=== PATIENT | female | born 1945 | race Caucasian/White ===

== ENCOUNTER → 2016-02-20 | Outpatient (CLI) | payer OTHER ==
[~2016-02-20] MED LIST: ASPI-232 PO; ATOR80TA PO; CARV6.252 PO; CHOL100010 PO; DIGO0.122 PO; FLUO20CA35 PO; FRS/40 PO; LEVO112T2 PO; LISI-729 PO; LORA-741 PO; MULTTAB58 PO; OMEG10007 PO; POTA10CA28 PO; SPIR25TA PO
== END | disposition home or self-care (01) ==
LOC: C.LABSPEC 15:02
PROVIDERS: ATTEND Dermatology
DX: L98.9 Disorder of the skin and subcutaneous tissue, unspecified (principal)

== ENCOUNTER → 2016-08-26 | Outpatient (CLI) | payer OTHER ==
--- NOTE | 2016-08-26 15:38 | MAMMOGRAPHY REPORT ---
BILATERAL DIGITAL SCREENING MAMMOGRAM TOMOSYNTHESIS WITH CAD: 08/26/2016 CLINICAL HISTORY: Asymptomatic. Personal history of breast cancer. TECHNIQUE: Breast tomosynthesis in addition to standard 2D mammography was performed. Current study was also evaluated with a Computer Aided Detection (CAD) system. COMPARISON: Comparison is made to exams dated: 08/22/2014 mammogram, 10/10/2012 mammogram, 04/18/2012 alen mogram, 10/14/2011 mammogram, 10/08/2011 mammogram, and 10/02/2010 mammogram - [facility]. BREAST COMPOSITION: There are scattered areas of fibroglandular density in both breasts. FINDINGS: No suspicious masses, calcifications, or areas of architectural distortion are noted in ei ther breast. There has been no significant interval change compared to prior exams. There are stable postsurgical changes in the right medial breast from prior lumpectomy; a linear scar marker denotes a scar on the right anterior breast. Bilateral benign-appearing calcifications are not significantly changed. A metallic device, likely a pacemaker or ICD, overlies the left pectoralis muscle. IMPRESSION: ACR BI-RADS CATEGORY 2: BENIGN There is no mammographic evidence of malignancy. A 1 year screening mammogram is recommended. The pa tient will receive written notification of the results. Approximately 10% of breast cancers are not detected with mammography. A negative mammographic report should not delay biopsy if a clinically suggestive mass is present. Hilda Rowland M.D. /:08/26/2016 14:00:19 Workers Compensation Analyst: Radha SHERIDAN(Magdalena)(Ranjeet), [facility] letter sent: Normal 1/2 BI-RADS Code: ACR BI-RADS Category 2: Benign
== END | disposition home or self-care (01) ==
LOC: C.MAMM 12:52
PROVIDERS: ATTEND Obstetrics & Gynecology
DX: Z12.31 Encounter for screening mammogram for malignant neoplasm of breast (principal); Z85.3 Personal history of malignant neoplasm of breast

== ENCOUNTER 2016-09-09 11:54 | Observation (INO) | payer OTHER ==
[2016-09-09] VITALS (9 sets, daily range): BP systolic 100–140; BP diastolic 60–74; PULSE 57–73; TEMP 36.3–36.7; O2SAT 93–97; Ht 154.9 cm; Wt 65.9 kg
[~2016-09-09] VITALS: Ht 154.9 cm; Wt 65.9 kg
[2016-09-09 12:43] LABS: MEAN CELL VOLUME 90.9 fL (80-100); MEAN CORPUSCULAR HEMOGLOBIN 30.5 pg (25-34); MEAN PLATELET VOLUME 9.8 fL (7.4-10.4); PLATELET COUNT 209 K/uL (130-400); RED BLOOD COUNT 4.29 M/uL (4.2-5.4); WHITE BLOOD COUNT 5.13 K/uL (4.8-10.8)
[2016-09-09] MEDS ORDERED: CEFAZOLIN IV 2,000 MG/60 ML D5W IV ONE (12:48)
[2016-09-09 12:50] LABS: MEAN CORPUSCULAR HGB CONC 33.6 g/dl (32-36)
[2016-09-09] MEDS ORDERED: LIDOCAINE HCL 1% 20 ML VIAL ONE (12:50)
[2016-09-09] MEDS ORDERED: BACITRACIN 50000 UNIT VIAL ONE (12:50)
--- NOTE | 2016-09-09 13:01 | History and Physical ---
History & Physical Date Sep 09, 2016. Chief Complaint icd lead fracture on recalled lead History of Present Illness The patient is a 71 year old female with complaints of icd alarm beeping. pt was seen in my office last week and found on ICD interrogation that the recalled [place] lead has now failed. She is being recommend lead replacement Past Medical/Surgical History Medical Problems: (1) CAD (coronary artery disease) Additional History Hepatic Disease: No Endocrine Disorder: No Kidney Disease: No Hypertension: Yes Heart Disease: Yes Bleeding Tendencies: No Infectious Diseases: No Allergies Coded Allergies: No Known Allergies (Verified , 09/09/16) Home Medications Scheduled Aspirin (Aspir-81), 1 TAB PO DAILY Atorvastatin Calcium (Lipitor), 80 MG PO DAILY Carvedilol (Coreg), 1 TAB PO BID Cholecalciferol (Vitamin D), 1,000 INTER.UNIT PO DAILY Digoxin (Lanoxin), 0.125 MG PO DAILY Fish Oil ([place]-3), 1 CAP PO DAILY Fluoxetine (Prozac), 20 MG PO DAILY Furosemide (Lasix), 40 MG PO DAILY Levothyroxine Sodium (Synthroid), 1 TAB PO DAILY Lisinopril (Zestril), 2.5 MG PO DAILY Lorazepam (Ativan), 0.5 MG PO HS PRN Multiple Vitamin (Multivitamin), 1 TAB PO DAILY Potassium Chloride (Micro-K Ext Rel), 10 MEQ PO BID Spironolactone (Aldactone), 25 MG PO DAILY Physical Examination Skin: warm/dry Eyes: normal inspection ENT: normal ENT inspection Neck: supple Respiratory/Chest: lungs clear, normal breath sounds Cardiovascular: regular rate, rhythm, no edema, no murmur Abdomen / GI: normal bowel sounds Back: normal inspection Extremities: normal inspection Neurologic/Psych: alert, oriented x 3 Diagnosis 1. ICD lead malfunction due to recalled [place] lead 2. VVI ICD with gent change in 04/2015;original in 2005 3. CAD h/o PCI 4. ICM 5. HLD 6. Hypothyroidism ASA Classification: ASA Class II Plan of Treatment for lead revision with new ICD lead and capping prior lead
--- NOTE | 2016-09-09 13:03 | Procedure Note ---
Pre-Mod Sedation Assessment General Date of Moderate Sedation: Sep 09, 2016. Vital Signs: Vital Signs Past 12 Hours Date Time Temp Pulse Resp B/P (MAP) Pulse Ox O2 Delivery O2 Flow Rate FiO2 09/09/16 12:21 36.7 73 18 140/60 (86) 97 Room Air Review Cardiovascular: regular rate, rhythm Abdomen: soft Lungs: lungs clear Airway Class: II Pre-Sedation Airway Assessment Oral Cavity: Capped Teeth Short Thick Neck: No Hx of Sleep Apnea: No Smoking Status: Never Smoker Mallampati Classification: Class II ASA Classification: Class II Procedure Planning Contraindications-for Mod Sed: None Yes Notes The planned sedation has been discussed with the patient and consent obtained. I have identified the patient, determined the appropriateness of sedation and have assessed the patient immediately prior to the procedure. All medicine(s) and interventions are by my order.
[2016-09-09 13:06] LABS: BUN/CREATININE RATIO 30.8 (10-20); CALCIUM 9.4 mg/dl (8.5-10.1); CREATININE 0.77 mg/dl (0.60-1.20)
[2016-09-09] MEDS ORDERED: FENTANYL CITRATE INJ 50 MCG/1 ML 2 ML VIAL ONE (13:16)
[2016-09-09] MEDS ORDERED: MIDAZOLAM HCL 5 MG/ML 1 ML VIAL ONE (13:16)
[2016-09-09] MEDS ORDERED: MIDAZOLAM HCL 1 MG/ML 2ML VIAL ONE (14:09)
--- NOTE | 2016-09-09 14:36 | Procedure Note ---
Post-Mod Sedation Assessment General Date of Moderate Sedation Sep 09, 2016. Vital Signs: Vital Signs Past 12 Hours Date Time Temp Pulse Resp B/P (MAP) Pulse Ox O2 Delivery O2 Flow Rate FiO2 09/09/16 14:30 63 16 123/61 (81) 100 Room Air 09/09/16 12:21 36.7 73 18 140/60 (86) 97 Room Air Review - Discharge Criteria Vital Signs Stable: Yes Alert/Oriented/Conversant: Yes Returned to Baseline Mental St: Yes Nausea Absent/Minimal: Yes Pain/Discomfort/Absent/Minimal: Yes Normal/Baseline Respirations: Yes Active Bleeding?: No Pt Received D/C Instructions: N/A Prescriptions Given: None Specific Proced. D/C Criteria Distal Pulses Present (Cardiac: N/A Groin site assessed-Card Cath: N/A Voided Prior To Discharge: N/A Discharged Patients Adult Escort/Transportation: N/A
--- NOTE | 2016-09-09 14:38 | [facility] Post Operative Brief Note ---
Immediate Operative Summary Operative Date Sep 09, 2016. Pre-Operative Diagnosis ICD LEAD FAILURE ON RECALLED LEAD Post-Operative Diagnosis SAME Procedure(s) Performed NEW INSERTION OF ICD LEAD Surgeon QUINTIN CABA Serging Machine Operator Surgeon(s) NONE Estimated Blood Loss <5CC Findings NONE Fluids (cc crystalloids) 200CC Specimens NONE Drains NONE Anesthesia 4MG VERSED AND 100MCG FENTANYL Complication(s) None Disposition PCU
--- NOTE | 2016-09-09 14:40 | Discharge Instructions ---
Discharge Instructions Date of Service Sep 09, 2016. Admission Reason for Admission: Kkz-Rg-Hvirtoz Life Discharge Discharge Diagnosis / Problem: ICD LEAD FAILURE Discharge Goals Goal(s): Improve function Activity Recommendations Activity Limitations: as noted below Lifting Limitations: no more than 10 pounds (DO NOT LIFT THE LEFT ELBOW OVER THE LEFT SHOULDER FOR 1 MONTH; DO NOT LIFT MORE THAN 10 POUNDS WITH THE LEFT ARM FOR 2 WEEKS) Exercise/Sports Limitations: as tolerated May Resume Sexual Activity: after one week Shower/Bathe: tomorrow Driving or Machine Use: resume 1 day after discharge . Instructions / Follow-Up Instructions / Follow-Up ACTIVITY RECOMMENDATIONS: * Do not raise affected arm over head for 4 weeks. SPECIAL CARE INSTRUCTIONS: * If bleeding occurs, apply direct pressure to area for 5 minutes. * Call your doctor if you have severe pain, fever, drainage or bleeding at site. * Keep dry for 24 hours then remove. * Keep any scheduled doctor's appointment. * Implant Card - hand held device with website information given. SKIN IRRITATION: * You may experience some redness and/or swelling in the area where radiation was administered. If any skin irritation occurs, please contact your family physician. FOLLOW UP VISIT: Keep any scheduled doctor appointments. Current Hospital Diet Patient's current hospital diet: AHA Diet (Heart Healthy), Low Sodium Diet (2gm Na) Discharge Diet Recommended Diet: AHA Diet (Heart Healthy), Low Sodium Diet (2gm Na) Procedures Procedures Performed: NEW INSERTION OF ICD LEAD Pending Studies Studies pending at discharge: no Medical Emergencies . Who to Call and When: Medical Emergencies: If at any time you feel your situation is an emergency, please call 911 immediately. . Non-Emergent Contact Non-Emergency issues call your: Lung Gun Operator . . "Provider Documentation" section prepared by Shanelle Dinh. . VTE Core Measure Inpt VTE Proph given/why not?: Treatment not indicated
--- NOTE | 2016-09-09 14:44 | Discharge Summary ---
Discharge Summary Date of Service Sep 09, 2016. Discharge Summary Admission Date: Discharge Date: Sep 10, 2016 Discharge Disposition: Home Principal Diagnosis: 1. ICD LEAD FAILURE SECONDARY TO RECALL LORI LEAD Secondary Diagnoses/Problems: ICM CAD H/O PCI HLD HYPOTHYROIDISM Procedures: NEW ICD LEAD INSERTION Medication Reconciliation Continued Medications: Aspirin (Aspir-81) 81 Mg Tab 1 TAB PO DAILY for 90 Days, #90 TAB 3 Refills Atorvastatin Calcium (Lipitor) 80 Mg Tab 80 MG PO DAILY, TAB Carvedilol (Coreg) 6.25 Mg Tab 1 TAB PO BID for 90 Days, #180 TAB 1 Refill Cholecalciferol (Vitamin D) 1,000 Inter.unit Tab 1000 INTER.UNIT PO DAILY, TAB Digoxin (Lanoxin) 0.125 Mg Tab 0.125 MG PO DAILY, 0 Refills Fish Oil ([place]-3) 1 Ea Cap 1 CAP PO DAILY, CAP Fluoxetine (Prozac) 20 Mg Cap 20 MG PO DAILY, 0 Refills Furosemide (Lasix) 40 Mg Tab 40 MG PO DAILY, TAB Levothyroxine Sodium (Synthroid) 112 Mcg Tab 1 TAB PO DAILY for 30 Days, #30 TAB 5 Refills Lisinopril (Zestril) 5 Mg Tab 2.5 MG PO DAILY, TAB Lorazepam (Ativan) 0.5 Mg Tab 0.5 MG PO HS PRN, TAB Multiple Vitamin (Multivitamin) 1 Tab Tab 1 TAB PO DAILY for 90 Days, #90 TAB 3 Refills Potassium Chloride (Micro-K Ext Rel) 10 Meq Capcr 10 MEQ PO BID, CAP Spironolactone (Aldactone) 25 Mg Tab 25 MG PO DAILY, TAB Admission Information Physical Exam (per Admitting): aaox3, nad supple, no jvd nrl s1/s2, no murmur cta w/r/r soft nt/nd no edema b/l le no focal deficits Hospital Course pt admitted for elective new ICD lead insertion due to current ICD lead failing with known recalled ICD lead. Pt underwent procedure without any complications and monitored overnight. Discharged home in stable condition Total time spent on discharge = This includes examination of the patient, discharge planning, medication reconciliation, and communication with other providers. Discharge Instructions ACTIVITY RECOMMENDATIONS: * Do not raise affected arm over head for 4 weeks. SPECIAL CARE INSTRUCTIONS: * If bleeding occurs, apply direct pressure to area for 5 minutes. * Call your doctor if you have severe pain, fever, drainage or bleeding at site. * Keep dry for 24 hours. * Keep any scheduled doctor's appointment. * Implant Card - hand held device with website information given. SKIN IRRITATION: * You may experience some redness and/or swelling in the area where radiation was administered. If any skin irritation occurs, please contact your family physician. FOLLOW UP VISIT: Keep any scheduled doctor appointments.
[2016-09-09] MEDS ORDERED: OXYCODONE/ACETAMINOPHEN 5-325 TAB PO PRN (14:45)
[2016-09-09] MEDS ORDERED: LORAZEPAM 0.5 MG TAB PO PRN (14:45)
[2016-09-09] MEDS ORDERED: IV FLUIDS COMPLETED PRN (15:30)
[2016-09-09] MEDS: CARVEDILOL 6.25 MG TAB PO SCH (20:55)
[2016-09-09] MEDS: POTASSIUM CHLORIDE 10 MEQ TABCR PO SCH (20:55)
[2016-09-09] MEDS: ACETAMINOPHEN 325 MG TAB PO PRN (20:57)
[2016-09-10] VITALS: BP 105/65; PULSE 67; TEMP 36.5; O2SAT 95
[2016-09-10 04:00] VITALS: O2SAT 94
[2016-09-10 04:17] VITALS: BP 106/69; PULSE 68; TEMP 36.4; O2SAT 94
[2016-09-10] MEDS ORDERED: LEVOTHYROXINE 112 MCG TAB PO SCH (06:00)
--- NOTE | 2016-09-10 06:22 | DIAGNOSTIC IMAGING REPORT ---
CHEST 2 VIEWS ROUTINE CLINICAL HISTORY: EXACT TIME ORDERED Evaluate for pneumothorax and lead placement COMPARISON STUDY: 01/06/2012 FINDINGS: Revision of the patient's permanent bipolar cardiac pacemaker/defibrillator. 2 lesions are present. Position. No evidence pneumothorax. IMPRESSION: Revision of the patient's previous pacemaker with leads in good position. The above report was generated using voice recognition software. It may contain grammatical, syntax or spelling errors. Electronically signed by: Blane Corley M.D. 09/10/2016 6:20 AM Dictated Date/Time: 09/10/2016 6:19 AM
[2016-09-10 07:41] VITALS: BP 109/63; PULSE 59; TEMP 36.6; O2SAT 95
[2016-09-10] MEDS: ACETAMINOPHEN 325 MG TAB PO PRN (07:59)
[2016-09-10] MEDS: POTASSIUM CHLORIDE 10 MEQ TABCR PO SCH (08:03)
[2016-09-10] MEDS: CARVEDILOL 6.25 MG TAB PO SCH (08:04)
--- NOTE | 2016-09-10 08:24 | Cardiology Follow-Up ---
Subjective Subjective Date of Service: Sep 10, 2016. Pt evaluation today including: conversation w/ patient, physical exam, lab review Pain: minimal controlled with tylenol Problem List Medical Problems: (1) Fall Status: Acute (2) Head injury Status: Acute (3) Scalp laceration Status: Acute Review of Systems Constitutional: No fever Respiratory: No shortness of breath, No dyspnea on exertion Cardiac: No chest pain, No edema, No palpitations Abdomen: No nausea, No diarrhea Objective Vital Signs Last Vital Signs Documentation Date Time Temp Pulse Resp B/P (MAP) Pulse Ox O2 Delivery O2 Flow Rate FiO2 09/10/16 07:41 36.6 59 18 109/63 (78) 95 Room Air Physical Exam: General Appearance: WD/WN, no apparent distress Eyes: bilateral eyes PERRL, bilateral eyes EOMI Neck: supple, no JVD Respiratory/Chest: lungs clear, normal breath sounds Cardiovascular: regular rate, rhythm, no murmur Abdomen: normal bowel sounds Extremities: no pedal edema Neurologic/Psychiatric: alert, oriented x 3 Skin: warm/dry, no rash (minimal ecchymosis at incision site, no hematoma, incision intact) Assessment and Plan 1. RV ICD lead failure, due to recalled lead [place] lead, s/p new lead insertion 2. ICM 3. h.o vvi icd in 2008 with gent change in 2015 4. hld 5. cad h/o pci 6. hypothyroidism plan: -ok to discharge home today -do not lift the left elbow over the left shoulder for 1 month -can shower tomorrow -continue home medications -device and wound check in 7-10 days Discharge planning: home Medications: Medications Administered Medications (Trade) Dose Ordered Sig/Jose Miguel Route Start Time Stop Time Status Last Admin Dose Admin Cefazolin Sodium (Ancef 2000mg/60 ml D5W) 2,000 mg STK-MED ONCE IV 09/09/16 12:48 09/09/16 12:49 DC 09/09/16 13:12 2,000 MG Lidocaine HCl (Xylocaine 1% Inj (Local)) 40 ml STK-MED ONCE .ROUTE 09/09/16 12:50 09/09/16 12:51 DC 09/09/16 12:50 40 ML Bacitracin (Bacitracin Inj) 50,000 units STK-MED ONCE .ROUTE 09/09/16 12:50 09/09/16 12:51 DC 09/09/16 12:50 50,000 UNITS Midazolam HCl (Versed Inj) 5 mg STK-MED ONCE .ROUTE 09/09/16 13:16 09/09/16 13:17 DC 09/09/16 13:16 4 MG Fentanyl Citrate (Fentanyl Inj) 100 mcg STK-MED ONCE .ROUTE 09/09/16 13:16 09/09/16 13:17 DC 09/09/16 13:16 100 MCG Acetaminophen (Tylenol Tab) 650 mg Q4H PRN PO 09/09/16 14:45 10/09/16 14:44 09/10/16 07:59 650 MG Aspirin (Ecotrin Tab) 81 mg DAILY PO 09/10/16 09:00 10/10/16 08:59 09/10/16 08:03 81 MG Atorvastatin Calcium (Lipitor Tab) 80 mg DAILY PO 09/10/16 09:00 10/10/16 08:59 09/10/16 08:00 80 MG Carvedilol (Coreg Tab) 6.25 mg BID PO 09/09/16 21:00 10/09/16 20:59 09/10/16 08:04 6.25 MG Cholecalciferol (Vitamin D Tab) 1,000 inter.unit DAILY PO 09/10/16 09:00 10/10/16 08:59 09/10/16 08:00 1,000 INTER.UNIT Fluoxetine HCl (Prozac Cap) 20 mg DAILY PO 09/10/16 09:00 10/10/16 08:59 09/10/16 08:01 20 MG Furosemide (Lasix Tab) 40 mg DAILY PO 09/10/16 09:00 10/10/16 08:59 09/10/16 08:02 40 MG Levothyroxine Sodium (Synthroid Tab) 112 mcg DAILYBB PO 09/10/16 06:00 10/10/16 05:59 09/10/16 05:14 112 MCG Lisinopril (Zestril Tab) 2.5 mg DAILY PO 09/10/16 09:00 10/10/16 08:59 09/10/16 08:00 2.5 MG Multivitamins (Multivitamin Tab) 1 tab DAILY PO 09/10/16 09:00 10/10/16 08:59 09/10/16 08:00 1 TAB Potassium Chloride (Klor-Con M10) 10 meq BID PO 09/09/16 21:00 10/09/16 20:59 09/10/16 08:03 10 MEQ Spironolactone (Aldactone Tab) 25 mg DAILY PO 09/10/16 09:00 10/10/16 08:59 09/10/16 08:01 25 MG Lab Results: ecg: SR Telemetry: SR with some pvc and bigeminy cxr: no ptx new rv lead in position icd interrogation; stable and wnl lead testing Last 24 Hours Test 09/09/16 12:34 White Blood Count 5.13 K/uL Red Blood Count 4.29 M/uL Hemoglobin 13.1 g/dL Hematocrit 39.0 % Mean Corpuscular Volume 90.9 fL Mean Corpuscular Hemoglobin 30.5 pg Mean Corpuscular Hemoglobin Concent 33.6 g/dl RDW Standard Deviation 42.2 fL RDW Coefficient of Variation 12.8 % Platelet Count 209 K/uL Mean Platelet Volume 9.8 fL Sodium Level 139 mmol/L Potassium Level 4.0 mmol/L Chloride Level 107 mmol/L Carbon Dioxide Level 27 mmol/L Anion Gap 5.0 mmol/L Blood Urea Nitrogen 24 mg/dl Creatinine 0.77 mg/dl Est Creatinine Clear Calc Drug Dose 57.2 ml/min Estimated GFR () 88.8 Estimated GFR (Non- 76.6 BUN/Creatinine Ratio 30.8 Random Glucose 112 mg/dl Calcium Level 9.4 mg/dl
[2016-09-10] MEDS ORDERED: FUROSEMIDE 40 MG TAB PO SCH (09:00)
[2016-09-10] MEDS ORDERED: SPIRONOLACTONE 25 MG TAB PO SCH (09:00)
[2016-09-10] MEDS ORDERED: MULTIVITAMIN TAB PO SCH (09:00)
[2016-09-10] MEDS ORDERED: CHOLECALCIFEROL 1000 INTER.UNIT TAB PO SCH (09:00)
[2016-09-10] MEDS ORDERED: LISINOPRIL 2.5 MG TAB PO SCH (09:00)
[2016-09-10] MEDS ORDERED: ASPIRIN 81 MG ECTAB PO SCH (09:00)
[2016-09-10] MEDS ORDERED: ATORVASTATIN 40 MG TAB PO SCH (09:00)
[2016-09-10] MEDS ORDERED: FLUOXETINE HCL 20 MG CAP PO SCH (09:00)
[2016-09-10 09:57] VITALS: BP 109/63; PULSE 59; TEMP 36.6; O2SAT 95
[2016-09-10] MEDS ORDERED: DIGOXIN 0.125 MG TAB PO SCH (16:00)
[2016-09-11] MEDS ORDERED: LACTATED RINGER'S 1000ML IV SCH (06:00)
[2016-09-11] MEDS ORDERED: CEFAZOLIN 1000MG/55 ML D5W 55 ML IV SCH (06:00)
--- NOTE | 2016-09-11 07:09 | OPERATIVE REPORT ---
DATE OF OPERATION: 09/09/2016 PREOPERATIVE DIAGNOSIS: Defibrillator lead failure on a recalled [place] lead. POSTOPERATIVE DIAGNOSIS: Same. PROCEDURE: New ICD lead and right ventricular ICD lead insertion under fluoroscopic guidance. SURGEON: Dr. Shanelle Dinh. KST OPERATOR: None. ANESTHESIA: Monitored conscious sedation given under my supervision by Kaushik Parker. Start time 1326, end time 1430. A total of 4 mg of Versed, 100 mcg of fentanyl. INTRAVENOUS FLUIDS: 200 mL. ANTIBIOTICS: Two grams. ESTIMATED BLOOD LOSS: Less than 10 mL. COMPLICATIONS: None. CONDITION: Stable. URINE OUTPUT: Not applicable. SPECIMENS: None. FINDINGS: None. DRAINS: None. INDICATIONS: This is a 71-year-old female, who has a past medical history for ischemic cardiomyopathy, where she underwent a single-chamber ICD back in 2008 and a generator change in April 2015. She also has past medical history of hypertension, hypothyroidism, and coronary disease, where she had PPI the past. She has a known recalled [place] lead that was doing fine at the time of the generator change; so, had opted not to change it out or insert a new lead. But then, last week, she came to our office, but because of an alarm buzzing and was found to have that lead was failing and fractured with high impedance and a lot of noise. So, she was recommended a new lead insertion with capping of the old lead. CONSENT: Consent was obtained prior to the patient going into the electrophysiology lab. The patient was informed of the risks, benefits and alternatives to the procedure. Risks include, but not limited to, sudden cardiac , cardiac arrhythmias, cerebrovascular accident, myocardial infarction, injuries to the blood vessels, chamber of the heart, lungs, bleeding or infection. The patient understood these risks and agreed to the procedure as planned. Informed consent was obtained. DESCRIPTION OF THE PROCEDURE: The patient was brought into the electrophysiology lab in a fasting state. She was connected to continuous cardiac monitoring. A timeout was performed to ensure patient's identity and procedure correctly. The patient was prepped and draped over the left infraclavicular space in normal surgical standard fashion. Moderate conscious sedation was given throughout the procedure for patient's comfort level. [place] precautions were maintained throughout the procedure. 10 mL of 1% lidocaine, bupivacaine mixture was given in the left deltopectoral groove. Incision was made in the left deltopectoral groove. Blunt dissection was performed down to identify cephalic vein. The cephalic vein was identified and isolated using 0 silk ties. The cephalic vein was isolated using an 11 blade and a guidewire was inserted without any resistance. Then a 9.5 [place] sheath was inserted over the guidewire without any resistance. The guidewire and dilator were removed. . The right ventricular defibrillator lead was then advanced into the right ventricle and positioned a little bit higher up on the low right ventricular septum, away from the current defibrillator lead. There was adequate pacing and sensing thresholds and no diaphragmatic stimulation with high output pacing. The 9.5 [place] sheath was peeled away and the lead was fixated to the pectoralis muscle using 0 silk suture. The capsule was disrupted inferiorly and caudally to allow for new blood flow. The old right ventricular defibrillator lead was capped. The new defibrillator lead was attached to the prior defibrillator generator and we then ensured that the pins were in appropriate position, passed the set screws and the set screws were tightened. An antibiotic pouch was used and the defibrillator generator and the leads were placed inside the pouch, making sure that the leads were lying flat beneath the device. The pocket was flushed with copious amounts of bacitracin saline wash and inspected for hemostasis and then the device was placed in the pocket. The incision was closed in a 3-layer fashion using a 2-0 Vicryl interrupted suture followed by a 3-0 Vicryl interrupted suture followed by a 4-0 Monocryl running stitch and Dermabond was applied. EQUIPMENTS: 1. The chronic generator is an [place], serial number [id number], implanted 04/24/2015. 2. The new right ventricular lead is a Medtronic 6935-65 cm, serial number [id number]. 3. The TYRX absorbable antibiotic envelope, lot #[id number]. 4. The old right ventricular lead is 6949-65, lot number [id number], implanted 10/22/2005. INTRAOPERATIVE TESTING: R-wave is 15.7 millivolts, impedance 741 ohms, threshold 0.4 volts at 0.2 milliamps. FINAL MEASUREMENTS THROUGH THE DEVICE: R-wave is 18.9 millivolts, impedance 532 ohms, threshold 0.5 volts at 0.4 milliseconds. FINAL PARAMETERS: VVI 40, right ventricular amplitude 3.5 volts, pulse width 0.4 milliseconds, sensitivity 0.3 millivolts, VF zone is 200 with 30/40 intervals. FINAL IMPRESSIONS: Successful new insertion of a right ventricular defibrillator lead, secondary to failure of a prior defibrillator lead due to recalled [place] lead fracture. PLAN: Monitor patient overnight, 12-lead ECG, chest x-ray. She is not allowed to lift the left elbow over the left shoulder for 1 month. She cannot lift more than 10 pounds with the left arm for 2 weeks. She should follow up in our [facility] office in 7-10 days for device and wound check. She should continue her home medications. I attest to the content of the Intraoperative Record and any orders documented therein. Any exceptions are noted below. BRIANNA
== END 2016-09-10 12:26 | disposition home or self-care (01) ==
LOC: C.ACU 11:54 → ENRESERV 14:12 → C.2T 14:35
PROVIDERS: ADMIT Internal Medicine; ATTEND Internal Medicine
DX: T82.598A Other mechanical complication of other cardiac and vascular devices and implants, initial encounter (principal); Y83.1 Surgical operation with implant of artificial internal device as the cause of abnormal reaction of the patient, or of later complication, without mention of misadventure at the time of the procedure; I25.5 Ischemic cardiomyopathy; I25.10 Atherosclerotic heart disease of native coronary artery without angina pectoris; Z98.61 Coronary angioplasty status; E03.9 Hypothyroidism, unspecified; E78.5 Hyperlipidemia, unspecified; Z79.82 Long term (current) use of aspirin

== ENCOUNTER → 2016-10-30 | Outpatient (CLI) | payer OTHER ==
[2016-10-30 13:16] LABS: CHOLESTEROL/HDL RATIO 2.8; THYROID STIMULATING HORMONE 0.301 uIu/ml (0.300-4.500)
== END | disposition home or self-care (01) ==
LOC: C.LABPVFM 09:22
PROVIDERS: ATTEND Family Medicine
DX: E78.2 Mixed hyperlipidemia (principal); E03.9 Hypothyroidism, unspecified

== ENCOUNTER → 2017-01-11 | Outpatient (CLI) | payer OTHER ==
--- NOTE | 2017-01-11 10:53 | DIAGNOSTIC IMAGING REPORT ---
L-SPINE MIN 4 VIEWS ROUTINE HISTORY: Pain M79.606 Chronic pain of lower [id number] COMPARISON: None. FINDINGS: There is no fracture. Mild scoliosis. Mild degenerative disc changes throughout. Grade 1 anterolisthesis of L4 and L5 secondary to degenerative changes of the posterior elements. No evidence for compression deformity. IMPRESSION: 1. Grade 1 anterolisthesis of L4 on L5 secondary to degenerative change posterior facets. 2. Mild scoliosis. 3. No acute process. The above report was generated using voice recognition software. It may contain grammatical, syntax or spelling errors. Electronically signed by: Blane Corley M.D. 01/11/2017 10:51 AM Dictated Date/Time: 01/11/2017 10:50 AM
[2017-01-12 17:56] LABS: ALBUMIN 4.3 G/DL (3.8-4.8); GAMMA GLOBULIN 0.9 G/DL (0.8-1.7); TOTAL PROTEIN 6.8 G/DL (6.2-8.3)
== END | disposition home or self-care (01) ==
LOC: C.LAB 09:23
PROVIDERS: ATTEND Family Medicine
DX: M79.606 Pain in leg, unspecified (principal); M43.16 Spondylolisthesis, lumbar region

== ENCOUNTER → 2017-10-04 | Outpatient (CLI) | payer OTHER ==
--- NOTE | 2017-10-04 12:33 | DIAGNOSTIC IMAGING REPORT ---
PA CHEST WITH LEFT-SIDED RIB SERIES CLINICAL HISTORY: Fall several weeks ago. Left-sided rib pain. FINDINGS: A PA chest radiograph with 4 additional views may left-sided rib series is compared to study dated 09/10/2016. A 2-lead cardiac AICD is unchanged in position and partially obscures the left lower chest. The heart is enlarged and there is atherosclerotic calcification of the thoracic aorta. The pulmonary vasculature is noncongested. Coronary artery stents are noted. Chronic interstitial thickening is similar to previous. No airspace consolidation or pleural effusion is identified. No pneumothorax is seen. The skeletal structures are osteopenic. There is an acute and minimal distracted left anterior ninth rib fracture. No additional left-sided rib fracture is clearly seen on the rib series. The remainder of the bony thorax is grossly intact. IMPRESSION: 1. Cardiomegaly and AICD. There is no radiographic evidence of congestive failure. 2. There is no airspace consolidation, pleural effusion, or pneumothorax. 3. There is an acute and minimally distracted left anterior 9th rib fracture. 4. No additional acute/distracted left-sided rib fracture is seen on the rib series. Electronically signed by: Saad Isaacs M.D. 10/04/2017 12:32 PM Dictated Date/Time: 10/04/2017 12:30 PM
== END | disposition home or self-care (01) ==
LOC: C.RAD1850 11:14
PROVIDERS: ATTEND Nurse Practitioner Adult Health
DX: R07.81 Pleurodynia (principal); W19.XXXA Unspecified fall, initial encounter

== ENCOUNTER 2021-04-01 19:12 | Inpatient (IN) ==
[2021-04-01] MEDS ORDERED: MoRPHine SULFATE 2 MG/ML CARP IV PRN (19:50)
--- NOTE | 2021-04-01 20:03 | XRay Report ---
XR hip RT 2V w pelvis CLINICAL HISTORY: fall. Right hip pain COMPARISON STUDY: 02/26/2018 TECHNIQUE: AP pelvis and 2 right hip views FINDINGS: Bones: There is a displaced, subcapital fracture right femoral neck. The femoral shaft is superiorly migrated relation to the femoral neck. The remaining imaged bones are intact. There is no lytic or bl astic lesion. Joints: The femoral head maintains its anatomic position within the acetabulum. There is coxa varus d eformity. Soft tissues: There is no focal soft tissue abnormality. There is no radiopaque foreign body. IMPRESSION: 1. Displaced, subcapital fracture of the right femoral neck. ACT 112: Negative or not required by law. Electronically signed by: Mati Saunders M.D. 04/01/2021 8:02 PM
[2021-04-01 20:34] LABS: Basophils # (auto) 0.02 K/uL (0-0.2); Basophils % (auto) 0.2 %; Eosinophils # (auto) 0.22 K/uL (0-0.5); Eosinophils % (auto) 1.7 %; Immature Granulocytes # (auto) 0.02 K/uL (0.00-0.02); Immature Granulocytes % (auto) 0.2 %; Lymphocytes # (auto) 0.99 K/uL (1.2-3.4); Lymphocytes % (auto) 7.5 %; Mean Corpuscular Hemoglobin 30.8 pg (25-34); Mean Corpuscular Hgb Conc 33.3 g/dL (32-36); Mean Corpuscular Volume 92.4 fL (80-100); Mean Platelet Volume 11.4 fL (7.4-10.4); Monocytes # (auto) 0.97 K/uL (0.11-0.59); Monocytes % (auto) 7.4 %; Neutrophils # (auto) 10.91 K/uL (1.4-6.5); Platelet Count 200 K/uL (130-400); RDW Coefficient of Variation 13.5 % (11.5-14.5); Red Blood Count 4.22 M/uL (4.2-5.4); White Blood Count 13.13 K/uL (4.8-10.8)
--- NOTE | 2021-04-01 20:36 | XRay Report ---
XR chest 1V portable CLINICAL HISTORY: Preop for right hip fracture. Evaluate cardiopulmonary status COMPARISON STUDY: 10/04/2017 TECHNIQUE: 1 view of the chest FINDINGS: Single frontal view of the chest demonstrates the heart size to again be enlarged with dual lead ICD pacer in place. The lungs are clear of alveolar opacities. There is no evidence for pleural effusion. There is no evidence for vascular congestion. There is no acute osseous pathology. IMPRESSION: 1. No acute cardiopulmonary disease. 2. Cardiomegaly with pacer. ACT 112: Negative or not required by law. Electronically signed by: Mati Saunders M.D. 04/01/2021 8:34 PM
[2021-04-01 20:43] LABS: Appearance Urine Clear (Clear); Bacteria Urine Automated Negative (Negative); Bilirubin Urine Negative (Negative); Blood Urine Negative (Negative); Color Urine Yellow; Epithelial Cell Urine Auto 20-30 /lpf (0-5); Glucose Urine UA Negative (Negative); Ketones Urine Negative (Negative); Leukocyte Esterase Urine Negative (Negative); Nitrite Urine Negative (Negative); Protein Urine Trace (Negative); RBC Urine Automated 0-4 /hpf (0-4); Specific Gravity Urine 1.015 (1.000-1.030); Urobilinogen Urine Negative (Negative)
[2021-04-01 20:48] LABS: INR 1.1 (0.9-1.1); Partial Thromboplastin Time 25.9 Seconds (21.0-31.0); Prothrombin Time 11.4 Seconds (9.0-12.0)
[2021-04-01 20:57] LABS: Alanine Aminotransferase 16 U/L (7-52); Albumin Globulin Ratio 1.5 (0.9-2); Albumin Level 4.3 gm/dl (3.4-5.0); Alkaline Phosphatase 68 U/L (34-104); Anion Gap 10 (3-11); Aspartate Aminotransferase 17 U/L (13-39); BUN Creatinine Ratio 30.4 (10-20); Bilirubin,Total 0.7 mg/dl (0.2-1.0); Blood Urea Nitrogen 34 mg/dl (6-23); Calcium 9.3 mg/dl (8.5-10.1); Carbon Dioxide 24 mmol/L (21-32); Chloride 101 mmol/L (98-107); Est GFR (African American) 54.9 ml/min; Est GFR (Non-African American) 47.3 ml/min; Globulin 2.8 gm/dl (2.5-4.0); Glucose 153 mg/dl (70-99(Fasting)); Potassium 4.2 mmol/L (3.5-5.1); Sodium 135 mmol/L (136-145); Total Protein 7.1 gm/dl (6.0-8.3)
[2021-04-01] MEDS: MoRPHine SULFATE 4 MG/ML 1 ML CARP\\VIAL IV PRN ×2 (21:21→22:42)
--- NOTE | 2021-04-01 23:02 | History & Physical Report ---
Date of Service April 01, 2021 Assessment & Plan (1) Closed right hip fracture: Plan: N.p.o. after midnight except essential medications Acetaminophen 6-milligrams p.o. every 6 hours as needed mild pain or fever [place] 5/325 1 p.o. every 6 hours as needed moderate pain [place] 5/325 2 p.o. every 6 hours as needed severe pain Dilaudid 0.25 mg IV every 3 hours as needed moderate pain Dilaudid 0.5 mg IV every 3 hours as needed severe pain Consult orthopedic surgery (2) CAD (coronary artery disease): Plan: CAD/hypertension/ischemic cardiomyopathy- Continue carvedilol, digoxin Hold aspirin, furosemide, lisinopril and spironolactone (3) Hypertension: Plan: See above (4) Ischemic cardiomyopathy: Plan: See above (5) Hypothyroid: Plan: Continue levothyroxine 88 mcg daily (6) Anxiety: Plan: Continue lorazepam and fluoxetine (7) Hypercholesteremia: Plan: Continue rosuvastatin Hold fish oil History of Present Illness Chief Complaint: The patient presents to the emergency department with complaint of right hip pain that occurred immediately upon falling down a step while carrying a bag of groceries about 2 hours prior to arrival. Primary Care Provider: Santana Woodard MD The patient is a 75-year-old female with a past medical history including CAD, hypertension, hypothyroidism, anxiety, ischemic cardiomyopathy and hypercholesterolemia. She presents to the emergency department as noted above. She denies any other injury to any other body areas including head. Work-up in the emergency department included a pelvis x-ray with bilateral hips, which showed a right hip fracture. Allergies Allergy/AdvReac Type Severity Reaction Status Date / Time No Known Allergies Allergy Verified 04/01/21 20:17 Home Medications Medication Instructions Recorded Confirmed Type aspirin 81 mg tablet,delayed 81 mg PO DAILY 04/20/18 04/01/21 History release (Ecotrin Low Strength) carvedilol 6.25 mg tablet 6.25 mg PO BID 04/20/18 04/01/21 History cholecalciferol (vitamin D3) 25 1,000 units PO DAILY 04/20/18 04/01/21 History mcg (1,000 unit) capsule omega 2-lgp-brf-fish oil 1,000 mg 1 cap PO BID 04/20/18 04/01/21 History (120 mg-180 mg) capsule (Fish Oil) digoxin 125 mcg (0.125 mg) tablet 125 mcg PO DAILY #90 tab 03/13/20 04/01/21 Rx rosuvastatin 40 mg tablet 40 mg PO DAILY 03/13/20 04/01/21 History lorazepam 0.5 mg tablet 0.5 mg PO HS PRN #30 tab 09/17/20 04/01/21 Rx fluoxetine 20 mg capsule 20 mg PO DAILY #90 cap 12/23/20 04/01/21 Rx spironolactone 25 mg tablet 25 mg PO DAILY #90 tab 12/23/20 04/01/21 Rx furosemide 40 mg tablet (Lasix) See Rx Instructions PO DAILY tab 01/08/21 04/01/21 History lisinopril 5 mg tablet 2.5 mg PO DAILY #45 tab 01/22/21 04/01/21 Rx levothyroxine 88 mcg capsule 88 mcg PO DAILY #90 cap 01/23/21 04/01/21 Rx multivitamin 1 tab PO DAILY 04/01/21 04/01/21 History Past Med/Surg History Medical History (Updated 04/02/21 @ 02:46 by Ian Younger MD) Anxiety High cholesterol Hx of myocardial infarction Hypertension Hypothyroid ICD (implantable cardioverter-defibrillator) lead failure Vertigo Surgical History H/O: History of implantable cardiac defibrillator (ICD) Family History Mother Lung cancer Father No problems noted. Social History Smoking Status: Never smoker Second Hand Exposure: No; Do You Dip or Chew Tobacco: No; Tobacco Cessation Education Requested by Patient: No Hx Alcohol Use: No Hx Substance Use: No Preferred Language: Nam[place]ian Communication Ability: Effective Visual Impairment: Limited Hearing Ability: Hard of Hearing Oil Processing Technician Required: No Beliefs That Will Affect Care: Anabaptist Anabaptist Beliefs: Sabianist Karena. 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 Other Information That Helps Us Care for You: No Feels Safe at Home: Yes Safety Concerns: Feels Safe At This Time Seatbelt Use: always Sunscreen Use: No Assistive Devices: Glasses and Walker Review of Systems Review of Systems: The patient denies chest pain, palpitations, shortness of breath, dyspnea on exertion, cough, lower extremity swelling, sore throat, fevers, chills, sweats, weight change, fatigue, nausea, vomiting, diarrhea , constipation, abdominal pain, pelvic pain, blood in urine or stool, dysuria, urinary frequency or urgency, lightheadedness, dizziness, headache, memory loss, loss of consciousness, rash, abnormal bruising or bleeding, focal or generalized weakness, numbness or tingling in arms or left leg, generalized arthralgias or myalgias, back or neck pain, or night sweats. The review of systems is otherwise negative other than for that already noted above, and at least 10 systems have been reviewed. Physical Exam Physical Exam: The patient is awake, alert and oriented 3, well developed and well nourished, normocephalic and atraumatic, lying in bed and in no acute distress. HEENT--PERRL, EOMI, mucous membranes and oropharynx normal. Neck--supple. No JVD. No bruits. Thyroid normal, trachea midline, no adenopathy. Heart--normal S1 and S2. No murmurs, rubs or gallops. Lungs--clear bilaterally, no respiratory distress, no accessory muscle use. Abdomen--normal bowel sounds and soft. Nontender. Nondistended, no hernias or masses, no organomegaly. Extremities--no cyanosis or clubbing. No edema. Dermatologic--normal skin turgor, normal color, no abnormal lymph nodes, no rash. Neurologic--cranial nerves II through XII grossly intact. Rheumatologic--limited exam due to right hip and leg pain Psychiatric--normal affect. Results & Data Results & Data ([facility]) Vital Signs (Past 12 Hours) Vital Signs Temp Pulse Pulse Resp BP BP Pulse Ox 04/01/21 22:49 84 16 112/69 93 04/01/21 20:18 87 16 128/71 94 04/01/21 19:20 36.6 C 89 16 141/84 H 94 Laboratory Results Laboratory Results WBC 13.13 K/uL (4.8-10.8) H 04/01/21 20:13 RBC 4.22 M/uL (4.2-5.4) 04/01/21 20:13 Hgb 13.0 g/dL (12.0-16.0) 04/01/21 20: Hct 39.0 % (37-47) 04/01/21 20:13 MCV 92.4 fL (80-100) 04/01/21 20: MCH 30.8 pg (25-34) 04/01/21 20: MCHC 33.3 g/dL (32-36) 04/01/21 20: RDW Std Deviation 46.0 fL (36.4-46.3) 04/01/21 20: RDW Coeff of Luis Antonio 13.5 % (11.5-14.5) 04/01/21: Plt Count 200 K/uL (130-400) 04/01/21 20: MPV 11.4 fL (7.4-10.4) H 04/01/21 20: Immature Gran % (Auto) 0.2 % 04/01/21 20: Neut % (Auto) 83.0 % 04/01/21 20: Lymph % (Auto) 7.5 % 04/01/21 20: [place] % (Auto) 7.4 % 04/01/21 20: Eos % (Auto) 1.7 % 04/01/21: Baso % (Auto) 0.2 % 04/01/21 20: Neut # (Auto) 10.91 K/uL (1.4-6.5) H 04/01/21 20: Lymph # (Auto) 0.99 K/uL (1.2-3.4) L 04/01/21 20: Barron # (Auto) 0.97 K/uL (0.11-0.59) H 04/01/21 20: Eos # (Auto) 0.22 K/uL (0-0.5) 04/01/21: Baso # (Auto) 0.02 K/uL (0-0.2) 04/01/21 20: Immature Gran # (Auto) 0.02 K/uL (0.00-0.02) 04/01/21: PT 11.4 Seconds (9.0-12.0) 04/01/21 20:13 INR 1.1 (0.9-1.1) 04/01/21 20:13 APTT 25.9 Seconds (21.0-31.0) 04/01/21 20:13 PTT Ratio 1.0 04/01/21 20:13 Sodium 135 mmol/L (136-145) L 04/01/21 20:13 Potassium 4.2 mmol/L (3.5-5.1) 04/01/21 20:13 Chloride 101 mmol/L (98-107) 04/01/21 20:13 Carbon Dioxide 24 mmol/L (21-32) 04/01/21 20:13 Anion Gap 10 (3-11) 04/01/21 20:13 BUN 34 mg/dl (6-23) H 04/01/21 20:13 Creatinine 1.12 mg/dl (0.6-1.2) 04/01/21 20:13 Est Cr Clr Drug Dosing Not Reportable 04/01/21 20:13 Est GFR ( Amer) 54.9 ml/min 04/01/21 20:13 Est GFR (Non-Af Amer) 47.3 ml/min 04/01/21 20:13 BUN/Creatinine Ratio 30.4 (10-20) H 04/01/21 20:13 Glucose 153 mg/dl (70-99(Fasting)) H 04/01/21 20:13 Calcium 9.3 mg/dl (8.5-10.1) 04/01/21 20:13 Total Bilirubin 0.7 mg/dl (0.2-1.0) 04/01/21 20:13 AST 17 U/L (13-39) 04/01/21 20:13 ALT 16 U/L (7-52) 04/01/21 20:13 Alkaline Phosphatase 68 U/L (34-104) 04/01/21 20:13 Total Protein 7.1 gm/dl (6.0-8.3) 04/01/21 20:13 Albumin 4.3 gm/dl (3.4-5.0) 04/01/21 20:13 Globulin 2.8 gm/dl (2.5-4.0) 04/01/21 20:13 Albumin/Globulin Ratio 1.5 (0.9-2) 04/01/21 20:13 Urine Color Yellow 04/01/21 20:14 Urine Appearance Clear (Clear) 04/01/21 20:14 Urine pH 6.0 (4.5-7.5) 04/01/21 20:14 Ur Specific [place] 1.015 (1.000-1.030) 04/01/21 20:14 Urine Protein Trace (Negative) H 04/01/21 20:14 Urine Glucose (UA) Negative (Negative) 04/01/21 20:14 Urine Ketones Negative (Negative) 04/01/21 20:14 Urine Blood Negative (Negative) 04/01/21 20:14 Urine Nitrite Negative (Negative) 04/01/21 20:14 Urine Bilirubin Negative (Negative) 04/01/21 20:14 Urine Urobilinogen Negative (Negative) 04/01/21 20:14 Ur Leukocyte Esterase Negative (Negative) 04/01/21 20:14 Urine WBC (Auto) 1-5 /hpf (0-5) 04/01/21 20:14 Urine RBC (Auto) 0-4 /hpf (0-4) 04/01/21 20:14 U Hyaline Cast (Auto) 5-10 /lpf (0-5) H 04/01/21 20:14 U Epithel Cells (Auto) 20-30 /lpf (0-5) H 04/01/21 20:14 Urine Bacteria (Auto) Negative (Negative) 04/01/21 20:14 SARS-CoV-2, RNA, NAAT NEGATIVE (NEGATIVE) 04/01/21 20:14 Impressions Hip/Pelvis X-Ray 04/01/21 19:23 XR hip RT 2V w pelvis CLINICAL HISTORY: fall. Right hip pain COMPARISON STUDY: 02/26/2018 TECHNIQUE: AP pelvis and 2 right hip views FINDINGS: Bones: There is a displaced, subcapital fracture right femoral neck. The femoral shaft is superiorly migrated relation to the femoral neck. The remaining imaged bones are intact. There is no lytic or blastic lesion. Joints: The femoral head maintains its anatomic position within the acetabulum. There is coxa varus deformity. Soft tissues: There is no focal soft tissue abnormality. There is no radiopaque foreign body. IMPRESSION: 1. Displaced, subcapital fracture of the right femoral neck. ACT 112: Negative or not required by law. Electronically signed by: Mati Saunders M.D. 04/01/2021 8:02 PM Chest X-Ray 04/01/21 20:13 XR chest 1V portable CLINICAL HISTORY: Preop for right hip fracture. Evaluate cardiopulmonary status COMPARISON STUDY: 10/04/2017 TECHNIQUE: 1 view of the chest FINDINGS: Single frontal view of the chest demonstrates the heart size to again be enlarged with dual lead ICD pacer in place. The lungs are clear of alveolar opacities. There is no evidence for pleural effusion. There is no evidence for vascular congestion. There is no acute osseous pathology. IMPRESSION: 1. No acute cardiopulmonary disease. 2. Cardiomegaly with pacer. ACT 112: Negative or not required by law. Electronically signed by: Mati Saunders M.D. 04/01/2021 8:34 PM Code Status & VTE Plan Code Status Full code VTE Prophylaxis Plan VTE Prophylaxis will be ordered: Yes PG Care Time/CCT Total # of Minutes Spent Total Time Spent with Patient: Total time spent is greater than 50% in coordination of care (as documented) at patient's floor/unit and/or counseling patient: Coding Level of Care Code 68664 Initial Inpt Care Lvl 3 Diagnoses CAD (coronary artery disease) I25.10 Hypertension I10 Hypothyroid E03.9 Anxiety F41.9 Ischemic cardiomyopathy I25.5 Hypercholesteremia E78.00 Closed right hip fracture S72.001A
--- NOTE | 2021-04-01 23:41 | Emergency Department Note ---
History of Present Illness General Chief complaint: Hip Pain Stated complaint: Fall, Hip Pain Time Seen by Provider: 04/01/21 19:50 History of Present Illness Provider complaint: Right hip pain Onset (ago): hour(s) 2 Location: lower extremity and right Radiation: non-radiation Severity: moderate Pain Consistency: + constant Maximum Pain Intensity: 7 Current Pain Intensity: 7 Quality: + stabbing, + aching and + sharp Relieved By: + immobilization Exacerbated By: + movement Associated symptoms: no chest pain, no cough, no fever/chills, no headaches, no nausea/vomiting or no shortness of breath 75-year-old female presents emergency department for right hip pain. Patient states she fell approximately 2 hours ago. Patient denies hitting her head. She states pain is located in her right hip is worse with movement better with immobilization. She reports no pain anywhere else. Patient is not on blood thinners. Home Medications Medication Instructions Recorded Confirmed Type aspirin 81 mg tablet,delayed 81 mg PO DAILY 04/20/18 04/01/21 History release (Ecotrin Low Strength) carvedilol 6.25 mg tablet 6.25 mg PO BID 04/20/18 04/01/21 History cholecalciferol (vitamin D3) 25 1,000 units PO DAILY 04/20/18 04/01/21 History mcg (1,000 unit) capsule omega 4-gth-upq-fish oil 1,000 mg 1 cap PO BID 04/20/18 04/01/21 History (120 mg-180 mg) capsule (Fish Oil) digoxin 125 mcg (0.125 mg) tablet 125 mcg PO DAILY #90 tab 03/13/20 04/01/21 Rx rosuvastatin 40 mg tablet 40 mg PO DAILY 03/13/20 04/01/21 History lorazepam 0.5 mg tablet 0.5 mg PO HS PRN #30 tab 09/17/20 04/01/21 Rx fluoxetine 20 mg capsule 20 mg PO DAILY #90 cap 12/23/20 04/01/21 Rx spironolactone 25 mg tablet 25 mg PO DAILY #90 tab 12/23/20 04/01/21 Rx furosemide 40 mg tablet (Lasix) See Rx Instructions PO DAILY tab 01/08/21 04/01/21 History lisinopril 5 mg tablet 2.5 mg PO DAILY #45 tab 01/22/21 04/01/21 Rx levothyroxine 88 mcg capsule 88 mcg PO DAILY #90 cap 01/23/21 04/01/21 Rx multivitamin 1 tab PO DAILY 04/01/21 04/01/21 History Allergies Allergy/AdvReac Type Severity Reaction Status Date / Time No Known Allergies Allergy Verified 04/01/21 20:17 Past Med/Surg History Medical History (Updated 04/01/21 @ 23:44 by Manuel Ramirez) Anxiety High cholesterol Hx of myocardial infarction Hypertension Hypothyroid ICD (implantable cardioverter-defibrillator) lead failure Vertigo Surgical History H/O: History of implantable cardiac defibrillator (ICD) Family History Mother Lung cancer Father No problems noted. 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 Feels Safe at Home: Yes Seatbelt Use: always Sunscreen Use: No Review of Systems A total of 10 systems reviewed and were otherwise negative Physical Exam Vital Signs Vital Signs - 24 hr 04/01/21 19:20 04/01/21 20:18 04/01/21 22:49 Temperature 36.6 C Temperature Source Temporal Artery Scan Pulse Rate 89 Pulse Rate [Apical] 87 84 Pulse Rhythm [Apical] Regular Regular Respiratory Rate 16 16 16 Respiratory Effort / Characteristics Non-Labored Respiratory Depth Normal Normal Blood Pressure 141/84 H Blood Pressure [Left Arm] 128/71 112/69 Blood Pressure Mean 103 Blood Pressure Mean [Left Arm] 90 83 Blood Pressure Position Sitting Pulse Oximetry 94 94 93 Oxygen Delivery Method Room Air Nasal Cannula Nasal Cannula Oxygen Flow Rate 3 3 Sepsis Recent Fever Within 48 Hours No Sepsis New/Unexplained Change in Mental Status No Sepsis Action Taken by Nursing No Action Required Physical Exam GENERAL: She is oriented to person, place, and time. She appears well-developed and well-nourished. She does not appear distressed. HENT: Exam performed. -Head: Normocephalic and atraumatic. -Right Ear: External ear normal. No mastoid tenderness. -Left Ear: External ear normal. No mastoid tenderness. -Mouth/Throat: The oropharynx is clear and moist. No trismus in the jaw. No dental abscesses or uvula swelling. No oropharyngeal exudate or tonsillar abscesses. EYES: Conjunctivae and EOM are normal. Pupils are equal, round, and reactive to light. Right eye exhibits no discharge. Left eye exhibits no discharge. No scleral icterus. NECK: Normal range of motion. Neck supple. No JVD present. No spinous process tenderness present. No carotid bruit present. No rigidity. No tracheal deviation and normal range of motion present. No Brudzinski's sign and no Kernig's sign noted. CV: Normal rate, regular rhythm, normal heart sounds and intact distal pulses. There is no peripheral edema. Palpable radial pulses bue. PULM/CHEST: Effort normal and breath sounds normal. No respiratory distress. No stridor. She has no wheezes. She has no rales. -Chest Wall: She exhibits no tenderness. ABD: The abdomen is soft. Bowel sounds are normal. She has no distension. No mass is present. There is no tenderness. There is no rebound, no guarding, no Beach's sign and no tenderness at McBurney's point. Rovsig negative MUSC/SKEL: Pain on palpation of the right hip. LYMPH: No cervical adenopathy. NEURO: She is alert and oriented to person, place, and time. She has normal strength. No cranial nerve deficit or sensory deficit. SKIN: Skin is warm and dry. She is not diaphoretic. PSYCH: She has a normal mood and affect. Behavior is normal. Judgment and thought content normal. Course Course 1950: The patient was evaluated in room A9. A complete history and physical exam was performed Cardiac monitoring: An order was placed for continuous cardiac monitoring. The monitor shows a rate of 80 with sinus rhythm X-ray shows right-sided femoral neckfracture. We will plan on admitting the patient to the [facility] Dr. Scott team will be notified. Hip fracture order set ordered. Patient does not have an orthopedist routine consult for Dr. Paul orthopedics bus person will be placed. Administered Medications Morphine Sulfate (Morphine Sulfate 4 Mg/Ml 1 Ml Carp\Vial) 4 mg IV Q1H PRN PRN Reason: Severe Pain (Rating 7,8,9,10) Stop: 04/15/21 19:49 Last Admin: 04/01/21 22:42 Dose: 4 mg Documented by: [id number] Admin: 04/01/21 21:21 Dose: 4 mg Documented by: [id number] Medical Decision Making Laboratory Data Result diagrams: 04/01/21 20:13 04/01/21 20:13 Lab Results 04/01/21 04/01/21 04/01/21 Range/Units 20:13 20:13 20:13 WBC 13.13 H (4.8-10.8) K/uL RBC 4.22 (4.2-5.4) M/uL Hgb 13.0 (12.0-16.0) g/dL Hct 39.0 (37-47) % MCV 92.4 (80-100) fL MCH 30.8 (25-34) pg MCHC 33.3 (32-36) g/dL RDW Std Deviation 46.0 (36.4-46.3) fL RDW Coeff of Luis Antonio 13.5 (11.5-14.5) % Plt Count 200 (130-400) K/uL MPV 11.4 H (7.4-10.4) fL Immature Gran % (Auto) 0.2 % Neut % (Auto) 83.0 % Lymph % (Auto) 7.5 % [place] % (Auto) 7.4 % Eos % (Auto) 1.7 % Baso % (Auto) 0.2 % Neut # (Auto) 10.91 H (1.4-6.5) K/uL Lymph # (Auto) 0.99 L (1.2-3.4) K/uL [place] # (Auto) 0.97 H (0.11-0.59) K/uL Eos # (Auto) 0.22 (0-0.5) K/uL Baso # (Auto) 0.02 (0-0.2) K/uL Immature Gran # (Auto) 0.02 (0.00-0.02) K/uL PT 11.4 (9.0-12.0) Seconds INR 1.1 (0.9-1.1) APTT 25.9 (21.0-31.0) Seconds PTT Ratio 1.0 Sodium 135 L (136-145) mmol/L Potassium 4.2 (3.5-5.1) mmol/L Chloride 101 (98-107) mmol/L Carbon Dioxide 24 (21-32) mmol/L Anion Gap 10 (3-11) BUN 34 H (6-23) mg/dl Creatinine 1.12 (0.6-1.2) mg/dl Est Cr Clr Drug Dosing Not Reportable Est GFR ( Amer) 54.9 ml/min Est GFR (Non-Af Amer) 47.3 ml/min BUN/Creatinine Ratio 30.4 H (10-20) Glucose 153 H (70-99(Fasting)) mg/dl Calcium 9.3 (8.5-10.1) mg/dl Total Bilirubin 0.7 (0.2-1.0) mg/dl AST 17 (13-39) U/L ALT 16 (7-52) U/L Alkaline Phosphatase 68 (34-104) U/L Total Protein 7.1 (6.0-8.3) gm/dl Albumin 4.3 (3.4-5.0) gm/dl Globulin 2.8 (2.5-4.0) gm/dl Albumin/Globulin Ratio 1.5 (0.9-2) Urine Color Urine Appearance (Clear) Urine pH (4.5-7.5) Ur Specific [place] (1.000-1.030) Urine Protein (Negative) Urine Glucose (UA) (Negative) Urine Ketones (Negative) Urine Blood (Negative) Urine Nitrite (Negative) Urine Bilirubin (Negative) Urine Urobilinogen (Negative) Ur Leukocyte Esterase (Negative) Urine WBC (Auto) (0-5) /hpf Urine RBC (Auto) (0-4) /hpf U Hyaline Cast (Auto) (0-5) /lpf U Epithel Cells (Auto) (0-5) /lpf Urine Bacteria (Auto) (Negative) SARS-CoV-2, RNA, NAAT (NEGATIVE) 04/01/21 04/01/21 Range/Units 20:14 20:14 WBC (4.8-10.8) K/uL RBC (4.2-5.4) M/uL Hgb (12.0-16.0) g/dL Hct (37-47) % MCV (80-100) fL MCH (25-34) pg MCHC (32-36) g/dL RDW Std Deviation (36.4-46.3) fL RDW Coeff of Luis Antonio (11.5-14.5) % Plt Count (130-400) K/uL MPV (7.4-10.4) fL Immature Gran % (Auto) % Neut % (Auto) % Lymph % (Auto) % [place] % (Auto) % Eos % (Auto) % Baso % (Auto) % Neut # (Auto) (1.4-6.5) K/uL Lymph # (Auto) (1.2-3.4) K/uL [place] # (Auto) (0.11-0.59) K/uL Eos # (Auto) (0-0.5) K/uL Baso # (Auto) (0-0.2) K/uL Immature Gran # (Auto) (0.00-0.02) K/uL PT (9.0-12.0) Seconds INR (0.9-1.1) APTT (21.0-31.0) Seconds PTT Ratio Sodium (136-145) mmol/L Potassium (3.5-5.1) mmol/L Chloride (98-107) mmol/L Carbon Dioxide (21-32) mmol/L Anion Gap (3-11) BUN (6-23) mg/dl Creatinine (0.6-1.2) mg/dl Est Cr Clr Drug Dosing Est GFR ( Amer) ml/min Est GFR (Non-Af Amer) ml/min BUN/Creatinine Ratio (10-20) Glucose (70-99(Fasting)) mg/dl Calcium (8.5-10.1) mg/dl Total Bilirubin (0.2-1.0) mg/dl AST (13-39) U/L ALT (7-52) U/L Alkaline Phosphatase (34-104) U/L Total Protein (6.0-8.3) gm/dl Albumin (3.4-5.0) gm/dl Globulin (2.5-4.0) gm/dl Albumin/Globulin Ratio (0.9-2) Urine Color Yellow Urine Appearance Clear (Clear) Urine pH 6.0 (4.5-7.5) Ur Specific [place] 1.015 (1.000-1.030) Urine Protein Trace H (Negative) Urine Glucose (UA) Negative (Negative) Urine Ketones Negative (Negative) Urine Blood Negative (Negative) Urine Nitrite Negative (Negative) Urine Bilirubin Negative (Negative) Urine Urobilinogen Negative (Negative) Ur Leukocyte Esterase Negative (Negative) Urine WBC (Auto) 1-5 (0-5) /hpf Urine RBC (Auto) 0-4 (0-4) /hpf U Hyaline Cast (Auto) 5-10 H (0-5) /lpf U Epithel Cells (Auto) 20-30 H (0-5) /lpf Urine Bacteria (Auto) Negative (Negative) SARS-CoV-2, RNA, NAAT NEGATIVE (NEGATIVE) Imaging Data Radiologist's Impression: Hip/Pelvis X-Ray 04/01/21 19:23 XR hip RT 2V w pelvis CLINICAL HISTORY: fall. Right hip pain COMPARISON STUDY: 02/26/2018 TECHNIQUE: AP pelvis and 2 right hip views FINDINGS: Bones: There is a displaced, subcapital fracture right femoral neck. The femoral shaft is superiorly migrated relation to the femoral neck. The remaining imaged bones are intact. There is no lytic or blastic lesion. Joints: The femoral head maintains its anatomic position within the acetabulum. There is coxa varus deformity. Soft tissues: There is no focal soft tissue abnormality. There is no radiopaque foreign body. IMPRESSION: 1. Displaced, subcapital fracture of the right femoral neck. ACT 112: Negative or not required by law. Electronically signed by: Mati Saunders M.D. 04/01/2021 8:02 PM Chest X-Ray 04/01/21 20:13 XR chest 1V portable CLINICAL HISTORY: Preop for right hip fracture. Evaluate cardiopulmonary status COMPARISON STUDY: 10/04/2017 TECHNIQUE: 1 view of the chest FINDINGS: Single frontal view of the chest demonstrates the heart size to again be enlarged with dual lead ICD pacer in place. The lungs are clear of alveolar opacities. There is no evidence for pleural effusion. There is no evidence for vascular congestion. There is no acute osseous pathology. IMPRESSION: 1. No acute cardiopulmonary disease. 2. Cardiomegaly with pacer. ACT 112: Negative or not required by law. Electronically signed by: Mati Saunders M.D. 04/01/2021 8:34 PM ECG Data Additional Comments: Sinus arrhythmia with a rate of 89. PA 220 QRS [address] elevation or ST depression. MDM Narrative The patient was evaluated in room A9. A complete history and physical exam was performed Cardiac monitoring: An order was placed for continuous cardiac monitoring. The monitor shows a rate of 80 with sinus rhythm X-ray shows right-sided femoral neckfracture. We will plan on admitting the patient to the [facility] Dr. Scott team will be notified. Hip fracture order set ordered. Patient does not have an orthopedist routine consult for Dr. Paul orthopedics bus person will be placed. Impression & Plan Femoral neck fracture Discharge Plan Visit Data Chief Complaint: Hip Pain Stated Complaint: Fall, Hip Pain Discharge Problem: Femoral neck fracture Patient Disposition: Admitted As Inpatient Forms Stand Alone Forms: My [facility] Prescriptions Prescriptions: No Action carvedilol 6.25 mg tablet 6.25 mg PO BID RF: 0 aspirin [Ecotrin Low Strength] 81 mg tablet,delayed release (DR/EC) 81 mg PO DAILY RF: 0 omega 6-jgt-obx-fish oil [Fish Oil] 1,000 mg (120 mg-180 mg) capsule 1 cap PO BID RF: 0 cholecalciferol (vitamin D3) 1,000 unit capsule 1,000 units PO DAILY RF: 0 lorazepam 0.5 mg tablet 0.5 mg PO HS PRN (Reason: anxiety) Qty: 30 RF: 5 fluoxetine 20 mg capsule 20 mg PO DAILY Qty: 90 RF: 3 spironolactone 25 mg tablet 25 mg PO DAILY Qty: 90 RF: 3 lisinopril 5 mg tablet 2.5 mg PO DAILY Qty: 45 RF: 3 levothyroxine 88 mcg capsule 88 mcg PO DAILY Qty: 90 RF: 3 furosemide [Lasix] 40 mg tablet See Rx Instructions PO DAILY RF: 0 rosuvastatin 40 mg tablet 40 mg PO DAILY RF: 0 digoxin 125 mcg (0.125 mg) tablet 125 mcg PO DAILY Qty: 90 RF: 3 multivitamin Tablet 1 tab PO DAILY RF: 0 Referrals Referrals: Santana Woodard MD [Primary Care Provider] -
[2021-04-02] MEDS ORDERED: MAGNESIUM HYDROXIDE SUSP 30 ML UDC PO PRN (00:08)
[2021-04-02] MEDS ORDERED: bisacodyL 10 MG SUPP PR PRN (00:08)
[2021-04-02] MEDS ORDERED: ONDANSETRON INJ 2 MG/ML 2 ML VIAL IV PRN ×2 (00:08→14:33)
[2021-04-02] MEDS ORDERED: NALOXONE HCL 0.4 MG/1 ML VIAL/CARP IV PRN (00:08)
[2021-04-02] MEDS: LACTATED RINGER'S 1,000 ML IV SCH ×2 (00:08→13:06)
[2021-04-02] MEDS ORDERED: HYDROCODONE/ACETAMOPHEN 5/325MG TAB PO PRN ×2 (00:08)
[2021-04-02] MEDS ORDERED: HYDROmorphone INJ 0.5 MG/0.5 ML SYR IV PRN ×2 (00:08)
[2021-04-02] MEDS: carvediloL 6.25 MG TAB PO SCH ×3 (01:53→20:56)
[2021-04-02] MEDS ORDERED: ceFAZolin 2000MG 2,000 MG/15 ML SYR IV SCH (06:00)
[2021-04-02] MEDS ORDERED: TRANEXAMIC ACID / 0.7% NACL 1,000 MG/100 ML BAG IV SCH ×2 (06:00→06:30)
[2021-04-02] MEDS: LEVOTHYROXINE SODIUM 88 MCG TABLET PO SCH (06:35)
[2021-04-02 08:05] LABS: Basophils # (auto) 0.01 K/uL (0-0.2); Basophils % (auto) 0.1 %; Eosinophils # (auto) 0.06 K/uL (0-0.5); Eosinophils % (auto) 0.6 %; Hematocrit (blood only) 36.6 % (37-47); Hemoglobin 11.9 g/dL (12.0-16.0); Immature Granulocytes # (auto) 0.02 K/uL (0.00-0.02); Immature Granulocytes % (auto) 0.2 %; Lymphocytes # (auto) 0.62 K/uL (1.2-3.4); Lymphocytes % (auto) 6.6 %; Mean Corpuscular Hemoglobin 30.1 pg (25-34); Mean Corpuscular Hgb Conc 32.5 g/dL (32-36); Mean Corpuscular Volume 92.7 fL (80-100); Mean Platelet Volume 10.7 fL (7.4-10.4); Monocytes # (auto) 1.11 K/uL (0.11-0.59); Monocytes % (auto) 11.8 %; Neutrophils # (auto) 7.55 K/uL (1.4-6.5); Neutrophils % (auto) 80.7 %; Platelet Count 179 K/uL (130-400); RDW Coefficient of Variation 13.5 % (11.5-14.5); RDW Standard Deviation 46.3 fL (36.4-46.3); Red Blood Count 3.95 M/uL (4.2-5.4); White Blood Count 9.37 K/uL (4.8-10.8)
[2021-04-02 08:37] LABS: Albumin Globulin Ratio 1.6 (0.9-2); Albumin Level 3.7 gm/dl (3.4-5.0); BUN Creatinine Ratio 32.1 (10-20); Bilirubin,Total 0.9 mg/dl (0.2-1.0); Calcium 8.7 mg/dl (8.5-10.1); Creatinine Clr Calc Pharmacy 52.6 ml/min; Est GFR (African American) 81.2 ml/min; Est GFR (Non-African American) 70.1 ml/min; Globulin 2.3 gm/dl (2.5-4.0)
[2021-04-02] MEDS: MULTIVITAMIN TAB PO SCH (11:41)
[2021-04-02] MEDS: ROSUVASTATIN CALCIUM 20 MG TAB PO SCH (11:41)
[2021-04-02] MEDS: SPIRONOLACTONE 25 MG TAB PO SCH (11:41)
[2021-04-02] MEDS: CHOLECALCIFEROL 1,000 UNITS 25 MCG TAB PO SCH (11:41)
[2021-04-02] MEDS ORDERED: LIDOCAINE 2% 2 ML VIAL/AMP(20MG/ML) INFIL ONE (13:31)
[2021-04-02] MEDS ORDERED: PROPOFOL IV EMULSION 10 MG/ML 20 ML VIAL IV ONE (13:31)
[2021-04-02] MEDS ORDERED: MIDAZOLAM HCL 1 MG/ML 2ML VIAL ONE (13:31)
[2021-04-02] MEDS ORDERED: ePHEDrine sulfate 50 MG/ML SYR ONE (13:31)
[2021-04-02] MEDS ORDERED: PHENYLEPHRINE 100MCG/ML 5ML SYR ONE (13:31)
[2021-04-02] MEDS ORDERED: fentaNYL citrate 100 MCG/2 ML VIAL ONE ×2 (13:35→15:26)
--- NOTE | 2021-04-02 14:06 | Electrocardiogram Report ---
Test Reason : Blood Pressure : / mmHG Vent. Rate : 088 BPM Atrial Rate : 088 BPM P-R Int : 220 ms QRS Dur : 150 ms QT Int : 408 ms P-R-T Axes : 054 207 030 degrees QTc Int : 493 ms Sinus rhythm with 1st degree A-V block Right superior axis deviation Non-specific intra-ventricular conduction block Abnormal ECG When compared with ECG of 09-SEP-2016 16:16, The IVCD pattern has changed WI interval has increased Confirmed by Dhruv Taylor ([id number]) on 04/02/2021 2:06:29 PM Referred By: REFERRED SELF Confirmed By:Dhruv Taylor
--- NOTE | 2021-04-02 14:11 | History & Physical Bridge Note ---
Date of Service April 02, 2021 History & Physical Bridge Note I have examined the patient, reviewed the History & Physical and in the interval since the performance of the History & Physical I have noted the following changes of clinical significance: no changes noted
--- NOTE | 2021-04-02 14:11 | Orthopedic Consultation ---
Date of Service April 02, 2021 Assessment & Plan (1) Closed right hip fracture: I discussed diagnosis and treatment options with her at bedside. I recommended a cemented right hip hemiarthroplasty. She understands the risk benefits alternatives procedure elected proceed question were answered at bedside and consents were signed. Time was spent describing the procedure and postop expectations. The decision was made for surgery. She is currently n.p.o. and we will proceed with the surgery this afternoon. History of Present Illness Reason for Consultation: Displaced right femoral neck fracture. Requesting Physician: . Attending Physician: Nate Anderson MD Carly is a pleasant 75-year-old female who fell last night while carrying some groceries. She has significant right hip pain. She came [facility] where radiographs demonstrated a displaced right femoral neck fracture. She was admitted to the medical service. Orthopedics was consulted to evaluate and treat. Allergies Allergy/AdvReac Type Severity Reaction Status Date / Time No Known Allergies Allergy Verified 04/01/21 20:17 Home Medications Medication Instructions Recorded Confirmed Type aspirin 81 mg tablet,delayed 81 mg PO DAILY 04/20/18 04/01/21 History release (Ecotrin Low Strength) carvedilol 6.25 mg tablet 6.25 mg PO BID 04/20/18 04/01/21 History cholecalciferol (vitamin D3) 25 1,000 units PO DAILY 04/20/18 04/01/21 History mcg (1,000 unit) capsule omega 1-cms-xcz-fish oil 1,000 mg 1 cap PO BID 04/20/18 04/01/21 History (120 mg-180 mg) capsule (Fish Oil) digoxin 125 mcg (0.125 mg) tablet 125 mcg PO DAILY #90 tab 03/13/20 04/01/21 Rx rosuvastatin 40 mg tablet 40 mg PO DAILY 03/13/20 04/01/21 History lorazepam 0.5 mg tablet 0.5 mg PO HS PRN #30 tab 09/17/20 04/01/21 Rx fluoxetine 20 mg capsule 20 mg PO DAILY #90 cap 12/23/20 04/01/21 Rx spironolactone 25 mg tablet 25 mg PO DAILY #90 tab 12/23/20 04/01/21 Rx furosemide 40 mg tablet (Lasix) See Rx Instructions PO DAILY tab 01/08/21 04/01/21 History lisinopril 5 mg tablet 2.5 mg PO DAILY #45 tab 01/22/21 04/01/21 Rx levothyroxine 88 mcg capsule 88 mcg PO DAILY #90 cap 01/23/21 04/01/21 Rx multivitamin 1 tab PO DAILY 04/01/21 04/01/21 History Past Med/Surg History Medical History Anxiety High cholesterol Hx of myocardial infarction Hypertension Hypothyroid ICD (implantable cardioverter-defibrillator) lead failure Vertigo Surgical History H/O: History of implantable cardiac defibrillator (ICD) Family History Mother Lung cancer Father No problems noted. Social History Smoking Status: Never smoker Second Hand Exposure: No; Hx Alcohol Use: No Hx Substance Use: No Preferred Language: Hong Konger Communication Ability: Effective Visual Impairment: Limited Hearing Ability: Hard of Hearing Engine [employer] Production Required: No Beliefs That Will Affect Care: Oriental Orthodox Oriental Orthodox Beliefs: Alevism Karena. 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 Physical Exam On physical examination of the right hip, her right leg is shortened and externally rotated. She has significant pain with logroll of the hip. There are no abrasions, lesions, or lacerations of her skin. Constitutional WD/WN, vitals as above Eyes PERRL, conjunctivae normal, anicteric sclerae ENMT external ear and nose normal, oropharynx normal Neck trachea midline, no thyromegaly Respiratory normal respiratory effort Cardiovascular RRR, no murmur, no edema Gastrointestinal (Abdomen) normal bowel sounds, soft, nontender, no hepatosplenomegaly Psychiatric A+Ox3, euthymic affect Results & Data Results & Data Laboratory Results . Diagnostic Findings X-rays of the right hip show a displaced right femoral neck fracture.. PG Care Time/CCT Total # of Minutes Spent Total Time Spent with Patient: Total time spent is greater than 50% in coordination of care (as documented) at patient's floor/unit and/or counseling patient: Coding Level of Care Code 72181 Inpt Consult Level 4 (57 - DECISION FOR SURGERY) Diagnoses Closed right hip fracture S72.001A
[2021-04-02] MEDS ORDERED: LACTATED RINGER'S 1,000 ML IV SCH (14:15)
[2021-04-02] MEDS ORDERED: ATROPINE SULFATE 0.1 MG/ML 10ML SYR IV PRN (14:33)
[2021-04-02] MEDS ORDERED: ePHEDrine sulfate 50 MG/ML AMP IV PRN (14:33)
[2021-04-02] MEDS ORDERED: fentaNYL citrate 100 MCG/2 ML VIAL IV PRN (14:33)
[2021-04-02] MEDS ORDERED: HYDROmorphone INJ 2 MG/ML SYR/VIAL IV PRN (14:33)
--- NOTE | 2021-04-02 14:33 | Anesthesiology Consultation ---
Date of Service April 02, 2021 Assessment & Plan ASA [id number] Proposed Anesthesia Anesthesia Type: MAC Spinal Risk / Benefits Reviewed With: PT / POA / Parent / Guardian, Accepts Plan and Informed Consent Obtained Additional Comments: i reviewed patients echo from 2020 History Surgery Operation Date: 04/02/21 12:35 Proposed Procedures p Right Hip Hemiarthroplasty - Arjun Paul, DO Height/Weight Height: 5 ft 2 in Weight: 68 kg Allergies Allergy/AdvReac Type Severity Reaction Status Date / Time No Known Allergies Allergy Verified 04/01/21 20:17 Medications Home Medications Medication Instructions Recorded Confirmed Last Taken aspirin 81 mg tablet,delayed 81 mg PO DAILY 04/20/18 04/01/21 04/01/21 release (Ecotrin Low Strength) carvedilol 6.25 mg tablet 6.25 mg PO BID 04/20/18 04/01/21 04/01/21 08:00 cholecalciferol (vitamin D3) 25 1,000 units PO DAILY 04/20/18 04/01/21 04/01/21 mcg (1,000 unit) capsule omega 9-rke-vkg-fish oil 1,000 mg 1 cap PO BID 04/20/18 04/01/21 04/01/21 08:00 (120 mg-180 mg) capsule (Fish Oil) digoxin 125 mcg (0.125 mg) tablet 125 mcg PO DAILY #90 tab 03/13/20 04/01/21 04/01/21 rosuvastatin 40 mg tablet 40 mg PO DAILY 03/13/20 04/01/21 04/01/21 lorazepam 0.5 mg tablet 0.5 mg PO HS PRN #30 tab 09/17/20 04/01/21 Unknown fluoxetine 20 mg capsule 20 mg PO DAILY #90 cap 12/23/20 04/01/21 04/01/21 spironolactone 25 mg tablet 25 mg PO DAILY #90 tab 12/23/20 04/01/21 04/01/21 furosemide 40 mg tablet (Lasix) See Rx Instructions PO DAILY tab 01/08/21 04/01/21 04/01/21 lisinopril 5 mg tablet 2.5 mg PO DAILY #45 tab 01/22/21 04/01/21 04/01/21 levothyroxine 88 mcg capsule 88 mcg PO DAILY #90 cap 1204/01/21 04/01/21 multivitamin 1 tab PO DAILY 04/01/21 04/01/21 04/01/21 Active Medications Generic Name Dose Route Start Last Admin Trade Name Fern PRN Reason Stop Dose Admin Carvedilol 6.25 mg 04/02/21 00:08 04/02/21 11:41 Carvedilol 6.25 Mg Tab PO 05/02/21 00:07 Not Given BID ANDRIY Hydromorphone HCl 0.5 mg 04/02/21 00:08 04/02/21 08:19 Hydromorphone Inj 0.5 Mg/0.5 Ml Syr IV 04/16/21 00:07 0.5 mg Q3H PRN Administration Pain (6,7,8,9,10) Lactated Ringer's 1,000 mls @ 80 mls/hr 04/02/21 00:08 04/02/21 13:06 Lr IV 05/02/21 00:07 80 mls/hr .[id number] ANDRIY Administration Levothyroxine Sodium 88 mcg 04/02/21 06:30 04/02/21 06:35 Levothyroxine Sodium 88 Mcg Tablet PO 05/02/21 06:29 88 mcg DAILYBB ANDRIY Administration Multivitamins 1 tab 04/02/21 09:00 04/02/21 11:41 Multivitamin Tab PO 05/02/21 08:59 Not Given DAILY ANDRIY Rosuvastatin Calcium 40 mg 04/02/21 09:00 04/02/21 11:41 Rosuvastatin Calcium 20 Mg Tab PO 05/02/21 08:59 Not Given DAILY ANDRIY Spironolactone 25 mg 04/02/21 09:00 04/02/21 11:41 Spironolactone 25 Mg Tab PO 05/02/21 08:59 Not Given DAILY ANDRIY Vitamin D 1,000 units 04/02/21 09:00 04/02/21 11:41 Cholecalciferol 1,000 Units 25 Mcg Tab PO 05/02/21 08:59 Not Given DAILY ANDRIY NPO Date Last Intake of Fluids: 04/02/21 Time Last Intake of Fluids: 00:05 Date Last Intake of Solids: 04/02/21 Time Last Intake of Solids: 00:05 Past Medical History Medical History Anxiety High cholesterol Hx of myocardial infarction Hypertension Hypothyroid ICD (implantable cardioverter-defibrillator) lead failure Vertigo Exercise / Class Metabolic Activity II 4-5 Yardwork/Stairs/Walk up hill Past Family History Family History Mother Lung cancer Father No problems noted. Past Surgical History Surgical History H/O: History of implantable cardiac defibrillator (ICD) Past Anesthesia History No Hx of Anesthesia Complications and No Family Hx of Anesthesia Complications History of PONV No Hx of PONV and No Hx of Motion Sickness Social History Smoking Status: Never smoker Do You Dip or Chew Tobacco: No Hx Alcohol Use: No Hx Substance Use: No substance use type: sedatives and prescription drug Last Used Substance: Hours (ago) Review of Systems denies fever/cough/ colds/ chest pain/ SOB/ YOGI denies YOGI Physical Exam Vital Signs Last Vital Signs Temp 36.5 C 04/02/21 09:15 Pulse 78 04/02/21 09:15 Resp 16 04/02/21 09:15 BP 108/57 L 04/02/21 09:15 Pulse Ox 95 04/02/21 09:15 ENMT Mouth: no TMJ abnormality and no dentition abnormality Thyromental Distance: > or= 3.5 Finger Breadths Mallampati Class: II Neck neck extension not limited Respiratory normal respiratory effort; no respiratory distress Auscultation: lungs clear to auscultation bilaterally Cardiovascular Rate/Rhythm: regular rate and regular rhythm Neurologic moves all extremities Psychiatric Orientation: alert and oriented x 3 Testing Laboratory Results 04/02/21 07:54 04/02/21 07:54 PT 11.4 Seconds (9.0-12.0) 04/01/21 20:13 INR 1.1 (0.9-1.1) 04/01/21 20:13 APTT 25.9 Seconds (21.0-31.0) 04/01/21 20:13 Urine Color Yellow 04/01/21 20:14 Urine Appearance Clear (Clear) 04/01/21 20:14 Urine pH 6.0 (4.5-7.5) 04/01/21 20:14 Ur Specific [place] 1.015 (1.000-1.030) 04/01/21 20:14 Urine Protein Trace (Negative) H 04/01/21 20:14 Urine Glucose (UA) Negative (Negative) 04/01/21 20:14 Urine Ketones Negative (Negative) 04/01/21 20:14 Urine Nitrite Negative (Negative) 04/01/21 20:14 Ur Leukocyte Esterase Negative (Negative) 04/01/21 20:14 Urine WBC (Auto) 1-5 /hpf (0-5) 04/01/21 20:14 Urine RBC (Auto) 0-4 /hpf (0-4) 04/01/21 20:14 U Hyaline Cast (Auto) 5-10 /lpf (0-5) H 04/01/21 20:14 U Epithel Cells (Auto) 20-30 /lpf (0-5) H 04/01/21 20:14 Urine Bacteria (Auto) Negative (Negative) 04/01/21 20:14 Blood Type A Positive 04/02/21 07:54 Antibody Screen NEGATIVE 04/02/21 07:54
[2021-04-02] MEDS ORDERED: EPINEPHrine INJ 1 MG/ML AMP ONE (16:03)
[2021-04-02] MEDS ORDERED: BUPIVACAINE 0.5 % 5 MG/1 ML MPF 30ML VIAL ONE (16:03)
--- NOTE | 2021-04-02 16:29 | Operative Report ---
PG Post Operative Report Pre & Post Diagnosis Operation Date: 04/02/21 12:35 Pre-Op Diagnosis: Right Femoral Neck Fracture Post-Op Diagnosis: Right Femoral Neck Fracture I identified the patient and participated in the time-out.: Yes Procedure Operation Date: 04/02/21 12:35 Actual Procedures p Right Hip Hemiarthroplasty Anterior Approach, Cemented(Right) - Arjun Paul DO Surgeon Arjun Paul DO Lap Runner None Estimated Blood Loss 200 Findings Consistent with Post-Op Diagnosis Specimens Right femoral head Complications none Disposition Disposition: Recovery Room Indications Carly is a pleasant 75-year-old female who slipped and fell yesterday sustaining a right displaced femoral neck fracture. After discussions at bedside, she elected proceed with a right hip hemiarthroplasty. Description of Procedure On April 02, 2021 Carly was brought down from her hospital room to the preoperative holding area. The operative extremity identified and signed. She was given a preoperative antibiotic. She was taken back the operating room and laid on the table in supine position. She was put under general anesthesia. The right leg was brought out to a purist leg positioner. The right hip was the n prepped and draped in sterile fashion. A timeout was done. The patient and the operative extremity was properly identified. An anterior approach was used. Dissection was taken down through the fascia. The tensor was retracted laterally and the rectus was retracted medially. The circumflex vessels were ligated. The hip capsule was exposed. The hip capsule was then incised and tagged for later repair. The fracture was then exposed. The femoral neck was then resected. The femoral head was then removed. The acetabulum was then exposed. I do not see any arthritic changes within the a cetabulum. The proximal femur was then exposed. Sequential broaching up to a size 11 broach was done. Off that broach a 45 mm bipolar head was trialed. The hip was then reduced. Fluoroscopic images showed anatomic alignment. The hip was then dislocated. The final Kuldeep LD fracture size 11 femoral stem was then cemented in place with Palacos cement. Once the cement had hardened the final 4 5 mm bipolar head was impacted into place. The hip was then reduced. Final fluoroscopic images showed anatomic alignment. The wound was then irrigated. The capsule was closed with #1 Vicryl suture. The fascia was closed with #0 PDS suture. Skin was closed with 2-0 Vicryl and martín. The hip was then injected with 30 cc of Marcaine with epinephrine. A Silverlon dressing was placed. She was then extubated and transferred to hospital bed and taken to the postanesthesia care unit in stable condition. She tolerated the procedure well. I attest to the content of the Intraoperative Record and any orders documented therein. Any exceptions are noted below.
--- NOTE | 2021-04-02 16:55 | Anesthesiology Progress Note ---
Date of Service April 02, 2021 Anesthesia Post Procedure Vital Signs Vital Signs: Temp Pulse Pulse Pulse Resp BP BP 04/02/21 16:30 94 H 13 131/67 04/02/21 16:24 36.7 C 94 H 18 120/68 04/02/21 14:25 37.6 C H 83 18 127/57 L 04/02/21 09:15 36.5 C 78 16 108/57 L 04/02/21 06:00 04/02/21 00:05 04/02/21 00:02 36.8 C 92 H 14 119/66 04/01/21 22:49 84 16 112/69 04/01/21 20:18 87 16 128/71 04/01/21 19:20 36.6 C 89 16 141/84 H Pulse Ox Pulse Ox 04/02/21 16:30 98 04/02/21 16:24 97 04/02/21 14:25 96 04/02/21 09:15 95 04/02/21 06:00 95 04/02/21 00:05 95 04/02/21 00:02 95 04/01/21 22:49 93 04/01/21 20:18 94 04/01/21 19:20 94 Pain Intensity Right Hip: Pain Intensity: 3 Transfer of Care Handoff Completed per policy Notes Mental Status: alert / awake / arousable and participated in evaluation Patient Amnestic to Procedure: Yes Nausea / Vomiting: adequately controlled Pain: adequately controlled Airway Patency, RR, SpO2: stable & adequate BP & HR: stable & adequate Hydration State: stable & adequate Anesthetic Complications: no major complications apparent and Pt Satisfied with anesthetic care
--- NOTE | 2021-04-02 17:05 | XRay Report ---
XR hip RT min 2V CLINICAL HISTORY: Post-Operative implant position TECHNIQUE: 2 views of the right hip and single frontal view of the pelvis were obtained. Comparison: None available at the time of this dictation. FINDINGS: Patient is status post total hip arthroplasty with expected postsurgical changes including soft tissu e swelling, subcutaneous emphysema, and surgical staple placement. No periarticular lucency or hardwa re fracture is seen. The alignment is anatomic. No soft tissue abnormality is seen. IMPRESSION: Expected postoperative appearance status post placement of total hip arthroplasty. ACT 112: Negative or not required by law. Electronically signed by: Vinayak Longo M.D. 04/02/2021 5:04 PM
--- NOTE | 2021-04-02 17:11 | Fluoroscopy Report ---
FL hip RT 1V CLINICAL HISTORY: Right anterior total hip replacement COMPARISON STUDY: 04/01/2021 FLUOROSCOPY TIME: 6 seconds. FLUOROSCOPIC IMAGES: 3 FINDINGS: Initial images shows a displaced subcapital fracture. There is subsequent placement of a bi lateral hip replacement. The prosthetic components are in anatomic alignment with no acute osseous pa thology. IMPRESSION: Status post right total hip replacement. ACT 112: Negative or not required by law. Electronically signed by: Mati Saunders M.D. 04/02/2021 5:09 PM
[2021-04-02] MEDS: DIGOXIN 0.125 MG TAB PO SCH (18:04)
--- NOTE | 2021-04-02 18:06 | Hospitalist Progress Note ---
Date of Service April 02, 2021 Assessment & Plan (1) Closed right hip fracture: Plan: * Patient was walking up the steps carrying groceries when she lost her footing and fell up 1 step * X-ray shows a displaced subcapital femoral neck fracture * Going to the OR today for surgical intervention. Orthopedics on board. Appreciate assistance * Will need postoperative pain management, PT/OT, incentive spirometry, continued perioperative antibiotic prophylaxis, and DVT prophylaxis X 30 days. Patient denies a history of DVT/PE or blood dyscrasias. (2) CAD (coronary artery disease): Plan: * CAD/hypertension/ischemic cardiomyopathy * Continue carvedilol, digoxin * Hold aspirin, furosemide, lisinopril and spironolactone in preparation of surgery * EKG nonacute (3) Hypertension: Plan: * See above (4) Ischemic cardiomyopathy: Plan: * See above * Patient takes beta-blockade, digoxin, lisinopril, and Lasix * Last echocardiogram done 01/05 with EF of 20 to 24%. Patient has ICD * Avoid overhydration given risk of CHF * Resume Lasix in the a.m. (5) Hypothyroid: Plan: * Continue levothyroxine 88 mcg daily (6) Anxiety: Plan: * Continue lorazepam and fluoxetine (7) Hypercholesteremia: Plan: * Continue rosuvastatin * Hold fish oil Plan: plan of care to be D/W Dr. Anderson. Admission and Anticipated Discharge Date Admission Date: April 01, 2021 Subjective Patient seen on daily rounds today. She was hospitalized after a ground-level fall resulting in a right hip fracture. Going to the OR for intervention today. Pain currently controlled. Tolerating pain medication. Does have underlying CAD but able to ambulate including up and down steps without chest pain. EKG shows no acute ST/T wave changes Review of Systems Review of Systems: All systems reviewed and are unremarkable except as noted in HPI and below Denies fevers, chills, headache, nasal congestion, sore throat, cough, chest pain, shortness of breath, palpitations, orthopnea, PND, abdominal pain, nausea, vomiting, diarrhea, constipation, dysuria, hematuria, frequency, back pain, joint pain or swelling, easy bruising or bleeding, skin lesions or rashes. Physical Exam Physical Exam: General: Resting comfortably in her hospital bed. NAD. HEENT: Head is AT/NC. Buccal mucosa is moist and pink Neck: No JVD. Negative hepatojugular reflex Cardiac: RRR without M/G/R Lungs: CTA without W/R/R Abdomen: Normoactive X4. Soft and nontender in all quadrants. Extremities: Right lower extremity is externally rotated and shortened. Peripheral pulses are intact and symmetrical bilaterally. Capillary refill +2. Neuro: A&O X4. Cranial nerves II through XII are grossly intact. No focal neuro deficits Skin: No obvious skin lesions or rashes Psych: Appropriate affect. Pleasant and cooperative Results & Data Results & Data ([facility]) Vital Signs (Past 12 Hours) Vital Signs Temp Pulse Pulse Resp BP Pulse Ox Pulse Ox 04/02/21 17:19 37.5 C 89 16 115/68 93 04/02/21 17:00 36.4 C L 86 14 119/63 96 04/02/21 16:50 36.4 C L 91 H 13 125/64 96 04/02/21 16:40 92 H 16 128/65 98 04/02/21 16:30 94 H 13 131/67 98 04/02/21 16:24 36.7 C 94 H 18 120/68 97 04/02/21 14:25 37.6 C H 83 18 127/57 L 96 04/02/21 09:15 36.5 C 78 16 108/57 L 95 04/02/21 06:00 95 PG Care Time/CCT Total # of Minutes Spent Total Time Spent with Patient: Total time spent is greater than 50% in coordination of care (as documented) at patient's floor/unit and/or counseling patient: Coding Level of Care Code 72182 Subseq Hosp Care Lvl 2 Diagnoses Closed right hip fracture S72.001A CAD (coronary artery disease) I25.10 Hypertension I10 Ischemic cardiomyopathy I25.5 Hypothyroid E03.9 Anxiety F41.9 Hypercholesteremia E78.00
[2021-04-02] MEDS: SODIUM CHLORIDE 0.9% 1000ML 1,000 ML IV SCH (18:08)
[2021-04-02] MEDS: ASPIRIN 81 MG ECTAB PO SCH (20:56)
[2021-04-02] MEDS: DOCUSATE SODIUM/SENNA 50/8.6MG TAB PO SCH (20:57)
[2021-04-02] MEDS: ceFAZolin 2000MG 2,000 MG/15 ML SYR IV SCH (22:52)
[2021-04-02] MEDS: LORazepam 0.5 MG TAB PO PRN (23:46)
[2021-04-03] MEDS: LACTATED RINGER'S 1,000 ML IV SCH ×2 (02:00→17:56)
[2021-04-03] MEDS: SODIUM CHLORIDE 0.9% 1000ML 1,000 ML IV SCH (05:51)
[2021-04-03] MEDS: ceFAZolin 2000MG 2,000 MG/15 ML SYR IV SCH (05:51)
[2021-04-03] MEDS: LEVOTHYROXINE SODIUM 88 MCG TABLET PO SCH (05:53)
[2021-04-03 06:26] LABS: Basophils # (auto) 0.02 K/uL (0-0.2); Basophils % (auto) 0.2 %; Eosinophils # (auto) 0.07 K/uL (0-0.5); Eosinophils % (auto) 0.7 %; Hematocrit (blood only) 33.4 % (37-47); Hemoglobin 10.7 g/dL (12.0-16.0); Immature Granulocytes # (auto) 0.01 K/uL (0.00-0.02); Immature Granulocytes % (auto) 0.1 %; Lymphocytes # (auto) 0.83 K/uL (1.2-3.4); Lymphocytes % (auto) 8.2 %; Mean Corpuscular Hemoglobin 30.1 pg (25-34); Mean Corpuscular Volume 93.8 fL (80-100); Mean Platelet Volume 10.8 fL (7.4-10.4); Monocytes # (auto) 0.74 K/uL (0.11-0.59); Monocytes % (auto) 7.3 %; Neutrophils # (auto) 8.47 K/uL (1.4-6.5); Neutrophils % (auto) 83.5 %; Platelet Count 134 K/uL (130-400); RDW Coefficient of Variation 13.6 % (11.5-14.5); RDW Standard Deviation 47.1 fL (36.4-46.3); Red Blood Count 3.56 M/uL (4.2-5.4); White Blood Count 10.14 K/uL (4.8-10.8)
[2021-04-03 06:46] LABS: Albumin Globulin Ratio 1.5 (0.9-2); Albumin Level 3.4 gm/dl (3.4-5.0); BUN Creatinine Ratio 20.9 (10-20); Bilirubin,Total 0.8 mg/dl (0.2-1.0); Calcium 8.2 mg/dl (8.5-10.1); Creatinine Clr Calc Pharmacy 46.8 ml/min; Est GFR (African American) 70.5 ml/min; Est GFR (Non-African American) 60.9 ml/min; Globulin 2.3 gm/dl (2.5-4.0); Magnesium 1.8 mg/dl (1.7-2.4); Potassium 4.1 mmol/L (3.5-5.1); Total Protein 5.7 gm/dl (6.0-8.3)
[2021-04-03] MEDS: ACETAMINOPHEN 325 MG TAB PO PRN (09:39)
[2021-04-03] MEDS: ASPIRIN 81 MG ECTAB PO SCH ×2 (10:12→21:22)
[2021-04-03] MEDS: carvediloL 6.25 MG TAB PO SCH ×2 (10:13→21:23)
[2021-04-03] MEDS: CHOLECALCIFEROL 1,000 UNITS 25 MCG TAB PO SCH (10:13)
[2021-04-03] MEDS: ROSUVASTATIN CALCIUM 20 MG TAB PO SCH (10:15)
[2021-04-03] MEDS: MULTIVITAMIN TAB PO SCH (10:15)
[2021-04-03] MEDS: FUROSEMIDE 40 MG TAB PO SCH (10:16)
[2021-04-03] MEDS: SPIRONOLACTONE 25 MG TAB PO SCH (10:17)
[2021-04-03] MEDS ORDERED: traMADol HCL 50 MG TABLET PO PRN (14:06)
[2021-04-03] MEDS: FLUoxetine HCL 20 MG CAP PO SCH (14:31)
--- NOTE | 2021-04-03 15:19 | Orthopedic Progress Note ---
Date of Service April 03, 2021 Assessment & Plan (1) Status post right hip replacement: Overall she is doing very well. Is not in too much pain in the right hip. She can be seen by physical therapy and do ambulation and range of motion exercises. She is on aspirin for DVT prophylaxis. She is orthopedically stable for discharge when medically ready. Full orthopedic discharge instructions were placed in the discharge summary. Nahum Carroll was seen and examined at bedside this morning. Overall she is doing fairly well. She is having too much pain in the right hip. She has been up and ambulating to the bathroom. She has no complaints. . Review of Systems All systems reviewed & are unremarkable except as noted in HPI & below. Physical Exam On physical examination of the right hip, the dressing is mostly clean and dry. Her leg lengths are equal. She has active dorsiflexion plantarflexion of her right ankle. . Results & Data Results & Data Laboratory Results . Diagnostic Findings Postoperative x-rays of the right hip show the prosthesis to be in anatomic alignment without any evidence of fracture, dislocation, or loosening . PG Care Time/CCT Total # of Minutes Spent Total Time Spent with Patient: Total time spent is greater than 50% in coordination of care (as documented) at patient's floor/unit and/or counseling patient: Coding Level of Care Code 75066 Post Operative Follow-Up Diagnoses Status post right hip replacement Z96.641
--- NOTE | 2021-04-03 17:26 | Hospitalist Progress Note ---
Date of Service April 03, 2021 Assessment & Plan (1) Closed right hip fracture: Plan: * Patient was walking up the steps carrying groceries when she lost her footing and fell up 1 step * X-ray shows a displaced subcapital femoral neck fracture * S/p right hip hemiarthroplasty on 04/02 * Ordered Dilaudid for pain and subsequently had hypotension. Change to Ultram * Continue PT/OT. Patient seems to be doing well but not meeting therapy goals (step training). Does have 4 steps to get into the home * Continue incentive spirometry, and DVT prophylaxis (aspirin 81 mg twice daily ordered by orthopedics). I do have reservations given that this is a fracture. Fractures do pose increased risk of DVT/PE. Patient does not have an underlying history of such. Will keep aspirin on board. Will need 30 to 35 days of DVT prophylaxis * Vitamin D level obtained and low at 58. Patient already on vitamin D supplementation. Will increase to 2000 international units daily (2) Postoperative anemia due to acute blood loss: Plan: * Preoperative hemoglobin 13.0. Today is 10.7. * EBL 200 cc * Start iron supplementation * Monitor labs closely * Would have a low threshold to give blood (if hemoglobin drops below 9 and she remained hypotensive). No indication for blood at this time (3) Hypotension: Plan: * BP 98/57 following Dilaudid. Currently 90/51. Patient asymptomatic * Will give a very gentle fluid bolus of 250 cc of menses being cautious given history of CHF and LV dysfunction) * Parameters placed on Coreg and Lasix * Monitor closely (4) CAD (coronary artery disease): Plan: * CAD/hypertension/ischemic cardiomyopathy * Continue carvedilol, digoxin * Aspirin resumed (but BID dosing for DVt prophl) * Lasix and Aldactone resumed. * Continue to hold lisinopril given spinal use for anesthesia and risk of worsening hypotension and/or LIZETTE * EKG nonacute (5) Hypertension: Plan: * See above (6) Ischemic cardiomyopathy: Plan: * See above * Patient takes beta-blockade, digoxin, lisinopril (holding), and Lasix * Last echocardiogram done 01/05 with EF of 20 to 24%. Patient has ICD * Avoid overhydration given risk of CHF * As reported above, given very small fluid challenge (7) Hypothyroid: Plan: * Continue levothyroxine 88 mcg daily (8) Anxiety: Plan: * Continue lorazepam and fluoxetine (9) Hypercholesteremia: Plan: * Continue rosuvastatin * Hold fish oil Plan: plan of care to be D/W Dr. Anderson. Admission and Anticipated Discharge Date Admission Date: April 01, 2021 Subjective Patient seen on daily rounds today. Vocalizes some mild pain in the hip but has only utilize Tylenol for pain control. Did finally receive a dose of pain medication (was given Dilaudid) and subsequently had a slight drop in her blood pressure to 98/53. Asymptomatic with this. Throughout the course of the afternoon, blood pressure continued to drop and is currently 90/51. Patient denies dizziness, lightheadedness, near-syncope/sync ope Review of Systems Review of Systems: All systems reviewed and are unremarkable except as noted in HPI and below Denies fevers, chills, headache, nasal congestion, sore throat, cough, chest pain, shortness of breath, palpitations, orthopnea, PND, abdominal pain, nausea, vomiting, diarrhea, constipation, dysuria, hematuria, frequency, back pain, joint pain or swelling, easy bruising or bleeding, skin lesions or rashes. Physical Exam Physical Exam: General: Resting comfortably in her bedside chair. NAD. HEENT: Head is AT/NC. Buccal mucosa is moist and pink Neck: No JVD. Negative hepatojugular reflex Cardiac: RRR without M/G/R Lungs: CTA without W/R/R Abdomen: Normoactive X4. Soft and nontender in all quadrants. Extremities: Right hip with postsurgical dressing. No indwelling drains. Distal pulses to the bilateral lower extremities are intact and symmetrical. Cap refill +2. Negative Homans' sign. No calf tenderness. Neuro: A&O X4. Cranial nerves II through XII are grossly intact. No focal neuro deficits Skin: No obvious skin lesions or rashes Psych: Appropriate affect. Pleasant and cooperative Results & Data Results & Data ([facility]) Vital Signs (Past 12 Hours) Vital Signs Temp Pulse Pulse Resp BP Pulse Ox Pulse Ox 04/03/21 15:26 36.6 C 91 H 16 90/51 L 91 04/03/21 11:45 36.6 C 83 20 95/58 L 93 04/03/21 10:25 04/03/21 07:31 36.7 C 84 84 20 116/67 95 04/03/21 05:54 95 Pulse Ox 04/03/21 15:26 04/03/21 11:45 04/03/21 10:25 93 04/03/21 07:31 04/03/21 05:54 Laboratory Results 04/03/21 05:57 04/03/21 05:57 PG Care Time/CCT Total # of Minutes Spent Total Time Spent with Patient: Total time spent is greater than 50% in coordination of care (as documented) at patient's floor/unit and/or counseling patient: Coding Level of Care Code 43747 Subseq Hosp Care Lvl 3 Diagnoses Closed right hip fracture S72.001A CAD (coronary artery disease) I25.10 Hypertension I10 Ischemic cardiomyopathy I25.5 Hypothyroid E03.9 Anxiety F41.9 Hypercholesteremia E78.00 Postoperative anemia due to acute blood loss D62 Hypotension I95.9
[2021-04-03] MEDS ORDERED: SODIUM CHLORIDE 0.9% 500 ML IV SCH (17:30)
[2021-04-03] MEDS: DIGOXIN 0.125 MG TAB PO SCH (17:41)
[2021-04-03] MEDS: DOCUSATE SODIUM/SENNA 50/8.6MG TAB PO SCH (21:23)
[2021-04-03] MEDS: LORazepam 0.5 MG TAB PO PRN (21:34)
[2021-04-04] MEDS: LEVOTHYROXINE SODIUM 88 MCG TABLET PO SCH (05:51)
[2021-04-04 08:40] LABS: Basophils # (auto) 0.01 K/uL (0-0.2); Basophils % (auto) 0.1 %; Eosinophils # (auto) 0.21 K/uL (0-0.5); Eosinophils % (auto) 2.1 %; Hematocrit (blood only) 32.1 % (37-47); Hemoglobin 10.5 g/dL (12.0-16.0); Immature Granulocytes # (auto) 0.02 K/uL (0.00-0.02); Immature Granulocytes % (auto) 0.2 %; Lymphocytes # (auto) 0.85 K/uL (1.2-3.4); Lymphocytes % (auto) 8.5 %; Mean Corpuscular Hemoglobin 30.6 pg (25-34); Mean Corpuscular Hgb Conc 32.7 g/dL (32-36); Mean Corpuscular Volume 93.6 fL (80-100); Mean Platelet Volume 11.2 fL (7.4-10.4); Monocytes # (auto) 1.29 K/uL (0.11-0.59); Monocytes % (auto) 12.9 %; Neutrophils # (auto) 7.65 K/uL (1.4-6.5); Neutrophils % (auto) 76.2 %; Platelet Count 138 K/uL (130-400); RDW Coefficient of Variation 13.5 % (11.5-14.5); RDW Standard Deviation 46.4 fL (36.4-46.3); Red Blood Count 3.43 M/uL (4.2-5.4); White Blood Count 10.03 K/uL (4.8-10.8)
[2021-04-04] MEDS: ASPIRIN 81 MG ECTAB PO SCH ×2 (09:00→21:19)
[2021-04-04] MEDS ORDERED: FERROUS SULFATE 325 MG/7.4 ML UDP PO SCH (09:00)
[2021-04-04] MEDS: carvediloL 6.25 MG TAB PO SCH ×2 (09:01→21:19)
[2021-04-04] MEDS: CHOLECALCIFEROL 1,000 UNITS 25 MCG TAB PO SCH (09:02)
[2021-04-04] MEDS: FLUoxetine HCL 20 MG CAP PO SCH (09:03)
[2021-04-04 09:04] LABS: Albumin Globulin Ratio 1.3 (0.9-2); Albumin Level 3.4 gm/dl (3.4-5.0); BUN Creatinine Ratio 20.8 (10-20); Calcium 8.5 mg/dl (8.5-10.1); Creatinine Clr Calc Pharmacy 55.3 ml/min; Est GFR (African American) 86.3 ml/min; Est GFR (Non-African American) 74.5 ml/min; Globulin 2.7 gm/dl (2.5-4.0); Magnesium 1.8 mg/dl (1.7-2.4); Potassium 3.9 mmol/L (3.5-5.1); Total Protein 6.1 gm/dl (6.0-8.3)
[2021-04-04] MEDS: FUROSEMIDE 20 MG TAB PO SCH (09:04)
[2021-04-04] MEDS: MULTIVITAMIN TAB PO SCH (09:04)
[2021-04-04] MEDS: ROSUVASTATIN CALCIUM 20 MG TAB PO SCH (09:05)
[2021-04-04] MEDS: SPIRONOLACTONE 25 MG TAB PO SCH (09:06)
[2021-04-04] MEDS: FUROSEMIDE 40 MG TAB PO SCH (09:18)
[2021-04-04] MEDS: FERROUS SULFATE 325 MG TAB PO SCH (13:22)
[2021-04-04] MEDS: ACETAMINOPHEN 325 MG TAB PO PRN ×2 (13:51→21:56)
--- NOTE | 2021-04-04 15:35 | Orthopedic Progress Note ---
Date of Service April 04, 2021 Assessment & Plan (1) Status post right hip replacement: Overall she is doing fairly well. She is having too much pain in the right hip. She has been up and ambulating. She is orthopedically stable for discharge when medically ready. Complete orthopedic discharge instructions were placed in the discharge summary. If you have any further questions please feel free to contact me at [phone] Subjective Carly was seen and examined at bedside today. Overall she is doing fairly well. She has been up and ambulating to the bathroom. She has some soreness in her hip but is not too bad. She has no complaints.. Review of Systems All systems reviewed & are unremarkable except as noted in HPI & below. Physical Exam On physical examination of the right hip, the dressing is mostly clean and dry. Her leg lengths are equal. She has active dorsiflexion plantarflexion of her right ankle. Results & Data Results & Data Laboratory Results . Diagnostic Findings . PG Care Time/CCT Total # of Minutes Spent Total Time Spent with Patient: Total time spent is greater than 50% in coordination of care (as documented) at patient's floor/unit and/or counseling patient: Coding Level of Care Code 06440 Post Operative Follow-Up Diagnoses Status post right hip replacement Z96.641
[2021-04-04] MEDS: DIGOXIN 0.125 MG TAB PO SCH (18:38)
--- NOTE | 2021-04-04 19:03 | Hospitalist Progress Note ---
Date of Service April 04, 2021 Assessment & Plan (1) Closed right hip fracture: Plan: * Patient was walking up the steps carrying groceries when she lost her footing and fell up 1 step * X-ray shows a displaced subcapital femoral neck fracture * S/p right hip hemiarthroplasty on 04/02 * Pain currently controlled with Ultram * Seen by PT/OT who is currently recommending rehab. [facility] * Continue incentive spirometry, and DVT prophylaxis (aspirin 81 mg twice daily ordered by orthopedics). I do have reservations given that this is a fracture. Fractures do pose increased risk of DVT/PE. Patient does not have an underlying history of such. Will keep aspirin on board. Will need 30 to 35 days of DVT prophylaxis * Vitamin D level obtained and low at 58. Patient already on vitamin D supplementation. Increased to 2000 international units daily (2) Postoperative anemia due to acute blood loss: Plan: * Preoperative hemoglobin 13.0. Today is 10.5. * EBL 200 cc * Started on iron supplementation * Monitor labs closely * Would have a low threshold to give blood (if hemoglobin drops below 9 and she remained hypotensive). No indication for blood at this time (3) Hypotension: Plan: * Intermittent fluctuations in hypotension (90s/50s - 119/63) but asymptomatic * Patient on Lasix 80 mg daily with an additional 20 mg 3 times a week (this is prescribed per cardiology and verified with patient's pharmacy), lisinopril 2.5 mg daily (on hold) , Aldactone 25 mg daily, Coreg 6.25 mg twice a day --Patient with LV dysfunction and a poor EF of 20 to 25% and history of CHF. All of the medications are being prescribed by cardiology. She is asymptomatic with her current BP. No change in meds * Parameters placed on meds * Avoid opiates as can precipitate hypotension (4) CAD (coronary artery disease): Plan: * CAD/hypertension/ischemic cardiomyopathy * Continue carvedilol, digoxin * Aspirin resumed (but BID dosing for DVT prophl) * Lasix and Aldactone resumed given poor EF and risk of CHF * Continue to hold lisinopril given spinal use for anesthesia and risk of worsening hypotension and/or LIZETTE--> likely resume upon D/C * EKG nonacute (5) Hypertension: Plan: * See above (6) Ischemic cardiomyopathy: Plan: * See above * Patient takes beta-blockade, digoxin, lisinopril (holding), and Lasix * Last echocardiogram done 01/05 with EF of 20 to 24%. Patient has ICD * Avoid overhydration given risk of CHF * As reported above, given very small fluid challenge (7) Hypothyroid: Plan: * Continue levothyroxine 88 mcg daily (8) Anxiety: Plan: * Continue lorazepam and fluoxetine (9) Hypercholesteremia: Plan: * Continue rosuvastatin * Hold fish oil Plan: plan of care to be D/W Dr. Vasques PT/OT recommending rehab. C[facility] mgmt [facility] Admission and Anticipated Discharge Date Admission Date: April 01, 2021 Subjective Patient seen on daily rounds today. BP dropped with Dilaudid. Opiates stopped and transition to Ultram. Pain is adequately controlled with this regimen. She denies fevers, chills, chest pain, shortness of breath, abdominal pain, nausea or vomiting. Patient did have a blood pressure reading this afternoon of 91/53. She is asymptomatic with this. She does take a significant amount of Lasix prescribed by her ophthalmology technician and has intermittent hypotension reported in the chart. She is not symptomatic with this Review of Systems Review of Systems: All systems reviewed and are unremarkable except as noted in HPI and below Denies fevers, chills, headache, nasal congestion, sore throat, cough, chest pain, shortness of breath, palpitations, orthopnea, PND, abdominal pain, nausea, vomiting, diarrhea, constipation, dysuria, hematuria, frequency, back pain, joint pain or swelling, easy bruising or bleeding, skin lesions or rashes. Physical Exam Physical Exam: General: Resting comfortably in her bedside chair. NAD. HEENT: Head is AT/NC. Buccal mucosa is moist and pink Neck: No JVD. Negative hepatojugular reflex Cardiac: RRR without M/G/R Lungs: CTA without W/R/R Abdomen: Normoactive X4. Soft and nontender in all quadrants. Extremities: Right hip with postsurgical dressing. No indwelling drains. Distal pulses to the bilateral lower extremities are intact and symmetrical. Cap refill +2. Negative Homans' sign. No calf tenderness. Neuro: A&O X4. Cranial nerves II through XII are grossly intact. No focal neuro deficits Skin: No obvious skin lesions or rashes Psych: Appropriate affect. Pleasant and cooperative Results & Data Results & Data ([facility]) Vital Signs (Past 12 Hours) Vital Signs Temp Pulse Resp BP Pulse Ox 04/04/21 15:20 36.5 C 99 H 18 91/53 L 91 04/04/21 07:24 36.9 C 78 18 101/60 98 PG Care Time/CCT Total # of Minutes Spent Total Time Spent with Patient: Total time spent is greater than 50% in coordination of care (as documented) at patient's floor/unit and/or counseling patient: Coding Level of Care Code 15979 Subseq Hosp Care Lvl 2 Diagnoses Closed right hip fracture S72.001A Postoperative anemia due to acute blood loss D62 Hypotension I95.9 CAD (coronary artery disease) I25.10 Hypertension I10 Ischemic cardiomyopathy I25.5 Hypothyroid E03.9 Anxiety F41.9 Hypercholesteremia E78.00
[2021-04-04] MEDS: DOCUSATE SODIUM/SENNA 50/8.6MG TAB PO SCH (21:19)
[2021-04-05] MEDS: LEVOTHYROXINE SODIUM 88 MCG TABLET PO SCH (05:36)
[2021-04-05 06:03] LABS: Hematocrit (blood only) 29.6 % (37-47); Hemoglobin 9.7 g/dL (12.0-16.0); Mean Corpuscular Hemoglobin 30.2 pg (25-34); Mean Corpuscular Hgb Conc 32.8 g/dL (32-36); Mean Corpuscular Volume 92.2 fL (80-100); Mean Platelet Volume 11.2 fL (7.4-10.4); Platelet Count 137 K/uL (130-400); RDW Coefficient of Variation 13.4 % (11.5-14.5); RDW Standard Deviation 45.3 fL (36.4-46.3); Red Blood Count 3.21 M/uL (4.2-5.4); White Blood Count 8.08 K/uL (4.8-10.8)
[2021-04-05 06:29] LABS: BUN Creatinine Ratio 25.3 (10-20); Calcium 8.2 mg/dl (8.5-10.1); Creatinine Clr Calc Pharmacy 53.9 ml/min; Est GFR (African American) 83.7 ml/min; Est GFR (Non-African American) 72.2 ml/min; Potassium 3.5 mmol/L (3.5-5.1)
[2021-04-05] MEDS: carvediloL 6.25 MG TAB PO SCH ×2 (08:56→20:04)
[2021-04-05] MEDS: ASPIRIN 81 MG ECTAB PO SCH ×2 (08:57→20:02)
[2021-04-05] MEDS: MULTIVITAMIN TAB PO SCH (08:58)
[2021-04-05] MEDS: FERROUS SULFATE 325 MG TAB PO SCH (08:58)
[2021-04-05] MEDS: CHOLECALCIFEROL 1,000 UNITS 25 MCG TAB PO SCH (08:58)
[2021-04-05] MEDS: ROSUVASTATIN CALCIUM 20 MG TAB PO SCH (08:59)
[2021-04-05] MEDS: FLUoxetine HCL 20 MG CAP PO SCH (08:59)
[2021-04-05] MEDS: FUROSEMIDE 40 MG TAB PO SCH (11:30)
[2021-04-05] MEDS: SPIRONOLACTONE 25 MG TAB PO SCH (11:31)
--- NOTE | 2021-04-05 15:22 | Hospitalist Progress Note ---
Date of Service April 05, 2021 Assessment & Plan (1) Closed right hip fracture: Plan: * Patient was walking up the steps carrying groceries when she lost her footing and fell up 1 step * X-ray shows a displaced subcapital femoral neck fracture * S/p right hip hemiarthroplasty on 04/02 * Pain currently controlled with Ultram * Seen by PT/OT who is currently recommending rehab. [facility] * Continue incentive spirometry, and DVT prophylaxis (aspirin 81 mg twice daily ordered by orthopedics). I do have reservations given that this is a fra cture. Fractures do pose increased risk of DVT/PE. Patient does not have an underlying history of such. Will keep aspirin on board. Will need 30 to 35 days of DVT prophylaxis * Vitamin D level obtained and low at 58. Patient already on vitamin D supplementation. Increased to 2000 international units daily (2) Postoperative anemia due to acute blood loss: Plan: * Preoperative hemoglobin 13.0. Today is 9.7. * EBL 200 cc * Started on iron supplementation * Monitor labs closely * Would have a low threshold to give blood (if hemoglobin drops below 9 and she remained hypotensive). No indication for blood at this time (3) Hypotension: Plan: * Intermittent fluctuations in hypotension (90s/50s - 119/63) but asymptomatic * Patient on Lasix 80 mg daily with an additional 20 mg 3 times a week (this is prescribed per cardiology and verified with patient's pharmacy), lisinopril 2.5 mg daily (on hold) , Aldactone 25 mg daily, Coreg 6.25 mg twice a day --Patient with LV dysfunction and a poor EF of 20 to 25% and history of CHF. All of the medications are being prescribed by cardiology. She is asymptomatic with her current BP. No change in meds * According to patient's last cardiology note from 12/12/2020, pt appeared euvolemic and no changes were made, at that time she was on Lasix 40mg daily. I suspect that the 80mg daily was supposed to be a temporary dose as there is no documentation by cardiology to support this ongoing high dose. Will decrease back to 40mg daily. Again, as noted above, her diuretics were held today d/t soft BP. * Parameters placed on meds * Avoid opiates as can precipitate hypotension (4) CAD (coronary artery disease): Plan: * CAD/hypertension/ischemic cardiomyopathy * Continue carvedilol, digoxin * Aspirin resumed (but BID dosing for DVT prophl) * Lasix and Aldactone resumed given poor EF and risk of CHF * Continue to hold lisinopril given spinal use for anesthesia and risk of worsening hypotension and/or LIZETTE--> likely resume upon D/C * EKG nonacute (5) Hypertension: Plan: * See above (6) Ischemic cardiomyopathy: Plan: * See above * Patient takes beta-blockade, digoxin, lisinopril (holding), and Lasix * Last echocardiogram done 01/05 with EF of 20 to 24%. Patient has ICD * Avoid overhydration given risk of CHF * As reported above, given very small fluid challenge (7) Hypothyroid: Plan: * Continue levothyroxine 88 mcg daily (8) Anxiety: Plan: * Continue lorazepam and fluoxetine (9) Hypercholesteremia: Plan: * Continue rosuvastatin * Hold fish oil Plan: Continue PT/OT -- recommending rehab. C[facility] mgmt [facility] Admission and Anticipated Discharge Date Admission Date: April 01, 2021 Subjective Patient seen on daily rounds today. Pain in R hip controlled with Ultram. She denies fevers, chills, chest pain, shortness of breath, abdominal pain, nausea or vomiting. Patient continues to have soft BPs and remains asymptomatic. She does take a significant amount of Lasix (as well as Spironolactone) prescribed by her aviation safety equipment technician and has intermittent hypotension reported in the chart. Diuretics were held this morning. Review of Systems 2 Review of Systems: All systems reviewed and are unremarkable except as noted in HPI and below Denies fevers, chills, headache, nasal congestion, sore throat, cough, chest pain, shortness of breath, palpitations, orthopnea, PND, abdominal pain, nausea, vomiting, diarrhea, constipation, dysuria, hematuria, frequency, back pain, joint pain or swelling, easy bruising or bleeding, skin lesions or rashes. Physical Exam Physical Exam: GENERAL: 75 yo well-developed, well-nourished elderly WF. NAD. LUNGS: Clear to auscultation bilaterally. No accessory muscle use. No W/R/R. CARDIOVASCULAR: Regular rate and rhythm. No M/G/R. No JVD. ABDOMEN: Soft, non-tender and non-distended. BS normal x 4 quad. EXTREMITIES: No edema. Non-tender. Peripheral pulses +2/4. NEUROLOGIC: A&O x3. PSYCHIATRIC: Cooperative. Appropriate mood and affect. SKIN: Warm, dry, intact. No rashes or lesions. R hip incision is dressed. Dressing dry. Results & Data Results & Data ([facility]) Vital Signs (Past 12 Hours) Vital Signs Temp Pulse Resp BP Pulse Ox Pulse Ox 04/05/21 11:27 77 95/63 L 96 04/05/21 10:00 95 04/05/21 08:42 36.8 C 67 16 100/62 99 Laboratory Results 04/05/21 05:26 04/05/21 05:26 PG Care Time/CCT Total # of Minutes Spent Total Time Spent with Patient: Total time spent is greater than 50% in coordination of care (as documented) at patient's floor/unit and/or counseling patient: Coding Level of Care Code 81590 Subseq Hosp Care Lvl 2 Diagnoses Closed right hip fracture S72.001A Postoperative anemia due to acute blood loss D62 Hypotension I95.9 CAD (coronary artery disease) I25.10 Hypertension I10 Ischemic cardiomyopathy I25.5 Hypothyroid E03.9 Anxiety F41.9 Hypercholesteremia E78.00
[2021-04-05] MEDS: DIGOXIN 0.125 MG TAB PO SCH (15:51)
[2021-04-05] MEDS: DOCUSATE SODIUM/SENNA 50/8.6MG TAB PO SCH (20:01)
[2021-04-05] MEDS: ACETAMINOPHEN 325 MG TAB PO PRN (22:24)
[2021-04-06] MEDS: LEVOTHYROXINE SODIUM 88 MCG TABLET PO SCH (06:18)
[2021-04-06] MEDS: carvediloL 6.25 MG TAB PO SCH ×2 (08:50→20:22)
[2021-04-06] MEDS: ASPIRIN 81 MG ECTAB PO SCH ×2 (08:50→20:24)
[2021-04-06] MEDS: FERROUS SULFATE 325 MG TAB PO SCH (08:50)
[2021-04-06] MEDS: CHOLECALCIFEROL 1,000 UNITS 25 MCG TAB PO SCH (08:50)
[2021-04-06] MEDS: MULTIVITAMIN TAB PO SCH (08:50)
[2021-04-06] MEDS: FLUoxetine HCL 20 MG CAP PO SCH (08:50)
[2021-04-06] MEDS: FUROSEMIDE 40 MG TAB PO SCH ×2 (08:51→09:59)
[2021-04-06] MEDS: ROSUVASTATIN CALCIUM 20 MG TAB PO SCH (08:54)
[2021-04-06] MEDS: SPIRONOLACTONE 25 MG TAB PO SCH (09:59)
--- NOTE | 2021-04-06 13:49 | Hospitalist Progress Note ---
Date of Service April 06, 2021 Assessment & Plan (1) Closed right hip fracture: Plan: * Patient was walking up the steps carrying groceries when she lost her footing and fell up 1 step * X-ray shows a displaced subcapital femoral neck fracture * S/p right hip hemiarthroplasty on 04/02 * Pain currently controlled with Ultram * Seen by PT/OT who is currently recommending rehab. [facility] * Continue incentive spirometry, and DVT prophylaxis (aspirin 81 mg twice daily ordered by orthopedics). I do have reservations given that this is a fracture. Fractures do pose increased risk of DVT/PE. Patient does not have an underlying history of such. Will keep aspirin on board. Will need 30 to 35 days of DVT prophylaxis * Vitamin D level obtained and low at 58. Patient already on vitamin D supplementation. Increased to 2000 international units daily * Continue incentive spirometry for atelectasis/pna prevention (2) Postoperative anemia due to acute blood loss: Plan: * Preoperative hemoglobin 13.0. Last check 04/05 was 9.7. * EBL 200 cc * Started on iron supplementation * No indication for blood transfusion at this time (3) Hypotension: Plan: * Intermittent fluctuations in hypotension (90s/50s - 119/63) but asymptomatic * Patient on Lasix 80 mg daily with an additional 20 mg 3 times a week (this is prescribed per cardiology and verified with patient's pharmacy), lisinopril 2.5 mg daily (on hold) , Aldactone 25 mg daily, Coreg 6.25 mg twice a day --Patient with LV dysfunction and a poor EF of 20 to 25% and history of CHF. All of the medications are being prescribed by cardiology. She is asymptomatic with her current BP. Diuretics on held last 2 days. * According to patient's last cardiology note from 12/12/2020, pt appeared euvolemic and no changes were made, at that time she was on Lasix 40mg daily. I suspect that the 80mg daily was supposed to be a temporary dose as there is no documentation by cardiology to support this ongoing high dose. Will decrease back to 40mg daily. Again, as noted above, her diuretics were held yesterday and today d/t soft BP. Will d/w cardiology tomorrow 04/07. * Parameters to hold for sbp<100 * Avoid opiates as can precipitate hypotension (4) CAD (coronary artery disease): Plan: * CAD/hypertension/ischemic cardiomyopathy * Continue carvedilol, digoxin * Aspirin resumed (but BID dosing for DVT prophl) * Lasix and Aldactone resumed given poor EF and risk of CHF * Continue to hold lisinopril given spinal use for anesthesia and risk of worsening hypotension and/or LIZETTE--> likely resume upon D/C * EKG nonacute (5) Hypertension: Plan: * See above (6) Ischemic cardiomyopathy: Plan: * See above * Patient takes beta-blockade, digoxin, lisinopril (holding), and Lasix * Last echocardiogram done 01/05 with EF of 20 to 24%. Patient has ICD * Avoid overhydration given risk of CHF * As reported above, given very small fluid challenge (7) Hypothyroid: Plan: * Continue levothyroxine 88 mcg daily (8) Anxiety: Plan: * Continue lorazepam and fluoxetine (9) Hypercholesteremia: Plan: * Continue rosuvastatin * Hold fish oil Plan: Continue PT/OT -- recommending rehab. Came mgmt looking [facility] but insurance requires auth which cannot be submitted until tomorrow. Admission and Anticipated Discharge Date Admission Date: April 01, 2021 Subjective Patient seen on daily rounds today. Pain in R hip controlled with Ultram. She denies fevers, chills, chest pain, shortness of breath, abdominal pain, nausea or vomiting. Patient continues to have soft BPs and remains asymptomatic. She does take a significant amount of Lasix (as well as Spironolactone) prescribed by her transfer car operator drier and has intermittent hypotension reported in the chart. Diuretics were held this morning by RN (as well as yesterday). Review of Systems Review of Systems: All systems reviewed and are unremarkable except as noted in HPI and below Denies fevers, chills, headache, nasal congestion, sore throat, cough, chest pain, shortness of breath, palpitations, orthopnea, PND, abdominal pain, nausea, vomiting, diarrhea, constipation, dysuria, hematuria, frequency, back pain, joint pain or swelling, easy bruising or bleeding, skin lesions or rashes. Physical Exam Physical Exam: GENERAL: 75 yo well-developed, well-nourished elderly WF. NAD. LUNGS: Clear to auscultation bilaterally. No accessory muscle use. No W/R/R. CARDIOVASCULAR: Regular rate and rhythm. No M/G/R. No JVD. ABDOMEN: Soft, non-tender and non-distended. BS normal x 4 quad. EXTREMITIES: No edema. Non-tender. Peripheral pulses +2/4. NEUROLOGIC: A&O x3. PSYCHIATRIC: Cooperative. Appropriate mood and affect. SKIN: Warm, dry, intact. No rashes or lesions. R hip incision is dressed. Dressing dry. Results & Data Results & Data ([facility]) Vital Signs (Past 12 Hours) Vital Signs Temp Pulse Pulse Resp BP Pulse Ox Pulse Ox 04/06/21 06:00 93 04/06/21 02:00 93 04/05/21 22:42 37.2 C 84 15 94/52 L 93 04/05/21 22:00 93 04/05/21 15:57 36.6 C 90 16 103/60 92 04/05/21 15:51 83 83 04/05/21 14:00 95 PG Care Time/CCT Total # of Minutes Spent Total Time Spent with Patient: Total time spent is greater than 50% in coordination of care (as documented) at patient's floor/unit and/or counseling patient: Coding Level of Care Code 84848 Subseq Hosp Care Lvl 2 Diagnoses Closed right hip fracture S72.001A Postoperative anemia due to acute blood loss D62 Hypotension I95.9 CAD (coronary artery disease) I25.10 Hypertension I10 Ischemic cardiomyopathy I25.5 Hypothyroid E03.9 Anxiety F41.9 Hypercholesteremia E78.00
[2021-04-06] MEDS: DIGOXIN 0.125 MG TAB PO SCH (16:37)
[2021-04-06] MEDS: DOCUSATE SODIUM/SENNA 50/8.6MG TAB PO SCH (20:22)
[2021-04-06] MEDS: ACETAMINOPHEN 325 MG TAB PO PRN (22:45)
[2021-04-07] MEDS: LORazepam 0.5 MG TAB PO PRN ×2 (01:43→22:26)
[2021-04-07] MEDS: LEVOTHYROXINE SODIUM 88 MCG TABLET PO SCH (06:16)
[2021-04-07] MEDS: FERROUS SULFATE 325 MG TAB PO SCH (08:35)
[2021-04-07] MEDS: FLUoxetine HCL 20 MG CAP PO SCH (08:35)
[2021-04-07] MEDS: ASPIRIN 81 MG ECTAB PO SCH ×2 (08:35→20:55)
[2021-04-07] MEDS: SPIRONOLACTONE 25 MG TAB PO SCH (08:35)
[2021-04-07] MEDS: CHOLECALCIFEROL 1,000 UNITS 25 MCG TAB PO SCH (08:35)
[2021-04-07] MEDS: carvediloL 6.25 MG TAB PO SCH ×2 (08:35→20:55)
[2021-04-07] MEDS: ROSUVASTATIN CALCIUM 20 MG TAB PO SCH (08:36)
[2021-04-07] MEDS: MULTIVITAMIN TAB PO SCH (08:36)
--- NOTE | 2021-04-07 10:33 | Hospitalist Progress Note ---
Date of Service April 07, 2021 Assessment & Plan (1) Closed right hip fracture: Plan: * Patient was walking up the steps carrying groceries when she lost her footing and fell up 1 step * X-ray shows a displaced subcapital femoral neck fracture * S/p right hip hemiarthroplasty on 04/02 * Pain currently controlled with Ultram * Seen by PT/OT who is currently recommending rehab. [facility] * Continue incentive spirometry, and DVT prophylaxis (aspirin 81 mg twice daily ordered by orthopedics). I do have reservations given that this is a fracture. Fractures do pose increased risk of DVT/PE. Patient does not have an underlying history of such. Will keep aspirin on board. Will need 30 to 35 days of DVT prophylaxis * Vitamin D level obtained and low at 58. Patient already on vitamin D supplementation. Increased to 2000 international units daily * Continue incentive spirometry for atelectasis/pna prevention (2) Postoperative anemia due to acute blood loss: Plan: * Preoperative hemoglobin 13.0. Last check 04/05 was 9.7. * EBL 200 cc * Started on iron supplementation * No indication for blood transfusion at this time (3) Hypotension: Plan: * Intermittent fluctuations in hypotension (90s/50s - 119/63) but asymptomatic * Patient on Lasix 80 mg daily with an additional 20 mg 3 times a week (this is prescribed per cardiology and verified with patient's pharmacy), lisinopril 2.5 mg daily (on hold) , Aldactone 25 mg daily, Coreg 6.25 mg twice a day (although per last cardiology note pt is to be on 12.5mg BID). --Patient with LV dysfunction and a poor EF of 20 to 25% and history of CHF. All of the medications are being prescribed by cardiology. She is asymptomatic with her current BP. Diuretics on held 04/05 and 04/06 d/t soft BP. * According to patient's last cardiology note from 12/12/2020, pt appeared euvolemic and no changes were made, at that time she was on Lasix 40mg daily. I suspect that the 80mg daily was supposed to be a temporary dose as there is no documentation by cardiology to support this ongoing high dose. Will decrease back to 40mg daily. This was confirmed with cardiology -- spoke Dr. Rubalcava today. * Parameters to hold for sbp<100 * Avoid opiates as can precipitate hypotension (4) CAD (coronary artery disease): Plan: * CAD/hypertension/ischemic cardiomyopathy * Continue carvedilol, digoxin * Aspirin resumed (but BID dosing for DVT prophl) * Lasix and Aldactone resumed given poor EF and risk of CHF * Continue to hold lisinopril given spinal use for anesthesia and risk of worsening hypotension and/or LIZETTE--> likely resume upon D/C * EKG nonacute (5) Hypertension: Plan: * See above (6) Ischemic cardiomyopathy: Plan: * See above * Patient takes beta-blockade, digoxin, lisinopril (holding), and Lasix * Last echocardiogram done 01/05 with EF of 20 to 24%. Patient has ICD * Avoid overhydration given risk of CHF * As reported above, given very small fluid challenge (7) Hypothyroid: Plan: * Continue levothyroxine 88 mcg daily (8) Anxiety: Plan: * Continue lorazepam and fluoxetine (9) Hypercholesteremia: Plan: * Continue rosuvastatin * Hold fish oil Plan: Continue PT/OT -- recommending rehab. Came mgmt looking [facility] but if denied, pt would like to go home with home health services. Admission and Anticipated Discharge Date Admission Date: April 01, 2021 Subjective Patient seen on daily rounds today. Pain in R hip controlled with Ultram. She denies fevers, chills, chest pain, shortness of breath, abdominal pain, nausea or vomiting. BPs are better today. She is still waiting on word regarding d/c to [facility]. Pt requests to be discharged home tomorrow with home health if insurance denies [facility]. Review of Systems Review of Systems: All systems reviewed and are unremarkable except as noted in HPI and below Denies fevers, chills, headache, nasal congestion, sore throat, cough, chest pain, shortness of breath, palpitations, orthopnea, PND, abdominal pain, nausea, vomiting, diarrhea, constipation, dysuria, hematuria, frequency, back pain, joint pain or swelling, easy bruising or bleeding, skin lesions or rashes. Physical Exam Physical Exam: GENERAL: 75 yo well-developed, well-nourished elderly WF. NAD. LUNGS: Clear to auscultation bilaterally. No accessory muscle use. No W/R/R. CARDIOVASCULAR: Regular rate and rhythm. No M/G/R. No JVD. ABDOMEN: Soft, non-tender and non-distended. BS normal x 4 quad. EXTREMITIES: Trace edema RLE. Non-tender. Peripheral pulses +2/4. NEUROLOGIC: A&O x3. PSYCHIATRIC: Cooperative. Appropriate mood and affect. SKIN: Warm, dry, intact. No rashes or lesions. R hip incision is dressed. Dressing dry. Results & Data Results & Data ([facility]) Vital Signs (Past 12 Hours) Vital Signs Temp Pulse Resp BP Pulse Ox Pulse Ox 04/07/21 07:45 36.5 C 80 16 114/66 96 04/07/21 06:00 97 04/07/21 02:00 96 04/06/21 22:40 37.1 C 91 H 16 129/72 95 PG Care Time/CCT Total # of Minutes Spent Total Time Spent with Patient: Total time spent is greater than 50% in coordination of care (as documented) at patient's floor/unit and/or counseling patient: Coding Level of Care Code 06088 Subseq Hosp Care Lvl 2 Diagnoses Closed right hip fracture S72.001A Postoperative anemia due to acute blood loss D62 Hypotension I95.9 CAD (coronary artery disease) I25.10 Hypertension I10 Ischemic cardiomyopathy I25.5 Hypothyroid E03.9 Anxiety F41.9 Hypercholesteremia E78.00
[2021-04-07] MEDS: FUROSEMIDE 20 MG TAB PO SCH (10:44)
[2021-04-07] MEDS: FUROSEMIDE 40 MG TAB PO SCH (10:44)
[2021-04-07] MEDS: DIGOXIN 0.125 MG TAB PO SCH (16:36)
[2021-04-07] MEDS: DOCUSATE SODIUM/SENNA 50/8.6MG TAB PO SCH (20:56)
[2021-04-08] MEDS: LEVOTHYROXINE SODIUM 88 MCG TABLET PO SCH (06:03)
[2021-04-08] MEDS: carvediloL 6.25 MG TAB PO SCH (08:28)
[2021-04-08] MEDS: SPIRONOLACTONE 25 MG TAB PO SCH (08:28)
[2021-04-08] MEDS: ASPIRIN 81 MG ECTAB PO SCH (08:28)
[2021-04-08] MEDS: FLUoxetine HCL 20 MG CAP PO SCH (08:29)
[2021-04-08] MEDS: FERROUS SULFATE 325 MG TAB PO SCH (08:29)
[2021-04-08] MEDS: FUROSEMIDE 40 MG TAB PO SCH (08:29)
[2021-04-08] MEDS: ROSUVASTATIN CALCIUM 20 MG TAB PO SCH (08:29)
[2021-04-08] MEDS: CHOLECALCIFEROL 1,000 UNITS 25 MCG TAB PO SCH (08:29)
[2021-04-08] MEDS: MULTIVITAMIN TAB PO SCH (10:04)
--- NOTE | 2021-04-08 12:58 | Discharge Summary ---
Date of Service April 08, 2021 Admission HPI Per Admitting Provider The patient is a 75-year-old female with a past medical history including CAD, hypertension, hypothyroidism, anxiety, ischemic cardiomyopathy and hypercholesterolemia. She presents to the emergency department as noted above. She denies any other injury to any other body areas including head. Work-up in the emergency department included a pelvis x-ray with bilateral hips, which showed a right hip fracture. Principal Diagnosis Acute right hip fx s/p hemiarthroplasty Discharge Exam GENERAL: 75 yo well-developed, well-nourished elderly WF. NAD. LUNGS: Clear to auscultation bilaterally. No accessory muscle use. No W/R/R. CARDIOVASCULAR: Regular rate and rhythm. No M/G/R. No JVD. ABDOMEN: Soft, non-tender and non-distended. BS normal x 4 quad. EXTREMITIES: 1+ edema RLE. Silverlon dressing intact over R hip incision. Non- tender. Peripheral pulses +2/4. NEUROLOGIC: A&O x3. PSYCHIATRIC: Cooperative. Appropriate mood and affect. SKIN: Warm, dry, intact. No rashes or lesions. R hip incision is dressed. Dressing dry. Discharge Data Allergies Allergy/AdvReac Type Severity Reaction Status Date / Time No Known Allergies Allergy Verified 04/01/21 20:17 Consultations 04/01/21 19:56 Consult Orthopedic Surgery Routine Procedures Performed Operation Date: 04/02/21 12:35 Actual Procedures p Right Hip Hemiarthroplasty Anterior Approach, Cemented(Right) - Arjun Paul DO Ordered Studies Hip/Pelvis X-Ray 04/01/21 19:23 XR hip RT 2V w pelvis CLINICAL HISTORY: fall. Right hip pain COMPARISON STUDY: 02/26/2018 TECHNIQUE: AP pelvis and 2 right hip views FINDINGS: Bones: There is a displaced, subcapital fracture right femoral neck. The femoral shaft is superiorly migrated relation to the femoral neck. The remaining imaged bones are intact. There is no lytic or blastic lesion. Joints: The femoral head maintains its anatomic position within the acetabulum. There is coxa varus deformity. Soft tissues: There is no focal soft tissue abnormality. There is no radiopaque foreign body. IMPRESSION: 1. Displaced, subcapital fracture of the right femoral neck. ACT 112: Negative or not required by law. Electronically signed by: Mati Saunders M.D. 04/01/2021 8:02 PM Chest X-Ray 04/01/21 20:13 XR chest 1V portable CLINICAL HISTORY: Preop for right hip fracture. Evaluate cardiopulmonary status COMPARISON STUDY: 10/04/2017 TECHNIQUE: 1 view of the chest FINDINGS: Single frontal view of the chest demonstrates the heart size to again be enlarged with dual lead ICD pacer in place. The lungs are clear of alveolar opacities. There is no evidence for pleural effusion. There is no evidence for vascular congestion. There is no acute osseous pathology. IMPRESSION: 1. No acute cardiopulmonary disease. 2. Cardiomegaly with pacer. ACT 112: Negative or not required by law. Electronically signed by: Mati Saunders M.D. 04/01/2021 8:34 PM Hip X-Ray 04/02/21 14:00 FL hip RT 1V CLINICAL HISTORY: Right anterior total hip replacement COMPARISON STUDY: 04/01/2021 FLUOROSCOPY TIME: 6 seconds. FLUOROSCOPIC IMAGES: 3 FINDINGS: Initial images shows a displaced subcapital fracture. There is subsequent placement of a bilateral hip replacement. The prosthetic components are in anatomic alignment with no acute osseous pathology. IMPRESSION: Status post right total hip replacement. ACT 112: Negative or not required by law. Electronically signed by: Mati Saunders M.D. 04/02/2021 5:09 PM Hip X-Ray 04/02/21 16:23 XR hip RT min 2V CLINICAL HISTORY: Post-Operative implant position TECHNIQUE: 2 views of the right hip and single frontal view of the pelvis were obtained. Comparison: None available at the time of this dictation. FINDINGS: Patient is status post total hip arthroplasty with expected postsurgical changes including soft tissue swelling, subcutaneous emphysema, and surgical staple placement. No periarticular lucency or hardware fracture is seen. The alignment is anatomic. No soft tissue abnormality is seen. IMPRESSION: Expected postoperative appearance status post placement of total hip arthroplasty. ACT 112: Negative or not required by law. Electronically signed by: Vinayak Longo M.D. 04/02/2021 5:04 PM Hospital Course (1) Closed right hip fracture: * Patient was walking up the steps carrying groceries when she lost her footing and fell up 1 step * X-ray shows a displaced subcapital femoral neck fracture * S/p right hip hemiarthroplasty on 2/16 * Pain currently controlled with Ultram, rx provided. * Seen by PT/OT who is currently recommending rehab. [facility] management looking [facility] * Continue incentive spirometry, and DVT prophylaxis (aspirin 81 mg twice daily ordered by orthopedics). I do have reservations given that this is sufficient dvt ppx for a fracture. Fractures do pose increased risk of DVT/PE. Patient does not have an underlying history of such. Will keep aspirin on board. Will need 30 to 35 days (minimum) of DVT prophylaxis * Vitamin D level obtained and low at 58. Patient already on vitamin D supplementation. Increased to 2000 international units daily * Continue incentive spirometry for atelectasis/pna prevention (2) Postoperative anemia due to acute blood loss: * Preoperative hemoglobin 13.0. Last check 04/05 was 9.7. * EBL 200 cc * Started on iron supplementation * No indication for blood transfusion (3) Hypotension: * Intermittent fluctuations in hypotension (90s/50s - 119/63) but asymptomatic * Patient on Lasix 80 mg daily with an additional 20 mg 3 times a week (this was prescribed after a phone call "visit" with cardiology but this is not the regimen she was on according to her last cardiology note), lisinopril 2.5 mg daily (on hold) , Aldactone 25 mg daily, Coreg 6.25 mg twice a day (although per last cardiology note pt is to be on 12.5mg BID)--I suspect same person that did phone call adjustment in Lasix also adjusted the Coreg; at this point, would continue the 6.25mg BID given her blood pressures and it can be uptitrated back to the 12.5mg BID by her creative engagement director if they feel it is necessary. --Patient with LV dysfunction and a poor EF of 20 to 25% and history of CHF. All of the medications are being prescribed by cardiology. She is asymptomatic with her current BP. Diuretics on held 04/05 and 04/06 d/t soft BP. * According to patient's last cardiology note from 12/12/2020, pt appeared euvolemic and no changes were made, at that time she was on Lasix 40mg daily. I suspect that the 80mg daily was supposed to be a temporary dose as there is no documentation by her creative engagement director to support this continued high dose--subsequently she was decreased back to 40mg daily after speaking with cardiology (Dr. Rubalcava on 04/07/21). * Hold parameters were placed on BP meds (4) CAD (coronary artery disease): * CAD/hypertension/ischemic cardiomyopathy * Continue carvedilol, digoxin * Aspirin resumed (but BID dosing for DVT prophl) * Lasix and Aldactone resumed given poor EF and risk of CHF (however had to be held for a couple of days d/t soft BPs) * Lisinopril held given spinal use for anesthesia and risk of worsening hypotension and/or LIZETTE--> this can be resumed upon d/c * EKG nonacute (5) Hypertension: * See above (6) Ischemic cardiomyopathy: * See above * Patient takes beta-blockade, digoxin, lisinopril, and Lasix all of which can be continued as prescribed * Last echocardiogram done 01/05 with EF of 20 to 24%. Patient has ICD (7) Hypothyroid: * Continue levothyroxine 88 mcg daily (8) Anxiety: * Continue lorazepam and fluoxetine (9) Hypercholesteremia: * Continue rosuvastatin * Can resume fish oil At this time patient remains both medically and hemodynamically stable for discharge. Per case management, [facility] is still reviewing the patient to determine if they are going to submit for insurance authorization. At this time, patient no longer wishes to pursue discharge to [facility] as she is anxious to leave the hospital and feels that she can manage at home. Everything is accessible on one floor and only has to descend a flight of stairs in order to do laundry. Subsequently, we will plan for discharge home with home health including PT/OT and home nursing services. She has been advised to follow-up with orthopedics as outlined in her discharge instructions. She should follow- up with her primary care physician within 1 week of discharge. Above plan has been d/w Dr. Beyer who has also seen and evaluated this patient prior to discharge. Total Time Total Time Spent Total Time Spent (In Minutes): >30 minutes Discharge Plan Discharge Items Patient Disposition: Home - Home Health Services Reason For Visit: CLOSE RIGHT HIP FRACTURE Discharge Diagnosis: R hip fracture Activity: Per Instructions section Non-emergency contact: Primary Care Provider and Surgeon Call non-emergency contact if: you have any medication questions, your symptoms worsen and your pain is not controlled Follow-up/Referrals: Santana Woodard MD [Primary Care Provider] - Arjun Paul DO [Physician] - 04/16/21 2:10 pm Diet: Regular, Heart Healthy and Low Sodium (2gm) Zuly Attending Provider Instructions: * Take all medications as outlined on discharge medication section. * Your Lasix can be resumed as 40mg once daily. * Because your blood pressure has been running low, your Coreg has been lowered to 6.25mg twice daily (previously it was 12.5mg twice daily). * In order to prevent blood clots in your legs after surgery, your Aspirin has been increased to twice daily. Continue to take this as instructed below (for 4-6 weeks). After this, you can resume Aspirin once daily. * Home therapy services and nursing services will be arranged by our case management department. They will follow up with you at home to continue your rehabilitation from your hip surgery. * Would recommend wearing compression stockings in your right leg (knee high is sufficient) to help keep swelling down. Also use ice pack to your right hip as needed. * Follow up with your orthopedic surgeon as instructed. * Advise follow up with your family doctor within 7-10 days of discharge. Zuly Front Clerk Provider Instructions: ORTHOPEDIC INSTRUCTIONS Hip Hemiarthroplasty Activity and Therapy Recommendations: 1. You were shown a series of exercises in the hospital. Do these exercises three times each day if you are able. 2. Get up and walk several times each day if you are capable. Make sure you have assistance is needed. For the first four weeks, try not to stand or walk for more than one hour at a time. If you do stand or walk for more than one hour, you will not hurt anything, but your leg will likely swell. 3. As you feel comfortable, you may change from the walker or crutches to a cane and then to independent walking if you are able. Please be safe. Medications: 1. Narcotic You will likely be sent from the hospital with the narcotic pain medication that worked best throughout your stay. 2. Aspirin You will be required to take Aspirin 81mg twice a day for 6 weeks after surgery to prevent blood clots. 3. Other medications may be given for specific circumstances. If you have any questions, please call the office at [phone]. 4. Resume previous home medications unless otherwise instructed TEDs/Elastic Stockings: The white elastic stockings help limit swelling and prevent blood clots from forming in your legs. The more you wear them, the more they work. Wear them for six weeks. Dressing Care: Leave the Silverlon dressing in place for 7 days. After 7 days you may remove the dressing. If the incision is not draining then you may leave the martín open to air. If there is a little bit of drainage or if the martín are getting stuck on your clothing then cover the incision with a dry dressing. The martín will be removed at your 2 week follow-up appointment. Showering: You may shower with the Silverlon dressing in place. Do not let the shower sp ray hit the dressing directly. Pat the Silverlon dressing dry. If the dressing becomes wet underneath, then simply remove the dressing. Keep the incision dry until you are 7 days out from the day of surgery. After 7 days you may remove the Silverlon dressing and shower with the martín exposed. Let soapy water run over the martín and pat them dry. Do not scrub or soak the incision. Things To Watch For: 1. Drainage from the incision site that occurs more than one week after your surgery. 2. Increased redness at the incision site. 3. Fever above 102 degrees Fahrenheit. 4. Unusual chest pain or shortness of breath. 5. Call [facility] at with any of the above problems Follow-Up Visit: Follow-up with Dr. Paul's PA (Arjun Quezada) 2-3 weeks after your day of surgery. He will remove your martín and answer any questions. If you have any additional questions or concerns, Dr Paul is usually in the office at the same time and will be available Please call the office to make an appointment for a time that works for you Pending Studies at Discharge: No Stand-Alone Forms: [facility], Smoking Cessation Medications and DC Order Prescriptions: New furosemide 40 mg Tablet 40 mg PO DAILY Qty: 30 RF: 0 ferrous sulfate 325 mg (65 mg iron) Tablet,Delayed Release (Dr/Ec) 325 mg PO QAM Qty: 60 RF: 0 tramadol 50 mg tablet 50 mg PO Q4H Qty: 15 RF: 0 Continued carvedilol 6.25 mg tablet 6.25 mg PO BID RF: 0 omega [id number] oil [Fish Oil] 1,000 mg (120 mg-180 mg) capsule 1 cap PO BID RF: 0 lorazepam 0.5 mg tablet 0.5 mg PO HS PRN (Reason: anxiety) Qty: 30 RF: 5 fluoxetine 20 mg capsule 20 mg PO DAILY Qty: 90 RF: 3 spironolactone 25 mg tablet 25 mg PO DAILY Qty: 90 RF: 3 lisinopril 5 mg tablet 2.5 mg PO DAILY Qty: 45 RF: 3 levothyroxine 88 mcg capsule 88 mcg PO DAILY Qty: 90 RF: 3 rosuvastatin 40 mg tablet 40 mg PO DAILY RF: 0 digoxin 125 mcg (0.125 mg) tablet 125 mcg PO DAILY Qty: 90 RF: 3 multivitamin Tablet 1 tab PO DAILY RF: 0 Changed aspirin [Ecotrin Low Strength] 81 mg tablet,delayed release (DR/EC) 81 mg PO BID Qty: 60 RF: 0 cholecalciferol (vitamin D3) 1,000 unit capsule 2,000 units PO DAILY Qty: 0 RF: 0 Discontinued furosemide [Lasix] 40 mg tablet See Rx Instructions PO DAILY RF: 0 Discharge Orders: Discharge Order (Routine); Ordered 04/08/21 Ordered By: Nayeli Ulloa Admission Data Admit Date/Time: 04/01/21 22:43 Attending Provider: Will Beyer Admit Provider: Ian Younger Primary Care Provider: Santana Woodard Other Providers: Nate Anderson ; Arjun Paul ; Ian Younger ; [facility] ; [facility] Other Interventions: Discharge Summary Assessment (RN) Last Done: 04/08/21 14:03 Coding Level of Care Code D/C DAY MANAGEMENT >30 MINS Diagnoses Closed right hip fracture S72.001A Postoperative anemia due to acute blood loss D62 Hypotension I95.9 CAD (coronary artery disease) I25.10 Hypertension I10 Ischemic cardiomyopathy I25.5 Hypothyroid E03.9 Anxiety F41.9 Hypercholesteremia E78.00 Home Health Attestation I certify that this patient is under my care and that I, or a physicians multimedia assistant working with me, had a face to-face encounter that meets the home health [id number] encounter requirements with this patient. The encounter with the patient was in whole, or in part, for the following medical condition, which is the primary reason for home health care (list medical condition): s/p right hip hemiarthroplasty I certify that, based on my findings, the following services are medically necessary home health services: My clinical findings support the need for the above services because: OT Assess ADL Status and Restore Function w ADLs PT Assessment for Endurance / Balance / Strength PT Eval for Safety and Mobility PT Eval for Safety, Gait Training, Assistive Devices PT Gait and Balance Training, Strengthening and Safety Skilled Nsg Assess Pt Illness, Disease and Sx Monitoring Further, I certify that my clinical findings support that this patient is homebound (i.e. absences from home require considerable and taxing effort and are for medical reasons or judaism services or infrequently or of short duration when for other reasons) because: Transportation Assistance/Unable to Leave Home Unassisted Certification for Home Health Services: Based on the above findings, I certify that this patient is confined to the home and needs intermittent [facility] care, physical therapy and/or speech therapy or continues to need occupational therapy. The patient is under my care, and I have initiated the establishment of the plan of care. This patient will be followed by a physician who will periodically review the plan of care.
== END 2021-04-08 15:18 | disposition home health service (06) | DRG 522 ==
LOC: ED 19:12 → 3N 22:30 → SUATTDRO 22:43 → 3N 22:43

== ENCOUNTER 2023-03-14 17:51 | Inpatient (IN) ==
--- OUTSIDE RECORDS SUMMARY | 2023-03-14 17:56 | External Medical Summary | Summary of Care ---
Author Name Unknown Organization [facility] Address [address] [place] [address] Phone [phone] Care Team Providers Care Beader Name Role Phone Harmony COLLIER MD, Efraín Turner Primary Care Pr ovider Reason for Visit * Reason Comments Follow Up Encounter Details Date Type Department Care Team (Late st Contact Info) Description 03/12/2023 12:00 PM EST Office Visit Cardiology, [facility] [address] [facility] [place] [address] Mary Ness CRNP [address] [place] [address] Chronic systolic heart failure (HCC)*; Ischemic cardiomyopathy; Coronary artery disease involving blue lake coronary artery of blue lake heart without angina pectoris; Automatic implantable cardioverter-defibrilla tor in situ; Dyslipidemia, goal LDL below 70; Preoperative cardiovascular examination Allergies No known active allergiesdocumented as of this encounter (statuses as of 03/14/2023) Medications Medication Sig Dispensed Refills Start Date End Date Status ONE-A-DAY WOMENS FORMULA PO TABS one pill each day 0 08/14/2005 Active LORAZEPAM 0.5 MG PO TABS one tablet by mouth daily at bed time as needed 0 Active SPIRONOLACTONE 25 MG PO TABSIndications:Automa tic implantable cardiac defibrillator in situ,Heart failure, etiology unknown (HCC),Old myocardial infarct,Ischemic cardiomyopathy,Coronar y atherosclerosis,Other specified forms of chronic ischemic heart disease 1 TABLET EVERY MORNING 90 Tab 3 05/24/2012 Active Vitamin D (Cholecalciferol) 25 MCG (1000 UT) Oral Tablet Take 1 Tablet by mouth daily. 30 Tablet 5 01/24/2021 Active Aspirin EC 81 MG Oral Tablet Delayed Release Take by mouth 2 Tablets in the morning. 60 Tablet 5 05/16/2021 Active Levothyroxine Sodium 100 MCG Oral Tablet (Levoxyl) Take 1 Tablet by mouth in the morning. 0 08/01/2021 Active Carvedilol 6.25 MG Oral Tablet (Coreg)Indications:Isc hemic cardiomyopathy TAKE 1 TABLET IN THE MORNING AND TAKE 1 TABLET BEFORE BEDTIME 180 Tablet 3 03/31/2022 Active Ezetimibe 10 MG Oral Tablet (Zetia) TAKE 1 TABLET EVERY MORNING 90 Tablet 3 06/08/2022 Active Furosemide 40 MG Oral Tablet (Lasix) TAKE 1 TABLET IN THE MORNING 90 Tablet 3 06/08/2022 Active Jardiance 10 MG Oral Tablet (Empagliflozin)Indicat ions:Chronic systolic heart failure (HCC),Ischemic cardiomyopathy TAKE ONE TABLET BY MOUTH EVERY MORNING 30 Tablet 12 07/03/2022 Active Rosuvastatin Calcium 40 MG Oral Tablet (Crestor)Indications:D yslipidemia, goal LDL below 100 TAKE 1 TABLET EVERY DAY 90 Tablet 3 08/31/2022 Active Nitroglycerin 0.4 MG Sublingual Tablet Sublingual (Nitrostat)Indications :Old myocardial infarct one tab under tongue as needed for chest pain maximum 3 doses 25 Tablet 5 11/06/2022 Active Mirtazapine 15 MG Oral Tablet (Remeron) Take 1 Tablet by mouth at bedtime. 0 09/29/2022 Active Meclizine HCl 25 MG Oral Tablet (Antivert) Take 1 Tablet by mouth 3 times a day as needed. 0 12/18/2022 Active Sertraline HCl 25 MG Oral Tablet (Zoloft) Take 1 Tablet by mouth in the morning. 90 Tablet 3 01/14/2023 Active Entresto 24-26 MG Oral Tablet (sacubitril-valsartan 24-26 mg per tab)Indications:Ischem ic cardiomyopathy,Coronar y artery disease involving blue lake coronary artery of blue lake heart without angina pectoris,Left heart failure with reduced left ventricular function (HCC),Chronic heart failure with reduced ejection fraction and diastolic dysfunction (HCC) Take one in the morning, 1/2 in the evening 135 Tablet 11 01/14/2023 Active documented as of this encounter (statuses as of 03/14/2023) Active Problems Problem Noted Date Diagnosed Date Chronic systolic heart failure 09/04/2020 SVT (supraventricular tachycardia) 04/18/2018 PVC (premature ventricular contraction) 04/19/19 19 Automatic implantable cardioverter-defibrillator in situ 05/21/2010 DYSLIPIDEMIA, GOAL LDL BELOW 100 01/24/2009 Overview: Per Lipid Taxonomy. OLD MYOCARDIAL INFARCT 09/06/2008 Overview: Modified by Acute ID Protocol #5. Ischemic cardiomyopathy 11/06/2005 ADVANCE DIRECTIVE INFORMATION 08/14/2005 Overview: No, Advance Directive brochure given to patient at prior appointment. Near syncope 07/21/2002 FAM HX-DIABETES MELLITUS 10/31/2001 Coronary atherosclerosis 09/16/2001 Hypothyroidism Vertigo CHR ISCHEMIC HRT DIS NEC documented as of this encounter (statuses as of 03/14/2023) Resolved Problems Problem Noted Date Diagnosed Date Resolved Date Heart failure, etiology unknown 12/13/2008 11/23/2012 Overview: Per Heart Failure Taxonomy Protocol. F/u of anterior myocardial infarction 07/21/2002 09/06/2008 Overview: Modified by Acute ID Protocol #5. HYPERLIPIDEMIA NEC-NOS 01/24 Overview: Per Lipid Taxonomy. Heart failure, etiology unknown 12/13/2008 Overview: Per Heart Failure Taxonomy Protocol. documented as of this encounter (statuses as of 03/14/2023) Immunizations Name Administration Dates Next Due Pneumococcal Conjugate Vaccine, 7 Valent 006 Seasonal Influenza Virus Vac cine, Unspecified Formulation 12/16/2022 Seasonal Influenza, Trivalent, Adjuvanted, 65+ y rs 12/26/2018 documented as of this encounter Social History Tobacco Use Types Packs/Day Years Used Date Smoking Tobacco: Never Smokeless Tobacco: Never Alcohol Use Standard Drinks/Week Comments No 0 (1 standard drink = 0.6 oz pur e alcohol) Sex and Gender Information Value Date Recorded Sex Assigned at Not on file Gender Identity Not on file Sexual Orientation Not on file Job Start Date Occupation Industry Not on file Not on file Not on file documented as of this encounter Last Filed Vital Signs Vital Sign Reading Time Taken Comments Blood Pressure 104/64 03/12/2023 12:30 PM EST Pulse 80 03/12/2023 12:30 PM EST Temperature - - Respiratory Rate 14 03/12/2023 12:30 PM EST Oxygen Saturation - - Inhaled Oxygen Concentration - - Weight 68 kg (150 lb) 03/12/2023 12:30 PM EST Height - - Body Mass Index - - documented in this encounter Patient Instructions * Patient Instructions* Mary Ness CRNP - 03/12/2023 1:14 PM EST Make sure you take the Coreg/Carvedilol the day of the procedure. OK to hold the other medications that morning to let your BP be higher. documented in this encounter Progress Notes * Mary Ness CRNP - 03/12/2023 12:51 PM EST Subjective Carly Brian is a 77 year old female. Chief Complaint Patient presents with Follow Up Primary Gravel Screener: Dr. Owusu Cardiac Problems: Ischemic cardiomyopathy. EF 20% to 25%. Status post anterior apical myocardial infarction 2001 with apical expansion. Diffuse coronary artery disease by cardiac catheterization with stable class II angina pectoris. Compensated class III congestive heart failure. S/p prophylactic automatic internal cardiac defibrillator implantation 2005. s/p ICD lead revision and replacement on 09/10/2016 Pacer defibrillator device, Medtronic Evera XT VR. HLD HPI: 77 year old female presents for preop cardiac clearance. Last seen in the clinic 2 months ago. Feeling well since their last visit with no acute concerns today. She is undergoing left reverse shoulder arthroplasty. The prior visit her blood pressures were running a little on the low side at which time her Entresto dose was decreased which resulted in some higher blood pressure readings. Able to get around her house and do normal daily activities including going up and down a flight ofstairs without developing any symptoms. Denies chest pain, SOB, palpitations, dizziness, syncope, edema, orthopnea and PND. No change in activity tolerance. Reports compliance with medications without any untoward side effects, or difficulty with affordability. PMH: Patient Active Problem List Diagnosis Code Hypothyroidism E03.9 Vertigo R42 CHR ISCHEMIC HRT DIS NEC I25.89 Coronary atherosclerosis I25.10 FAM HX-DIABETES MELLITUS Z83.3 Near syncope R55 ADVANCE DIRECTIVE INFORMATION Ischemic cardiomyopathy I25.5 OLD MYOCARDIAL INFARCT I25.2 DYSLIPIDEMIA, GOAL LDL BELOW 100 E78.5 Automatic implantable cardioverter-defibrillator in situ Z95.810 SVT (supraventricular tachycardia) I47.10 PVC (premature ventricular contraction) I49.3 Chronic systolic heart failure (HCC) I50.22 Current Outpatient Medications Medication Sig Dispense Refill ONE-A-DAY WOMENS FORMULA PO TABS one pill each day 0 LORAZEPAM 0.5 MG PO TABS one tablet by mouth daily at bed time as needed SPIRONOLACTONE 25 MG PO TABS 1 TABLET EVERY MORNING 90 Tab 3 Vitamin D (Cholecalciferol) 25 MCG (1000 UT) Oral Tablet Take 1 Tablet by mouth daily. 30 Tablet 5 Aspirin EC 81 MG Oral Tablet Delayed Release Take by mouth 2 Tablets in the morning. 60 Tablet 5 Levothyroxine Sodium 100 MCG Oral Tablet (Levoxyl) Take 1 Tablet by mouth in the morning. Carvedilol 6.25 MG Oral Tablet (Coreg) TAKE 1 TABLET IN THE MORNING AND TAKE 1 TABLET BEFORE BEDTIME 180 Tablet 3 Ezetimibe 10 MG Oral Tablet (Zetia) TAKE 1 TABLET EVERY MORNING 90 Tablet 3 Furosemide 40 MG Oral Tablet (Lasix) TAKE 1 TABLET IN THE MORNING 90 Tablet 3 Jardiance 10 MG Oral Tablet (Empagliflozin) TAKE ONE TABLET BY MOUTH EVERY MORNING 30 Tablet 12 Rosuvastatin Calcium 40 MG Oral Tablet (Crestor) TAKE 1 TABLET EVERY DAY 90 Tablet 3 Nitroglycerin 0.4 MG Sublingual Tablet Sublingual (Nitrostat) one tab under tongue as needed for chest pain maximum 3 doses 25 Tablet 5 Mirtazapine 15 MG Oral Tablet (Remeron) Take 1 Tablet by mouth at bedtime. Meclizine HCl 25 MG Oral Tablet (Antivert) Take 1 Tablet by mouth 3 times a day as needed. Sertraline HCl 25 MG Oral Tablet (Zoloft) Take 1 Tablet by mouth in the morning. 90 Tablet 3 Entresto 24-26 MG Oral Tablet (sacubitril-valsartan 24-26 mg per tab) Take one in the morning, 1/2 in the evening 135 Tablet 11 No current facility-administered medications for this visit. Past Medical History: Diagnosis Date Acute ID, anterior wall (HCC) 05/03/01 Coronary atherosclerosis Dyslipidemia, goal to be determined Hypothyroidism Ischemic cardiomyopathy Malignant neoplasm of other specified sites of female breast 2003 right; excised with chem after Vertigo Past Surgical History: Procedure Laterality Date BREAST LESION,OTHER,EXCISION 2003 Breast Lesion Excise; chemo after CATHETERIZE LEFT HEART THRU SKIN 05/03/01 Cardiac Catheterization, Left Heart; stent x2 at [place] DELIVERY 81 Delivery Only LIGATE/CUT OVIDUCT(S) 81 REMOVAL OF TONSILS, UNDER AGE 12 Tonsillectomy,<12 Y/O Review of patient's allergies indicates: No Known Allergies Family History Problem Relation Age of Onset Cancer Mother Diabetes Mother Heart Disorder Mother Gastro-intestinal disorder Father Cancer Aunt (Unspecified) Cancer Uncle (Unspecified) Stroke Aunt (Unspecified) Other (mva[Other]) Brother Heart Disorder Son age 36 with CABG Hypertension Mother Family Status Relation Status Mo at age 73 llung ca me Fa at age 40's pud complic AUNT (Not Specified) UNCLE (Not Specified) Bro (Not Specified) Son (Not Specified) AUNT (Not Specified) UNCLE (Not Specified) AUNT (Not Specified) Bro (Not Specified) Son (Not Specified) Social History Socioeconomic History Marital status: Spouse name: Karan Number of children: 4 Years of education: 12 Highest education level: Not on file Occupational History 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[employer], [employer], 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 Tobacco Use Smoking status: Never Smokeless tobacco: Never Substance and Sexual Activity Alcohol use: No Drug use: No Sexual activity: Yes Partners: Male Other Topics Concern Service No Blood Transfusions No Caffeine Concern No Comment: 1 cup coffee 2-3 cups tea Occupational Exposure No Hobby Hazards No Sleep Concern Yes Comment: sleeps poorly, wakes several time hs Stress Concern No Weight Concern No Special Diet No Back Care Not Asked Exercise No Bike Helmet Not Asked Seat Belt Yes Self-Exams Yes Social History Narrative Not on file Social Determinants of Health Financial Resource Strain: Not on file Food Insecurity: Not on file Transportation Needs: Not on file Physical Activity: Not on file Stress: Not on file Social Connections: Not on file Intimate Partner Violence: Not on file Housing Stability: Not on file Review of Systems Constitutional: Negative for activity change, fatigue and unexpected weight change. Eyes: Negative for visual disturbance. Respiratory: Negative for shortness of breath and wheezing. Cardiovascular: Negative for chest pain, palpitations and leg swelling. Gastrointestinal: Negative for blood in stool, constipation, diarrhea, nausea and vomiting. Genitourinary: Negative for hematuria. Musculoskeletal: Negative for arthralgias and gait problem. Skin: Negative for wound. Neurological: Negative for dizziness and syncope. Objective BP 104/64 | Pulse 80 | Resp 14 | Wt 68 kg (150 lb) Physical Exam Vitals and nursing note reviewed. Constitutional: General: She is awake. She is not in acute distress. Appearance: Normal appearance. She is well-developed. She is not ill-appearing. HENT: Head: Normocephalic and atraumatic. Eyes: General: No scleral icterus. Extraocular Movements: Extraocular movements intact. Conjunctiva/sclera: Conjunctivae normal. Pupils: Pupils are equal, round, and reactive to light. Neck: Thyroid: No thyromegaly. Vascular: No carotid bruit or JVD. Cardiovascular: Rate and Rhythm: Normal rate. Pulses: Normal pulses. Carotid pulses are 2+ on the right side and 2+ on the left side. Radial pulses are 2+ on the right side and 2+ on the left side. Posterior tibial pulses are 2+ on the right side and 2+ on the left side. Heart sounds: Normal heart sounds, S1 normal and S2 normal. No murmur heard. Pulmonary: Effort: Pulmonary effort is normal. No respiratory distress. Breath sounds: Normal breath sounds. No wheezing, rhonchi or rales. Chest: Comments: Left pectoral region; ICD site no evidence of threatened erosion. Skin intact. No erythema/edema Abdominal: General: Bowel sounds are normal. There is no distension. Palpations: Abdomen is soft. There is no mass. Tenderness: There is no abdominal tenderness. Musculoskeletal: General: No swelling. Cervical back: Neck supple. Right lower leg: No edema. Left lower leg: No edema. Skin: General: Skin is warm and dry. Capillary Refill: Capillary refill takes less than 2 seconds. Findings: No rash or wound. Neurological: General: No focal deficit present. Mental Status: She is alert and oriented to person, place, and time. Psychiatric: Attention and Perception: Attention and perception normal. Behavior: Behavior is cooperative. Judgment: Judgment normal. Results Labs & Imaging Reviewed Below: Device Interrogation: 12/07/22 DRYWALL FINISHER 0.5% ECG 03/03/23 at [facility] NSR, 1st Deg AV Block 72 bpm QTc 510 ms 02/12/23 at [facility] NSR, 1st Deg AV Block 68 bpm QTc 478 ms 12/11/22 at [facility] NSR, 1st Deg AV Block 84 bpm QTc 482 ms Echocardiograms 02/03/23 at [facility] Left ventricle severely dilated Regional wall motion abnormalities noted Left ventricular ejection fraction 20-24% RV is normal size and function There is moderate mitral regurgitation Mild tricuspid regurgitation Pulmonary artery systolic pressure 28 mm Hg Grade 2 diastolic dysfunction Left atrium is severely dilated There is a small circumferential pericardial effusion, no evidence of cardiac tamponade Compared to prior outpatient study 12/25/2020 no significant interval change 12/25/2020 The examination is adequate to evaluate the referral indication. A small (<5 mm) circumferential pericardial effusion is noted. Cardiac tamponade is absent. The qualitative LV ejection fraction is 20-24% (severely reduced). The left ventricular cavity is severely dilated (LVED volume >80 ml/m^2). The apical segments are akinetic to dyskinetic. The anterior septum is thinned and akinetic. The mid inferoseptum, mid inferior wall, and mid anterior garcia, are akinetic. The left atrium is severely enlarged (>48 ml/m^2,). Severe mitral regurgitation is present. Mild aortic valve regurgitation is present. Moderate tricuspid regurgitation is present. Mild pulmonary hypertension is present. The estimated pulmonary artery systolic pressure is 41mm Hg. Labs Latest Reference Range & Units 07/02/22 07:39 Triglycerides <=174 mg/dL 43 Cholesterol <200 mg/dL 135 Non-HDL Cholesterol <=159 mg/dL 82 HDL Cholesterol >49 mg/dL 53 LDL Cholesterol <=129 mg/dL 73 At [facility] 02/24/23 WBC 8.2 Hgb 13.5 Hct 42.8 Plt 284 Na 140 K 4.0 BUN 21 Cr 0.86 Ca 9.0 Glucose 126 AST 15 ALT 28 Alk Phos 61 Trig 71 HDL 37 LDL 82 Tot Chol 133 03/03/23 hA1c 6.0 Impression Ischemic cardiomyopathy. EF 20% to 25%. Status post anterior apical myocardial infarction 2001 with apical expansion. Diffuse coronary artery disease by cardiac catheterization with stable class II angina pectoris. Compensated class III congestive heart failure. S/p prophylactic automatic internal cardiac defibrillator implantation 2005. s/p ICD lead revision and replacement on 09/10/2016 Pacer defibrillator device, Medtronic Evera XT VR. HLD Pre Op Cardiac Clearance Plan: -HR and BP well controlled -device checks reveal stable thresholds, minimal pacing -continue to follow with device clinic -blood pressure readings have improved with the decreased dose of Entresto -she is euvolemic on exam -she does walk routinely in his able to go up and down a flight of stairs without developing any symptoms -she is very complicated past cardiac history however I believe she is as optimized as possible forthe upcoming procedure and cleared for the procedure -this is being done in a hospital setting already, which would have been my recommendation as well -she should take her coreg the morning of and continue ASA -reasonable to hold her other cardiac medications to allow for higher BP during the case -would be cautious to avoid hypotension -I personally called and reviewed my recommendations with PAT department Gin Sanchez PAc -also confirmed they have notified the [employer] rep who will be present on site to assist with device programming -she is otherwise on a good cardiac medication regimen and has been stable from a cardiac perspective so would make no changes to her regimen -Educated patient on caution with change in positions to minimize symptomatic orthostatic hypotension -Discussed importance of diet & exercise with the patient. -Discussed with patient subtle changes in how they are feeling or completing daily activities to contact us sooner; don't wait days or weeks. DISPOSITION: Follow up as scheduled or if symptoms worsen/fail to improve. All questions were answered to the patients satisfaction. Patient advised to report to ED with any and all emergencies. The patient agrees to the above plan and will call with additional questions or concerns. I spent a total of 48 minutes on the date of service in preparation, delivery, and documentation ofthe care provided to Carly Brian excluding any time spent in the performance of separately billed services. MONIKA Brandt Cardiology, [facility] [address] [facility] [place] [address] This chart was completed in part utilizing [employer] Speech Voice Recognition Software. Grammatical errors, random word insertions, pronoun errors, and incomplete sentences are an occasional consequence of this system due to software limitations, ambient noise, and hardware issues. Any formal questions or concerns about the content, text, or information contained within the body of this dictation should be directly addressed to the provider for clarification. documented in this encounter Nursing Notes * Soraya Crook LPN - 03/12/2023 12:29 PM EST Examination Room: 17 Name: Carly Brian Date of : 1945 Reason for Visit: Pre op Problems/Concerns: L shoulder replacement Interim Hosp(s): Feb 2023 ER with RSV Chest Pain/SOB: denies MyChart Discussed: ALREADY ACTIVE Patient was instructed to not get up on the exam table until directed and assisted by their provider; patient is to remain seated in the chair/ wheelchair/ exam table for fall prevention and safety reasons. Patient is aware staff will assist stepping down off exam table with personnel. documented in this encounter Plan of Treatment Upcoming Encounters Date Type Department Care Team (Late st Contact Info) Description 03/19/2023 10:00 AM EST Cardiac Studies Cardiology, [facility] [address] [facility] [place] [address] [facility] [address] [facility] [place] [address] 05/07/2023 9:30 AM EDT Cardiac Studies Cardiac Studies, [facility] [place] [address] 05/28/2023 11:30 AM EDT Office Visit Cardiology, [facility] [address] [facility] [place] [address] Jesse Owusu MD [address] [place] [address] 09/21/2023 11:00 AM EDT Cardiac Studies Cardiology, [facility] [address] [place] [address] [place] [address] [place] [address] Health Maintenance Due Date Last Done Comments Depression Screening 1957 Hepatitis C Screening 04/27/1961 Zoster Vaccines (1 of 2) 04/27/1993 DTaP,Tdap,and Td Vaccines (1 - Tdap) 05/16/1999 05/15/1999, 05/15/1999 DXA Scan 06/01/2013 06/01/2006 TSH 07/21/2022 07/21/2021, 12/17, 10/04/2015, Additional history exists Pneumococcal Vaccine: 65+ Years Completed 08/03/2017, 05/06/2015 COVID-19 Vaccine Completed 12/07/2022, 12/2021, 01/29/2021, Additional history exists Influenza Vaccine (FLU shot) Completed 12/16/2022, 12/26/2018 GARDASIL-HPV IMMUNIZATION SERIES Aged Out No longer eligible based on patient's age to complete this topic Hepatitis B Aged Out No longer eligi ble based on patient's age to complete this topic MENINGOCOCCAL (MENACTRA/MENVEO) Aged Out No longer eligible based on patient's age to complete this topic documented as of this encounter Medical Devices Not on filedocumented as of this encounter Visit Diagnoses Diagnosis Chronic systolic heart failure (HCC)- Primary Chronic systolic heart failure Ischemic cardiomyopathy Other specified forms of chronic ischemic heart disease Coronary artery disease involving blue lake coronary artery of blue lake heart without angina pectoris Automatic implantable cardioverter-defibrillator in situ Dyslipidemia, goal LDL below 70 Other and unspecified hyperlipidemia Preoperative cardiovascular examination Pre-operative cardiovascular examination documented in this encounter Care Teams Beader Relationship Specialty Start Date End Date Efraín Antunez III, MD PCP - General Internal Medicine 04/01/20 documented as of this encounter"
[2023-03-14] MEDS ORDERED: DIGOXIN 125 MCG in SYRINGE 9.5 ML IV STA ×3 (18:13→19:18)
[2023-03-14 18:24] LABS: Basophils # (auto) 0.06 K/uL (0.00-0.20); Basophils % (auto) 0.8 %; Eosinophils # (auto) 0.14 K/uL (0.00-0.50); Eosinophils % (auto) 1.9 %; Hematocrit (blood only) 41.7 % (37.0-47.0); Hemoglobin 13.4 g/dl (12.0-16.0); Immature Granulocytes # (auto) 0.04 K/uL (0.01-0.20); Immature Granulocytes % (auto) 0.5 %; Lymphocytes # (auto) 1.29 K/uL (1.20-3.40); Lymphocytes % (auto) 17.2 %; Mean Corpuscular Hemoglobin 30.1 pg (25.0-34.0); Mean Corpuscular Hgb Conc 32.1 g/dL (32.0-36.0); Mean Corpuscular Volume 93.7 fL (80.0-100.0); Mean Platelet Volume 11.3 fL (9.4-12.4); Monocytes # (auto) 0.83 K/uL (0.11-0.59); Monocytes % (auto) 11.1 %; Neutrophils # (auto) 5.13 K/uL (1.40-6.50); Neutrophils % (auto) 68.5 %; Platelet Count 191 K/uL (130-400); RDW Coefficient of Variation 14.8 % (11.5-14.5); RDW Standard Deviation 51.1 fL (36.4-46.3); Red Blood Count 4.45 M/uL (4.20-5.40); White Blood Count 7.49 K/ul (4.8-10.8)
[2023-03-14 18:42] LABS: Albumin Globulin Ratio 1.7 (0.9-2); Albumin Level 3.8 gm/dl (3.4-5.0); BUN Creatinine Ratio 32.9 (10-20); Bilirubin,Total 1.1 mg/dl (0.2-1.0); Calcium 8.9 mg/dl (8.6-10.3); Creatinine Clr Calc Pharmacy 52.6 ml/min; Est GFR (African American) 78.9 ml/min; Est GFR (Non-African American) 68.1 ml/min; Globulin 2.3 gm/dl (2.5-4.0); Total Protein 6.1 gm/dl (6.0-8.3)
--- NOTE | 2023-03-14 18:43 | XRay Report ---
XR chest 1V portable CLINICAL HISTORY: Chest pain, nonspecific TECHNIQUE: Single frontal radiograph of the chest was obtained. Comparison: Comparison is made to chest radiograph was obtained 03/03/2023 FINDINGS: Pacemaker defibrillator is seen. Cardiomegaly is noted. Prominence and cephalization of the vasculatu re is seen. Bilateral lower lung airspace opacities. Possible small bilateral pleural effusions. IMPRESSION: 1. Cardiomegaly and mild pulmonary edema. 2. Faint bilateral lower lung airspace opacities may represent atelectasis, pneumonia, and/or aspira tion. 3. Small bilateral pleural effusions. ACT 112: Negative or not required by law. Electronically signed by: Vinayak Longo M.D. 03/14/2023 6:41 PM
--- NOTE | 2023-03-14 18:51 | Emergency Department Note ---
Impression & Plan Atrial fibrillation with RVR, Ischemic cardiomyopathy, Elevated LFTs ED Provider Note NAME: MARCO A ORDONEZ AGE: 77 SEX: F : 1945 ARRIVES VIA: Ambulance INFORMANT: Patient, ED PROVIDER(S): Ramiro Jones MD CHIEF COMPLAINT: HPI: This is a 77-year-old female with history of CHF, CAD presenting for weakness. Patient was found to be in A-fib RVR by EMS. She had rates sustaining the 170s to 180s and given 10 mg of IV Cardizem. Upon arrival. She is mildly improved with heart rate now in the 100s to 140s. She however is now hypotensive into the 90s systolic. She notes no nausea or vomiting today. She notes weakness starting yesterday. She does not feel her heart palpating at this time. She is not sure when she entered A-fib and has never had this before. She is on no blood thinners. No fevers or chills. ROS: See above HPI for pertinent positives & negatives. A total of 10 systems reviewed and were otherwise negative. PAST MEDICAL HISTORY: See Below PAST SURGICAL HISTORY: See Below FAMILY HISTORY: See Below SOCIAL HISTORY: See Below HOME MEDICATIONS: See Below ALLERGIES: See Below VITALS: See Below PHYSICAL EXAMINATION: General: resting comfortably in no acute distress Head: Normocephalic and atraumatic Eyes: Normal inspection, extraocular muscles intact Ear, nose, throat: Normal external exam Neck: Normal range of motion Respiratory: lungs clear to auscultation bilaterally Cardiovascular: Irregularly irregular GI: soft, nontender, no guarding or rebound Extremities: nontender, moves all extremities Neuro: The patient awake and alert, appropriately conversive, no focal deficits, symmetric faces Skin: Warm, dry, and intact MEDICAL DECISION MAKING: This is a pleasant 77-year-old female history of CHF, CAD presenting for A-fib with RVR. Patient had 10 mg of IV Cardizem. Still having A-fib RVR with rates from 105 till 150 during my examination. Patient has no current symptoms except for weakness. No chest pain, shortness of breath, palpitation sensation. Patient have history of CHF with EF between 20-25%. Will avoid Cardizem or metoprolol at this time. Will likely require digoxin loading. -Bedside echo was performed by myself showing appears to be severely reduced EF, approximately 10%. Otherwise small pericardial effusion is seen. -Patient is significantly tachycardic with A-fib RVR between 120s and 155 and is also hypotensive at this time. Patient is contraindicated for diltiazem or metoprolol due to patient's hypotension, severely reduced EF. Amiodarone versus diltiazem may be an option. I discussed with on-call cardiology, Dr. Leonard who recommends digoxin load at this time as well as heparin loading. -250 mcg of digoxin ordered as well as heparin bolus/drip -Patient blood work is also significantly abnormal with elevated troponin, transaminitis of unclear etiology -Chest x-ray as independent interpreted by me does show increasing cardiomegaly, pulmonary edema, no pneumothorax -Patient admitted to hospital service, Dr. Beth Differential diagnosis: A-fib with RVR, CHF, PE, ACS ER treatment provided: See below Diagnostics interpreted by me: ECG: ECG independently interpreted by me with atrial fibrillation with RVR, rate of 129, left axis deviation, normal IA, normal QRS, intraventricular conduction delay, no ST segment elevations consistent with STEMI criteria Cardiac Monitoring: An order was placed for continuous cardiac monitoring. The monitor shows a rate of 135 was atrial fibrillation rhythm. Laboratory studies: As stated above and show below. Imaging studies: See below. Critical Care Note: I have personally spent 45 minutes of critical care time in the direct management of this patient. This includes bedside care, interpretation of diagnostic studies, and testing, discussion with consultants, patient, and family members, and other required patient management activities. This 45 minutes is in excess of all separately billable procedures. Past Med/Surg History Medical History (Updated 03/15/23 @ 02:38 by Ramiro Jones MD) CHF (congestive heart failure) Elevated fasting blood sugar CAD (coronary artery disease) Anterior apical MT 2001 with apical expansion s/p cardiac stents per patient ICD (implantable cardioverter-defibrillator) in place Medtronic Evera XT VR ICD implanted 2005--lead revision and replacement 09/10/2016 History of right breast cancer 2006---s/p right lumpectomy, chemo/radiation Right limb restriction Ischemic cardiomyopathy on jardiance/entresto EF 20-24% per 02/03/23 ECHO- has ICD in place Anxiety Hypothyroid High cholesterol Hypertension Hx of myocardial infarction 2001--had heart cath @ [facility] [place] with 2 stents placed--follows with Dr. Owusu Surgical History History of right breast biopsy malignancy History of lumpectomy of right breast 2006 History of bilateral tubal ligation History of tooth extraction all teeth removed History of bilateral cataract extraction History of heart artery stent 2001--2 stents placed History of cardiac cath 2001 @ [facility] [place] with 2 stents placed Status post right hip replacement (~03/2021) H/O: History of implantable cardiac defibrillator (ICD) Medtronic Evera XT VR ICD implanted 2005--lead revision and replacement 09/10/2016 Family History Mother Lung cancer Father No problems noted. Other No family history of adverse response to anesthesia Denies family history of Ovarian cancer Prostate cancer Myocardial infarction Breast cancer Colorectal cancer Social History Smoking Status: Never smoker Second Hand Exposure: No; Do You Dip or Chew Tobacco: No; Tobacco Cessation Education Requested by Patient: No Hx Alcohol Use: No Hx Substance Use: No Preferred Language: [place] Communication Ability: Effective Visual Impairment: Limited Hearing Ability: Hard of Hearing Cane Weigher Required: No Beliefs That Will Affect Care: None marital status: Current Living Situation: Spouse current occupational status: 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 Other Information That Helps Us Care for You: No Feels Safe at Home: Yes Safety Concerns: Feels Safe At This Time Diet: regular caffeine: Yes Seatbelt Use: always Sunscreen Use: No Assistive Devices: Glasses Allergies Allergies Allergy/AdvReac Type Severity Reaction Status Date / Time No Known Allergies Allergy Verified 03/14/23 20:36 Home Meds Home Medications Medication Instructions Recorded Confirmed carvedilol 6.25 mg tablet 6.25 mg PO BID 04/20/18 03/14/23 rosuvastatin 40 mg tablet 40 mg PO QAM 03/13/20 03/14/23 multivitamin 1 tab PO QAM 04/01/21 03/14/23 empagliflozin 10 mg tablet 10 mg PO QAM 07/09/21 03/14/23 (Jardiance) sacubitril 24 mg-valsartan 26 mg 0.5 - 1 tab PO BID 07/09/21 03/14/23 tablet (Entresto) ezetimibe 10 mg tablet 10 mg PO QAM 05/04/22 03/14/23 aspirin 81 mg tablet,delayed 81 mg PO QAM 02/16/23 03/14/23 release (Ecotrin Low Strength) cholecalciferol (vitamin D3) 25 2,000 units PO QAM 02/16/23 03/14/23 mcg (1,000 unit) capsule furosemide 40 mg tablet 40 mg PO QAM 02/16/23 03/14/23 levothyroxine 100 mcg tablet 100 mcg PO QAM 02/16/23 03/14/23 spironolactone 25 mg tablet 25 mg PO QAM 02/16/23 03/14/23 sertraline 25 mg tablet 25 mg PO QAM 02/24/23 03/14/23 famotidine 20 mg tablet 10 mg PO DAILY 03/14/23 03/14/23 Previous Rx's Medication Instructions Recorded mirtazapine 15 mg tablet 15 mg PO HS #90 tabs 02/22/23 Results & Data (ED) Vital Signs Vital Signs - 24 hr 03/14/23 17:57 03/14/23 17:58 03/14/23 18:00 Temperature 36.7 C Temperature Source Oral Pulse Rate 115 H 106 H Pulse Rate [Apical] Pulse Rate from SpO2 Sensor Respiratory Rate 18 19 Respiratory Effort / Characteristics Non-Labored Respiratory Depth Normal Blood Pressure 93/64 L Blood Pressure [Right Arm] Blood Pressure Mean 73 Blood Pressure Mean [Right Arm] Pulse Oximetry 94 94 Oxygen Delivery Method Room Air Room Air Sepsis Recent Fever Within 48 Hours No Sepsis New/Unexplained Change in Mental Status No Sepsis Action Taken by Nursing No Action Required 03/14/23 18:00 03/14/23 18:01 03/14/23 18:01 Temperature Temperature Source Pulse Rate Pulse Rate [Apical] Pulse Rate from SpO2 Sensor Respiratory Rate 22 Respiratory Effort / Characteristics Respiratory Depth Blood Pressure Blood Pressure [Right Arm] Blood Pressure Mean Blood Pressure Mean [Right Arm] Pulse Oximetry 93 Oxygen Delivery Method Room Air Room Air Sepsis Recent Fever Within 48 Hours Sepsis New/Unexplained Change in Mental Status Sepsis Action Taken by Nursing 03/14/23 18:02 03/14/23 18:03 03/14/23 18:15 Temperature Temperature Source Pulse Rate 107 H 106 H Pulse Rate [Apical] 112 H Pulse Rate from SpO2 Sensor Respiratory Rate 18 14 Respiratory Effort / Characteristics Non-Labored Spontaneous Respiratory Depth Normal Blood Pressure Blood Pressure [Right Arm] 94/66 L Blood Pressure Mean Blood Pressure Mean [Right Arm] 75 Pulse Oximetry 93 95 Oxygen Delivery Method Room Air Sepsis Recent Fever Within 48 Hours Sepsis New/Unexplained Change in Mental Status Sepsis Action Taken by Nursing 03/14/23 18:19 03/14/23 18:19 03/14/23 18:30 Temperature Temperature Source Pulse Rate 101 H Pulse Rate [Apical] Pulse Rate from SpO2 Sensor 108 H Respiratory Rate 17 21 Respiratory Effort / Characteristics Respiratory Depth Blood Pressure 94/69 L Blood Pressure [Right Arm] Blood Pressure Mean 72 Blood Pressure Mean [Right Arm] Pulse Oximetry 94 94 Oxygen Delivery Method Room Air Sepsis Recent Fever Within 48 Hours Sepsis New/Unexplained Change in Mental Status Sepsis Action Taken by Nursing 03/14/23 18:30 03/14/23 18:50 03/14/23 19:00 Temperature Temperature Source Pulse Rate 104 H 144 H Pulse Rate [Apical] Pulse Rate from SpO2 Sensor 109 H Respiratory Rate 18 21 Respiratory Effort / Characteristics Respiratory Depth Blood Pressure 92/65 L Blood Pressure [Right Arm] Blood Pressure Mean 79 Blood Pressure Mean [Right Arm] Pulse Oximetry 93 93 Oxygen Delivery Method Sepsis Recent Fever Within 48 Hours Sepsis New/Unexplained Change in Mental Status Sepsis Action Taken by Nursing 03/14/23 19:01 03/14/23 19:01 03/14/23 19:10 Temperature Temperature Source Pulse Rate 119 H 126 H Pulse Rate [Apical] Pulse Rate from SpO2 Sensor Respiratory Rate 23 21 Respiratory Effort / Characteristics Respiratory Depth Blood Pressure 87/65 L Blood Pressure [Right Arm] Blood Pressure Mean 69 Blood Pressure Mean [Right Arm] Pulse Oximetry 93 94 Oxygen Delivery Method Sepsis Recent Fever Within 48 Hours Sepsis New/Unexplained Change in Mental Status Sepsis Action Taken by Nursing 03/14/23 19:12 03/14/23 19:12 03/14/23 19:15 Temperature Temperature Source Pulse Rate 130 H 127 H Pulse Rate [Apical] Pulse Rate from SpO2 Sensor 122 H Respiratory Rate 20 Respiratory Effort / Characteristics Respiratory Depth Blood Pressure 86/39 L Blood Pressure [Right Arm] Blood Pressure Mean 70 Blood Pressure Mean [Right Arm] Pulse Oximetry 94 Oxygen Delivery Method Sepsis Recent Fever Within 48 Hours Sepsis New/Unexplained Change in Mental Status Sepsis Action Taken by Nursing 03/14/23 19:15 03/14/23 19:25 03/14/23 19:25 Temperature Temperature Source Pulse Rate 131 H Pulse Rate [Apical] Pulse Rate from SpO2 Sensor Respiratory Rate 16 Respiratory Effort / Characteristics Respiratory Depth Blood Pressure 92/78 L Blood Pressure [Right Arm] Blood Pressure Mean 82 Blood Pressure Mean [Right Arm] Pulse Oximetry 93 Oxygen Delivery Method Room Air Sepsis Recent Fever Within 48 Hours Sepsis New/Unexplained Change in Mental Status Sepsis Action Taken by Nursing 03/14/23 19:30 03/14/23 19:37 03/14/23 19:40 Temperature Temperature Source Pulse Rate 123 H 135 H Pulse Rate [Apical] Pulse Rate from SpO2 Sensor Respiratory Rate 14 20 Respiratory Effort / Characteristics Respiratory Depth Blood Pressure Blood Pressure [Right Arm] Blood Pressure Mean Blood Pressure Mean [Right Arm] Pulse Oximetry 93 93 Oxygen Delivery Method Sepsis Recent Fever Within 48 Hours Sepsis New/Unexplained Change in Mental Status Sepsis Action Taken by Nursing 03/14/23 19:41 03/14/23 19:41 03/14/23 20:00 Temperature Temperature Source Pulse Rate 133 H 128 H Pulse Rate [Apical] Pulse Rate from SpO2 Sensor Respiratory Rate 22 20 Respiratory Effort / Characteristics Respiratory Depth Blood Pressure 95/72 L 105/74 Blood Pressure [Right Arm] Blood Pressure Mean 76 84 Blood Pressure Mean [Right Arm] Pulse Oximetry 93 94 Oxygen Delivery Method Room Air Sepsis Recent Fever Within 48 Hours Sepsis New/Unexplained Change in Mental Status Sepsis Action Taken by Nursing Laboratory Data 03/14/23 18:10 03/14/23 18:10 Lab Results 03/14/23 03/14/23 Range/Units 18:10 20:14 WBC 7.49 (4.8-10.8) K/ul RBC 4.45 (4.20-5.40) M/uL Hgb 13.4 (12.0-16.0) g/dl Hct 41.7 (37.0-47.0) % MCV 93.7 (80.0-100.0) fL MCH 30.1 (25.0-34.0) pg MCHC 32.1 (32.0-36.0) g/dL RDW Std Deviation 51.1 H (36.4-46.3) fL RDW Coeff of Luis Anotnio 14.8 H (11.5-14.5) % Plt Count 191 (130-400) K/uL MPV 11.3 (9.4-12.4) fL Immature Gran % (Auto) 0.5 % Neut % (Auto) 68.5 % Lymph % (Auto) 17.2 % [facility] % (Auto) 11.1 % Eos % (Auto) 1.9 % Baso % (Auto) 0.8 % Neut # (Auto) 5.13 (1.40-6.50) K/uL Lymph # (Auto) 1.29 (1.20-3.40) K/uL [facility] # (Auto) 0.83 H (0.11-0.59) K/uL Eos # (Auto) 0.14 (0.00-0.50) K/uL Baso # (Auto) 0.06 (0.00-0.20) K/uL Immature Gran # (Auto) 0.04 (0.01-0.20) K/uL PT 12.4 H (9.0-12.0) Seconds INR 1.1 (0.9-1.1) APTT 27 (21-31) Seconds PTT Ratio 1.0 ABG pH 7.46 H (7.35-7.45) ABG pCO2 27 L (35-46) mmHg ABG pO2 83 (80-95) mmHg ABG HCO3 19 (19-24) mmol/L ABG O2 Saturation 97.9 H (90-95) % ABG Base Excess -3.2 (-9-1.8) mEq/L Benito Test Pos (Pos) Oxygen Given room air Sodium 135 L (136-145) mmol/L Potassium 4.0 (3.5-5.1) mmol/L Chloride 107 (98-107) mmol/L Carbon Dioxide 20 L (21-32) mmol/L Anion Gap 8 (3-11) BUN 27 H (6-23) mg/dl Creatinine 0.82 (0.6-1.2) mg/dl Est Cr Clr Drug Dosing 52.6 ml/min Est GFR ( Amer) 78.9 ml/min Est GFR (Non-Af Amer) 68.1 ml/min BUN/Creatinine Ratio 32.9 H (10-20) Glucose 175 H (70-99(Fasting)) mg/dl Lactate 1.2 (0.4-2.0) mmol/L Calcium 8.9 (8.6-10.3) mg/dl Magnesium 2.0 (1.7-2.4) mg/dl Total Bilirubin 1.1 H (0.2-1.0) mg/dl AST 109 H (13-39) U/L ALT 164 H (7-52) U/L Alkaline Phosphatase 107 H (34-104) U/L Troponin I High Sens 50.5 H* 53.9 H* (0-14) pg/ml B-Natriuretic Peptide 3696 H (0-100) pg/ml Total Protein 6.1 (6.0-8.3) gm/dl Albumin 3.8 (3.4-5.0) gm/dl Globulin 2.3 L (2.5-4.0) gm/dl Albumin/Globulin Ratio 1.7 (0.9-2) Procalcitonin < 0.05 (0-0.5) ng/ml TSH 3.371 (0.300-4.500) uIu/ml Digoxin < 0.3 L (0.8-2.0) ng/ml Administered Medications Heparin Sodium/Dextrose (Heparin Sodium/Dextrose) 25,000 units in 500 mls @ 21 mls/hr IV .[id number] [facility]; Protocol Stop: 04/13/23 19:29 Last Admin: 03/14/23 20:55 Dose: 1,050 units/hr, 21 mls/hr Documented By: CARLOS Co-signed By: NEREIDA Parenteral Electrolytes (Plasma-Lyte A Ph 7.4) 1,000 mls @ 80 mls/hr IV .[id number] [facility] Stop: 03/15/23 09:14 Last Admin: 03/14/23 21:46 Dose: 80 mls/hr Documented By: PAUL Discontinued Medications Heparin Sodium (Porcine) (Heparin Sod (Porcine) 1000 Unit/Ml) 1 units IV NOW ONE Stop: 03/14/23 19:31 Last Admin: 03/14/23 20:27 Dose: Not Given Documented By: PAUL Heparin Sodium (Porcine) (Heparin Sod (Porcine) 1000 Unit/Ml) 5,000 units IV NOW ONE Stop: 03/14/23 19:46 Last Admin: 03/14/23 20:32 Dose: Not Given Documented By: PAUL Heparin Sodium/Dextrose (Heparin Iv Adult Wt-Based Standard W/ Initial Bolus Protocol) 1 each IV NOW STA; Protocol Stop: 03/14/23 19:16 Last Admin: 03/14/23 20:27 Dose: Not Given Documented By: PAUL Digoxin 125 mcg/ Syringe 10 mls @ 2 mls/min IV NOW STA Stop: 03/14/23 18:17 Last Admin: 03/14/23 19:15 Dose: 2 mls/min Documented By: PAUL Digoxin 250 mcg/ Syringe 10 mls @ 2 mls/min IV NOW STA Stop: 03/14/23 19:18 Last Admin: 03/14/23 20:27 Dose: Not Given Documented By: PAUL Vancomycin HCl 1,500 mg/ (Sodium Chloride) 530 mls @ 200 mls/hr IV NOW ONE Stop: 03/14/23 21:53 Last Admin: 03/14/23 19:31 Dose: Not Given Documented By: NEREIDA Digoxin 125 mcg/ Syringe 10 mls @ 2 mls/min IV NOW STA Stop: 03/14/23 19:21 Last Admin: 03/14/23 19:37 Dose: 2 mls/min Documented By: PAUL Digoxin 125 mcg/ Syringe 10 mls @ 2 mls/min IV NOW STA Stop: 03/14/23 19:22 Last Admin: 03/14/23 19:52 Dose: Not Given Documented By: PAUL Ceftriaxone Sodium 2,000 mg/ (Dextrose) 50 mls @ 100 mls/hr IV NOW STA; Protocol Stop: 03/14/23 21:00 Last Infusion: 03/14/23 21:30 Dose: Infused Documented By: Admin: 03/14/23 21:04 Dose: 100 mls/hr Documented By: NEREIDA Doxycycline Hyclate 100 mg/ (Dextrose) 100 mls @ 50 mls/hr IV NOW STA Stop: 03/14/23 22:30 Last Infusion: 03/14/23 23:20 Dose: Infused Documented By: Admin: 03/14/23 21:04 Dose: 50 mls/hr Documented By: NEREIDA Ioversol (Optiray 320 125ml) 118 ml IV ONCE ONE Stop: 03/14/23 20:46 Last Admin: 03/14/23 20:45 Dose: 118 ml Documented By: BRANDI Imaging Data Radiologist's Impression: Chest X-Ray 03/14/23 18:01 XR chest 1V portable CLINICAL HISTORY: Chest pain, nonspecific TECHNIQUE: Single frontal radiograph of the chest was obtained. Comparison: Comparison is made to chest radiograph was obtained 03/03/2023 FINDINGS: Pacemaker defibrillator is seen. Cardiomegaly is noted. Prominence and cephalization of the vasculature is seen. Bilateral lower lung airspace opacities. Possible small bilateral pleural effusions. IMPRESSION: 1. Cardiomegaly and mild pulmonary edema. 2. Faint bilateral lower lung airspace opacities may represent atelectasis, pneumonia, and/or aspiration. 3. Small bilateral pleural effusions. ACT 112: Negative or not required by law. Electronically signed by: Vinayak Longo M.D. 03/14/2023 6:41 PM Abdomen/Pelvis CT 03/14/23 20:19 Exam(s): CT ABDOMEN + PELVIS With Contrast IV Amt: 118 ml optiray 320 EXAM: CT Abdomen and Pelvis With Intravenous Contrast CLINICAL HISTORY: Reason for exam: elevated LFT's. TECHNIQUE: Axial computed tomography images of the abdomen and pelvis with intravenous contrast. CTDI is 109.04 mGy and DLP is 2294.15 mGy-cm. Automated exposure control was utilized for the study. A dose lowering technique was utilized adhering to the principles of ALARA. CONTRAST: Patient received 118 ml optiray 320 of IV contrast COMPARISON: No relevant prior studies available. FINDINGS: Lung bases: Unremarkable. No mass. No consolidation. Pleural space: Moderate bilateral pleural effusions. Heart: Cardiomegaly. Pacemaker leads. ABDOMEN: Liver: Unremarkable. No focal hepatic lesion. Gallbladder and bile ducts: Gallbladder wall thickening measures 1 cm. No gallstones. This may be secondary to hepatic disease contributing to congestion of the gallbladder wall. No ductal dilation. Pancreas: Unremarkable. No mass. No ductal dilation. Spleen: Calcified splenic granulomas. Adrenals: Unremarkable. No mass. Kidneys and ureters: Unremarkable. No solid mass. No hydronephrosis. Stomach and bowel: Diverticulosis, without acute diverticulitis. No small bowel obstruction. No free intraperitoneal air. PELVIS: Appendix: No findings to suggest acute appendicitis. Bladder: Unremarkable. No mass. Reproductive: Unremarkable as visualized. ABDOMEN and PELVIS: Intraperitoneal space: Unremarkable. No free air. No significant fluid collection. Bones/joints: RIGHT hip arthroplasty. Degenerative changes of the spine. No acute fracture. No dislocation. Soft tissues: Unremarkable. Vasculature: Atherosclerotic changes of the aorta. No abdominal aortic aneurysm. Lymph nodes: Unremarkable. No enlarged lymph nodes. IMPRESSION: No focal hepatic lesion. Gallbladder wall thickening measures 1 cm. No gallstones. This may be secondary to hepatic disease contributing to congestion of the gallbladder wall. Electronically signed by: Pelon Carter MD 03/14/23 21:29 PM Chest CTA 03/14/23 20:19 Exam(s): CTA CHEST IV Amt: 118 ml optiray 320 EXAM: CT Angiography Chest With Intravenous Contrast CLINICAL HISTORY: Reason for exam: PE. TECHNIQUE: Axial computed tomographic angiography images of the chest with intravenous contrast. CTDI is 109.04 mGy and DLP is 2294.15 mGy-cm. Automated exposure control was utilized for the study. A dose lowering technique was utilized adhering to the principles of ALARA. MIP reconstructed images were created and reviewed. COMPARISON: No relevant prior studies available. FINDINGS: Pulmonary arteries: Unremarkable. No acute pulmonary embolism. Aorta: Atherosclerotic changes of the aorta. No thoracic aortic aneurysm. Lungs: See below. Pleural space: Small bilateral pleural effusions. No pneumothorax or pneumonia. Heart: Cardiomegaly. No significant pericardial effusion. No evidence of RV dysfunction. Bones/joints: Degenerative changes of the spine. No acute fracture. No dislocation. Soft tissues: Unremarkable. Lymph nodes: Unremarkable. No enlarged lymph nodes. Spleen: Calcified splenic granulomas. Tubes, lines and devices: Pacemaker leads. IMPRESSION: 1. Small bilateral pleural effusions. No pneumothorax or pneumonia. 2. No acute pulmonary embolism. Electronically signed by: Pelon Carter MD 03/14/23 21:18 PM Discharge Plan Visit Data Chief Complaint: Tachycardia ED Provider: Ramiro Jones Discharge Problem: Atrial fibrillation with RVR, Ischemic cardiomyopathy, Elevated LFTs Patient Disposition: Admitted As Inpatient Discharge Instructions Interventions: ED Discharge Assessment Last Done: 03/14/23 22:02
[2023-03-14 18:53] LABS: INR 1.1 (0.9-1.1); Partial Thromboplastin Time 27 Seconds (21-31); Prothrombin Time 12.4 Seconds (9.0-12.0)
[2023-03-14] MEDS ORDERED: DIGOXIN 250 MCG in SYRINGE 9 ML IV STA (19:14)
[2023-03-14] MEDS ORDERED: VANCOMYCIN HCL 1,500 MG in SODIUM CHLORIDE 0.9% 500 ML IV ONE (19:15)
[2023-03-14] MEDS ORDERED: VANCOMYCIN CONSULT ACTIVE PRN (19:15)
[2023-03-14] MEDS ORDERED: Heparin IV Adult Wt-Based Standard w/ INITIAL Bolus Protocol IV STA (19:15)
[2023-03-14 19:19] LABS: Troponin I High Sensitivity 50.5 pg/ml (0-14)
[2023-03-14] MEDS ORDERED: Heparin IV Adult Wt-Based Standard w/ INITIAL Bolus Protocol IV SCH (19:30)
[2023-03-14] MEDS ORDERED: HEPARIN SOD (PORCINE) 1000 UNIT/ML IV ONE (19:30)
[2023-03-14] MEDS: HEPARIN SODIUM/DEXTROSE 25,000 UNITS/500 ML BAG IV SCH ×2 (19:38→20:55)
[2023-03-14] MEDS: HEPARIN SOD (PORCINE) 1000 UNIT/ML IV ONE ×2 (19:38→20:32)
--- NOTE | 2023-03-14 19:57 | History & Physical Report ---
Date of Service March 14, 2023 Assessment & Plan (1) Atrial fibrillation with RVR: Plan: -Admit to the PCU on tele and pulse oximetry -Currently in afib RVR with HR in the 130-140's but otherwise stable -Patient does not have a previous hx of afib, unsure of the currently etiology at this time but she has many risk factors including cardiomyopathy with LVEF of 20-25%, currently RLL pneumonia, possible PE with LLE swelling compared to right -Will obtain stat Mag level -Patient received 250 mcg of IV dig without change in her HR or rhythm -Will start 1L Normosol at 80 mL/hr as she does appear slightly dehydrated -Spoke with [facility] as she follows with them outpatient, at this point they would like to hold off on amiodarone and have the patient made NPO at midnight for possible cardioversion tomorrow >They recommend using prn IV lopressor for rate control if needed overnight >Agrees with starting Heparin drip for anticoagulation -Patient denies previous hx of major or recent bleeding, would like to start anticoagulation at this time -Will continue BID carvedilol for now -Will start heparin drip wo bolus -Will obtain CTA of the chest w/PE protocol for further evaluation -NPO at midnight -Heparin drip for DVT PPX -AM CBC, CMP, mag, PT/INR (2) Pneumonia: Plan: -Patient noted to have a significant RLL opacity on CXR today -This likely represents a CAP, but cannot rule out possible pulmonary infarct at this time -Likely developed pneumonia after her recent episode of RSV infection at the end of January -S/P one dose of Vancomycin in the ED -For now we will treat with Ceftriaxone and Doxycycline -Incentive spirometry, flutter therapy, prn O2 to keep SpO2 at or above 94% -Will follow CTA of the chest (3) Elevated LFTs: Plan: -Noted to have elevated LFT's today -AST and ALT had been elevated when she had her episode of RSV infection, but were less elevated compared to today -Patient denies alcohol use, has not been taking significant amount of Tylenol, denies recent but bites/rashes -INR is WNL -Started Sertraline approximately 1 month ago, this could possibly cause the e levations -Will obtain CT of the abd/pelvis w/IV con for further evaluation -Monitor am CMP -Avoid hepatotoxic agents (4) Elevated troponin: Plan: -Initial high sen trop elevated at 50 -Patient denies chest discomfort -No acute ST segment changes on initial ECG -Likely due to demand from new onset afib RVR -Two hour repeat high sen trop is in process -Will continue to trend high sen trop q6h overnight -Continue to monitor on tele -Will FU on CTA of the chest ordered on admission -Continue heparin drip -Cardiology consult placed -Follow am TTE (5) CAD (coronary artery disease): Plan: -Continue aspirin (6) Ischemic cardiomyopathy: Plan: -Currently mildly dehydrated on exam -Hx of ICD placement -Will give light IV fluid on admission -Monitor closely for volume overload -Will hold diuretics and Entresto on admission due to dehydration and hypotension (7) Hypothyroid: Plan: -Continue levothyroxine (8) Hypertension: Plan: -Hold diuretics with dehydration and hypotension Plan The patient was discussed with Dr. Younger at the time of the admission History of Present Illness Chief Complaint: generalized weakness, afib RVR Primary Care Provider: MONIKA Mattson Carly is a 77 year old female with a PMH significant for CAD S/P apical TX in 2001 ,ischemic cardiomyopathy (LVEF of 20-24% as of 02/03/23), hyperlipidemia, urinary incontinence, hypertension, and hypothyroidism who presented to the [facility] ED via EMS on 03/14/23 with a chief complaint of generalized weakness. On EMS arrival they noted her to be in new-onset afib RVR with HR in the 170-180s but otherwise stable. She was given 10 mg IV Cardizem by EMS in route. On arrival to the ED she was noted to be tachycardic with HR in the low 100s-140s, with soft BP of 93/64 but otherwise stable. Labs were significant for a BUN of 27, bicarb of 20, INR of 1.1 with AST of 109, ALT of 164, alk phos of 107, initial high sen trop of 50. CXR was read as 1. Cardiomegaly and mild pulmonary edema. 2. Faint bilateral lower lung airspace opacities may represent atelectasis, pneumonia, and/or aspiration. 3. Small bilateral pleural effusions.". The patient was given a total of 250 mcg IV Digoxin and a dose of Vancomycin in the ED without improvement in her HR or rhythm. At the time of the exam the patient was sitting in bed in no acute distress, currently hemodynamically stable with HR in the 130-140's. She states that over the past 48 hours she has been experiencing progressive generalized weakness and SOB with exertion. She was diagnosed with RSV on 02/09 and thought she had recovered. She has been taking her home medications as prescribed and denies recent fever, chills, chest pain, cough, hemoptysis, abd pain, nausea, vomiting, diarrhea, dysuria, hematuria, melena, and recent trauma. She denies tobacco or alcohol use. She has not been using Tylenol or NSAID's recently. The only recent medication change she has had recently is starting Sertraline. Please refer to Dr. Younger's attestation for any changes to the treatment plan Allergies Allergy/AdvReac Type Severity Reaction Status Date / Time No Known Allergies Allergy Verified 03/14/23 20:36 Home Medications Medication Instructions Recorded Confirmed Type carvedilol 6.25 mg tablet 6.25 mg PO BID 04/20/18 03/14/23 History rosuvastatin 40 mg tablet 40 mg PO QAM 03/13/20 03/14/23 History multivitamin 1 tab PO QAM 04/01/21 03/14/23 History empagliflozin 10 mg tablet 10 mg PO QAM 07/09/21 03/14/23 History (Jardiance) sacubitril 24 mg-valsartan 26 mg 0.5 - 1 tab PO BID 07/09/21 03/14/23 History tablet (Entresto) ezetimibe 10 mg tablet 10 mg PO QAM 05/04/22 03/14/23 History aspirin 81 mg tablet,delayed 81 mg PO QAM 02/16/23 03/14/23 History release (Ecotrin Low Strength) cholecalciferol (vitamin D3) 25 2,000 units PO QAM 02/16/23 03/14/23 History mcg (1,000 unit) capsule furosemide 40 mg tablet 40 mg PO QAM 02/16/23 03/14/23 History levothyroxine 100 mcg tablet 100 mcg PO QAM 02/16/23 03/14/23 History spironolactone 25 mg tablet 25 mg PO QAM 02/16/23 03/14/23 History mirtazapine 15 mg tablet 15 mg PO HS #90 tabs 02/22/23 03/14/23 Rx sertraline 25 mg tablet 25 mg PO QAM 02/24/23 03/14/23 History famotidine 20 mg tablet 10 mg PO DAILY 03/14/23 03/14/23 History Past Med/Surg History Medical History (Updated 03/15/23 @ 02:38 by Ramiro Jones MD) CHF (congestive heart failure) Elevated fasting blood sugar CAD (coronary artery disease) Anterior apical TX 2001 with apical expansion s/p cardiac stents per patient ICD (implantable cardioverter-defibrillator) in place Medtronic Evera XT VR ICD implanted 2005--lead revision and replacement 09/10/2016 History of right breast cancer 2006---s/p right lumpectomy, chemo/radiation Right limb restriction Ischemic cardiomyopathy on jardiance/entresto EF 20-24% per 02/03/23 ECHO- has ICD in place Anxiety Hypothyroid High cholesterol Hypertension Hx of myocardial infarction 2001--had heart cath @ [facility] with 2 stents placed--follows with Dr. Owusu Surgical History History of right breast biopsy malignancy History of lumpectomy of right breast 2006 History of bilateral tubal ligation History of tooth extraction all teeth removed History of bilateral cataract extraction History of heart artery stent 2001--2 stents placed History of cardiac cath 2001 @ [facility] with 2 stents placed Status post right hip replacement (~03/2021) H/O: History of implantable cardiac defibrillator (ICD) Medtronic Evera XT VR ICD implanted 2005--lead revision and replacement 09/10/2016 Family History Mother Lung cancer Father No problems noted. Other No family history of adverse response to anesthesia Denies family history of Ovarian cancer Prostate cancer Myocardial infarction Breast cancer Colorectal cancer Social History Smoking Status: Never smoker Second Hand Exposure: No; Do You Dip or Chew Tobacco: No; Tobacco Cessation Education Requested by Patient: No Hx Alcohol Use: No Hx Substance Use: No Preferred Language: Syriac Communication Ability: Effective Visual Impairment: Limited Hearing Ability: Hard of Hearing Contact Lens Technician Required: No Beliefs That Will Affect Care: None marital status: Current Living Situation: Spouse current occupational status: 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 [employer] Other Information That Helps Us Care for You: No Feels Safe at Home: Yes Safety Concerns: Feels Safe At This Time Diet: regular caffeine: Yes Seatbelt Use: always Sunscreen Use: No Assistive Devices: Glasses Physical Exam Physical Exam: Physical Exam: General: In no acute distress, stated age, well-nourished, non-toxic appearing HEENT: Normocephalic, atraumatic, no scleral icterus, pupils around round, symmetrical, and reactive to light, dry mucus membranes, negative JVD, trachea midline, no thyromegaly Chest/Pulm: No respiratory distress, symmetrical chest expansion, rhonchi noted in the RLL, decreased breath sounds in the LLE, otherwise CTA Cardiac: irregular rate and rhythm, 3/6 systolic murmur noted Abdomen: Negative for ascites and bruising, normoactive bowel sounds, soft, non-tender to palpation throughout Musculoskeletal: Symmetrical and without signs of acute trauma, upper and lower extremities with full ROM, no atrophy, spasticity, or flaccidity Extremities: Radial, dorsalis pedis, and posterior tibial pulses are intact and symmetrical, LLE is swollen compared to right Skin: Warm, dry, no rashes , lesions, or scars noted Neuro: Alert and oriented to person, place, month, year, and president, no focal defects, no tremors noted Psych: No acute distress, calm and cooperative during the exam Results & Data Results & Data Vital Signs (Past 12 Hours) Vital Signs Temp Pulse Pulse Resp BP BP Pulse Ox 03/14/23 19:25 92/78 L 03/14/23 19:25 131 H 16 03/14/23 19:15 93 03/14/23 19:15 127 H 03/14/23 19:12 86/39 L 03/14/23 19:12 130 H 20 94 03/14/23 19:10 126 H 21 94 03/14/23 19:01 87/65 L 03/14/23 19:01 119 H 23 93 03/14/23 19:00 144 H 21 93 03/14/23 18:50 104 H 18 93 03/14/23 18:30 92/65 L 03/14/23 18:30 101 H 21 94 03/14/23 18:19 94/69 L 03/14/23 18:19 17 94 03/14/23 18:15 106 H 14 95 03/14/23 18:03 107 H 03/14/23 18:02 112 H 18 94/66 L 93 03/14/23 18:01 03/14/23 18:01 03/14/23 18:00 22 93 03/14/23 18:00 03/14/23 17:58 106 H 19 94 03/14/23 17:57 36.7 C 115 H 18 93/64 L 94 O2 Del Method 03/14/23 19:25 03/14/23 19:25 03/14/23 19:15 Room Air 03/14/23 19:15 03/14/23 19:12 03/14/23 19:12 03/14/23 19:10 03/14/23 19:01 03/14/23 19:01 03/14/23 19:00 03/14/23 18:50 03/14/23 18:30 03/14/23 18:30 03/14/23 18:19 03/14/23 18:19 Room Air 03/14/23 18:15 03/14/23 18:03 03/14/23 18:02 Room Air 03/14/23 18:01 Room Air 03/14/23 18:01 Room Air 03/14/23 18:00 03/14/23 18:00 Room Air 03/14/23 17:58 03/14/23 17:57 Room Air Laboratory Results Abnormal lab results 03/14/23 03/14/23 Range/Units 18:10 20:14 RDW Std Deviation 51.1 H (36.4-46.3) fL RDW Coeff of Luis Antonio 14.8 H (11.5-14.5) % [place] # (Auto) 0.83 H (0.11-0.59) K/uL PT 12.4 H (9.0-12.0) Seconds ABG pH 7.46 H (7.35-7.45) ABG pCO2 27 L (35-46) mmHg ABG O2 Saturation 97.9 H (90-95) % Sodium 135 L (136-145) mmol/L Carbon Dioxide 20 L (21-32) mmol/L BUN 27 H (6-23) mg/dl BUN/Creatinine Ratio 32.9 H (10-20) Glucose 175 H (70-99(Fasting)) mg/dl Total Bilirubin 1.1 H (0.2-1.0) mg/dl AST 109 H (13-39) U/L ALT 164 H (7-52) U/L Alkaline Phosphatase 107 H (34-104) U/L Troponin I High Sens 50.5 H* (0-14) pg/ml Globulin 2.3 L (2.5-4.0) gm/dl ECG Additional Comments: Atrial fibrillation with rapid ventricular response Left axis deviation Non- specific intra-ventricular conduction block Inferior infarct (cited on or before 30-JUL-2021) Anterolateral infarct (cited on or before 30-JUL-2021) Abnormal ECG When compared with ECG of 03-MAR-2023 10:59, Atrial fibrillation has replaced Sinus rhythm Vent. rate has increased BY 57 BPM Questionable change in initial forces of Lateral leads ... Code Status & VTE Plan Code Status Full code VTE Prophylaxis Plan VTE Prophylaxis will be ordered: Yes Supervising Physician Co-Signing Physician Notes Attending addendum: I have physically seen this patient, have supervised the RENU's activities, and agree with the H&P unless as otherwise noted. Assessment and Plan: Atrial fibrillation with RVR- The patient will be admitted to telemetry for serial cardiac enzymes, serial EKG's, cardiac rhythm monitoring and a 2-D echocardiogram with Dopplers. Emergency department I consulted with cardiology Dr. Grover, who recommended patient get digoxin 250 mcg IV, which I do not significant change in heart rate or rhythm Patient's potassium was 4.0, and magnesium was 2.0 Patient will continue to be rehydrated with IV fluids as noted, Normosol at 80 mL/h x 1 additional liter Most recent echocardiogram has ejection fraction of 20-24% Patient will be continued on carvedilol Heparin drip per protocol begun in ED, and will be continued Lopressor 5 mg IV every 4 hours for heart rate greater than 110 as recommended by cardiology Discussion regarding amiodarone was tabled for now Ordering CTA chest to rule out PE NPO after midnight for possible cardioversion in a.m. per cardiology request Right lower lobe pneumonia- As noted on chest x-ray She did receive 1 dose of vancomycin while in the ED Placing on ceftriaxone and doxycycline Pending orders and notations as noted PG Care Time/CCT Total # of Minutes Spent Total Time Spent with Patient: Total time spent is greater than 50% in coordination of care (as documented) at patient's floor/unit and/or counseling patient: [place] [address] INT INP/OBS CARE 3/75MIN Patient Type Established Medical Decision Making High Complexity Diagnoses Atrial fibrillation with RVR I48.91 Pneumonia J18.9 Elevated LFTs R79.89 Elevated troponin R79.89 CAD (coronary artery disease) I25.10 Associated angina: without angina Coronary Disease-Associated Artery/Lesion type: campo artery Solomon vs. transplanted heart: campo heart Ischemic cardiomyopathy I25.5 Hypothyroid E03.9 Hypertension I10 (5) CAD (coronary artery disease) Associated angina: without angina Coronary Disease-Associated Artery/Lesion type: campo artery Solomon vs. transplanted heart: campo heart Qualified Code(s): I25.10 - Atherosclerotic heart disease of campo coronary artery without angina pectoris
[2023-03-14] MEDS ORDERED: DOXYCYCLINE HYCLATE 100 MG in DEXTROSE 5% MINI-B 100 ML IV STA (20:31)
[2023-03-14] MEDS ORDERED: cefTRIAXone SODIUM 2,000 MG in DEXTROSE 5 % MINI-B 50 ML IV STA (20:31)
[2023-03-14 20:38] LABS: Base Excess ABG -3.2 mEq/L (-9-1.8); HCO3 ABG 19 mmol/L (19-24); Oxygen Saturation ABG 97.9 % (90-95); PCO2 ABG 27 mmHg (35-46); PO2 ABG 83 mmHg (80-95); pH ABG 7.46 (7.35-7.45)
[2023-03-14] MEDS ORDERED: OPTIRAY 320 125ml IV ONE (20:45)
[2023-03-14] MEDS ORDERED: PLASMA-LYTE A 1,000 ML IV SCH (20:45)
[2023-03-14 20:48] LABS: Allen Test Pos (Pos)
--- NOTE | 2023-03-14 21:18 | CT Scan Report ---
Exam(s): CTA CHEST IV Amt: 118 ml optiray 320 EXAM: CT Angiography Chest With Intravenous Contrast CLINICAL HISTORY: Reason for exam: PE. TECHNIQUE: Axial computed tomographic angiography images of the chest with intravenous contrast. CTDI is 109.04 mGy and DLP is 2294.15 mGy-cm. Automated exposure control was utilized for the study. A dose lowering technique was utilized adhering to the principles of ALARA. MIP reconstructed images were created and reviewed. COMPARISON: No relevant prior studies available. FINDINGS: Pulmonary arteries: Unremarkable. No acute pulmonary embolism. Aorta: Atherosclerotic changes of the aorta. No thoracic aortic aneurysm. Lungs: See below. Pleural space: Small bilateral pleural effusions. No pneumothorax or pneumonia. Heart: Cardiomegaly. No significant pericardial effusion. No evidence of RV dysfunction. Bones/joints: Degenerative changes of the spine. No acute fracture. No dislocation. Soft tissues: Unremarkable. Lymph nodes: Unremarkable. No enlarged lymph nodes. Spleen: Calcified splenic granulomas. Tubes, lines and devices: Pacemaker leads. IMPRESSION: 1. Small bilateral pleural effusions. No pneumothorax or pneumonia. 2. No acute pulmonary embolism. Electronically signed by: Pelon Carter MD 03/14/23 21:18 PM
[2023-03-14 21:23] LABS: Thyroid Stimulating Hormone 3.371 uIu/ml (0.300-4.500)
--- NOTE | 2023-03-14 21:29 | CT Scan Report ---
Exam(s): CT ABDOMEN + PELVIS With Contrast IV Amt: 118 ml optiray 320 EXAM: CT Abdomen and Pelvis With Intravenous Contrast CLINICAL HISTORY: Reason for exam: elevated LFT's. TECHNIQUE: Axial computed tomography images of the abdomen and pelvis with intravenous contrast. CTDI is 109.04 mGy and DLP is 2294.15 mGy-cm. Automated exposure control was utilized for the study. A dose lowering technique was utilized adhering to the principles of ALARA. CONTRAST: Patient received 118 ml optiray 320 of IV contrast COMPARISON: No relevant prior studies available. FINDINGS: Lung bases: Unremarkable. No mass. No consolidation. Pleural space: Moderate bilateral pleural effusions. Heart: Cardiomegaly. Pacemaker leads. ABDOMEN: Liver: Unremarkable. No focal hepatic lesion. Gallbladder and bile ducts: Gallbladder wall thickening measures 1 cm. No gallstones. This may be secondary to hepatic disease contributing to congestion of the gallbladder wall. No ductal dilation. Pancreas: Unremarkable. No mass. No ductal dilation. Spleen: Calcified splenic granulomas. Adrenals: Unremarkable. No mass. Kidneys and ureters: Unremarkable. No solid mass. No hydronephrosis. Stomach and bowel: Diverticulosis, without acute diverticulitis. No small bowel obstruction. No free intraperitoneal air. PELVIS: Appendix: No findings to suggest acute appendicitis. Bladder: Unremarkable. No mass. Reproductive: Unremarkable as visualized. ABDOMEN and PELVIS: Intraperitoneal space: Unremarkable. No free air. No significant fluid collection. Bones/joints: RIGHT hip arthroplasty. Degenerative changes of the spine. No acute fracture. No dislocation. Soft tissues: Unremarkable. Vasculature: Atherosclerotic changes of the aorta. No abdominal aortic aneurysm. Lymph nodes: Unremarkable. No enlarged lymph nodes. IMPRESSION: No focal hepatic lesion. Gallbladder wall thickening measures 1 cm. No gallstones. This may be secondary to hepatic disease contributing to congestion of the gallbladder wall. Electronically signed by: Pelon Carter MD 03/14/23 21:29 PM
[2023-03-15 01:38] LABS: Appearance Urine Clear (Clear); Bilirubin Urine Negative (Negative); Blood Urine Trace-intact (Negative); Color Urine Yellow; Glucose Urine UA 2+ (Negative); Ketones Urine Negative (Negative); Leukocyte Esterase Urine Negative (Negative); Nitrite Urine Negative (Negative); Protein Urine Negative (Negative); Specific Gravity Urine <= 1.005 (1.000-1.030); Urobilinogen Urine Negative (Negative); pH Urine 5.5 (4.5-7.5)
[2023-03-15 01:48] LABS: Epithelial Cell Urine 0-5 /lpf (0-5); RBC Urine 0-4 /hpf (0-4)
[2023-03-15 01:49] LABS: Bacteria Urine Negative (Negative)
[2023-03-15 03:27] LABS: Basophils # (auto) 0.06 K/uL (0.00-0.20); Basophils % (auto) 0.7 %; Eosinophils # (auto) 0.13 K/uL (0.00-0.50); Eosinophils % (auto) 1.5 %; Hematocrit (blood only) 38.7 % (37.0-47.0); Hemoglobin 12.2 g/dl (12.0-16.0); Immature Granulocytes # (auto) 0.03 K/uL (0.01-0.20); Immature Granulocytes % (auto) 0.4 %; Lymphocytes # (auto) 1.23 K/uL (1.20-3.40); Lymphocytes % (auto) 14.6 %; Mean Corpuscular Hemoglobin 29.7 pg (25.0-34.0); Mean Corpuscular Hgb Conc 31.5 g/dL (32.0-36.0); Mean Corpuscular Volume 94.2 fL (80.0-100.0); Mean Platelet Volume 11.2 fL (9.4-12.4); Monocytes # (auto) 1.08 K/uL (0.11-0.59); Monocytes % (auto) 12.8 %; Platelet Count 160 K/uL (130-400); RDW Standard Deviation 51.7 fL (36.4-46.3); Red Blood Count 4.11 M/uL (4.20-5.40); White Blood Count 8.43 K/ul (4.8-10.8)
[2023-03-15 03:40] LABS: Albumin Globulin Ratio 1.5 (0.9-2); Albumin Level 3.3 gm/dl (3.4-5.0); Bilirubin,Total 0.8 mg/dl (0.2-1.0); Calcium 8.5 mg/dl (8.6-10.3); Creatinine Clr Calc Pharmacy 60.8 ml/min; Est GFR (African American) 93.9 ml/min; Globulin 2.2 gm/dl (2.5-4.0); Magnesium 1.9 mg/dl (1.7-2.4); Potassium 3.7 mmol/L (3.5-5.1); Total Protein 5.5 gm/dl (6.0-8.3)
[2023-03-15 03:52] LABS: ANTI-Xa, UFH(UnfractionatedHep 0.49 IU/ml (0.3-0.7); INR 1.2 (0.9-1.1)
[2023-03-15] MEDS: LEVOTHYROXINE SODIUM 100 MCG TABLET PO SCH (05:44)
[2023-03-15] MEDS: FAMOTIDINE 10 MG TABLET PO SCH (07:52)
[2023-03-15] MEDS: ASPIRIN 81 MG ECTAB PO SCH (07:52)
[2023-03-15] MEDS: EZETIMIBE 10 MG TAB PO SCH (07:52)
--- NOTE | 2023-03-15 08:17 | Cardiology Consultation ---
Date of Consultation March 15, 2023 Assessment & Plan (1) Atrial fibrillation with RVR: (2) Pneumonia: (3) Elevated troponin: (4) Hypertension: (5) CAD (coronary artery disease): (6) Ischemic cardiomyopathy: Plan Assessment: 77 year old female presents with weakness, found to be in new onset Atrial fibrilliation with RVR and also Pneumonia Plan: 1. Atrial fibrillation with RVR: -Patient resting comfortably in bed at this time. Remains A-fib with rates 120-130's -Likely occured in the setting of recent RSV infection and now subsequent pneumonia -Continue Heparin gtt. -Given low blood pressure will likely switch from Coreg to Toprol xl for HR control. -Received IV digoxin last night with little effect -Encourage cautious IV hydration. -Remains NPO until case discussed with Dr. Grover and Anesthesia team to determine if we can undergo LIZ with DCCV today. pateint verbalizes understanding. -Long standing history of ischemic cardiomyopathy with ICD in place -Echocardiogram pending to assess overall structure and function. 2. Pneumonia: -In the setting of recent RSV infection. continue with IV antibiotics as per primary team. 3. Elevated Troponin: -EKG with no acute ST-T wave ischemic changes. -Troponin elevation demonstrates a flat trend likely associated with demand ischemia due to RVR (tachycardia) -Echocardiogram pending to assess structure/function and any new all motion abnormalities. 4. Hypertension: -Patient remains hypotensive although improving since time of admission with IV antibiotics and hydration. -She remains asymptomatic. -Will likely discontinue Coreg in favor of starting toprol xl for HR control without the drastic decrease in blood pressure. If able to restore NSR, will plan to titrate her hypertensive therapies at that time. -Continue Zetia and ASA therapy. Statin therapy remains on hold due to elevated LFT's at time of admission. 5. CAD: 6. Ischemic Cardiomyopathy -Longstanding history dating back to anterior apical NH in 2001 and subsequent ICD placement in 2005. -Awaiting echocardiogram to reassess structure/function. -continue with cautious hydration in the setting of pneumonia as patient does not demonstrate significant fluid overload on today's exam. -Will discuss switching beta james therapy s/t hypotension. -Entresto on hold due to hypotension and will reconsider if blood pressures normalize post cardioversion -Continue ASA 81mg Daily. Case has been discussed with Dr. Grover. Further recommendations regarding plan of care as per his assessment. I spent a total of 40 minutes on the date of service in preparation, delivery, documentation of the care provided to the patient excluding any time spent in the performance of separately billed services. MONIKA Pulido [facility] Cardiology [facility] Supervising Physician Co-Signing Physician Notes Attending attestation: I have reviewed the advanced MONIKA Weinstein's documentation, and agree with, and take responsibility for the plan of care. Subjective: Patient describes having had RSV 4 weeks ago. She had cold symptoms including cough and rhinorrhea. She subsequently recovered. Over the last week however she has noted progressive fatigue and shortness of breath with exertion. This was first evident 2 days ago on 03/13/2023 and by Wednesday afternoon she noted severe shortness of breath with minimal exertion. She [place] and by Wednesday she was not able to perform a lap without feeling debilitating shortness of breath. She presented to the emergency department yesterday and was found to have new onset atrial fibrillation with rapid ventricular response with ventricular rates initially in the 160s. Systolic blood pressure is relatively low in the 90s. She received digoxin 0.25 mg IV with improved rate control. A heparin infusion was started for stroke prophylaxis. A CT angiogram of the chest revealed no pulmonary embolism. Echocardiogram performed today reveals ongoing severe left ventricular systolic dysfunction, ejection fraction less than 20% with moderate TR and moderate MR. The patient is a longstanding history of left anterior descending coronary artery territory scar with apical expansion and this was unchanged on her echocardiogram performed today compared to the outpatient study performed in January,. At the time my assessment on the telemetry floor room 4542 the patient was comfortable. Ongoing atrial fibrillation with rates in the 120s at rest observed. Exam: Chest: Left infraclavicular AICD incision clean dry and intact, with no erythema Pulmonary: Mildly decreased breath sounds bilaterally at the bases Cardiovascular: Tachycardia, regular rhythm, 1/6 systolic murmur, trace lower extremity edema Data: CT angiogram and chest x-ray with small bilateral pleural effusions, also observed on echocardiogram. High sensitive troponin levels 50.5 and 53.9 PG per mL The natruretic peptide: 3696 PG per mL EKG performed 03/14/2023 at 1757 and interpret independently: Atrial fibrillation with rapid ventricular response, ventricular rate 129 bpm, right bundle branch block with resultant repolarization abnormalities, compared to the previous tracing performed 03/03/2023 atrial fibrillation has replaced sinus rhythm and the ventricular rate has increased by 57 bpm. The age undetermined lateral infarction pattern is chronic age-indeterminate inferior infarction pattern is chronic Impression/ Plan: Symptomatic atrial fibrillation with rapid ventricular response Acute on chronic heart failure with reduced ejection fraction due to ischemic cardiomyopathy, severe left ventricular systolic dysfunction Valvular heart disease-moderate mitral regurgitation, moderate tricuspid regurgitation which appear slightly worse on present echocardiogram compared to January, -It is difficult to determine the duration that she has been in atrial fibrillation with send like her symptoms started at least 48 hours ago but perhaps longer. -The patient has a history of severe left atrial enlargement. -Small bilateral pleural effusions are noted however patient is comfortable with bedrest and her oxygen saturation is 94% on room air -Recommend proceeding with rhythm control strategy with transesophageal echocardiogram guided direct-current cardioversion. -Informed consent was obtained the patient elects to proceed. -Procedure scheduled in heart center with anesthesia morning of 03/16/23. -Medications: continue heparin infusion. Stop Coreg, favoring metoprolol succinate 25 mg BID for heart rate control. Proceed with another dose of digoxin 0.25 mg IV x 1 now. -Will likely start amiodarone after left atrial appendage thrombus excluded with LIZ. I spent a total of 25 minutes coordinating, documenting, and providing care for this patient excluding time spent in the performance of separately billed services or time spent by another provider. Raimundo Grover DO History of Present Illness Reason for Consultation: New A-fib with RVR, hypotensive [facility]ing Physician[facility] Attending Physician: Lise Edmondson MD History of Present Illness Patient is a 77 year old female with PMHx significant for CAD s/p apical NH in 2001, Ischemic cardiomyopathy s/p ICD, HLD, HTN, hypothyroidism that presented to the ED with complaints of generalized weakness. She reports that she was diagnosed with RSV 3-4 weeks ago. She reports adequate intake, no recent fevers or worsening URI symptoms, only increased generalized weakness. EKG upon arrival demonstrates A-fib with RVR. Patient denies any prior history and none found per review of [facility]. She denies any chest pain, pressure or palpitations. chest xray has demonstrated a RLL pneumonia. DDS elevated and Chest CTA was obtained which does not show any evidence of a PE, but does show small bilateral pleural effusions. Patient has been started on a Heparin gtt. she was given IV Digoxin and started on Coreg with very little improvement in HR She is hypotensive, but improved with systolic BP 90-100mmHG. 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 Jesse Owusu, last seen in the office 03/12/2023. 1. Ischemic cardiomyopathy. EF 20% to 25%. 2. Status post anterior apical myocardial infarction 2001 with apical expansion. 3. Diffuse coronary artery disease by cardiac catheterization with stable class II angina pectoris. 4. Compensated class III congestive heart failure. 5. Status post prophylactic automatic internal cardiac defibrillator implantation 2005. 6. Status post pacer defibrillator lead revision and replacement on 09/10/2016 Pacer defibrillator device, Medtronic Evera XT VR. 7. Hyperlipidemia Allergies Allergy/AdvReac Type Severity Reaction Status Date / Time No Known Allergies Allergy Verified 03/14/23 20:36 Home Medications Medication Instructions Recorded Confirmed Type carvedilol 6.25 mg tablet 6.25 mg PO BID 04/20/18 03/14/23 History rosuvastatin 40 mg tablet 40 mg PO QAM 03/13/20 03/14/23 History multivitamin 1 tab PO QAM 04/01/21 03/14/23 History empagliflozin 10 mg tablet 10 mg PO QAM 07/09/21 03/14/23 History (Jardiance) sacubitril 24 mg-valsartan 26 mg 0.5 - 1 tab PO BID 07/09/21 03/14/23 History tablet (Entresto) ezetimibe 10 mg tablet 10 mg PO QAM 05/04/22 03/14/23 History aspirin 81 mg tablet,delayed 81 mg PO QAM 02/16/23 03/14/23 History release (Ecotrin Low Strength) cholecalciferol (vitamin D3) 25 2,000 units PO QAM 02/16/23 03/14/23 History mcg (1,000 unit) capsule furosemide 40 mg tablet 40 mg PO QAM 02/16/23 03/14/23 History levothyroxine 100 mcg tablet 100 mcg PO QAM 02/16/23 03/14/23 History spironolactone 25 mg tablet 25 mg PO QAM 02/16/23 03/14/23 History mirtazapine 15 mg tablet 15 mg PO HS #90 tabs 02/22/23 03/14/23 Rx sertraline 25 mg tablet 25 mg PO QAM 02/24/23 03/14/23 History famotidine 20 mg tablet 10 mg PO DAILY 03/14/23 03/14/23 History Patient History Medical History (Updated 03/15/23 @ 11:36 by MONIKA Pulido) CHF (congestive heart failure) Elevated fasting blood sugar CAD (coronary artery disease) Anterior apical NH 2001 with apical expansion s/p cardiac stents per patient ICD (implantable cardioverter-defibrillator) in place Medtronic Evera XT VR ICD implanted 2005--lead revision and replacement 09/10/2016 History of right breast cancer 2006---s/p right lumpectomy, chemo/radiation Right limb restriction Ischemic cardiomyopathy on jardiance/entresto EF 20-24% per 02/03/23 ECHO- has ICD in place Anxiety Hypothyroid High cholesterol Hypertension Hx of myocardial infarction 2001--[place] [facility] [place]--follows with Dr. Owusu Surgical History History of right breast biopsy malignancy History of lumpectomy of right breast 2006 History of bilateral tubal ligation History of tooth extraction all teeth removed History of bilateral cataract extraction History of heart artery stent 2001--2 stents placed History of cardiac cath 2001 [place] [facility] [place] 2 stents placed Status post right hip replacement (~03/2021) H/O: History of implantable cardiac defibrillator (ICD) Medtronic Evera XT VR ICD implanted 2005--lead revision and replacement 09/10/2016 Family History Mother Lung cancer Father No problems noted. Other No family history of adverse response to anesthesia Denies family history of Ovarian cancer Prostate cancer Myocardial infarction Breast cancer Colorectal cancer Social History Smoking Status: Never smoker Second Hand Exposure: No; Do You Dip or Chew Tobacco: No; Tobacco Cessation Education Requested by Patient: No Hx Alcohol Use: No Hx Substance Use: No Preferred Language: [place]an Communication Ability: Effective Visual Impairment: Limited Hearing Ability: Hard of Hearing Gauge Maker Required: No Beliefs That Will Affect Care: None marital status: Current Living Situation: Spouse current occupational status: 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 [employer] Other Information That Helps Us Care for You: No Feels Safe at Home: Yes Safety Concerns: Feels Safe At This Time Diet: regular caffeine: Yes Seatbelt Use: always Sunscreen Use: No Assistive Devices: Glasses Review of Systems Review of Systems: All systems reviewed & are unremarkable except as noted in HPI & below Physical Exam Constitutional: well developed, well nourished and average body habitus; no acute distress Neck: normal visual inspection and trachea midline Respiratory: normal respiratory effort, lungs clear to auscultation Cardiovascular: Rate/Rhythm: + irregularly irregular Heart Sounds: normal S1 and normal S2 Vessels: dorsalis pedis pulses present; no JVD Extremities: + edema (+1 BLE edema) Skin: no rashes, warm and dry normal turgor Psychiatric: A+Ox3, euthymic affect Orientation: alert and oriented x 3 Affect: euthymic affect Results & Data Vital Signs (Past 12 Hours) Vital Signs Temp Pulse Pulse Resp BP BP Pulse Ox 03/15/23 08:00 36.6 C 124 H 18 99/54 L 94 03/15/23 02:56 36.8 C 121 H 22 100/67 96 03/14/23 23:00 36.3 C L 124 H 17 100/53 L 95 03/14/23 22:48 116 H 03/14/23 22:46 36.3 C L 124 H 17 100/53 L 95 03/14/23 22:02 132 H 18 94 03/14/23 21:30 105/75 03/14/23 21:30 142 H 18 94 03/14/23 21:13 91/74 L 03/14/23 21:13 139 H 18 92 03/14/23 21:00 13 92 03/14/23 20:30 128 H 20 95 03/14/23 20:30 90/66 L O2 Del Method 03/15/23 08:00 Room Air 03/15/23 02:56 Room Air 03/14/23 23:00 Room Air 03/14/23 22:48 03/14/23 22:46 Room Air 03/14/23 22:02 Room Air 03/14/23 21:30 03/14/23 21:30 Room Air 03/14/23 21:13 03/14/23 21:13 03/14/23 21:00 03/14/23 20:30 Room Air 03/14/23 20:30 Laboratory Results Cardiac Enzymes 03/14/23 03/14/23 03/15/23 Range/Units 18:10 20:14 02:56 AST 109 H 53 H (13-39) U/L Troponin I High Sens 50.5 H* 53.9 H* (0-14) pg/ml B-Natriuretic Peptide 3696 H (0-100) pg/ml Coagulation 03/14/23 03/14/23 03/15/23 Range/Units 18:10 20:14 02:56 PT 12.4 H 13.0 H (9.0-12.0) Seconds APTT 27 (21-31) Seconds B-Natriuretic Peptide 3696 H (0-100) pg/ml CBC 03/14/23 03/15/23 Range/Units 18:10 02:56 WBC 7.49 8.43 (4.8-10.8) K/ul RBC 4.45 4.11 L (4.20-5.40) M/uL Hgb 13.4 12.2 (12.0-16.0) g/dl Hct 41.7 38.7 (37.0-47.0) % Plt Count 191 160 (130-400) K/uL Neut # (Auto) 5.13 5.90 (1.40-6.50) K/uL Lymph # (Auto) 1.29 1.23 (1.20-3.40) K/uL [place] # (Auto) 0.83 H 1.08 H (0.11-0.59) K/uL Eos # (Auto) 0.14 0.13 (0.00-0.50) K/uL Baso # (Auto) 0.06 0.06 (0.00-0.20) K/uL Comprehensive Metabolic Panel 03/14/23 03/15/23 Range/Units 18:10 02:56 Sodium 135 L 137 (136-145) mmol/L Potassium 4.0 3.7 (3.5-5.1) mmol/L Chloride 107 107 (98-107) mmol/L Carbon Dioxide 20 L 21 (21-32) mmol/L BUN 27 H 22 (6-23) mg/dl Creatinine 0.82 0.71 (0.6-1.2) mg/dl Glucose 175 H 115 H (70-99(Fasting)) mg/dl Calcium 8.9 8.5 L (8.6-10.3) mg/dl AST 109 H 53 H (13-39) U/L ALT 164 H 133 H (7-52) U/L Alkaline Phosphatase 107 H 101 (34-104) U/L Total Protein 6.1 5.5 L (6.0-8.3) gm/dl Albumin 3.8 3.3 L (3.4-5.0) gm/dl Intake and Output 03/14/23 03/15/23 03/15/23 22:59 06:59 14:59 Intake Total 50 / 305.4 255.4 / 305.4 63 / 63 Balance 50 / 305.4 255.4 / 305.4 63 / 63 Intake: IV 50 / 305.4 255.4 / 305.4 63 / 63 Doxycycline Hyclate 100 mg In 100 / 100 Dextrose 5% Mini-B 100 ml @ 50 mls/hr IV NOW STA Rx#:[id number] Heparin Sodium/Dextrose 25,000 155.4 / 155.4 63 / 63 units In 500 ml @ 1,050 UNITS/ HR 21 mls/hr IV .[id number] [facility] Rx #:[id number] cefTRIAXone SODIUM 2,000 mg In 50 / 50 Dextrose 5 % Mini-B 50 ml @ 100 mls/hr IV NOW STA Rx#:[id number] Other: Other Intake Source Patient is NPO # Unmeasured Voids 1 Weight 74.6 kg 73.1 kg Weight Measurement Method [facility] Built in [facility] Diagnostic Findings chest CTA 03/14/23: Small bilateral pleural effusions, No acute P.E. EKG 03/14/23: A-fib with RVR, left axis deviation Rate 129bpm Echocardiogram 02/03/23: Left ventricle severely dilated. Regional wall motion abnormalities EF severely reduced 20-24% Moderate MR, mild TR PASP 28mmHg Left atrium severely dilated small circumferential pericardial effusion, no evidence of tamponade (2) Pneumonia Laterality: unspecified laterality Lung location: lower lobe of lung Pneumonia type: due to unspecified organism Qualified Code(s): J18.9 - Pneumonia, unspecified organism (4) Hypertension Hypertension type: primary hypertension Qualified Code(s): I10 - Essential (primary) hypertension (5) CAD (coronary artery disease) Associated angina: without angina Coronary Disease-Associated Artery/Lesion type: [place] artery [place] vs. transplanted heart: [place] heart Qualified Code(s): I25.10 - Atherosclerotic heart disease of [place] coronary artery without angina pectoris
[2023-03-15] MEDS ORDERED: carvediloL 6.25 MG TAB PO SCH (09:00)
[2023-03-15] MEDS ORDERED: DOXYCYCLINE HYCLATE 100 MG in DEXTROSE 5% MINI-B 100 ML IV SCH (09:00)
--- NOTE | 2023-03-15 09:00 | Hospitalist Progress Note ---
Date of Service March 15, 2023 Assessment & Plan (1) Atrial fibrillation with RVR: Plan: New diagnosis of atrial fibrillation CTA chest was negative for PE (and negative for pneumonia) -consulted [facility] cardiology, reviewed recs in note -continue metoprolol XL -given extra dose of digoxin IV today for high rates -continue heparin drip -elevated troponin consistent with myocardial strain in setting of tachycardia and cardiomyopathy, no evidence of ACS -planned for LIZ/cardioversion tomorrow if no thrombus -TTE reviewed "Echocardiogram performed today reveals ongoing severe left ventricular systolic dysfunction, ejection fraction less than 20% with moderate TR and moderate MR. The patient is a longstanding history of left anterior descending coronary artery territory scar with apical expansion and this was unchanged on her echocardiogram performed today compared to the outpatient study performed in January,." (2) Pneumonia: Plan: Pneumonia though to be present on admission but ruled out based on negative chest CT, normal procalcitonin, opacities on CXR related to atelectasis and pulmonary edema -stop antibiotics (3) Elevated LFTs: Plan: -AST and ALT mildly elevated with normal bilirubin and INR -likely related to congestive hepatopathy, would not work up further until/if rate controlled and heart failure compensated -nonetheless, hepatitis panel pending and CT abdomen/pelvis was negative (4) Elevated troponin: Plan: -Initial high sen trop elevated at 50 --> 54 -Patient denies chest discomfort -No acute ST segment changes on initial ECG -see above (5) CAD (coronary artery disease): Plan: -Continue aspirin, b-james (6) Ischemic cardiomyopathy: Plan: -EF 20-25% -thought to be volume depleted on admission and gentle IVF given -Hx of ICD placement -saline lock IVF for now -Will hold diuretics and Entresto held due to hypotension (7) Hypothyroid: Plan: -Continue levothyroxine (8) Hypertension: Plan: -Hold diuretics with dehydration and hypotension Admission and Anticipated Discharge Date Admission Date: March 14, 2023 Subjective Feels pretty comfortable though dyspneic when getting up to the bathroom. No chest pain. Seen early AM Physical Exam 2 Physical Exam: PHYSICAL EXAMINATION Last 24h vital signs reviewed, see documentation in flowsheet General: comfortable appearing, no distress HEENT: Normocephalic, atraumatic, pupils round and equal, sclerae anicteric, no conjunctival injection, moist mucus membranes Lungs: Normal respiratory effort. Clear to auscultation bilaterally x slight bibasilar crackles. No RRW Heart: tachycardic irreg irreg, syst murmurs. No JVD Abdomen: Soft, nontender, nondistended. Bowel sounds present. Extremities: Warm, dry, well-perfused. No extremity edema. Neuro: Alert and oriented x 4, face symmetric, moves 4 extremities well Psych: Normal affect and behavior Results & Data Results & Data Vital Signs (Past 12 Hours) Vital Signs Temp Pulse Pulse Resp BP BP Pulse Ox 03/15/23 08:00 36.6 C 124 H 18 99/54 L 94 03/15/23 02:56 36.8 C 121 H 22 100/67 96 03/14/23 23:00 36.3 C L 124 H 17 100/53 L 95 03/14/23 22:48 116 H 03/14/23 22:46 36.3 C L 124 H 17 100/53 L 95 03/14/23 22:02 132 H 18 94 03/14/23 21:30 105/75 03/14/23 21:30 142 H 18 94 03/14/23 21:13 91/74 L 03/14/23 21:13 139 H 18 92 03/14/23 21:00 13 92 O2 Del Method 03/15/23 08:00 Room Air 03/15/23 02:56 Room Air 03/14/23 23:00 Room Air 03/14/23 22:48 03/14/23 22:46 Room Air 03/14/23 22:02 Room Air 03/14/23 21:30 03/14/23 21:30 Room Air 03/14/23 21:13 03/14/23 21:13 03/14/23 21:00 Laboratory Results 03/15/23 02:56 03/15/23 02:56 PG Care Time/CCT Total # of Minutes Spent Total Time Spent with Patient: Total time spent is greater than 50% in coordination of care (as documented) at patient's floor/unit and/or counseling patient: Coding Level of Care Code 22747 SUB INP/OBS CARE 3/50MIN Diagnoses Atrial fibrillation with RVR I48.91 Pneumonia J18.9 Elevated LFTs R79.89 Elevated troponin R79.89 CAD (coronary artery disease) I25.10 Associated angina: without angina Coronary Disease-Associated Artery/Lesion type: [place] artery [place] vs. transplanted heart: [place] heart Ischemic cardiomyopathy I25.5 Hypothyroid E03.9 Hypertension I10 (5) CAD (coronary artery disease) Associated angina: without angina Coronary Disease-Associated Artery/Lesion type: [place] artery [place] vs. transplanted heart: [place] heart Qualified Code(s): I25.10 - Atherosclerotic heart disease of [place] coronary artery without angina pectoris
--- NOTE | 2023-03-15 09:42 | Electrocardiogram Report ---
Test Reason : Blood Pressure : / mmHG Vent. Rate : 129 BPM Atrial Rate : 000 BPM P-R Int : 000 ms QRS Dur : 136 ms QT Int : 368 ms P-R-T Axes : 000 -62 107 degrees QTc Int : 539 ms Atrial fibrillation with rapid ventricular response Left axis deviation Non-specific intra-ventricular conduction block Inferior infarct (cited on or before 30-JUL-2021) Anterolateral infarct (cited on or before 30-JUL-2021) Abnormal ECG When compared with ECG of 03-MAR-2023 10:59, Atrial fibrillation has replaced Sinus rhythm Vent. rate has increased BY 57 BPM Questionable change in initial forces of Lateral leads Inverted T waves have replaced nonspecific T wave abnormality in Anterior leads Confirmed by Paco Brian ([id number]) on 03/15/2023 9:42:09 AM Referred By: REFERRED SELF Confirmed By:Paco Brian
[2023-03-15] MEDS: SERTRALINE HCL 50 MG TABLET PO SCH (10:51)
--- NOTE | 2023-03-15 11:02 | Communication Note ---
Date of Service: March 15, 2023 Attending attestation: I have reviewed the advanced MONIKA Weinstein's documentation, and agree with, and take responsibility for the plan of care. Subjective: Patient describes having had RSV 4 weeks ago. She had cold symptoms including cough and rhinorrhea. She subsequently recovered. Over the last week however she has noted progressive fatigue and shortness of breath with exertion. This was first evident 2 days ago on 03/13/2023 and by Wednesday afternoon she noted severe shortness of breath with minimal exertion. She typically walks a [place] and by Wednesday she was not able to perform a lap without feeling debilitating shortness of breath. She presented to the emergency department yesterday and was found to have new onset atrial fibrillation with rapid ventricular response with ventricular rates initially in the 160s. Systolic blood pressure is relatively low in the 90s. She received digoxin 0.25 mg IV with improved rate control. A heparin infusion was started for stroke prophylaxis. A CT angiogram of the chest revealed no pulmonary embolism. Echocardiogram performed today reveals ongoing severe left ventricular systolic dysfunction, ejection fraction less than 20% with moderate TR and moderate MR. The patient is a longstanding history of left anterior descending coronary artery territory scar with apical expansion and this was unchanged on her echocardiogram performed today compared to the outpatient study performed in January,. At the time my assessment on the telemetry floor room 4542 the patient was comfortable. Ongoing atrial fibrillation with rates in the 120s at rest observed. Exam: Chest: Left infraclavicular AICD incision clean dry and intact, with no erythema Pulmonary: Mildly decreased breath sounds bilaterally at the bases Cardiovascular: Tachycardia, regular rhythm, 1/6 systolic murmur, trace lower extremity edema Data: CT angiogram and chest x-ray with small bilateral pleural effusions, also observed on echocardiogram. High sensitive troponin levels 50.5 and 53.9 PG per mL The natruretic peptide: 3696 PG per mL EKG performed 03/14/2023 at 1757 and interpret independently: Atrial fibrillation with rapid ventricular response, ventricular rate 129 bpm, right bundle branch block with resultant repolarization abnormalities, compared to the previous tracing performed 03/03/2023 atrial fibrillation has replaced sinus rhythm and the ventricular rate has increased by 57 bpm. The age undetermined lateral infarction pattern is chronic age-indeterminate inferior infarction pattern is chronic Impression/ Plan: Symptomatic atrial fibrillation with rapid ventricular response Acute on chronic heart failure with reduced ejection fraction due to ischemic cardiomyopathy, severe left ventricular systolic dysfunction Valvular heart disease-moderate mitral regurgitation, moderate tricuspid regurgitation which appear slightly worse on present echocardiogram compared to January, -It is difficult to determine the duration that she has been in atrial fibrillation with send like her symptoms started at least 48 hours ago but perhaps longer. -The patient has a history of severe left atrial enlargement. -Small bilateral pleural effusions are noted however patient is comfortable with bedrest and her oxygen saturation is 94% on room air -Recommend proceeding with rhythm control strategy with transesophageal echocardiogram guided direct-current cardioversion. -Informed consent was obtained the patient elects to proceed. -Procedure scheduled in heart center with anesthesia morning of 03/16/23. -Medications: continue heparin infusion. Stop Coreg, favoring metoprolol succinate 25 mg BID for heart rate control. Proceed with another dose of digoxin 0.25 mg IV x 1 now. -Will likely start amiodarone after left atrial appendage thrombus excluded with LIZ. I spent a total of 25 minutes coordinating, documenting, and providing care for this patient excluding time spent in the performance of separately billed services or time spent by another provider. Raimundo Grover,
[2023-03-15] MEDS ORDERED: DIGOXIN 250 MCG in SYRINGE 9 ML IV STA (11:03)
[2023-03-15] MEDS ORDERED: cefTRIAXone SODIUM 2,000 MG in DEXTROSE 5 % MINI-B 50 ML IV SCH (20:00)
[2023-03-15] MEDS: HEPARIN SODIUM/DEXTROSE 25,000 UNITS/500 ML BAG IV SCH (20:59)
[2023-03-15] MEDS: METOPROLOL SUCC 25MG EXT REL TAB PO SCH (21:00)
[2023-03-15] MEDS ORDERED: MIRTAZAPINE TAB 15 MG TAB PO SCH (21:00)
[2023-03-16 05:15] LABS: Basophils # (auto) 0.05 K/uL (0.00-0.20); Basophils % (auto) 0.6 %; Eosinophils # (auto) 0.08 K/uL (0.00-0.50); Hematocrit (blood only) 40.4 % (37.0-47.0); Hemoglobin 12.9 g/dl (12.0-16.0); Immature Granulocytes # (auto) 0.05 K/uL (0.01-0.20); Immature Granulocytes % (auto) 0.6 %; Lymphocytes # (auto) 1.29 K/uL (1.20-3.40); Lymphocytes % (auto) 16.5 %; Mean Corpuscular Hemoglobin 29.9 pg (25.0-34.0); Mean Corpuscular Hgb Conc 31.9 g/dL (32.0-36.0); Mean Corpuscular Volume 93.7 fL (80.0-100.0); Mean Platelet Volume 11.5 fL (9.4-12.4); Monocytes # (auto) 1.04 K/uL (0.11-0.59); Monocytes % (auto) 13.3 %; Neutrophils # (auto) 5.31 K/uL (1.40-6.50); Platelet Count 169 K/uL (130-400); RDW Coefficient of Variation 14.8 % (11.5-14.5); RDW Standard Deviation 50.7 fL (36.4-46.3); Red Blood Count 4.31 M/uL (4.20-5.40); White Blood Count 7.82 K/ul (4.8-10.8)
[2023-03-16 05:22] LABS: Albumin Globulin Ratio 1.8 (0.9-2); Albumin Level 3.5 gm/dl (3.4-5.0); BUN Creatinine Ratio 28.1 (10-20); Bilirubin,Total 1.1 mg/dl (0.2-1.0); Calcium 9.1 mg/dl (8.6-10.3); Est GFR (African American) 71.4 ml/min; Est GFR (Non-African American) 61.6 ml/min; Potassium 3.7 mmol/L (3.5-5.1); Total Protein 5.5 gm/dl (6.0-8.3)
[2023-03-16] MEDS: LEVOTHYROXINE SODIUM 100 MCG TABLET PO SCH (05:53)
--- NOTE | 2023-03-16 07:20 | History & Physical Bridge Note ---
Date of Service March 16, 2023 History & Physical Bridge Note I have examined the patient, reviewed the History & Physical and in the interval since the performance of the History & Physical I have noted the following changes of clinical significance: no changes noted
--- NOTE | 2023-03-16 07:28 | Anesthesiology Consultation ---
Date of Service March 16, 2023 Assessment & Plan Chart Review Chart Review: Acceptable Risk for Surgery and Patient NOT seen in Pre Admission Testing Consults Requested none ASA ASA4 Proposed Anesthesia Anesthesia Type: MAC Risk / Benefits Reviewed With: PT / POA / Parent / Guardian, Accepts Plan and Informed Consent Obtained History Surgery Operation Date: 03/16/23 07:30 Proposed Procedures p Transesophageal Echo w/Anesthesia - Raimundo Grover DO s Cardioversion Carrier Packer w/Anesthesia - Raimundo Grover DO Height/Weight Height: 5 ft 2 in Weight: 73.6 kg Allergies Allergy/AdvReac Type Severity Reaction Status Date / Time No Known Allergies Allergy Verified 03/14/23 20:36 Medications Home Medications Medication Instructions Recorded Confirmed Last Taken carvedilol 6.25 mg tablet 6.25 mg PO BID 04/20/18 03/14/23 03/14/23 09:00 rosuvastatin 40 mg tablet 40 mg PO QAM 03/13/20 03/14/23 04/01/21 multivitamin 1 tab PO QAM 04/01/21 03/14/23 04/01/21 empagliflozin 10 mg tablet 10 mg PO QAM 07/09/21 03/14/23 03/14/23 09:00 (Jardiance) sacubitril 24 mg-valsartan 26 mg 0.5 - 1 tab PO BID 07/09/21 03/14/23 Unknown tablet (Entresto) ezetimibe 10 mg tablet 10 mg PO QAM 05/04/22 03/14/23 03/14/23 aspirin 81 mg tablet,delayed 81 mg PO QAM 02/16/23 03/14/23 03/14/23 08:00 release (Ecotrin Low Strength) cholecalciferol (vitamin D3) 25 2,000 units PO QAM 02/16/23 03/14/23 03/14/23 09:00 mcg (1,000 unit) capsule furosemide 40 mg tablet 40 mg PO QAM 02/16/23 03/14/23 03/14/23 08:00 levothyroxine 100 mcg tablet 100 mcg PO QAM 02/16/23 03/14/23 03/14/23 09:00 spironolactone 25 mg tablet 25 mg PO QAM 02/16/23 03/14/23 Unknown mirtazapine 15 mg tablet 15 mg PO HS #90 tabs 02/22/23 03/14/23 Unknown sertraline 25 mg tablet 25 mg PO QAM 02/24/23 03/14/23 Unknown famotidine 20 mg tablet 10 mg PO DAILY 03/14/23 03/14/23 Unknown Active Medications Generic Name Dose Route Start Last Admin Trade Name Fern PRN Reason Stop Dose Admin Aspirin 81 mg 03/15/23 09:00 03/15/23 07:52 Aspirin 81 Mg Ectab PO 04/14/23 08:59 81 mg QAM ANDRIY Administration Ezetimibe 10 mg 03/15/23 09:00 03/15/23 07:52 Ezetimibe 10 Mg Tab PO 04/14/23 08:59 10 mg QAM ANDRIY Administration Famotidine 10 mg 03/15/23 09:00 03/15/23 07:52 Famotidine 10 Mg Tablet PO 04/14/23 08:59 10 mg DAILY ANDRIY Administration Heparin Sodium/Dextrose 25,000 units in 500 mls @ 21 mls/hr 03/14/23 19:30 03/16/23 07:30 Heparin Sodium/Dextrose IV 04/13/23 19:29 Infused .[id number] ANDRIY Titration Protocol 1,050 UNITS/HR Levothyroxine Sodium 100 mcg 03/15/23 06:30 03/16/23 05:53 Levothyroxine Sodium 100 Mcg Tablet PO 04/14/23 06:29 100 mcg DAILYBB ANDRIY Administration Metoprolol Succinate 25 mg 03/15/23 21:00 03/15/23 21:00 Metoprolol Succ 25mg Ext Rel Tab PO 04/14/23 20:59 25 mg BID ANDRIY Administration Mirtazapine 15 mg 03/15/23 21:00 03/15/23 21:00 Mirtazapine Tab 15 Mg Tab PO 04/14/23 20:59 15 mg HS ANDRIY Administration Sertraline HCl 25 mg 03/15/23 10:15 03/15/23 10:51 Sertraline Hcl 50 Mg Tablet PO 04/14/23 10:14 25 mg QAM ANDRIY Administration NPO Date Last Intake of Fluids: 03/16/23 Time Last Intake of Fluids: 06:00 Last Intake of Fluids Comment: sip water w/ meds Date Last Intake of Solids: 03/15/23 Time Last Intake of Solids: 18:00 Past Medical History Medical History CHF (congestive heart failure) Elevated fasting blood sugar CAD (coronary artery disease) 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 Owusu Exercise / Class Metabolic Activity III < 4 Walking/Shop/Light housework Past Family History Family History Mother Lung cancer Father No problems noted. Other No family history of adverse response to anesthesia Denies family history of Ovarian cancer Prostate cancer Myocardial infarction Breast cancer Colorectal cancer Past Surgical History Surgical History History of right breast biopsy malignancy History of lumpectomy of right breast 2006 History of bilateral tubal ligation History of tooth extraction all teeth removed History of bilateral cataract extraction History of heart artery stent 2001--2 stents placed History of cardiac cath 2001 [place] [facility] [place] 2 stents placed Status post right hip replacement (~03/2021) H/O: History of implantable cardiac defibrillator (ICD) Medtronic Evera XT VR ICD implanted 2005--lead revision and replacement 09/10/2016 Past Anesthesia History No Hx of Anesthesia Complications and No Family Hx of Anesthesia Complications History of PONV No Hx of PONV and No Hx of Motion Sickness Social History Smoking Status: Never smoker Do You Dip or Chew Tobacco: No Hx Alcohol Use: No Hx Substance Use: No substance use type: does not use Physical Exam Vital Signs Last Vital Signs Temp 36.4 C L 03/16/23 03:50 Pulse 116 H 03/16/23 07:00 Resp 18 03/16/23 07:00 BP 100/79 03/16/23 07:00 Pulse Ox 93 03/16/23 07:00 O2 Del Method Room Air 03/16/23 07:00 Constitutional + obese; no acute distress ENMT Mouth: + dentition abnormality and + dentures Thyromental Distance: < 3.5 Finger Breadths Mallampati Class: II Neck normal visual inspection and trachea midline; neck extension not limited Respiratory normal respiratory effort Auscultation: + diminished lung sounds and + crackles Cardiovascular Rate/Rhythm: + abnormal rate (afib) and + abnormal rhythm (afib) Heart Sounds: + murmur (@ apex) Vessels: no carotid bruit Chest (Breasts) Chest: + pacemaker Musculoskeletal Spine: normal cervical ROM and no pain with cervical ROM Extremities: full ROM of extremities Neurologic moves all extremities Motor/Sensory: no sensory deficit Psychiatric Orientation: alert and oriented x 3 Testing Laboratory Results 03/16/23 04:32 03/16/23 04:32 PT 13.0 Seconds (9.0-12.0) H 03/15/23 02:56 INR 1.2 (0.9-1.1) H 03/15/23 02:56 APTT 27 Seconds (21-31) 03/14/23 18:10 Urine Color Yellow 03/15/23 01:15 Urine Appearance Clear (Clear) 03/15/23 01:15 Urine pH 5.5 (4.5-7.5) 03/15/23 01:15 Ur Specific [place] <= 1.005 (1.000-1.030) 03/15/23 01:15 Urine Protein Negative (Negative) 03/15/23 01:15 Urine Glucose (UA) 2+ (Negative) H 03/15/23 01:15 Urine Ketones Negative (Negative) 03/15/23 01:15 Urine Nitrite Negative (Negative) 03/15/23 01:15 Ur Leukocyte Esterase Negative (Negative) 03/15/23 01:15 Urine RBC 0-4 /hpf (0-4) 03/15/23 01:15 Urine WBC 5-10 /hpf (0-5) H 03/15/23 01:15 Ur Epithelial Cells 0-5 /lpf (0-5) 03/15/23 01:15 Electrocardiogram Date: 03/14/23 Findings: + AFIB @ (w/ RVR @ 129;Non Specific intraventricular conduction block;infer,. infarct,age ?;anterolat. infarct. age ?) Chest X-Ray Date: 03/14/23 Findings: + atelectasis, + cardiomegaly, + infiltrate (bilat. airspace opacities), + pulmonary vascular congestion and + pleural effusion (small bilateral ) Echocardiogram Date: 03/15/23 EF: < 20% LV Function: dysfunctional RWMA: + akinetic (LV severely dilated) Other Findings: + atrial enlargement (severe LA dilation) Valvular Disease: + MR (moderate) TR mild
[2023-03-16] MEDS ORDERED: ATROPINE SULFATE 0.1 MG/ML 10ML SYR IV PRN (07:36)
[2023-03-16] MEDS ORDERED: ePHEDrine sulfate 50 MG/ML AMP IV PRN (07:36)
[2023-03-16] MEDS ORDERED: AMIODARONE 150MG / 100ML D5W (CATH LAB USE ONLY) IV ONE (08:14)
[2023-03-16] MEDS ORDERED: STAT IV Infusion **Titration per Protocol STA ×4 (08:22→21:38)
[2023-03-16] MEDS ORDERED: 0.2 MICRON FILTER SET 1 EACH IV STA (08:22)
[2023-03-16] MEDS ORDERED: AMIODARONE IV BOLUS & DRIP IV STA (08:22)
[2023-03-16] MEDS ORDERED: AMIODARONE / D5W 150 MG/100 ML BAG IV STA (08:22)
--- NOTE | 2023-03-16 08:29 | Post Operative Brief Note ---
Cardiology Brief Post Op Date of Surgery March 16, 2023 Pre & Post Diagnosis Operation Date: 03/16/23 07:30 Procedure Preprocedure diagnosis: Rule out left atrial and left atrial appendage thrombus, symptomatic atrial fibrillation with rapid ventricular response Post procedure diagnosis: No left atrial or left atrial appendage thrombus, successful conversion to sinus rhythm Direct-current cardioversion procedure note: After informed consent was obtained a timeout was performed the patient was sedated with the assistance of the anesthesia service. A focused transesophageal echocardiogram study was performed for risk stratification. Limited views were obtained. There was no left atrial or left atrial appendage thrombus. Severe left atrial enlargement was present. The patient then underwent direct-current cardioversion receiving a single dose of biphasic energy, 200 J, with initial successful conversion to sinus rhythm. The patient reverted to atrial fibrillation post cardioversion for a few seconds and then spontaneously converted to sinus rhythm. Plan: Continue anticoagulation with heparin pending determination of cost of outpatient direct oral anticoagulant therapy Add amiodarone to the oral metoprolol. Bottom Polisher DO Assistant Roselia Ya RCs Estimated Blood Loss 0 Findings Consistent with Post-Op Diagnosis Anesthesia Type MAC Complications none
[2023-03-16] MEDS: AMIODARONE 360MG / 200ML D5W (CATH LAB USE ONLY) IV ONE ×2 (08:35→09:22)
[2023-03-16] MEDS: AMIODARONE / D5W 360 MG/200 ML BAG IV ONE ×2 (08:35→08:50)
[2023-03-16] MEDS ORDERED: POTASSIUM CHLORIDE 20 MEQ/15 ML UDC PO STA ×2 (08:36→21:39)
--- NOTE | 2023-03-16 08:38 | Cardiology Progress Note ---
Date of Service March 16, 2023 Assessment & Plan (1) Atrial fibrillation with RVR: (2) Pneumonia: (3) Elevated troponin: (4) Hypertension: (5) CAD (coronary artery disease): (6) Ischemic cardiomyopathy: Plan Assessment: 77 year old female presents with weakness, found to be in new onset Atrial fibrilliation with RVR and also Pneumonia Plan: 1. Atrial fibrillation with RVR: -Patient in sinus rhythm post LIZ guided direct-current cardioversion. Blood pressure better than her recent baseline post cardioversion -Continue metoprolol succinate 25 [address] twice daily in place of carvedilol -Add amiodarone, oral bolus and delude initiated post cardioversion -Monitor corrected QT interval given treatment with Zoloft -Continue heparin for stroke prophylaxis -Will need to investigate the cost of a direct oral anticoagulant versus Coumadin 2. Possible pneumonia: -In the setting of recent RSV infection. continue with IV antibiotics as per primary team. 3. Elevated Troponin: -EKG with no acute ST-T wave ischemic changes. -Troponin elevation demonstrates a flat trend likely associated with demand ischemia due to RVR (tachycardia) 4. Ischemic Cardiomyopathy -Longstanding history dating back to anterior apical [place] in 2001 and subsequent ICD placement in 2005. -Entresto on hold due to hypotension and will reconsider if blood pressures normalize post cardioversion -Continue ASA 81mg Daily. Rocky Grover DO Admission and Anticipated Discharge Date Admission Date: March 14, 2023 Subjective Patient seen in follow-up prior to, during, and post LIZ guided direct-current cardioversion. Patient had an uneventful night. She states her shortness of breath was stable with bedrest overnight last night. She remained in atrial fibrillation with rapid ventricular response. LIZ guided direct-current cardioversion performed this morning with successful conversion to sinus rhythm. Review of Systems Review of Systems: All systems reviewed & are unremarkable except as noted in HPI & below Physical Exam Constitutional: well developed Eyes: PERRL, conjunctivae normal, anicteric sclerae ENMT: Mouth: + edentulous Respiratory: no labored breathing Auscultation: + diminished lung sounds (Mildly decreased breath sounds at the bases) Cardiovascular: Rate/Rhythm: regular rhythm Heart Sounds: + murmur (1/6 systolic murmur) Extremities: no edema Neurologic: PERRL, EOMI, accommodation nl, no face palsy, no dysarthria Results & Data Vital Signs (Past 12 Hours) Vital Signs Temp Pulse Pulse Resp BP Pulse Ox O2 Del Method 03/16/23 07:53 127 H 03/16/23 07:00 116 H 18 100/79 93 Room Air 03/16/23 03:50 36.4 C L 120 H 22 93/65 L 92 Room Air 03/15/23 23:09 Room Air 03/15/23 22:21 36.6 C 130 H 20 93/56 L 93 Room Air 03/15/23 21:57 127 H Laboratory Results Cardiac Enzymes 03/16/23 Range/Units 04:32 AST 34 (13-39) U/L CBC 03/16/23 Range/Units 04:32 WBC 7.82 (4.8-10.8) K/ul RBC 4.31 (4.20-5.40) M/uL Hgb 12.9 (12.0-16.0) g/dl Hct 40.4 (37.0-47.0) % Plt Count 169 (130-400) K/uL Neut # (Auto) 5.31 (1.40-6.50) K/uL Lymph # (Auto) 1.29 (1.20-3.40) K/uL [place] # (Auto) 1.04 H (0.11-0.59) K/uL Eos # (Auto) 0.08 (0.00-0.50) K/uL Baso # (Auto) 0.05 (0.00-0.20) K/uL Comprehensive Metabolic Panel 03/16/23 Range/Units 04:32 Sodium 134 L (136-145) mmol/L Potassium 3.7 (3.5-5.1) mmol/L Chloride 105 (98-107) mmol/L Carbon Dioxide 19 L (21-32) mmol/L BUN 25 H (6-23) mg/dl Creatinine 0.89 (0.6-1.2) mg/dl Glucose 129 H (70-99(Fasting)) mg/dl Calcium 9.1 (8.6-10.3) mg/dl AST 34 (13-39) U/L ALT 112 H (7-52) U/L Alkaline Phosphatase 90 (34-104) U/L Total Protein 5.5 L (6.0-8.3) gm/dl Albumin 3.5 (3.4-5.0) gm/dl Intake and Output 03/15/23 03/16/23 03/16/23 22:59 06:59 14:59 Intake Total 1581.60 / 2244.60 220.85 / 220.85 Output Total 250 / 551 Balance 1581.60 / 1693.60 -250 / 1693.60 220.85 / 220.85 Intake: IV 1381.60 / 1444.60 220.85 / 220.85 Doxycycline Hyclate 100 mg In 100 / 100 Dextrose 5% Mini-B 100 ml @ 50 mls/hr IV Q12H ANDRIY Rx#:[id number] Heparin Sodium/Dextrose 25,000 281.60 / 344.60 220.85 / 220.85 units In 500 ml @ 1,050 UNITS/ HR 21 mls/hr IV .[id number] ANDRIY Rx #:[id number] Plasma-Lyte A 1,000 ml @ 80 mls 1000 / 1000 /hr IV .[id number] ANDRIY Rx#: [id number] Oral 200 / 800 Output: Urine 250 / 550 Other: Other Intake Source Patient is NPO # Unmeasured Voids 1 Weight 73.6 kg 73.6 kg Weight Measurement Method Built in [facility] Patient Weight 03/17/23 06:59 Weight 73.6 kg (2) Pneumonia Pneumonia type: due to unspecified organism Laterality: unspecified laterality Lung location: lower lobe of lung Qualified Code(s): J18.9 - Pneumonia, unspecified organism (4) Hypertension Hypertension type: primary hypertension Qualified Code(s): I10 - Essential (primary) hypertension (5) CAD (coronary artery disease) Associated angina: without angina Coronary Disease-Associated Artery/Lesion type: [place] artery [place] vs. transplanted heart: [place] heart Qualified Code(s): I25.10 - Atherosclerotic heart disease of [place] coronary artery without angina pectoris
--- NOTE | 2023-03-16 08:44 | Anesthesiology Progress Note ---
Date of Service March 16, 2023 Anesthesia Post Procedure Vital Signs Vital Signs: Temp Pulse Pulse Resp BP Pulse Ox O2 Del Method 03/16/23 07:53 127 H 03/16/23 07:00 116 H 18 100/79 93 Room Air 03/16/23 03:50 36.4 C L 120 H 22 93/65 L 92 Room Air 03/15/23 23:09 Room Air 03/15/23 22:21 36.6 C 130 H 20 93/56 L 93 Room Air 03/15/23 21:57 127 H 03/15/23 19:34 36.3 C L 75 20 100/62 94 Room Air 03/15/23 15:42 112 H 18 106/74 94 Room Air 03/15/23 11:43 126 H 03/15/23 10:40 Room Air Transfer of Care Handoff Completed per policy Notes Mental Status: alert / awake / arousable Patient Amnestic to Procedure: Yes Nausea / Vomiting: adequately controlled Pain: adequately controlled Airway Patency, RR, SpO2: stable & adequate BP & HR: stable & adequate Hydration State: stable & adequate Anesthetic Complications: no major complications apparent
[2023-03-16 09:14] LABS: ANTI-Xa, UFH(UnfractionatedHep 0.71 IU/ml (0.3-0.7)
[2023-03-16] MEDS: FAMOTIDINE 10 MG TABLET PO SCH (09:36)
[2023-03-16] MEDS: ASPIRIN 81 MG ECTAB PO SCH (09:36)
[2023-03-16] MEDS: EZETIMIBE 10 MG TAB PO SCH (09:37)
[2023-03-16] MEDS: SERTRALINE HCL 50 MG TABLET PO SCH (09:37)
[2023-03-16] MEDS: METOPROLOL SUCC 25MG EXT REL TAB PO SCH (09:46)
[2023-03-16 11:08] LABS: HBSAG NON-REACTIVE (NON-REACTIVE); Hepatitis A Antibody IgM NON-REACTIVE (NON-REACTIVE); Hepatitis B Core Antibody IgM NON-REACTIVE (NON-REACTIVE)
--- NOTE | 2023-03-16 11:27 | Electrocardiogram Report ---
Test Reason : Blood Pressure : / mmHG Vent. Rate : 088 BPM Atrial Rate : 088 BPM P-R Int : 248 ms QRS Dur : 150 ms QT Int : 412 ms P-R-T Axes : 068 -55 115 degrees QTc Int : 498 ms Sinus rhythm with 1st degree A-V block Possible Left atrial enlargement Left axis deviation Right bundle branch block Inferior infarct (cited on or before 30-JUL-2021) Anterior infarct (cited on or before 30-JUL-2021) T wave abnormality, consider lateral ischemia Abnormal ECG When compared with ECG of 14-MAR-2023 17:57, Sinus rhythm has replaced Atrial fibrillation Right bundle branch block has replaced Non-specific intra-ventricular conduction block Confirmed by Paco Brian ([id number]) on 03/16/2023 11:26:34 AM Referred By: REFERRED SELF Confirmed By:Paco Brian
[2023-03-16] MEDS: HEPARIN SODIUM/DEXTROSE 25,000 UNITS/500 ML BAG IV SCH ×2 (12:30→21:34)
--- NOTE | 2023-03-16 12:51 | Communication Note ---
Date of Service: March 16, 2023 Mrs Brian is a 77-year-old female With a longstanding history of an ischemic cardiomyopathy with past anterior, apical myocardial infarction in 2001 with aneurysmal apical expansion. Her most recent cardiac catheterization had revealed diffuse coronary heart disease for which ongoing medical management was recommended at that time and she has a history of stable class II angina pectoris. Her left ventricular ejection fraction has been in the range of 20- 25% historically. The patient has a history of a single-chamber AICD implanted initially for primary prevention of sudden cardiac in 2005. She underwent generator change in 2015. At the time of generator change in 2015, the existing right ventricular lead which was a recalled Rufus lead was functioning however in 2016 the right ventricular lead failed and therefore a new right ventricular lead was placed. She therefore has a single-chamber AICD programmed at VVI lower rate of 40 at baseline. The patient presented to the emergency department on 03/14/2023 with several days of progressive debilitating dyspnea. She was found to be in new onset atrial fibrillation with rapid ventricular rates, initial ventricular rates in excess of 160 bpm, with hypotension, systolic blood pressure in the 90s. She was admitted to the telemetry unit, treated with unfractioned heparin, dig oxin started initially for rate control in the setting of hypotension. Today she underwent transesophageal echocardiogram guided direct-current cardioversion. No left atrial or left atrial appendage thrombus was observed. She underwent successful cardioversion receiving a single dose of 200 J biphasic energy with successful conversion to sinus rhythm. Her post procedure EKG performed this morning at 819 revealed sinus rhythm at 80 bpm with first-degree AV block, SD interval 248 ms, and right bundle branch block. IV amiodarone was initiated post cardioversion and attempt to maintain sinus rhythm and the patient subsequently received a dose of oral metoprolol. She was transferred back to room 454 in stable condition post procedure. However I was notified by her nurse that she was experiencing hypotension with systolic blood pressure in the 70s. Upon my arrival, the patient was pale in appearance, with elevated respiratory rate. Telemetry revealed a ventricular paced rhythm at 40 bpm and an EKG confirmed the presence of underlying third- degree AV block. The Medtronic oracle programmer was utilized by the undersigned at the bedside to increase her basal pacemaker rate from 40 bpm to 70 bpm, and ultimately to at 90 bpm with improvement in her systolic blood pressure from the 70s to a reading of 118 mmHg.The patient received a 250 mL bolus of IV fluids. Rales noted at the bases. After approximately 45 minutes the patient was feeling improved. Her son, Karan, had come to visit her, and he was updated at the bedside. I discussed her case with Dr. Edmondson of the hospitalist service, Interventions were made to transfer the patient to the first floor ICU for further monitoring with concerns that she may need pressors such as dopamine or norepinephrine. Would hopefully try to avoid pressors and an effort to avoid recurrent atrial fibrillation. The patient's IV amiodarone has been discontinued. Will hold metoprolol. Continue heparin. Ultimately anticipate need for upgrade of her device to a dual-chamber pacemaker/AICD this hospital stay, but not Until her hemodynamics are improved and she can lie supine. She may need a small dose of furosemide later this afternoon after she is transferred to the first floor ICU if her blood pressure is stable. Chrissy Grover DO 45 minutes were spent at the bedside administering critical care as documented.
--- NOTE | 2023-03-16 12:58 | Hospitalist Progress Note ---
Date of Service March 16, 2023 Assessment & Plan (1) Complete heart block: Plan: 77 yo with HFrEF admitted with new onset atrial flutter with rapid rate. Mildly hypotensive at presentation, tolerated some rate control with few doses IV digoxin and metoprolol but continued to have rapid rate in 110s-130s with BPs in 90-100s/50-70s Had LIZ/cardioversion this am, sinus/paced rhythm restored. Had amiodarone IV load following procedure and had metoprolol po last dose this am. Developed nausea then progressive severe hypotension with SBP down to 70s then 40s. Dress Fitter evaluated and was in complete heart block being paced by sole functioning (ventricular) lead at HR 40. Pacer rate increased to 80 then 90. Small fluid bolus given. BP improved but remains diaphoretic, cold, and newly hypoxic with acute pulmonary edema consistent with cardiogenic shock. Has severe cardiomyopathy at baseline with poor EF. -currently paced with ventricular lead rate 90 -if not turning around with this may need dopamine and/or noninvasive ventilation for rescue. Transferred to ICU. -stopped amiodarone and metoprolol -discussed with Dr. Grover at bedside, son also at bedside -eventual diuresis if tolerated (2) Cardiogenic shock: Plan: see above (3) Acute pulmonary edema: Plan: see above (4) Atrial fibrillation with RVR: Plan: New diagnosis of atrial fibrillation CTA chest was negative for PE (and negative for pneumonia) -consulted [facility] cardiology, see above -continue heparin drip -elevated troponin on admission consistent with myocardial strain in setting of tachycardia and cardiomyopathy, no evidence of ACS -LIZ/cardioversion 03/16 AM, subsequent heart block as above -eventually plan on apixaban TTE 03/15: "Echocardiogram performed today reveals ongoing severe left ventricular systolic dysfunction, ejection fraction less than 20% with moderate TR and moderate MR. The patient is a longstanding history of left anterior descending coronary artery territory scar with apical expansion and this was unchanged on her echocardiogram performed today compared to the outpatient study performed in January,." (5) Pneumonia: Plan: Pneumonia though to be present on admission but ruled out based on negative chest CT, normal procalcitonin, opacities on CXR related to atelectasis and pulmonary edema -stopped antibiotics (6) Elevated LFTs: Plan: -AST and ALT mildly elevated with normal bilirubin and INR -likely related to congestive hepatopathy, would not work up further until/if rate controlled and heart failure compensated -nonetheless, hepatitis panel pending and CT abdomen/pelvis was negative (7) Elevated troponin: Plan: -Initial high sen trop elevated at 50 --> 54 -Patient denies chest discomfort -No acute ST segment changes on initial ECG -see above (8) CAD (coronary artery disease): Plan: -Continue aspirin, b-james (9) Ischemic cardiomyopathy: Plan: -EF 20-25% -Hx of ICD placement -diuretics and Entresto held due to hypotension (10) Hypothyroid: Plan: -Continue levothyroxine (11) Hypertension: Plan: -meds held (12) Pacemaker lead malfunction: Plan: see above Admission and Anticipated Discharge Date Admission Date: March 14, 2023 Subjective Had LIZ/cardioversion this am, sinus/paced rhythm restored. Had amiodarone IV load following procedure and had metoprolol po this am. Developed nausea then progressive severe hypotension. Dress Fitter evaluated and was in complete heart block being paced by sole functioning (ventricular) lead at HR 40. Pacer rate increased to 80 then 90. Small fluid bolus given. BP improved but remains diaphoretic, cold, and newly hypoxic with acute pulmonary edema. Has severe cardiomyopathy at baseline with poor EF. She continues to feel nauseated clammy and dyspneic. No chest pain. Physical Exam 2 Physical Exam: PHYSICAL EXAMINATION Last 24h vital signs reviewed, see documentation in flowsheet General: acutely ill appearing HEENT: Normocephalic, atraumatic, pupils round and equal, sclerae anicteric, no conjunctival injection, moist mucus membranes Lungs: increased respiratory effort, mild laboring. bilateral crackles Heart: reg, syst murmurs. skin on trunk and extremities is cold and clammy Abdomen: Soft, nontender, nondistended. Extremities: As above. No extremity edema. Neuro: Alert and oriented x 4, face symmetric, moves 4 extremities well Psych: Normal affect and behavior Results & Data Results & Data Vital Signs (Past 12 Hours) Vital Signs Temp Pulse Pulse Resp BP BP Pulse Ox 03/16/23 12:32 89 22 122/70 88 L 03/16/23 12:18 71 24 90/65 L 83 L 03/16/23 12:17 87 24 86/60 L 77 L 03/16/23 11:20 36.7 C 66 24 79/55 L 92 03/16/23 10:01 03/16/23 09:41 72 18 97/48 L 93 03/16/23 09:22 36.5 C 74 16 90/65 L 93 03/16/23 08:52 71 18 85/58 L 93 03/16/23 08:35 66 18 97/61 L 93 03/16/23 08:20 88 18 100/63 91 03/16/23 07:53 127 H 03/16/23 07:00 116 H 18 100/79 93 03/16/23 03:50 36.4 C L 120 H 22 93/65 L 92 O2 Del Method O2 Flow Rate 03/16/23 12:32 Oxymask 8 03/16/23 12:18 Nasal Cannula 4 03/16/23 12:17 Nasal Cannula 2 03/16/23 11:20 Nasal Cannula 03/16/23 10:01 Nasal Cannula 2 03/16/23 09:41 Nasal Cannula 2 03/16/23 09:22 Nasal Cannula 2 03/16/23 08:52 Nasal Cannula 2 03/16/23 08:35 Nasal Cannula 2 03/16/23 08:20 Nasal Cannula 2 03/16/23 07:53 03/16/23 07:00 Room Air 03/16/23 03:50 Room Air Laboratory Results 03/16/23 04:32 03/16/23 04:32 PG Care Time/CCT Total # of Minutes Spent Total Time Spent with Patient: Total time spent is greater than 50% in coordination of care (as documented) at patient's floor/unit and/or counseling patient: Coding Level of Care Code 62459 SUB INP/OBS CARE 3/50MIN Diagnoses Complete heart block I44.2 Cardiogenic shock R57.0 Acute pulmonary edema J81.0 Atrial fibrillation with RVR I48.91 Pneumonia of lower lobe due to infectious organism, unspecified laterality J18.9 Pneumonia type: due to unspecified organism Laterality: unspecified laterality Lung location: lower lobe of lung Elevated LFTs R79.89 Elevated troponin R79.89 CAD (coronary artery disease) I25.10 Associated angina: without angina Coronary Disease-Associated Artery/Lesion type: [place] artery [place] vs. transplanted heart: [place] heart Ischemic cardiomyopathy I25.5 Hypothyroid E03.9 Primary hypertension I10 Hypertension type: primary hypertension Pacemaker lead malfunction T82.110A (5) Pneumonia Pneumonia type: due to unspecified organism Laterality: unspecified laterality Lung location: lower lobe of lung Qualified Code(s): J18.9 - Pneumonia, unspecified organism (8) CAD (coronary artery disease) Associated angina: without angina Coronary Disease-Associated Artery/Lesion type: [place] artery [place] vs. transplanted heart: [place] heart Qualified Code(s): I25.10 - Atherosclerotic heart disease of [place] coronary artery without angina pectoris (11) Hypertension Hypertension type: primary hypertension Qualified Code(s): I10 - Essential (primary) hypertension
[2023-03-16] MEDS ORDERED: SODIUM BICARB 8.4% INJ 50 MEQ/50 ML SYR IV ONE ×2 (13:38→13:53)
[2023-03-16] MEDS ORDERED: RAPID SEQUENCE INDUCTION BAG ONE (13:44)
[2023-03-16] MEDS ORDERED: DOPamine 400MG / 250ML D5W IV ONE (13:45)
[2023-03-16 13:47] LABS: iSTAT Art Bld Gas pCO2 Correct 24 mmHg (35-46); iSTAT Art Bld Gas pH Corrected 7.223 (7.35-7.45); iSTAT Arterial Blood Gas HCO3 10 meg/L (19-24); iSTAT Arterial Blood Gas pCO2 24 mmHg (35-46); iSTAT Arterial Blood Gas pH 7.22 (7.35-7.45); iSTAT Arterial Blood Gas pO2 76 mmHg (80-95); iSTAT Arterial Blood Gas pO2 C 73; iSTAT Carbon Dioxide 11 mmol/L (24-31); iSTAT Hematocrit 46 % (37-47); iSTAT Hemoglobin 15.6 g/dl (12.0-16.0); iSTAT Potassium 5.6 mmol/L (3.3-5.0); iSTAT Site Art Line; iSTAT Sodium 133 mmol/L (135-144)
[2023-03-16] MEDS ORDERED: PROPOFOL IV EMULSION 10 MG/ML 100 ML VIAL IV ONE (13:47)
[2023-03-16] MEDS: DOPamine / D5W 400 MG/250 ML BAG IV SCH ×3 (13:50→21:41)
[2023-03-16] MEDS ORDERED: VECURONIUM BROMIDE 10 MG VIAL IV ONE (13:51)
--- NOTE | 2023-03-16 13:51 | XRay Report ---
SINGLE VIEW CHEST CLINICAL HISTORY: Dyspnea. FINDINGS: An AP, portable, upright chest radiograph is compared to chest x-ray and chest CT dated 02/16. A 2-lead cardiac AICD is unchanged in position. The heart is enlarged noting atherosclerotic calcification of the thoracic aorta. There is pulmonary vascular congestion with interstitial edema. There are layering pleural effusions with dependent consolidation. No pneumothorax is seen. The [place] structures are osteopenic. The bony thorax is grossly intact. IMPRESSION: 1. Cardiomegaly and cardiac pacemaker with evidence of congestive failure and pulmonary edema. This h as significantly worsened from 03/14/2023. 2. Layering pleural effusions with dependent consolidation. ACT 112: Negative or not required by law. Electronically signed by: Saad Isaacs M.D. 03/16/2023 1:49 PM
[2023-03-16] MEDS ORDERED: STAT IV/IM STA (13:59)
--- NOTE | 2023-03-16 14:00 | Communication Note ---
Date of Service: March 16, 2023 Mrs Brian was reassessed on arrival to the ICU. Noted ongoing hypotension and worsening respirator distress. Chest X ray with moderate pulmonary edema. Istat ABG reveals metabolic acidosis with low bicarbonate. Hyperkalemia , 5.6 mmol per liter noted increased form 3.6 mmol/l this am. Pt seen in conjunction with Dr Hanna of critical care medicine. Patient consented to endotracheal intubation and central line placement. Intubated by Dr Hanna. Dopamine initiated with improved blood pressure and reverted to SR in the 90s rather than underlying 3 degree AVB. , son, daughter, updated in person and are in the surgical waiting room. Rocky Grover, DO
--- NOTE | 2023-03-16 14:28 | Electrocardiogram Report ---
Test Reason : Blood Pressure : / mmHG Vent. Rate : 040 BPM Atrial Rate : 026 BPM P-R Int : 000 ms QRS Dur : 196 ms QT Int : 568 ms P-R-T Axes : 000 -45 -25 degrees QTc Int : 462 ms Ventricular-paced rhythm Abnormal ECG When compared with ECG of 16-MAR-2023 08:19, Electronic ventricular pacemaker has replaced Sinus rhythm Vent. rate has decreased BY 48 BPM Confirmed by Paco Brian ([id number]) on 03/16/2023 2:28:12 PM Referred By: REFERRED SELF Confirmed By:Paco Brian
[2023-03-16] MEDS ORDERED: AMIODARONE / D5W 360 MG/200 ML BAG IV SCH (14:30)
--- NOTE | 2023-03-16 14:32 | Procedure Note ---
Procedure Note Date of Service March 16, 2023 Note ARTERIAL LINE PROCEDURE NOTE: Procedure: Arterial Line Placement Provider: Darron Hanna MD Indication: Monitoring on Pressors Anesthesia: None Patient benefits were discussed with patient. Verbal consent was obtained. She is agreeable to proceed. Given the urgency of the procedure, written consent was felt to be appropriate A time-out was completed verifying correct patient, procedure, site, positioning, and implant(s) or special equipment if applicable. Allens test was performed to ensure adequate perfusion. Patients left wrist was prepped and draped in the usual sterile fashion. Ultrasound guidance was used to aid needle placement. A 20g Arrow arterial line was introduced into the left radial artery. Catheter was threaded, and the needle was removed with appropriate blood return. Good waveform was observed. The patient tolerated the procedure well. Blood Loss: Minimal Complications: None Coding CPT Codes Tubes, Drains, and Vasc Access - Tubes, Drains, and Vasc Access: [id number] Arterial Cath/Cannulation Sampling/Monitoring/Transfusion ([id number]) Tubes, Drains, and Vasc Access - Tubes, Drains, and Vasc Access: [id number] Ultrasound Guidance For Vascular ([id number]) [facility] [place] (Charges) Tubes, Drains, and Vasc Access Procedure 1: Tubes, Drains, and Vasc Access: [id number] Arterial Cath/Cannulation Sampling/Monitoring/Transfusion Procedure 2: Tubes, Drains, and Vasc Access: [id number] Ultrasound Guidance For Vascular
--- NOTE | 2023-03-16 14:35 | Procedure Note ---
Procedure Note Date of Service March 16, 2023 Note INTUBATION PROCEDURE NOTE: Provider: Darron Hanna MD A time-out was completed verifying correct patient, procedure, site, positioning. Patient was evaluated and required intubation for hypoxemic respiratory failure and hemodynamic instability. Sedative agent used: 4 mg Versed, 40 mg etomidate Paralysis agent used: None Discussed verbally with patient. She expressed respiratory fatigue and has profound metabolic acidosis and heart failure. She is requesting intubation and ventilatory assistance. The patient was prepared in the appropriate fashion. Sedation was achieved utilizing etomidate and Versed. Once the patient was sedated, was found that she had dentures in place which were removed and passed to the nurse. The patient was easily ventilated using [id number] to achieve adequate oxygenation. A 7.5 [place] endotracheal tube was placed under video laparoscopic guidance to 21 cm at the lip. The stylette was removed and balloon was inflated with 10mL of air. Appropriate Colorimetric change was appreciated. Bilateral breath sounds were heard without air sounds in the abdomen. Post Intubation Chest X-ray confirms placement without pneumothorax. Patient did experience transient desaturations down to 70% associated with intubation. When she was appropriately intubated and attached to ventilator, saturations improved to the low 90% range Coding CPT Codes Resuscitation - Resuscitation: 80620 Endotracheal Intubation, emergency ([id number]) [facility] [place] Procedure Codes (Charges) Resuscitation Resuscitation: [id number] Endotracheal Intubation, emergency
--- NOTE | 2023-03-16 14:36 | XRay Report ---
SINGLE VIEW CHEST CLINICAL HISTORY: Respiratory failure. Intubation. FINDINGS: 2 AP, portable, upright chest radiographs are compared to chest x-ray performed the same da y 03/16/2023 and correlated with chest CT dated 03/14/2023. A 2-lead cardiac AICD is unchanged in posit ion. An enteric tube has been placed. The tip projects below the diaphragm. A right subclavian centra l venous catheter has been placed. The tip projects over the SVC. An endotracheal tube has been place d. The tip projects approximately 3.3 cm above the myah. The heart is enlarged noting atherosclerot ic calcification of the thoracic aorta. There is pulmonary vascular congestion with interstitial anna a. There are layering pleural effusions with dependent consolidation. No pneumothorax is seen. The sk eletal structures are osteopenic. The bony thorax is grossly intact. IMPRESSION: 1. Line and tube placement as above. No pneumothorax is seen. 2. Cardiomegaly and cardiac pacemaker with evidence of congestive failure and pulmonary edema. This i s similar to today's earlier examination. 3. Layering pleural effusions with dependent consolidation. ACT 112: Negative or not required by law. Electronically signed by: Saad Isaacs M.D. 03/16/2023 2:35 PM
--- NOTE | 2023-03-16 14:37 | Procedure Note ---
Procedure Note Date of Service March 16, 2023 Note CENTRAL LINE PROCEDURE NOTE: Procedure: Central Line Placement Provider: Darron Hanna MD Indication: Central Drug Administration, Poor Venous Access, Multiple Lab Draws Necessary, etc. Anesthesia: 4 mL 1% lidocaine locally Site: Right subclavian Procedure was emergent. Had discussed with patient prior to intubation. She verbally agreed to proceed A time-out was completed verifying correct patient, procedure, site, positi oning, and implants(s) or special equipment if applicable. Patients right infraclavicular region was cleansed and draped in the typical sterile fashion using Chloraprep. Plan were easily identified the superficial tissue was anesthetized using 4 mL of 1% lidocaine without epinephrine under direct visualization with the ultrasound. After adequate anesthetization was achieved, the Internal Jugular vein was cannulated under direct ultrasound guidance using an introducer needle on a syringe. Good venous blood return was maintained prior to removal of syringe from introducer needle. Using Seldinger Technique, a guide wire was advanced through the introducer needle without resistance. The introducer needle was removed leaving the wire in place. A small incision was made in penetrating fashion at the guide wire insertion site utilizing an 11 blade scalpel. The dilator was advanced to the vessel without resistance. The dilator was exchanged for the triple lumen catheter which was advanced into the vessel without resistance. The guide wire was removed intact from the catheter without issue. Claves were placed on each catheter tip with confirmation of good blood flow from each lumen. Each port was easily flushed with sterile saline. The catheter was placed at 18 cm and sutured in place. BioPatch was applied to the catheter and a sterile Tegaderm dressing was applied over the catheter with careful attention to sterility. Patient tolerated procedure well. No immediate complications were met. Post procedure x-ray was completed, placement was appropriate and no pneumothorax was noted. Coding CPT Codes Tubes, Drains, and Vasc Access - Tubes, Drains, and Vasc Access: [id number] Place catheter in vein superior or inferior vena cava ([id number]) [facility] [place] Procedure Codes (Charges) Tubes, Drains, and Vasc Access Procedure 1: Tubes, Drains, and Vasc Access: [id number] Place catheter in vein superior or inferior vena cava
[2023-03-16] MEDS: EPINEPHrine/NSS 4 MG/254 ML BAG IV SCH (14:44)
[2023-03-16] MEDS: SODIUM BICARBONATE 8.4% 150 MEQ in DEXTROSE 5% 1,000 ML IV SCH (14:44)
--- NOTE | 2023-03-16 14:47 | Critical Care Consultation ---
Date of Consultation March 16, 2023 Assessment & Plan (1) Complete heart block: (2) Acute pulmonary edema: (3) Cardiogenic shock: (4) Acidosis: (5) Hyperkalemia: Plan Impression: 77-year-old female with severe ischemic cardiomyopathy (ejection fraction less than 20%) and severe MR now with third-degree heart block. Her pacemaker is currently V pacing at a rate of 90 but the loss of atrial kick has resulted in significant hypotension. She is also hypoxemic with chest x-ray demonstrating pulmonary edema and has a profound metabolic acidosis, likely due to hypoperfusion. Recommendations: 1. Neurologic: The patient was neurologically intact prior to intubation [facility] anical ventilation. Will use sedatives with propofol as tolerated by her blood pressure. If this is not able to be tolerated, may consider transition to fentanyl and Versed with an increased risk of ICU associated delirium. 2. Cardiovascular: Third-degree heart block with cardiogenic shock. Will transition from dopamine to epinephrine. Will defer to cardiology advanced inotropic support. Unclear if the patient would be a candidate for alternative therapies. Her severe MR does complicate the issue. She is now demonstrated pulmonary edema likely associated with filling pressures and her severe MR I do not think her hemodynamics would tolerate diuresis currently. Do not believe that defibrillation or CPR would be effective in improving the patient's overall outcome and will discuss with family going forward. Patient had been in atrial fibrillation with a rapid ventricular response. Unclear if she would require biventricular pacing or some alternative mode yazidism of rhythm. Her into clearest lactate may be secondary to hypoperfusion and will need to be trended over time 3. Pulmonary: Chest x-ray with pulmonary edema. Suspect elevated left ventricular end-diastolic pressure. Will continue high PEEP strategy to try and improve oxygenation and follow ventilation. She does have some small pleural effusions and we may consider thoracentesis depending on clinical course. 4. Renal: Await follow-up labs. Her [id number] potassium was 5.6. If the patient goes on to develop renal failure or requires renal replacement for refractory acidosis or hyperkalemia, I think this is a poor prognostic indicator and the patient would be poorly tolerant. ICU electrolyte replacement protocol. Given her profound metabolic acidosis have initiated bicarb infusion. 5. ID: The patient had received antibiotics for presumed pneumonia however I do not see evidence of pneumonia and agree with withholding antibiotics for now. 6. GI: Patient may have had some congestive hepatopathy. Will trend liver function test. Keep n.p.o. for now. 7. Endocrine: Glycemic control per protocol. Continue Synthroid dose 8. Heme-onc: Prior history of breast cancer status post lymphadenectomy on the right. Restricted right upper extremity. Currently on heparin infusion Family updated at bedside. The patient is critically ill at this point in time with multiorgan system dysfunction/failure. Patient has significant risk of clinical deterioration or . Discussed with cardiology extensively at the bedside and family was updated. We discussed CODE STATUS. If taken and advisement will get back to us but I would favor no escalation of care at this point in time. Do not think CPR would offer her additional benefit Total of 85 minutes of critical care time exclusive of procedures spent in evaluation management stabilization of this patient. History of Present Illness Attending Physician: Lise Edmondson MD History of Present Illness Asked by hospitalist and cardiology to assist in evaluation management of this patient with high degree AV block hypotension and hypoxemic respiratory failure. History is obtained from review electronic medical record as well as discussion with members of the patient's care team in brief interview the patient at bedside. The patient is a 77-year-old female with a history of ischemic cardiomyopathy (ejection fraction less than 20%). She was initially admitted to the hospital 03/14/2023 with complaints of generalized weakness. In the emergency room she was noted to be in new onset A-fib with RVR with heart rates in the 170s to 180s. She was loaded with IV digoxin and given some vancomycin as well. Cardiology consultation was obtained. Echocardiogram was repeated showing a severely dilated left ventricle with multiple wall motion abnormalities and an ejection fraction of less than 20 with severe dilatation of the left atrium and moderate MR with a small right pleural effusion and moderate left pleural effusion. The patient underwent LIZ followed by cardioversion today. She was initially in sinus rhythm however later on the floor she had progressive hypotension with blood pressures systolic in the 70s. She was reevaluated by cardiology and found to be in a ventricular paced rhythm at 40 with third-degree AV block. Cardiology reprogrammed the pacemaker on the floor and increased her ventricular rate to 90 bpm with some improvement in her blood pressure. She received a 250 cc bolus of saline and was transferred urgently to the intensive care. I assessed the patient on arrival to the ICU. She was in respiratory distress with tachypnea, marginal oxygen saturations, and increased work of breathing. We obtained a blood gas on arrival after placement of an arterial line. This showed a profound metabolic acidosis with a pH of 7.21. We were prepping for additional procedures when the patient became more short of breath with increased work of breathing. I discussed with the patient intubation to take over her breathing which she requested. We also consented her for an arterial line and central venous catheter. She was then intubated and a central line was placed. She received several 0.2 mg pushes of epinephrine in addition to initiation of a dopamine infusion during the procedure as well as a recruitment maneuver to get oxygen saturations improved. At this point in time she is currently on high-dose dopamine with epinephrine starting and high vent s ettings with chest x-ray demonstrating pulmonary edema but lines in good position. Briefly discussed with the patient prior to intubation and advanced directives. She does not have 1 and states that she would be agreeable to full resuscitative efforts. Allergies Allergy/AdvReac Type Severity Reaction Status Date / Time No Known Allergies Allergy Verified 03/14/23 20:36 Home Medications Medication Instructions Recorded Confirmed Type carvedilol 6.25 mg tablet 6.25 mg PO BID 04/20/18 03/14/23 History rosuvastatin 40 mg tablet 40 mg PO QAM 03/13/20 03/14/23 History multivitamin 1 tab PO QAM 04/01/21 03/14/23 History empagliflozin 10 mg tablet 10 mg PO QAM 07/09/21 03/14/23 History (Jardiance) sacubitril 24 mg-valsartan 26 mg 0.5 - 1 tab PO BID 07/09/21 03/14/23 History tablet (Entresto) ezetimibe 10 mg tablet 10 mg PO QAM 05/04/22 03/14/23 History aspirin 81 mg tablet,delayed 81 mg PO QAM 02/16/23 03/14/23 History release (Ecotrin Low Strength) cholecalciferol (vitamin D3) 25 2,000 units PO QAM 02/16/23 03/14/23 History mcg (1,000 unit) capsule furosemide 40 mg tablet 40 mg PO QAM 02/16/23 03/14/23 History levothyroxine 100 mcg tablet 100 mcg PO QAM 02/16/23 03/14/23 History spironolactone 25 mg tablet 25 mg PO QAM 02/16/23 03/14/23 History mirtazapine 15 mg tablet 15 mg PO HS #90 tabs 02/22/23 03/14/23 Rx sertraline 25 mg tablet 25 mg PO QAM 02/24/23 03/14/23 History famotidine 20 mg tablet 10 mg PO DAILY 03/14/23 03/14/23 History Patient History Medical History CHF (congestive heart failure) Elevated fasting blood sugar CAD (coronary artery disease) 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 Owusu Surgical History History of right breast biopsy malignancy History of lumpectomy of right breast 2006 History of bilateral tubal ligation History of tooth extraction all teeth removed History of bilateral cataract extraction History of heart artery stent 2001--2 stents placed History of cardiac cath 2001 @ [facility] with 2 stents placed Status post right hip replacement (~03/2021) H/O: History of implantable cardiac defibrillator (ICD) Medtronic Evera XT VR ICD implanted 2005--lead revision and replacement 09/10/2016 Family History Mother Lung cancer Father No problems noted. Other No family history of adverse response to anesthesia Denies family history of Ovarian cancer Prostate cancer Myocardial infarction Breast cancer Colorectal cancer Social History Smoking Status: Never smoker Second Hand Exposure: No; Do You Dip or Chew Tobacco: No; Tobacco Cessation Education Requested by Patient: No Hx Alcohol Use: No Hx Substance Use: No Preferred Language: Japanese Communication Ability: Effective Visual Impairment: Limited Hearing Ability: Hard of Hearing Handle Bar Assembler Required: No Beliefs That Will Affect Care: None marital status: Current Living Situation: Spouse current occupational status: 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 Limited review of systems capable as the patient was in distress on arrival to the ICU. No additions or deletions Physical Exam Constitutional: + acute distress and + ill appearing Neck: trachea midline, no thyromegaly Respiratory: + respiratory distress, + labored breath ing, + retractions and + tachypneic; + not able to speak in complete sentence Auscultation: + crackles Cardiovascular: Paced at 90. Gastrointestinal (Abdomen): normal bowel sounds, soft, nontender, no hepatosplenomegaly Musculoskeletal: Extremities: extremities normal to inspection Skin: no rashes, warm and dry Neurologic: Nonfocal exam Lymphatic: no cervical lymphadenopathy Results & Data Results & Data Vital Signs (Past 12 Hours) Vital Signs Temp Pulse Pulse Resp BP BP Pulse Ox 03/16/23 13:35 03/16/23 12:32 89 22 122/70 88 L 03/16/23 12:18 71 24 90/65 L 83 L 03/16/23 12:17 87 24 86/60 L 77 L 03/16/23 11:20 36.7 C 66 24 79/55 L 92 03/16/23 10:01 03/16/23 09:41 72 18 97/48 L 93 03/16/23 09:22 36.5 C 74 16 90/65 L 93 03/16/23 08:52 71 18 85/58 L 93 03/16/23 08:35 66 18 97/61 L 93 03/16/23 08:20 88 18 100/63 91 03/16/23 07:53 127 H 03/16/23 07:00 116 H 18 100/79 93 03/16/23 03:50 36.4 C L 120 H 22 93/65 L 92 O2 Del Method O2 Flow Rate 03/16/23 13:35 Oxymask 15 03/16/23 12:32 Oxymask 8 03/16/23 12:18 Nasal Cannula 4 03/16/23 12:17 Nasal Cannula 2 03/16/23 11:20 Nasal Cannula 03/16/23 10:01 Nasal Cannula 2 03/16/23 09:41 Nasal Cannula 2 03/16/23 09:22 Nasal Cannula 2 03/16/23 08:52 Nasal Cannula 2 03/16/23 08:35 Nasal Cannula 2 03/16/23 08:20 Nasal Cannula 2 03/16/23 07:53 03/16/23 07:00 Room Air 03/16/23 03:50 Room Air Critical Care Results & Data Vital Signs (Past 12 Hours) Vital Signs Temp Pulse Pulse Resp BP BP Pulse Ox 03/16/23 13:35 03/16/23 12:32 89 22 122/70 88 L 03/16/23 12:18 71 24 90/65 L 83 L 03/16/23 12:17 87 24 86/60 L 77 L 03/16/23 11:20 36.7 C 66 24 79/55 L 92 03/16/23 10:01 03/16/23 09:41 72 18 97/48 L 93 03/16/23 09:22 36.5 C 74 16 90/65 L 93 03/16/23 08:52 71 18 85/58 L 93 03/16/23 08:35 66 18 97/61 L 93 03/16/23 08:20 88 18 100/63 91 03/16/23 07:53 127 H 03/16/23 07:00 116 H 18 100/79 93 03/16/23 03:50 36.4 C L 120 H 22 93/65 L 92 O2 Del Method O2 Flow Rate 03/16/23 13:35 Oxymask 15 03/16/23 12:32 Oxymask 8 03/16/23 12:18 Nasal Cannula 4 03/16/23 12:17 Nasal Cannula 2 03/16/23 11:20 Nasal Cannula 03/16/23 10:01 Nasal Cannula 2 03/16/23 09:41 Nasal Cannula 2 03/16/23 09:22 Nasal Cannula 2 03/16/23 08:52 Nasal Cannula 2 03/16/23 08:35 Nasal Cannula 2 03/16/23 08:20 Nasal Cannula 2 03/16/23 07:53 03/16/23 07:00 Room Air 03/16/23 03:50 Room Air Lab & Micro Results (Past 24 Hours) RBC 4.31 M/uL (4.20-5.40) 03/16/23 WBC 7.82 K/ul (4.8-10.8) 03/16/23 Hgb 12.9 g/dl (12.0-16.0) 03/16/23 Hct 40.4 % (37.0-47.0) 03/16/23 MCV 93.7 fL (80.0-100.0) 03/16/23 MCH 29.9 pg (25.0-34.0) 03/16/23 MCHC 31.9 g/dL (32.0-36.0) L 03/16/23 RDW Standard Deviation 50.7 fL (36.4-46.3) H 03/16/23 RDW Coefficient of Variation 14.8 % (11.5-14.5) H 03/16/23 Plt Count 169 K/uL (130-400) 03/16/23 MPV 11.5 fL (9.4-12.4) 03/16/23 Neutrophils (%) (Auto) 68.0 % 03/16/23 Lymphocytes (%) (Auto) 16.5 % 03/16/23 Monocytes # (Auto) 1.04 K/uL (0.11-0.59) H 03/16/23 Eosinophils # (Auto) 0.08 K/uL (0.00-0.50) 03/16/23 Immature Granulocyte % (Auto) 0.6 % 03/16/23 Neutrophils # (Auto) 5.31 K/uL (1.40-6.50) 03/16/23 Lymphocytes # (Auto) 1.29 K/uL (1.20-3.40) 03/16/23 Monocytes # (Auto) 1.04 K/uL (0.11-0.59) H 03/16/23 Eosinophils # (Auto) 0.08 K/uL (0.00-0.50) 03/16/23 Basophils # (Auto) 0.05 K/uL (0.00-0.20) 03/16/23 Immature Granulocyte # (Auto) 0.05 K/uL (0.01-0.20) 4 Na 134 mmol/L (136-145) L 03/16/23 K 3.7 mmol/L (3.5-5.1) 03/16/23 Cl 105 mmol/L (98-107) 03/16/23 CO2 19 mmol/L (21-32) L 03/16/23 Anion Gap 10 (3-11) 03/16/23 BUN 25 mg/dl (6-23) H 03/16/23 Creatinine 0.89 mg/dl (0.6-1.2) 03/16/23 Estimated GFR ( Amer) 71.4 ml/min 03/16/23 Estimated GFR (Non-Af Amer) 61.6 ml/min 03/16/23 BUN/Creatinine Ratio 28.1 (10-20) H 03/16/23 Glu 129 mg/dl (70-99(Fasting)) H 03/16/23 Ca 9.1 mg/dl (8.6-10.3) 03/16/23 Total Bilirubin 1.1 mg/dl (0.2-1.0) H 03/16/23 AST 34 U/L (13-39) 03/16/23 ALT 112 U/L (7-52) H 03/16/23 Alkaline Phosphatase 90 U/L (34-104) 03/16/23 TP 5.5 gm/dl (6.0-8.3) L 03/16/23 Albumin 3.5 gm/dl (3.4-5.0) 03/16/23 Globulin 2.0 gm/dl (2.5-4.0) L 03/16/23 Albumin/Globulin Ratio 1.8 (0.9-2) 03/16/23 Mg 2.0 mg/dl (1.7-2.4) 03/16/23 04:32 Calcium Level 9.1 mg/dl (8.6-10.3) 03/16/23 04:32 Benito Test NA 03/16/23 13:36 Diagnostic Findings (Past 24 Hours) Chest X-Ray 03/16/23 13:05 SINGLE VIEW CHEST CLINICAL HISTORY: Dyspnea. FINDINGS: An AP, portable, upright chest radiograph is compared to chest x-ray and chest CT dated 03/14/2023. A 2-lead cardiac AICD is unchanged in position. The heart is enlarged noting atherosclerotic calcification of the thoracic aorta. There is pulmonary vascular congestion with interstitial edema. There are layering pleural effusions with dependent consolidation. No pneumothorax is seen. The skeletal structures are osteopenic. The bony thorax is grossly intact. IMPRESSION: 1. Cardiomegaly and cardiac pacemaker with evidence of congestive failure and pulmonary edema. This has significantly worsened from 03/14/2023. 2. Layering pleural effusions with dependent consolidation. ACT 112: Negative or not required by law. Electronically signed by: Saad Isaacs M.D. 03/16/2023 1:49 PM Chest X-Ray 03/16/23 14:05 SINGLE VIEW CHEST CLINICAL HISTORY: Respiratory failure. Intubation. FINDINGS: 2 AP, portable, upright chest radiographs are compared to chest x-ray performed the same day 03/16/2023 and correlated with chest CT dated 03/14/2023. A 2-lead cardiac AICD is unchanged in position. An enteric tube has been placed. The tip projects below the diaphragm. A right subclavian central venous catheter has been placed. The tip projects over the SVC. An endotracheal tube has been placed. The tip projects approximately 3.3 cm above the myah. The heart is enlarged noting atherosclerotic calcification of the thoracic aorta. There is pulmonary vascular congestion with interstitial edema. There are layering pleural effusions with dependent consolidation. No pneumothorax is seen. The skeletal structures are osteopenic. The bony thorax is grossly intact. IMPRESSION: 1. Line and tube placement as above. No pneumothorax is seen. 2. Cardiomegaly and cardiac pacemaker with evidence of congestive failure and pulmonary edema. This is similar to today's earlier examination. 3. Layering pleural effusions with dependent consolidation. ACT 112: Negative or not required by law. Electronically signed by: Saad Isaacs M.D. 03/16/2023 2:35 PM I & O Totals 24 Hours 03/15/23 03/16/23 03/17/23 06:59 06:59 06:59 Intake Total 305.4 / 305.4 2244.60 / 2244.60 326.23 / 326.23 Output Total 551 / 551 0 / 0 Balance 305.4 / 305.4 1693.60 / 1693.60 326.23 / 326.23 Cumulative 03/14/23 17:33 thru 03/16/23 14:00 Intake Total 2876.23 Output Total 551 Balance 2325.23 RT Ventilator Mngmt (Last Documented) Ventilator Ordered Settings Respiratory Rate 22 03/16/23 12:32 Ventilator - PT Measurements Respiratory Rate 22 Coding Level of Care Code 35876 CRITICAL CARE EA ADD 30M Diagnoses Complete heart block I44.2 Acute pulmonary edema J81.0 Cardiogenic shock R57.0 Acidosis E87.20 Hyperkalemia E87.5
[2023-03-16 15:24] LABS: Albumin Globulin Ratio 1.7 (0.9-2); Albumin Level 3.5 gm/dl (3.4-5.0); BUN Creatinine Ratio 18.6 (10-20); Bilirubin,Total 2.5 mg/dl (0.2-1.0); Calcium 8.4 mg/dl (8.6-10.3); Creatinine Clr Calc Pharmacy 25.7 ml/min; Est GFR (African American) 33.4 ml/min; Est GFR (Non-African American) 28.8 ml/min; Globulin 2.1 gm/dl (2.5-4.0); Potassium 3.6 mmol/L (3.5-5.1); Total Protein 5.6 gm/dl (6.0-8.3)
[2023-03-16] MEDS ORDERED: ICU Protocol for HYPERglycemia SCH (16:30)
[2023-03-16 16:37] LABS: ANTI-Xa, UFH(UnfractionatedHep 0.44 IU/ml (0.3-0.7)
[2023-03-16] MEDS ORDERED: ETOMIDATE 2 MG/ML 20 ML VIAL IV ONE (16:52)
[2023-03-16] MEDS ORDERED: MIDAZOLAM HCL 5 MG/ML 2ML VIAL IV ONE (16:52)
[2023-03-16] MEDS ORDERED: DEXTROSE 50% 50 ML SYRINGE IV PRN (17:28)
[2023-03-16] MEDS ORDERED: GLUCAGON FOR INJ 1 MG VIAL SQ PRN (17:28)
[2023-03-16] MEDS ORDERED: GLUCOSE 10 TAB/TUBE PO PRN (17:28)
[2023-03-16] MEDS ORDERED: GLUCOSE 40% GEL 15 GM TUBE PO PRN (17:28)
[2023-03-16] MEDS ORDERED: CARBOHYDRATES FOR HYPOGLYCEMIA PO PRN (17:28)
[2023-03-16] MEDS: ICU ELECTROLYTE REPLACEMENT PROTOCOL SCH (17:30)
[2023-03-16] MEDS: INSULIN ASPART PER UNIT CHARGE SC SCH (17:33)
[2023-03-16] MEDS ORDERED: Nursing to Pharmacy Communication SCH (19:45)
[2023-03-16] MEDS: DOCUSATE SODIUM SYRUP 100 MG/10 ML UDC PO SCH (20:25)
[2023-03-16] MEDS ORDERED: SENNA 8.6 MG TAB PO SCH (21:00)
[2023-03-16] MEDS ORDERED: DOCUSATE SODIUM 100 MG CAP PO SCH (21:00)
[2023-03-16 21:07] LABS: Hemoglobin 14.9 g/dl (12.0-16.0); Mean Corpuscular Hemoglobin 31.1 pg (25.0-34.0); Mean Corpuscular Hgb Conc 34.7 g/dL (32.0-36.0); Mean Corpuscular Volume 89.8 fL (80.0-100.0); Mean Platelet Volume 11.8 fL (9.4-12.4); Nucleated RBC # (auto) 0.06 K/uL (0.00-0.12); Nucleated RBC % (auto) 0.3 %; Platelet Count 153 K/uL (130-400); RDW Coefficient of Variation 14.6 % (11.5-14.5); RDW Standard Deviation 47.6 fL (36.4-46.3); Red Blood Count 4.79 M/uL (4.20-5.40); White Blood Count 21.77 K/ul (4.8-10.8)
[2023-03-16 21:12] LABS: iSTAT Art Bld Gas pCO2 Correct 22 mmHg (35-46); iSTAT Art Bld Gas pH Corrected 7.537 (7.35-7.45); iSTAT Arterial Blood Gas HCO3 19 meg/L (19-24); iSTAT Arterial Blood Gas pCO2 22 mmHg (35-46); iSTAT Arterial Blood Gas pH 7.54 (7.35-7.45); iSTAT Arterial Blood Gas pO2 152 mmHg (80-95); iSTAT Arterial Blood Gas pO2 C 153; iSTAT Carbon Dioxide 20 mmol/L (24-31); iSTAT FiO2 60 %; iSTAT Hematocrit 44 % (37-47); iSTAT Potassium 3.3 mmol/L (3.3-5.0); iSTAT Site Art Line; iSTAT Sodium 136 mmol/L (135-144)
[2023-03-16 21:26] LABS: Potassium 3.4 mmol/L (3.5-5.1)
[2023-03-16 21:33] LABS: BUN Creatinine Ratio 18.1 (10-20); Creatinine Clr Calc Pharmacy 22.2 ml/min; Est GFR (Non-African American) 24.2 ml/min
[2023-03-16] MEDS ORDERED: PROPOFOL BOLUS FROM BAG IV PRN (21:38)
[2023-03-16 22:00] LABS: Basophils # (auto) 0.05 K/uL (0.00-0.20); Basophils % (auto) 0.2 %; Immature Granulocytes % (auto) 0.9 %; Lymphocytes # (auto) 0.89 K/uL (1.20-3.40); Lymphocytes % (auto) 4.1 %; Monocytes # (auto) 0.56 K/uL (0.11-0.59); Monocytes % (auto) 2.6 %; Neutrophils # (auto) 20.07 K/uL (1.40-6.50); Neutrophils % (auto) 92.2 %
[2023-03-16 23:44] LABS: iSTAT Art Bld Gas pCO2 Correct 34 mmHg (35-46); iSTAT Art Bld Gas pH Corrected 7.443 (7.35-7.45); iSTAT Arterial Blood Gas HCO3 23 meg/L (19-24); iSTAT Arterial Blood Gas pCO2 33 mmHg (35-46); iSTAT Arterial Blood Gas pH 7.45 (7.35-7.45); iSTAT Arterial Blood Gas pO2 65 mmHg (80-95); iSTAT Arterial Blood Gas pO2 C 66; iSTAT Carbon Dioxide 24 mmol/L (24-31); iSTAT FiO2 40 %; iSTAT Hematocrit 44 % (37-47); iSTAT Potassium 3.5 mmol/L (3.3-5.0); iSTAT Site Art Line; iSTAT Sodium 135 mmol/L (135-144)
[2023-03-17] MEDS: propofoL 1,000 MG/100 ML VIAL IV SCH ×3 (00:08→18:17)
[2023-03-17] MEDS: SODIUM BICARBONATE 8.4% 150 MEQ in DEXTROSE 5% 1,000 ML IV SCH (00:45)
[2023-03-17] MEDS: INSULIN ASPART PER UNIT CHARGE SC SCH ×4 (00:48→18:02)
[2023-03-17] MEDS ORDERED: Nursing to Pharmacy Communication SCH (01:30)
[2023-03-17] MEDS ORDERED: ACETAMINOPHEN 1000 MG/100 ML IV IV ONE (02:25)
[2023-03-17] MEDS: DOPamine / D5W 400 MG/250 ML BAG IV SCH ×5 (02:35→21:59)
[2023-03-17] MEDS ORDERED: PIPER/TAZO 4.5g in D5W MINI-B 100 ML IV ONE (04:15)
[2023-03-17] MEDS ORDERED: ACETAMINOPHEN 1,000 MG/100 ML VIAL IV STA (04:17)
[2023-03-17 04:56] LABS: iSTAT Art Bld Gas pCO2 Correct 35 mmHg (35-46); iSTAT Art Bld Gas pH Corrected 7.488 (7.35-7.45); iSTAT Arterial Blood Gas HCO3 27 meg/L (19-24); iSTAT Arterial Blood Gas pCO2 36 mmHg (35-46); iSTAT Arterial Blood Gas pH 7.48 (7.35-7.45); iSTAT Arterial Blood Gas pO2 92 mmHg (80-95); iSTAT Arterial Blood Gas pO2 C 88; iSTAT Carbon Dioxide 28 mmol/L (24-31); iSTAT FiO2 40 %; iSTAT Hematocrit 45 % (37-47); iSTAT Hemoglobin 15.3 g/dl (12.0-16.0); iSTAT Potassium 3.9 mmol/L (3.3-5.0); iSTAT Site Art Line; iSTAT Sodium 134 mmol/L (135-144)
[2023-03-17 05:07] LABS: Basophils # (auto) 0.08 K/uL (0.00-0.20); Basophils % (auto) 0.4 %; Eosinophils # (auto) 0.02 K/uL (0.00-0.50); Eosinophils % (auto) 0.1 %; Hemoglobin 15.5 g/dl (12.0-16.0); Immature Granulocytes # (auto) 0.14 K/uL (0.01-0.20); Immature Granulocytes % (auto) 0.7 %; Lymphocytes # (auto) 1.97 K/uL (1.20-3.40); Lymphocytes % (auto) 10.5 %; Mean Corpuscular Hemoglobin 30.8 pg (25.0-34.0); Mean Corpuscular Hgb Conc 33.7 g/dL (32.0-36.0); Mean Corpuscular Volume 91.3 fL (80.0-100.0); Mean Platelet Volume 11.6 fL (9.4-12.4); Monocytes # (auto) 1.15 K/uL (0.11-0.59); Monocytes % (auto) 6.1 %; Neutrophils # (auto) 15.35 K/uL (1.40-6.50); Neutrophils % (auto) 82.2 %; Nucleated RBC # (auto) 0.14 K/uL (0.00-0.12); Nucleated RBC % (auto) 0.7 %; Platelet Count 163 K/uL (130-400); RDW Coefficient of Variation 14.6 % (11.5-14.5); Red Blood Count 5.04 M/uL (4.20-5.40); White Blood Count 18.71 K/ul (4.8-10.8)
[2023-03-17 05:23] LABS: Anion Gap 11 (3-11); Blood Urea Nitrogen 35 mg/dl (6-23); Calcium 7.7 mg/dl (8.6-10.3); Carbon Dioxide 27 mmol/L (21-32); Chloride 97 mmol/L (98-107); Creatinine Clr Calc Pharmacy 19.6 ml/min; Est GFR (African American) 24.1 ml/min; Est GFR (Non-African American) 20.8 ml/min; Glucose 148 mg/dl (70-99(Fasting)); Potassium 3.8 mmol/L (3.5-5.1); Sodium 135 mmol/L (136-145)
[2023-03-17] MEDS: LEVOTHYROXINE SODIUM 100 MCG TABLET PO SCH (05:33)
[2023-03-17 05:37] LABS: ANTI-Xa, UFH(UnfractionatedHep < 0.10 IU/ml (0.3-0.7)
[2023-03-17 05:38] LABS: Albumin Globulin Ratio 1.4 (0.9-2); Albumin Level 3.1 gm/dl (3.4-5.0); Alkaline Phosphatase 154 U/L (34-104); Bilirubin,Total 2.4 mg/dl (0.2-1.0); Globulin 2.2 gm/dl (2.5-4.0); Magnesium 1.8 mg/dl (1.7-2.4); Phosphorus 5.1 mg/dl (2.5-4.9); Total Protein 5.3 gm/dl (6.0-8.3); Troponin I High Sensitivity 344.4 pg/ml (0-14)
[2023-03-17 05:40] LABS: Aspartate Aminotransferase 5494 U/L (13-39)
--- NOTE | 2023-03-17 05:58 | CT Scan Report ---
Exam(s): CT HEAD Without Contrast EXAM: CT Head Without Intravenous Contrast CLINICAL HISTORY: Reason for exam: neurological change, unequal pupils. TECHNIQUE: Axial computed tomography images of the head/brain without intravenous contrast. CTDI is 37.78 mGy and DLP is 625.8 mGy-cm. Automated exposure control was utilized for the study. A dose lowering technique was utilized adhering to the principles of ALARA. COMPARISON: No relevant prior studies available. FINDINGS: Brain: : There is old and 3 from [place] seen in the right frontal lobe. No hemorrhage. No significant white matter disease. There is mild right cerebellar atrophy Ventricles: Unremarkable. No ventriculomegaly. Bones/joints: Unremarkable. No acute fracture. Soft tissues: Unremarkable. Sinuses: Unremarkable as visualized. No acute sinusitis. Mastoid air cells: Unremarkable as visualized. No mastoid effusion. IMPRESSION: No acute intracranial abnormality Electronically signed by: Inderjit Rosario MD 03/17/23 05:57 AM
[2023-03-17] MEDS: ICU ELECTROLYTE REPLACEMENT PROTOCOL SCH (06:17)
--- NOTE | 2023-03-17 07:27 | Critical Care Progress Note ---
Date of Service March 17, 2023 Assessment & Plan (1) Complete heart block: (2) Acute pulmonary edema: (3) Cardiogenic shock: (4) Acidosis: (5) Hyperkalemia: Plan Impression: 77-year-old female with severe ischemic cardiomyopathy (ejection fraction less than 20%) and severe MR now with third-degree heart block. Her pacemaker is currently V pacing at a rate of 90 but the loss of atrial kick has resulted in significant hypotension. She is also hypoxemic with chest x-ray demonstrating pulmonary edema and has a profound metabolic acidosis, likely due to hypoperfusion. 24-hour events: Patient is brought to the intensive care unit. She rapidly developed severe lactic acidosis. She was intubated, central lines were placed, arterial lines were placed. She was initiated on high-dose vasopressors and has required high-dose dopamine as well as epinephrine. Urine output has been poor overnight. She transiently had a fever up to 38.5. Her lactate is clearing. Recommendations: 1. Neurologic: The patient was neurologically intact prior to intubation mechanical ventilation. Continue propofol for now. Holding her Zoloft and mirtazapine. 2. Cardiovascular: Third-degree heart block with cardiogenic shock. Continue dopamine and epinephrine. Efforts to try and wean either 1 of these has resulted in more hemodynamic instability. Will defer to cardiology advanced inotropic support. Her severe MR does complicate the issue. She is now demonstrated pulmonary edema likely associated with filling pressures and her severe MR, will pursue a trial of diuresis to see how she does. Unclear if ri [facility] heart catheterization may provide some additional actionable data, defer to cardiology. She is anticoagulated on a heparin infusion for her atrial fibrillation. Increased lactate is slowly clearing however clearance may be impaired by hepatic function, see comments below. High-dose pressors may also slow clearance. 3. Pulmonary: Hypoxemic respiratory failure with severe metabolic acidosis and inability to compensate from a respiratory standpoint resulting in intubation mechanical ventilation. Her blood gas this morning is better. Current vent settings are assist-control 18/360/10/0.4 with a peak pressure of 23. Most recent blood gas on the setting 7.48/36/92, decrease respiratory rate to 16. P/F ratio is 230 with improving oxygenation index with positive airway pressure. She has bilateral pleural effusions but they do not appear large enough to warrant thoracentesis currently. Will see what she does with diuresis. Will obtain tracheal aspirate for culture given her fever 4. Renal: Oliguric renal failure. Patient made 550 cc of urine since arrival in the intensive care unit. Serum creatinine increasing. Mild hyponatremia and mildly elevated phosphate but otherwise electrolytes are stable. No uremia as of yet. Acid-base status acceptable. Do not think the patient would tolerate conventional dialysis should she progress to renal failure. Will replete calci um. Will discontinue bicarb infusion 5. ID: 1 fever yesterday. Cultures pending. Initiated on Zosyn yesterday evening for potential aspiration event. 6. GI: Elevated transaminases as well as total bili likely secondary to congestive hepatopathy. Will trend for now but this may impair lactate clearance. Keep n.p.o. given her high-dose pressor requirements 7. Endocrine: Glycemic control per protocol. Continue Synthroid dose 8. Heme-onc: Prior history of breast cancer status post lymphadenectomy on the right. Restricted right upper extremity. Currently on heparin infusion Family will be updated at bedside. The patient is critically ill at this point in time with multiorgan system dysfunction/failure. Patient has significant risk of clinical deterioration or . In light of multiorgan system dysfunction we will readdress CODE STATUS as I do not think CPR or defibrillation in the setting would be appropriate. Total of 50 minutes of critical care time exclusive of procedures spent in evaluation management stabilization of this patient. Admission and Anticipated Discharge Date Admission Date: March 14, 2023 Subjective Intubated and sedated Review of Systems Review of Systems: Unobtainable due to endotracheal tube Physical Exam Physical Exam: Intubated and sedated Constitutional: + mechanically ventilated Neck: trachea midline, no thyromegaly Respiratory: Auscultation: + crackles Cardiovascular: Heart Sounds: normal S1, normal S2 and + murmur Extremities: + edema; + abnormal capillary refill V paced Gastrointestinal (Abdomen): normal bowel sounds, soft, nontender, no hepatosplenomegaly Musculoskeletal: Extremities: extremities normal to inspection Skin: no rashes, warm and dry Lymphatic: no cervical lymphadenopathy Results & Data Results & Data Vital Signs (Past 12 Hours) Vital Signs Temp Pulse Resp BP Pulse Ox Pulse Ox O2 Del Method 03/17/23 05:32 89 18 97 03/17/23 05:00 89 18 97 03/17/23 04:30 90 18 96 03/17/23 04:00 96/65 L 01/31/24 04:00 89 18 96 03/17/23 04:00 90 03/17/23 04:00 36.5 C 03/17/23 03:31 90 18 96 03/17/23 03:30 89 21 96 03/17/23 03:00 89 19 90 03/17/23 03:00 37.9 C H 03/17/23 03:00 03/17/23 02:30 90 19 89 L 03/17/23 02:29 82/62 L 03/17/23 02:28 90 19 89 L 03/17/23 02:01 89 23 94 03/17/23 02:00 38.5 C H 03/17/23 01:56 89 18 94 03/17/23 01:00 89 22 95 03/17/23 00:30 90 25 H 94 03/17/23 00:00 89 22 92 03/17/23 00:00 109/71 03/17/23 00:00 90 03/16/23 23:38 90 22 92 03/16/23 23:30 89 22 93 03/16/23 23:25 03/16/23 23:15 89 22 92 03/16/23 23:00 89 22 90 03/16/23 22:46 92 03/16/23 22:45 89 12 94 03/16/23 22:30 89 22 94 03/16/23 22:15 Mechanical Vent 03/16/23 22:00 99/84 L 03/16/23 22:00 90 22 95 03/16/23 21:30 89 19 94 03/16/23 21:08 22 03/16/23 21:00 37.2 C 03/16/23 21:00 89 27 H 97 03/16/23 20:59 03/16/23 20:59 89 110/71 03/16/23 20:30 89 32 H 97 03/16/23 20:00 89 32 H 98 Mechanical Vent 03/16/23 20:00 110/71 03/16/23 19:30 90 32 H 100 O2 Del Method FiO2 03/17/23 05:32 03/17/23 05:00 03/17/23 04:30 03/17/23 04:00 03/17/23 04:00 03/17/23 04:00 03/17/23 04:00 03/17/23 03:31 40 03/17/23 03:30 03/17/23 03:00 03/17/23 03:00 03/17/23 03:00 40 03/17/23 02:30 03/17/23 02:29 03/17/23 02:28 03/17/23 02:01 03/17/23 02:00 03/17/23 01:56 03/17/23 01:00 03/17/23 00:30 03/17/23 00:00 03/17/23 00:00 03/17/23 00:00 03/16/23 23:38 40 03/16/23 23:30 03/16/23 23:25 40 03/16/23 23:15 03/16/23 23:00 03/16/23 22:46 Mechanical Vent 03/16/23 22:45 03/16/23 22:30 03/16/23 22:15 40 03/16/23 22:00 03/16/23 22:00 03/16/23 21:30 03/16/23 21:08 40 03/16/23 21:00 03/16/23 21:00 03/16/23 20:59 40 03/16/23 20:59 03/16/23 20:30 03/16/23 20:00 70 03/16/23 20:00 03/16/23 19:30 Diagnostic Findings Chest x-ray today was independently reviewed. Tubes and lines in good position. She has diffuse vascular congestion with probable small bilateral pleural effusions. Cardiomegaly again noted. Lung bases are slightly more hazy today compared to yesterday Critical Care Results & Data Vital Signs (Past 12 Hours) Vital Signs Temp Pulse Resp BP Pulse Ox Pulse Ox O2 Del Method 03/17/23 05:32 89 18 97 03/17/23 05:00 89 18 97 03/17/23 04:30 90 18 96 03/17/23 04:00 96/65 L 03/17/23 04:00 89 18 96 03/17/23 04:00 90 03/17/23 04:00 36.5 C 03/17/23 03:31 90 18 96 03/17/23 03:30 89 21 96 03/17/23 03:00 89 19 90 03/17/23 03:00 37.9 C H 03/17/23 03:00 03/17/23 02:30 90 19 89 L 03/17/23 02:29 82/62 L 03/17/23 02:28 90 19 89 L 03/17/23 02:01 89 23 94 03/17/23 02:00 38.5 C H 03/17/23 01:56 89 18 94 03/17/23 01:00 89 22 95 03/17/23 00:30 90 25 H 94 03/17/23 00:00 89 22 92 03/17/23 00:00 109/71 03/17/23 00:00 90 03/16/23 23:38 90 22 92 03/16/23 23:30 89 22 93 03/16/23 23:25 03/16/23 23:15 89 22 92 03/16/23 23:00 89 22 90 03/16/23 22:46 92 03/16/23 22:45 89 12 94 03/16/23 22:30 89 22 94 03/16/23 22:15 Mechanical Vent 03/16/23 22:00 99/84 L 03/16/23 22:00 90 22 95 03/16/23 21:30 89 19 94 03/16/23 21:08 22 03/16/23 21:00 37.2 C 03/16/23 21:00 89 27 H 97 03/16/23 20:59 03/16/23 20:59 89 110/71 03/16/23 20:30 89 32 H 97 03/16/23 20:00 89 32 H 98 Mechanical Vent 03/16/23 20:00 110/71 03/16/23 19:30 90 32 H 100 O2 Del Method FiO2 03/17/23 05:32 03/17/23 05:00 03/17/23 04:30 03/17/23 04:00 03/17/23 04:00 03/17/23 04:00 03/17/23 04:00 03/17/23 03:31 40 03/17/23 03:30 03/17/23 03:00 03/17/23 03:00 03/17/23 03:00 40 03/17/23 02:30 03/17/23 02:29 03/17/23 02:28 03/17/23 02:01 03/17/23 02:00 03/17/23 01:56 03/17/23 01:00 03/17/23 00:30 03/17/23 00:00 03/17/23 00:00 03/17/23 00:00 03/16/23 23:38 40 03/16/23 23:30 03/16/23 23:25 40 03/16/23 23:15 03/16/23 23:00 03/16/23 22:46 Mechanical Vent 03/16/23 22:45 03/16/23 22:30 03/16/23 22:15 40 03/16/23 22:00 03/16/23 22:00 03/16/23 21:30 03/16/23 21:08 40 03/16/23 21:00 03/16/23 21:00 03/16/23 20:59 40 03/16/23 20:59 03/16/23 20:30 03/16/23 20:00 70 03/16/23 20:00 03/16/23 19:30 Lab & Micro Results (Past 24 Hours) RBC 5.04 M/uL (4.20-5.40) 03/17/23 WBC 18.71 K/ul (4.8-10.8) H 03/17/23 Hgb 15.5 g/dl (12.0-16.0) 03/17/23 Hct 46.0 % (37.0-47.0) 03/17/23 MCV 91.3 fL (80.0-100.0) 03/17/23 MCH 30.8 pg (25.0-34.0) 03/17/23 MCHC 33.7 g/dL (32.0-36.0) 03/17/23 RDW Standard Deviation 49.0 fL (36.4-46.3) H 03/17/23 RDW Coefficient of Variation 14.6 % (11.5-14.5) H 03/17/23 Plt Count 163 K/uL (130-400) 03/17/23 MPV 11.6 fL (9.4-12.4) 03/17/23 Nucleated Red Blood Cells % (auto) 0.7 % 03/17 Nucleated RBC Absolute Count (auto) 0.14 K/uL (0.00-0.12) H 03/17/23 Neutrophils (%) (Auto) 82.2 % 03/17/23 Lymphocytes (%) (Auto) 10.5 % 03/17/23 Monocytes # (Auto) 1.15 K/uL (0.11-0.59) H 03/17/23 Eosinophils # (Auto) 0.02 K/uL (0.00-0.50) 03/17/23 Immature Granulocyte % (Auto) 0.7 % 03/17/23 Neutrophils # (Auto) 15.35 K/uL (1.40-6.50) H 03/17/23 Lymphocytes # (Auto) 1.97 K/uL (1.20-3.40) 03/17/23 Monocytes # (Auto) 1.15 K/uL (0.11-0.59) H 03/17/23 Eosinophils # (Auto) 0.02 K/uL (0.00-0.50) 03/17/23 Basophils # (Auto) 0.08 K/uL (0.00-0.20) 03/17/23 Immature Granulocyte # (Auto) 0.14 K/uL (0.01-0.20) 4 Na 135 mmol/L (136-145) L 03/17/23 K 3.8 mmol/L (3.5-5.1) 03/17/23 Cl 97 mmol/L (98-107) L 03/17/23 CO2 27 mmol/L (21-32) 03/17/23 Anion Gap 11 (3-11) 03/17/23 BUN 35 mg/dl (6-23) H 03/17/23 Creatinine 2.19 mg/dl (0.6-1.2) H 03/17/23 Estimated GFR ( Amer) 24.1 ml/min 03/17/23 Estimated GFR (Non-Af Amer) 20.8 ml/min 03/17/23 BUN/Creatinine Ratio 16.0 (10-20) 03/17/23 Glu 148 mg/dl (70-99(Fasting)) H 03/17/23 Ca 7.7 mg/dl (8.6-10.3) L 03/17/23 Phosphorus Level 5.1 mg/dl (2.5-4.9) H 03/17/23 Total Bilirubin 2.4 mg/dl (0.2-1.0) H 03/17/23 AST 5494 U/L (13-39) H 03/17/23 ALT > 2500 U/L (7-52) H 03/17/23 Alkaline Phosphatase 154 U/L (34-104) H 03/17/23 TP 5.3 gm/dl (6.0-8.3) L 03/17/23 Albumin 3.1 gm/dl (3.4-5.0) L 03/17/23 Globulin 2.2 gm/dl (2.5-4.0) L 03/17/23 Albumin/Globulin Ratio 1.4 (0.9-2) 03/17/23 Mg 1.8 mg/dl (1.7-2.4) 03/17/23 04:35 Calcium Level 7.7 mg/dl (8.6-10.3) L 03/17/23 04:35 Benito Test NA 03/17/23 04:43 Diagnostic Findings (Past 24 Hours) Chest X-Ray 03/16/23 13:05 SINGLE VIEW CHEST CLINICAL HISTORY: Dyspnea. FINDINGS: An AP, portable, upright chest radiograph is compared to chest x-ray and chest CT dated 03/14/2023. A 2-lead cardiac AICD is unchanged in position. The heart is enlarged noting atherosclerotic calcification of the thoracic aorta. There is pulmonary vascular congestion with interstitial edema. There are layering pleural effusions with dependent consolidation. No pneumothorax is seen. The skeletal structures are osteopenic. The bony thorax is grossly intact. IMPRESSION: 1. Cardiomegaly and cardiac pacemaker with evidence of congestive failure and pulmonary edema. This has significantly worsened from 03/14/2023. 2. Layering pleural effusions with dependent consolidation. ACT 112: Negative or not required by law. Electronically signed by: Saad Isaacs M.D. 03/16/2023 1:49 PM Chest X-Ray 03/16/23 14:05 SINGLE VIEW CHEST CLINICAL HISTORY: Respiratory failure. Intubation. FINDINGS: 2 AP, portable, upright chest radiographs are compared to chest x-ray performed the same day 03/16/2023 and correlated with chest CT dated 03/14/2023. A 2-lead cardiac AICD is unchanged in position. An enteric tube has been placed. The tip projects below the diaphragm. A right subclavian central venous catheter has been placed. The tip projects over the SVC. An endotracheal tube has been placed. The tip projects approximately 3.3 cm above the myah. The heart is enlarged noting atherosclerotic calcification of the thoracic aorta. There is pulmonary vascular congestion with interstitial edema. There are layering pleural effusions with dependent consolidation. No pneumothorax is seen. The skeletal structures are osteopenic. The bony thorax is grossly intact. IMPRESSION: 1. Line and tube placement as above. No pneumothorax is seen. 2. Cardiomegaly and cardiac pacemaker with evidence of congestive failure and pulmonary edema. This is similar to today's earlier examination. 3. Layering pleural effusions with dependent consolidation. ACT 112: Negative or not required by law. Electronically signed by: Saad Isaacs M.D. 03/16/2023 2:[address] 03/17/23 01:07 Exam(s): CT HEAD Without Contrast EXAM: CT Head Without Intravenous Contrast CLINICAL HISTORY: Reason for exam: neurological change, unequal pupils. TECHNIQUE: Axial computed tomography images of the head/brain without intravenous contrast. CTDI is 37.78 mGy and DLP is 625.8 mGy-cm. Automated exposure control was utilized for the study. A dose lowering technique was utilized adhering to the principles of ALARA. COMPARISON: No relevant prior studies available. FINDINGS: Brain: : There is old and 3 from [place] seen in the right frontal lobe. No hemorrhage. No significant white matter disease. There is mild right cerebellar atrophy Ventricles: Unremarkable. No ventriculomegaly. Bones/joints: Unremarkable. No acute fracture. Soft tissues: Unremarkable. Sinuses: Unremarkable as visualized. No acute sinusitis. Mastoid air cells: Unremarkable as visualized. No mastoid effusion. IMPRESSION: No acute intracranial abnormality Electronically signed by: Inderjit Rosario MD 03/17/23 05:57 AM I & O Totals 24 Hours 03/16/23 03/17/23 03/18/23 06:59 06:59 06:59 Intake Total 2244.60 / 2244.60 2427.893 / 2427.893 Output Total 551 / 551 165 / 165 Balance 1693.60 / 1693.60 2262.893 / 2262.893 Cumulative 03/14/23 17:33 thru 03/17/23 06:46 Intake Total 4977.893 Output Total 716 Balance 4261.893 RT Ventilator Mngmt (Last Documented) Ventilator Ordered Settings Ventilator Support Mode Assist Control 03/17/23 03:31 Respiratory Rate 18 03/17/23 05:32 Ventilator Tidal Volume 360 03/17/23 03:31 Setting Minute Ventilation 6.5 03/17/23 03:31 Positive End Expiratory 10 03/17/23 03:31 Pressure Fraction of Inspired Oxygen 40 03/17/23 03:31 Machine Comment RR decreased per abg results 03/16/23 23:38 Ventilator - PT Measurements Respiratory Rate 18 Exhaled Tidal Volume 360 Minute Ventilation 6.5 Peak Inspiratory Airway 23 Pressure Plateau Pressure 21.3 Respiratory Cycle Inspiratory: 1:1.4 Expiratory Ratio Inspiratory Phase Time 1.0 End-Tidal CO2 30 Static Lung Compliance 31.86 Dynamic Lung Compliance 27.69 Normal Static Lung Compliance 47.00 Coding Level of Care Code 76026 CRITICAL CARE 1ST 30-74M Diagnoses Complete heart block I44.2 Acute pulmonary edema J81.0 Cardiogenic shock R57.0 Acidosis E87.20 Hyperkalemia E87.5
[2023-03-17 07:30] LABS: Alanine Aminotransferase > 2500 U/L (7-52)
[2023-03-17] MEDS ORDERED: FUROSEMIDE 40 MG/4 ML VIAL IV ONE (07:31)
--- NOTE | 2023-03-17 08:04 | XRay Report ---
XR chest 1V portable CLINICAL HISTORY: Resp failure TECHNIQUE: Single frontal radiograph of the chest was obtained. Comparison: Comparison is made to chest radiograph 03/16/2023 FINDINGS: Lines and tubes are stable. Cardiomegaly is noted. Bilateral lower lung predominant airspace opacitie s are seen. Lonnie B lines and prominence of the pulmonary vasculature again noted. Small bilateral p leural effusions are seen. IMPRESSION: 1. Bilateral lower lung airspace opacities are increased from prior exam and may represent alveolar edema, less likely aspiration/pneumonia. 2. Small bilateral pleural effusions. 3. Cardiomegaly. ACT 112: Negative or not required by law. Electronically signed by: Vinayak Longo M.D. 03/17/2023 8:02 AM
[2023-03-17] MEDS: HEPARIN SODIUM/DEXTROSE 25,000 UNITS/500 ML BAG IV SCH (08:10)
--- NOTE | 2023-03-17 09:35 | Cardiology Progress Note ---
Date of Service March 17, 2023 Assessment & Plan (1) Complete heart block: (2) Cardiogenic shock: (3) Ischemic cardiomyopathy: Plan Assessment: 77 year old female for longstanding history of coronary heart disease, ischemic cardiomyopathy, infarction initially occurred in 2000. Chronic severe left ventricular systolic dysfunction, LVEF in the range of 20- 25% on a chronic basis Status post remote single-chamber AICD placed for primary prevention of sudden cardiac in the setting of ischemic cardiomyopathy and severe left ventricular systolic dysfunction circa 2005 withGenerator change in 2015. At that time the original right ventricular pacemaker/defibrillation lead was functioning appropriately. This was followed by lead failure in 2016 prompting placement of a new ventricular lead. Patient without past indication for right atrial pacing and therefore had a single-chamber device. Patient presented in 03/15/2023 with several days of worsening debilitating shortness of breath found to be in new onset atrial fibrillation atrial fibrillation with rapid ventricular response, duration of which is unknown with noted sinus rhythm at the time of routine outpatient echocardiogram performed in January,. Patient underwent transesophageal echocardiogram guided direct-current cardioversion on 03/16/2023 defibrillation shock administered at about 8 AM. Amiodarone initiated post procedure thing excluded the presence of left atrial or left atrial appendage thrombus. On telemetry, patient noted to have acutely reverted to a complete heart block with VVI pacing at 40 bpm at 11:30 AM progressive signs and symptoms of low cardiac output state. Basal rate of the patient's pacemaker was increased to 90 bpm. Patient transferred to the ICU and ultimately underwent endotracheal tube intubation, central line placement. Plan: * Blood pressure stable at present on dopamine 15 mcg/kg/min, epinephrine 0.03 mcg/kg/min * Bicarbonate level improved with patient having received sodium bicarb infusion and heart rate, blood pressure and respiratory support with noted improvement in lactate level as noted. * Lactate level has trended toward improvement * Decreased urine output noted with creatinine having trended up to 2.19 mg/dl * A.m. of 03/17/2023, AICD reinterrogated, normal right ventricular pacemaker/AICD lead function noted with normal pacing thresholds. Lower rate reduced to 35 bpm temporarily and it was found that the patient remained in an underlying third-degree heart block. The rate therefore increased back to 90 bpm. * Amiodarone and will have been discontinued. * Continue aspirin given history of coronary heart disease and heparin for str ivory prophylaxis given atrial fibrillation and recent surgical cardioversion * With empiric antibiotics for possible underlying pneumonia * Will likely need to consider diuresis at some point. * Patient remains critically ill. Rocky Grover DO Admission and Anticipated Discharge Date Admission Date: March 14, 2023 Subjective Patient seen in cardiology follow-up. Patient with development of complete heart block that occurred several hours after direct-current cardioversion on 03/16/2023 in the setting of having received IV amiodarone and metoprolol post procedure with underlying preexistent first-degree AV block and right bundle branch block. Patient developed progressive signs and symptoms of cardiogenic shock with pulmonary edema, lactic acidosis, acute kidney injury, and shock liver picture. Patient remains sedated on the ventilator. Telemetry reveals ventricular paced rhythm in the 90s with occasional short runs of nonsustained ventricular tachycardia overnight. Physical Exam Constitutional: + ill appearing Eyes: PERRL, conjunctivae normal, anicteric sclerae ENMT: Mouth: + edentulous Respiratory: + labored breathing Auscultation: + d iminished lung sounds (Mildly decreased breath sounds at the bases) Cardiovascular: Rate/Rhythm: regular rhythm Heart Sounds: + murmur (1/6 systolic murmur) Extremities: no edema Chest (Breasts): Chest: + pacemaker Additional Comments: Left infraclavicular device pocket clean dry and intact, no erythema Right sided subclavian central line Neurologic: sedated on propofol Genitourinary: El catheter in place draining clear yellow urine Results & Data Vital Signs (Past 12 Hours) Vital Signs Temp Pulse Resp BP Pulse Ox Pulse Ox O2 Del Method 03/17/23 08:00 89 03/17/23 08:00 89 16 97 03/17/23 07:34 89 16 97 03/17/23 07:30 89 18 97 03/17/23 07:00 03/17/23 07:00 90 18 97 03/17/23 06:43 89 18 97 03/17/23 05:32 89 18 97 03/17/23 05:00 89 18 97 03/17/23 04:30 90 18 96 03/17/23 04:00 96/65 L 03/17/23 04:00 89 18 96 03/17/23 04:00 90 03/17/23 04:00 36.5 C 03/17/23 03:31 90 18 96 03/17/23 03:30 89 21 96 03/17/23 03:00 89 19 90 03/17/23 03:00 37.9 C H 03/17/23 03:00 03/17/23 02:30 90 19 89 L 03/17/23 02:29 82/62 L 03/17/23 02:28 90 19 89 L 03/17/23 02:01 89 23 94 03/17/23 02:00 38.5 C H 03/17/23 01:56 89 18 94 03/17/23 01:00 89 22 95 03/17/23 00:30 90 25 H 94 03/17/23 00:00 89 22 92 03/17/23 00:00 109/71 03/17/23 00:00 90 03/16/23 23:38 90 22 92 03/16/23 23:30 89 22 93 03/16/23 23:25 03/16/23 23:15 89 22 92 03/16/23 23:00 89 22 90 03/16/23 22:46 92 03/16/23 22:45 89 12 94 03/16/23 22:30 89 22 94 03/16/23 22:15 Mechanical Vent 03/16/23 22:00 99/84 L 03/16/23 22:00 90 22 95 O2 Del Method FiO2 03/17/23 08:00 03/17/23 08:00 03/17/23 07:34 40 03/17/23 07:30 03/17/23 07:00 40 03/17/23 07:00 03/17/23 06:43 03/17/23 05:32 03/17/23 05:00 03/17/23 04:30 03/17/23 04:00 03/17/23 04:00 03/17/23 04:00 03/17/23 04:00 03/17/23 03:31 40 03/17/23 03:30 03/17/23 03:00 03/17/23 03:00 03/17/23 03:00 40 03/17/23 02:30 03/17/23 02:29 03/17/23 02:28 03/17/23 02:01 03/17/23 02:00 03/17/23 01:56 03/17/23 01:00 03/17/23 00:30 03/17/23 00:00 03/17/23 00:00 03/17/23 00:00 03/16/23 23:38 40 03/16/23 23:30 03/16/23 23:25 40 03/16/23 23:15 03/16/23 23:00 03/16/23 22:46 Mechanical Vent 03/16/23 22:45 03/16/23 22:30 03/16/23 22:15 40 03/16/23 22:00 03/16/23 22:00 Laboratory Results Arterial blood gas, 7.48, pCO2 36, pO2 192, HCO3 27 Lactate had initially been 9.5 mmol/L at 1433, trended down to 1.9 as of this morning ALT level >2,500 03/16/23 03/16/23 03/17/23 Range/Units 14:33 22:34 04:35 AST 993 H 5494 H (13-39) U/L Troponin I High Sens 234.8 H* 344.4 H* D (0-14) pg/ml CBC 03/16/23 03/17/23 Range/Units 14:33 04:35 WBC 21.77 H D 18.71 H (4.8-10.8) K/ul RBC 4.79 5.04 (4.20-5.40) M/uL Hgb 14.9 15.5 (12.0-16.0) g/dl Hct 43.0 46.0 (37.0-47.0) % Plt Count 153 163 (130-400) K/uL Neut # (Auto) 20.07 H 15.35 H (1.40-6.50) K/uL Lymph # (Auto) 0.89 L 1.97 (1.20-3.40) K/uL [place] # (Auto) 0.56 1.15 H (0.11-0.59) K/uL Eos # (Auto) 0.00 0.02 (0.00-0.50) K/uL Baso # (Auto) 0.05 0.08 (0.00-0.20) K/uL Comprehensive Metabolic Panel 03/16/23 03/16/23 03/17/23 Range/Units 14:33 20:36 04:35 Sodium 140 135 L 135 L (136-145) mmol/L Potassium 3.6 3.4 L 3.8 (3.5-5.1) mmol/L Chloride 101 99 97 L (98-107) mmol/L Carbon Dioxide 18 L 20 L 27 (21-32) mmol/L BUN 31 H 35 H 35 H (6-23) mg/dl Creatinine 1.67 H D 1.93 H 2.19 H (0.6-1.2) mg/dl Glucose 155 H 249 H 148 H (70-99(Fasting)) mg/dl Calcium 8.4 L 8.0 L 7.7 L (8.6-10.3) mg/dl AST 993 H 5494 H (13-39) U/L ALT 1592 H > 2500 H (7-52) U/L Alkaline Phosphatase 136 H 154 H (34-104) U/L Total Protein 5.6 L 5.3 L (6.0-8.3) gm/dl Albumin 3.5 3.1 L (3.4-5.0) gm/dl Intake and Output 03/16/23 03/17/23 03/17/23 22:59 06:59 14:59 Intake Total 683.030 / 2427.893 1418.633 / 2427.893 907.638 / 907.638 Output Total 150 / 165 15 / 165 Balance 533.030 / 2262.893 1403.633 / 2262.893 907.638 / 907.638 Intake: IV 603.030 / 2347.893 1418.633 / 2347.893 907.638 / 907.638 DOPamine / D5W 400 mg In 250 ml 315.69 / 660.242 344.552 / 660.242 89.758 / 89.758 @ 17 MCG/KG/MIN 46.92 mls/hr IV .Q5H20M ANDRIY Rx#:[id number] EPINEPHrine/NSS 4 mg In 254 ml 48.440 / 49.187 0.747 / 49.187 @ 0.02 MCG/KG/MIN 5.608 mls/hr IV .Q24H ANDRIY Rx#:[id number] Heparin Sodium/Dextrose 25,000 238.9 / 571.667 71.667 / 571.667 units In 500 ml @ 0 UNITS/HR IV .Q0M ANDRIY Rx#:[id number] Sodium Bicarbonate 8.4% 150 meq 1001.667 / 1001.667 740 / 740 In Dextrose 5% 1,000 ml @ 100 mls/hr IV .[id number] ANDRIY Rx#: [id number] propofoL 1,000 mg In 100 ml @ 77.88 / 77.88 20 MCG/KG/MIN 8.832 mls/hr IV . [id number] ANDRIY Rx#:[id number] Tube Feeding 80 / 80 Output: Urine Amount (Catheter) 150 / 165 15 / 165 El/Indwelling 150 / 165 15 / 165 Other: Weight 74.5 kg Weight Measurement Method Built in [facility] Diagnostic Findings Chest x-ray this morning reveals bilateral lower lung airspace opacities, likely pulmonary edema less likely aspiration/pneumonia as per radiology report, small lateral pleural effusions, endotracheal tube and right subclavian triple-lumen catheter placed appropriately CT brain, no acute intracranial abnormality
[2023-03-17] MEDS ORDERED: CALCIUM CHLORIDE 10% 1,000 MG in DEXTROSE 5% 50 ML IV STA (09:55)
[2023-03-17] MEDS: ASPIRIN 81 MG ECTAB PO SCH (10:00)
[2023-03-17] MEDS ORDERED: PIPERACILLIN/TAZOBACTAM 4.5 GM in DEXTROSE 5% MINI-B 100 ML IV SCH ×2 (10:00→22:00)
[2023-03-17] MEDS: PANTOprazole 40 MG in SYRINGE 0 ML IV SCH (10:39)
[2023-03-17] MEDS: ASPIRIN 81 MG CHEW PO SCH (10:39)
[2023-03-17] MEDS: DOCUSATE SODIUM SYRUP 100 MG/10 ML UDC PO SCH ×2 (10:40→20:28)
[2023-03-17] MEDS: EZETIMIBE 10 MG TAB PO SCH (10:40)
--- NOTE | 2023-03-17 12:14 | Communication Note ---
Date of Service: March 17, 2023 Dr Hanna and I met with the patient's daughter and son. Updates provided. Goals of care discussed. Will change code status to DNR per family request and will plan on deactivating AICD defibrillation treatments. Rocky Grover DO
[2023-03-17 13:08] LABS: ANTI-Xa, UFH(UnfractionatedHep 0.38 IU/ml (0.3-0.7)
[2023-03-17] MEDS: EPINEPHrine/NSS 4 MG/254 ML BAG IV SCH ×2 (15:12→20:40)
[2023-03-17 17:52] LABS: BUN Creatinine Ratio 13.4 (10-20); Creatinine Clr Calc Pharmacy 14.8 ml/min; Est GFR (Non-African American) 14.7 ml/min; Magnesium 1.8 mg/dl (1.7-2.4); Potassium 4.1 mmol/L (3.5-5.1)
--- NOTE | 2023-03-17 19:51 | Hospitalist Progress Note ---
Date of Service March 17, 2023 Assessment & Plan (1) Cardiogenic shock: Plan: remains on dopamine & epinephrine infusions defer management to ICU & cardiology teams even with the above drips her BPs remain borderline with ongoing lactic acidosis (2) Complete heart block: Plan: following LIZ cardioversion for rapid a.fib she converted to NSR then complete heart block with inadequate pacing (HRs 30s) following these events she developed profound shock requiring ICU transfer Dr Grover following pacer adjusted to allow pacing at 90 BPM all AV roxanne agents on hold/stopped (3) Elevated troponin: Plan: 2nd myocardial demand ischemia in setting of rapid a.fib, shock, etc. (4) Pneumonia: Plan: question of +fevers overnight started on zosyn blood cx's pending (5) Atrial fibrillation with RVR: Plan: present on admission s/p LIZ cardioversion see above remains on heparin infusion (6) CAD (coronary artery disease): Plan: prior h/o OK known ischemic cardiomyopathy cont asa cont zetia BB on hold due to shock statin on hold due to shock liver (7) Ischemic cardiomyopathy: Plan: EF 20-25% in 01/2023 EF now <20% this admission ongoing cardiogenic shock requiring pressors as above (8) Hypothyroid: (9) Hx of myocardial infarction: (10) ICD (implantable cardioverter-defibrillator) in place: Plan: ICD has been deactivated as pt's code status is now DNR remains pacing at 90 BPM (11) History of right breast cancer: (12) ATN (acute tubular necrosis): Plan: 2nd to cardiogenic shock continues to worsen with severe oliguria serial BMPs (13) Shock liver: Plan: 2nd to profound cardiogenic shock statin on hold (14) Lactic acidosis: Plan: 2nd to cardiogenic shock (15) Acute on chronic systolic heart failure: Plan: as above defer management to ICU/cardiology Plan prognosis is very poor Dr Hanna to speak with pt's family in am and if ongoing worsening of renal function, etc Dr Hanna to likely recommend transition to comfort care measures Admission and Anticipated Discharge Date Admission Date: March 14, 2023 Subjective events of last 24 hours noted patient remains intubated/mechanically vented UOP is severely oliguric - 35cc of UOP on day shift today remains on dopamine/epi drips along with sedation during my brief visit I introduced myself to the pt's son & daughter Dr Hanna was at bedside reviewing plan of car and discussing poor prognosis Review of Systems Review of Systems: Unobtainable due to cognitive status and Unobtainable due to endotracheal tube Physical Exam Physical Exam: gen - intubated/sedated; comfortable appearing mouth - ETT / enteric tube in place neck - JVD present heart - RRR, s1 s2 lungs - course BS b/l with rales bases abd - soft NT ND BS+ ext - cold to touch, pulses 1+ b/l feet, cap refill >2 sec, some mottling Results & Data Results & Data Vital Signs (Past 12 Hours) Vital Signs Temp Pulse Resp BP Pulse Ox O2 Del Method FiO2 03/17/23 18:30 90 19 93 03/17/23 18:03 99/65 L 03/17/23 18:03 90 16 95 03/17/23 18:00 83/56 L 03/17/23 18:00 89 17 89 L 03/17/23 17:30 89 23 93 03/17/23 17:00 90 12 94 03/17/23 16:30 89 22 94 03/17/23 16:00 98/62 L 03/17/23 16:00 90 19 94 03/17/23 16:00 90 03/17/23 15:52 90 03/17/23 15:45 89 17 94 30 03/17/23 15:30 90 22 94 03/17/23 15:00 90 19 94 03/17/23 15:00 40 03/17/23 14:46 37.3 C 03/17/23 14:30 89 20 95 03/17/23 14:00 89 18 94 03/17/23 14:00 85/62 L 03/17/23 13:30 89 18 94 03/17/23 13:00 90 16 94 03/17/23 12:30 90 16 94 03/17/23 12:00 101/64 03/17/23 12:00 89 16 96 03/17/23 12:00 89 03/17/23 11:43 90 03/17/23 11:30 89 19 96 03/17/23 11:00 89 18 97 03/17/23 11:00 40 03/17/23 10:30 89 16 96 03/17/23 10:00 93/58 L 01/31/24 10:00 89 19 96 03/17/23 09:30 90 19 96 03/17/23 09:00 89 16 96 03/17/23 08:30 90 20 96 03/17/23 08:00 Mechanical Vent 40 03/17/23 08:00 98/64 L 03/17/23 08:00 89 03/17/23 08:00 89 16 97 Laboratory Results Laboratory Results - last 24 hr 03/17/23 03/17/23 03/17/23 04:35 04:43 06:32 WBC 18.71 H RBC 5.04 Hgb 15.5 POC Hgb 15.3 Hct 46.0 POC Hct 45 MCV 91.3 MCH 30.8 MCHC 33.7 RDW Std Deviation 49.0 H RDW Coeff of Luis [place] 14.6 H Plt Count 163 MPV 11.6 Immature Gran % (Auto) 0.7 Neut % (Auto) 82.2 Lymph % (Auto) 10.5 [place] % (Auto) 6.1 Eos % (Auto) 0.1 Baso % (Auto) 0.4 Neut # (Auto) 15.35 H Lymph # (Auto) 1.97 [place] # (Auto) 1.15 H Eos # (Auto) 0.02 Baso # (Auto) 0.08 Immature Gran # (Auto) 0.14 Absolute Nucleated RBC 0.14 H Nucleated RBC % (auto) 0.7 Heparin Anti-Xa, Unfract < 0.10 L Sample Site Art Line POC pH 7.48 H POC pCO2 36 POC pO2 92 POC HCO3 27 H POC Total CO2 28 POC Base Excess 3.0 H ABG pH (Temp Correct) 7.488 H ABG pCO2 (Temp Corrct 35 POC ABG pO2 at Pt Temp 88 POC ABG O2 Sat 98.0 H Benito Test NA O2 Delivery Device Ventilator POC O2 Rate 18 POC FiO2 40 Tidal Volume 360 PEEP 10 POC Sodium 134 L Sodium 135 L POC Potassium 3.9 Potassium 3.8 Chloride 97 L Carbon Dioxide 27 Anion Gap 11 BUN 35 H Creatinine 2.19 H Est Cr Clr Drug Dosing 19.6 Est GFR ( Amer) 24.1 Est GFR (Non-Af Amer) 20.8 BUN/Creatinine Ratio 16.0 Glucose 148 H POC Glucose POC Glucose (other) 181 H Lactate Calcium 7.7 L Ionized Calcium Phosphorus 5.1 H Magnesium 1.8 Total Bilirubin 2.4 H AST 5494 H ALT > 2500 H Alkaline Phosphatase 154 H Troponin I High Sens 344.4 H* D Total Protein 5.3 L Albumin 3.1 L Globulin 2.2 L Albumin/Globulin Ratio 1.4 03/17/23 03/17/23 03/17/23 08:29 09:19 10:34 WBC RBC Hgb POC Hgb Hct POC Hct MCV MCH MCHC RDW Std Deviation RDW Coeff of Luis Antonio Plt Count MPV Immature Gran % (Auto) Neut % (Auto) Lymph % (Auto) [place] % (Auto) Eos % (Auto) Baso % (Auto) Neut # (Auto) Lymph # (Auto) [place] # (Auto) Eos # (Auto) Baso # (Auto) Immature Gran # (Auto) Absolute Nucleated RBC Nucleated RBC % (auto) Heparin Anti-Xa, Unfract Sample Site POC pH POC pCO2 POC pO2 POC HCO3 POC Total CO2 POC Base Excess ABG pH (Temp Correct) ABG pCO2 (Temp Corrct POC ABG pO2 at Pt Temp POC ABG O2 Sat [place] Test O2 Delivery Device POC O2 Rate POC FiO2 Tidal Volume PEEP POC Sodium Sodium POC Potassium Potassium Chloride Carbon Dioxide Anion Gap BUN Creatinine Est Cr Clr Drug Dosing Est GFR ( Amer) Est GFR (Non-Af Amer) BUN/Creatinine Ratio Glucose POC Glucose POC Glucose (other) 154 H Lactate 1.9 Calcium Ionized Calcium Phosphorus Magnesium Total Bilirubin AST ALT Alkaline Phosphatase Troponin I High Sens 262.8 H* D Total Protein Albumin Globulin Albumin/Globulin Ratio 03/17/23 03/17/23 03/17/23 12:22 12:32 17:20 WBC RBC Hgb POC Hgb Hct POC Hct MCV MCH MCHC RDW Std Deviation RDW Coeff of Luis Antonio Plt Count MPV Immature Gran % (Auto) Neut % (Auto) Lymph % (Auto) [place] % (Auto) Eos % (Auto) Baso % (Auto) Neut # (Auto) Lymph # (Auto) [place] # (Auto) Eos # (Auto) Baso # (Auto) Immature Gran # (Auto) Absolute Nucleated RBC Nucleated RBC % (auto) Heparin Anti-Xa, Unfract 0.38 Sample Site POC pH POC pCO2 POC pO2 POC HCO3 POC Total CO2 POC Base Excess ABG pH (Temp Correct) ABG pCO2 (Temp Corrct POC ABG pO2 at Pt Temp POC ABG O2 Sat [place] Test O2 Delivery Device POC O2 Rate POC FiO2 Tidal Volume PEEP POC Sodium Sodium 133 L POC Potassium Potassium 4.1 Chloride 94 L Carbon Dioxide 25 Anion Gap 14 H BUN 39 H Creatinine 2.92 H D Est Cr Clr Drug Dosing 14.8 Est GFR ( Amer) 17.0 Est GFR (Non-Af Amer) 14.7 BUN/Creatinine Ratio 13.4 Glucose 127 H POC Glucose POC Glucose (other) 145 H Lactate 2.3 H* Calcium 8.0 L Ionized Calcium 0.97 L Phosphorus 6.0 H Magnesium 1.8 Total Bilirubin AST ALT Alkaline Phosphatase Troponin I High Sens Total Protein Albumin Globulin Albumin/Globulin Ratio 03/18/23 00:09 WBC RBC Hgb POC Hgb Hct POC Hct MCV MCH MCHC RDW Std Deviation RDW Coeff of Luis Antonio Plt Count MPV Immature Gran % (Auto) Neut % (Auto) Lymph % (Auto) [place] % (Auto) Eos % (Auto) Baso % (Auto) Neut # (Auto) Lymph # (Auto) [place] # (Auto) Eos # (Auto) Baso # (Auto) Immature Gran # (Auto) Absolute Nucleated RBC Nucleated RBC % (auto) Heparin Anti-Xa, Unfract Sample Site POC pH POC pCO2 POC pO2 POC HCO3 POC Total CO2 POC Base Excess ABG pH (Temp Correct) ABG pCO2 (Temp Corrct POC ABG pO2 at Pt Temp POC ABG O2 Sat [place] Test O2 Delivery Device POC O2 Rate POC FiO2 Tidal Volume PEEP POC Sodium Sodium POC Potassium Potassium Chloride Carbon Dioxide Anion Gap BUN Creatinine Est Cr Clr Drug Dosing Est GFR ( Amer) Est GFR (Non-Af Amer) BUN/Creatinine Ratio Glucose POC Glucose 124 H POC Glucose (other) Lactate Calcium Ionized Calcium Phosphorus Magnesium Total Bilirubin AST ALT Alkaline Phosphatase Troponin I High Sens Total Protein Albumin Globulin Albumin/Globulin Ratio PG Care Time/CCT Total # of Minutes Spent Total Time Spent with Patient: Total time spent is greater than 50% in coordination of care (as documented) at patient's floor/unit and/or counseling patient: Coding Level of Care Code None Diagnoses Cardiogenic shock R57.0 Complete heart block I44.2 Elevated troponin R79.89 Pneumonia of lower lobe due to infectious organism, unspecified laterality J18.9 Pneumonia type: due to unspecified organism Laterality: unspecified laterality Lung location: lower lobe of lung Atrial fibrillation with RVR I48.91 CAD (coronary artery disease) I25.10 Associated angina: without angina Coronary Disease-Associated Artery/Lesion type: [place] artery [place] vs. transplanted heart: [place] heart Ischemic cardiomyopathy I25.5 Hypothyroid E03.9 Hx of myocardial infarction I25.2 ICD (implantable cardioverter-defibrillator) in place Z95.810 History of right breast cancer Z85.3 ATN (acute tubular necrosis) N17.0 Shock liver K72.00 Lactic acidosis E87.20 Acute on chronic systolic heart failure I50.23 (4) Pneumonia Pneumonia type: due to unspecified organism Laterality: unspecified laterality Lung location: lower lobe of lung Qualified Code(s): J18.9 - Pneumonia, unspecified organism (6) CAD (coronary artery disease) Associated angina: without angina Coronary Disease-Associated Artery/Lesion type: [place] artery [place] vs. transplanted heart: [place] heart Qualified Code(s): I25.10 - Atherosclerotic heart disease of [place] coronary artery without angina pectoris
[2023-03-17] MEDS ORDERED: SENNOSIDES 8.8 MG/5 ML UDC PO SCH (21:00)
[2023-03-18] MEDS: INSULIN ASPART PER UNIT CHARGE SC SCH ×3 (00:19→13:07)
[2023-03-18 04:04] LABS: iSTAT Art Bld Gas pCO2 Correct 34 mmHg (35-46); iSTAT Art Bld Gas pH Corrected 7.416 (7.35-7.45); iSTAT Arterial Blood Gas HCO3 22 meg/L (19-24); iSTAT Arterial Blood Gas pCO2 33 mmHg (35-46); iSTAT Arterial Blood Gas pH 7.43 (7.35-7.45); iSTAT Arterial Blood Gas pO2 100 mmHg (80-95); iSTAT Arterial Blood Gas pO2 C 105; iSTAT Carbon Dioxide 23 mmol/L (24-31); iSTAT FiO2 30 %; iSTAT Hematocrit 43 % (37-47); iSTAT Hemoglobin 14.6 g/dl (12.0-16.0); iSTAT Potassium 3.9 mmol/L (3.3-5.0); iSTAT Site Art Line; iSTAT Sodium 128 mmol/L (135-144)
[2023-03-18 04:18] LABS: Basophils # (auto) 0.08 K/uL (0.00-0.20); Basophils % (auto) 0.5 %; Eosinophils # (auto) 0.03 K/uL (0.00-0.50); Eosinophils % (auto) 0.2 %; Hematocrit (blood only) 44.2 % (37.0-47.0); Hemoglobin 14.6 g/dl (12.0-16.0); Immature Granulocytes # (auto) 0.11 K/uL (0.01-0.20); Immature Granulocytes % (auto) 0.7 %; Lymphocytes # (auto) 0.98 K/uL (1.20-3.40); Lymphocytes % (auto) 5.9 %; Mean Corpuscular Volume 90.9 fL (80.0-100.0); Mean Platelet Volume 12.3 fL (9.4-12.4); Monocytes # (auto) 0.89 K/uL (0.11-0.59); Monocytes % (auto) 5.4 %; Neutrophils # (auto) 14.45 K/uL (1.40-6.50); Neutrophils % (auto) 87.3 %; Nucleated RBC # (auto) 0.19 K/uL (0.00-0.12); Nucleated RBC % (auto) 1.1 %; Platelet Count 125 K/uL (130-400); RDW Coefficient of Variation 14.6 % (11.5-14.5); RDW Standard Deviation 47.8 fL (36.4-46.3); Red Blood Count 4.86 M/uL (4.20-5.40); White Blood Count 16.54 K/ul (4.8-10.8)
[2023-03-18] MEDS: DOPamine / D5W 400 MG/250 ML BAG IV SCH (04:18)
[2023-03-18 04:31] LABS: BUN Creatinine Ratio 12.5 (10-20); Calcium 7.6 mg/dl (8.6-10.3); Creatinine Clr Calc Pharmacy 12.6 ml/min; Est GFR (Non-African American) 12.1 ml/min; Magnesium 1.7 mg/dl (1.7-2.4); Phosphorus 6.8 mg/dl (2.5-4.9)
[2023-03-18] MEDS: HEPARIN SODIUM/DEXTROSE 25,000 UNITS/500 ML BAG IV SCH (05:05)
[2023-03-18] MEDS: propofoL 1,000 MG/100 ML VIAL IV SCH (05:47)
[2023-03-18] MEDS: LEVOTHYROXINE SODIUM 100 MCG TABLET PO SCH (05:53)
--- NOTE | 2023-03-18 07:37 | XRay Report ---
XR chest 1V portable HISTORY: Respiratory failure. COMPARISON: Chest 03/17/2023. FINDINGS: Endotracheal tube terminates 6 mm from the myah and is coursing towards the right mainste m bronchus. This should be pulled back by approximately 2 cm. No pneumothorax. The heart is enlarged. Perihilar patchy airspace opacities and interstitial thickening has progressed. This is favours wors ening pulmonary edema. Small bilateral pleural effusions and right basilar densities have also progre ssed. A right subclavian central venous catheter terminus at the SVC. A nasogastric tube terminates b elow the diaphragm. There is a left-sided pacemaker/defibrillator again noted. IMPRESSION: 1. Endotracheal tube terminates 6 mm from the myah and is coursing towards the right mainstem bronc hus. This should be pulled back by approximately 2 cm. 2. Worsening pulmonary edema. 3. Small bilateral pleural effusions and right basilar densities have also slightly progressed. This may represent a pneumonia and could be due to aspiration. 4. This report was called/faxed to the ordering physician following dictation. ACT 112: Negative or not required by law. Electronically signed by: Louis Bui M.D. 03/18/2023 7:36 AM
[2023-03-18 08:04] LABS: ANTI-Xa, UFH(UnfractionatedHep 0.48 IU/ml (0.3-0.7); Prothrombin Time 20.9 Seconds (9.0-12.0)
[2023-03-18 08:06] LABS: Albumin Level 2.8 gm/dl (3.4-5.0); Alkaline Phosphatase 128 U/L (34-104); Bilirubin Direct 3.4 mg/dl (0-0.2); Bilirubin,Total 5.4 mg/dl (0.2-1.0); Total Protein 4.7 gm/dl (6.0-8.3)
[2023-03-18 08:26] LABS: Alanine Aminotransferase > 2500 U/L (7-52); Aspartate Aminotransferase 1387 U/L (13-39)
[2023-03-18] MEDS ORDERED: ASPIRIN 81 MG CHEW PO SCH (09:00)
[2023-03-18] MEDS ORDERED: MoRPHine BOLUS from BAG IV PRN (09:48)
[2023-03-18] MEDS ORDERED: LORazepam 0.5 MG TAB PO PRN (09:48)
[2023-03-18] MEDS ORDERED: GLYCOPYRROLATE 0.2 MG/ML VIAL IV PRN (09:48)
[2023-03-18] MEDS ORDERED: ONDANSETRON INJ 2 MG/ML 2 ML VIAL IV PRN (09:48)
[2023-03-18] MEDS ORDERED: STAT IV Infusion **Titration per Protocol STA (09:48)
[2023-03-18] MEDS ORDERED: LORazepam 0.5 MG in SYRINGE 0.25 ML IV PRN (09:48)
[2023-03-18] MEDS ORDERED: ONDANSETRON 4 MG OD TAB SL PRN (09:48)
--- NOTE | 2023-03-18 09:51 | Critical Care Progress Note ---
Date of Service March 18, 2023 Assessment & Plan (1) Complete heart block: (2) Acute pulmonary edema: (3) Cardiogenic shock: (4) Acidosis: (5) Hyperkalemia: Plan Impression: 77-year-old female with severe ischemic cardiomyopathy (ejection fraction less than 20%) and severe MR now with third-degree heart block. Her pacemaker is currently V pacing at a rate of 90 but the loss of atrial kick has resulted in significant hypotension. She is also hypoxemic with chest x-ray demonstrating pulmonary edema and has a profound metabolic acidosis, likely due to hypoperfusion. 24-hour events: Patient remains an uric. Only 15 to 20 cc of urine overnight. Creatinine is increased. Had increased vasopressor requirements overnight. Multiple discussions with the family members. Recommendations: Extensive discussions with family members and cardiology at bedside. The patient has progressed to an uric renal failure with cardiorenal syndrome. She also has shock liver with hyperammonia. Her pressor requirements are increasing and we have not seen any significant improvement in her cardiovascular status. I discussions with family members at bedside and advised at this point in time we could consider nephrology consultation for renal replacement therapy however this would likely necessitate CVVH which is not available at our institution and would require the patient being transferred to an outside facility. The family asked multiple insightful questions regarding prognosis and what dialysis would offer. They understand the severity of her illness and that renal replacement would only be temporizing measure and not likely to change her overall cardiovascular status. The family is uniformly in agreement that if the patient were able to express her own wishes, she would not want to continue with life- sustaining therapies. They ask questions regarding what transition to comfort measures would look like. I presented options to them and discussed what that would look like clinically. After careful consideration, the family is in universal agreement that if the patient were able to make her own decisions, she would like to pursue comfort measures and forego additional life support at this point in time acknowledging that she will likely pass away in relatively short order. Comfort measures will be initiated. Will start a morphine drip and use Ativan on an as-needed basis. Discontinue pressors. Terminal extubation. Anticipate rapid decline and . . Total of 50 minutes of critical care time exclusive of procedures spent in evaluation management stabilization of this patient including end-of-life discussions.. Admission and Anticipated Discharge Date Admission Date: March 14, 2023 Subjective Patient seen and examined. EMR reviewed. Discussed on multidisciplinary rounds and with bedside critical care nurse as well as with cardiology. Patient remains intubated and sedated. Review of Systems Review of Systems: Unobtainable due to endotracheal tube Physical Exam Physical Exam: Intubated and sedated Constitutional: + acute distress, + ill appearing and + mechanically ventilated Neck: trachea midline, no thyromegaly Respiratory: + respiratory distress, + labored breath ing, + retractions and + tachypneic; + not able to speak in complete sentence Auscultation: + crackles Cardiovascular: Heart Sounds: normal S1, normal S2 and + murmur Extremities: + edema; + abnormal capillary refill Gastrointestinal (Abdomen): normal bowel sounds, soft, nontender, no hepatosplenomegaly Musculoskeletal: Extremities: extremities normal to inspection Skin: no rashes, warm and dry Lymphatic: no cervical lymphadenopathy Results & Data Results & Data Vital Signs (Past 12 Hours) Vital Signs Pulse Resp BP Pulse Ox O2 Del Method O2 Flow Rate FiO2 03/18/23 09:00 30 03/18/23 08:00 Mechanical Vent 30 03/18/23 08:00 89 03/18/23 07:43 89 17 93 30 03/18/23 06:30 90 20 93 03/18/23 06:00 89/55 L 03/18/23 06:00 89 21 94 03/18/23 05:30 90 17 95 03/18/23 05:00 89 18 94 03/18/23 04:30 89 21 94 03/18/23 04:15 89 19 95 30 03/18/23 04:00 89/52 L 03/18/23 04:00 89 21 95 03/18/23 03:30 89 19 96 03/18/23 03:00 90 20 95 03/18/23 02:30 90 19 95 03/18/23 02:00 89 18 95 03/18/23 02:00 96/57 L 03/18/23 01:30 89 21 93 03/18/23 01:00 90 18 92 03/18/23 00:30 89 20 95 03/18/23 00:00 90 19 94 03/18/23 00:00 91/55 L 03/17/23 23:30 89 20 95 03/17/23 23:14 89 18 96 30 03/17/23 23:00 89 17 95 03/17/23 22:30 89 23 95 03/17/23 22:00 90 19 96 03/17/23 22:00 96/49 L Critical Care Results & Data Vital Signs (Past 12 Hours) Vital Signs Pulse Resp BP Pulse Ox O2 Del Method O2 Flow Rate FiO2 03/18/23 09:00 30 03/18/23 08:00 Mechanical Vent 30 03/18/23 08:00 89 03/18/23 07:43 89 17 93 30 03/18/23 06:30 90 20 93 03/18/23 06:00 89/55 L 03/18/23 06:00 89 21 94 03/18/23 05:30 90 17 95 03/18/23 05:00 89 18 94 03/18/23 04:30 89 21 94 03/18/23 04:15 89 19 95 30 03/18/23 04:00 89/52 L 03/18/23 04:00 89 21 95 03/18/23 03:30 89 19 96 03/18/23 03:00 90 20 95 03/18/23 02:30 90 19 95 03/18/23 02:00 89 18 95 03/18/23 02:00 96/57 L 03/18/23 01:30 89 21 93 03/18/23 01:00 90 18 92 03/18/23 00:30 89 20 95 03/18/23 00:00 90 19 94 03/18/23 00:00 91/55 L 03/17/23 23:30 89 20 95 03/17/23 23:14 89 18 96 30 03/17/23 23:00 89 17 95 03/17/23 22:30 89 23 95 03/17/23 22:00 90 19 96 03/17/23 22:00 96/49 L Lab & Micro Results (Past 24 Hours) RBC 4.86 M/uL (4.20-5.40) 03/18/23 WBC 16.54 K/ul (4.8-10.8) H 03/18/23 Hgb 14.6 g/dl (12.0-16.0) 03/18/23 Hct 44.2 % (37.0-47.0) 03/18/23 MCV 90.9 fL (80.0-100.0) 03/18/23 MCH 30.0 pg (25.0-34.0) 03/18/23 MCHC 33.0 g/dL (32.0-36.0) 03/18/23 RDW Standard Deviation 47.8 fL (36.4-46.3) H 03/18/23 RDW Coefficient of Variation 14.6 % (11.5-14.5) H 03/18/23 Plt Count 125 K/uL (130-400) L 03/18/23 MPV 12.3 fL (9.4-12.4) 03/18/23 Nucleated Red Blood Cells % (auto) 1.1 % 03/18 Nucleated RBC Absolute Count (auto) 0.19 K/uL (0.00-0.12) H 03/18/23 Neutrophils (%) (Auto) 87.3 % 03/18/23 Lymphocytes (%) (Auto) 5.9 % 03/18/23 Monocytes # (Auto) 0.89 K/uL (0.11-0.59) H 03/18/23 Eosinophils # (Auto) 0.03 K/uL (0.00-0.50) 03/18/23 Immature Granulocyte % (Auto) 0.7 % 03/18/23 Neutrophils # (Auto) 14.45 K/uL (1.40-6.50) H 03/18/23 Lymphocytes # (Auto) 0.98 K/uL (1.20-3.40) L 03/18/23 Monocytes # (Auto) 0.89 K/uL (0.11-0.59) H 03/18/23 Eosinophils # (Auto) 0.03 K/uL (0.00-0.50) 03/18/23 Basophils # (Auto) 0.08 K/uL (0.00-0.20) 03/18/23 Immature Granulocyte # (Auto) 0.11 K/uL (0.01-0.20) 4 Na 130 mmol/L (136-145) L 03/18/23 K 4.0 mmol/L (3.5-5.1) 03/18/23 Cl 91 mmol/L (98-107) L 03/18/23 CO2 22 mmol/L (21-32) 03/18/23 Anion Gap 17 (3-11) H 03/18/23 BUN 43 mg/dl (6-23) H 03/18/23 Creatinine 3.43 mg/dl (0.6-1.2) H 03/18/23 Estimated GFR ( Amer) 14.0 ml/min 03/18/23 Estimated GFR (Non-Af Amer) 12.1 ml/min 03/18/23 BUN/Creatinine Ratio 12.5 (10-20) 03/18/23 Glu 157 mg/dl (70-99(Fasting)) H 03/18/23 Ca 7.6 mg/dl (8.6-10.3) L 03/18/23 Phosphorus Level 6.8 mg/dl (2.5-4.9) H 03/18/23 Total Bilirubin 5.4 mg/dl (0.2-1.0) H 03/18/23 Direct Bilirubin 3.4 mg/dl (0-0.2) H 03/18/23 AST 1387 U/L (13-39) H 03/18/23 ALT > 2500 U/L (7-52) H 03/18/23 Alkaline Phosphatase 128 U/L (34-104) H 03/18/23 TP 4.7 gm/dl (6.0-8.3) L 03/18/23 Albumin 2.8 gm/dl (3.4-5.0) L 03/18/23 Mg 1.7 mg/dl (1.7-2.4) 03/18/23 03:47 Calcium Level 7.6 mg/dl (8.6-10.3) L 03/18/23 03:47 Ionized Calcium 0.97 mmol/L (1.12-1.32) L 03/17/23 17:20 Prothromb Time International Ratio 2.0 (0.9-1.1) H 03/18/23 07 :10 Benito Test NA 03/18/23 03:43 Microbiology 03/17/23 04:43 Aerobic Blood Culture - Preliminary Blood No growth in Aerobic bottle after 24 hours. Anaerobic Blood Culture - Preliminary No growth in Anaerobic bottle after 24 hours. 03/17/23 04:35 Aerobic Blood Culture - Preliminary Blood No growth in Aerobic bottle after 24 hours. Anaerobic Blood Culture - Preliminary No growth in Anaerobic bottle after 24 hours. 03/17/23 04:50 Gram Stain - Final Sputum,Vent Suction Diagnostic Findings (Past 24 Hours) Chest X-Ray 03/18/23 07:00 XR chest 1V portable HISTORY: Respiratory failure. COMPARISON: Chest 03/17/2023. FINDINGS: Endotracheal tube terminates 6 mm from the myah and is coursing towards the right mainstem bronchus. This should be pulled back by approximately 2 cm. No pneumothorax. The heart is enlarged. Perihilar patchy airspace op acities and interstitial thickening has progressed. This is favours worsening pulmonary edema. Small bilateral pleural effusions and right basilar densities have also progressed. A right subclavian central venous catheter terminus at the SVC. A nasogastric tube terminates below the diaphragm. There is a left-sided pacemaker/defibrillator again noted. IMPRESSION: 1. Endotracheal tube terminates 6 mm from the myah and is coursing towards the right mainstem bronchus. This should be pulled back by approximately 2 cm. 2. Worsening pulmonary edema. 3. Small bilateral pleural effusions and right basilar densities have also slightly progressed. This may represent a pneumonia and could be due to aspiration. 4. This report was called/faxed to the ordering physician following dictation. ACT 112: Negative or not required by law. Electronically signed by: Louis Bui M.D. 03/18/2023 7:36 AM I & O Totals 24 Hours 03/17/23 03/18/23 03/19/23 06:59 06:59 06:59 Intake Total 2427.893 / 2427.893 2945.178 / 2945.178 166.733 / 166.733 Output Total 165 / 165 71 / 71 Balance 2262.893 / 2262.893 2874.178 / 2874.178 166.733 / 166.733 Cumulative 03/14/23 17:33 thru 03/18/23 08:27 Intake Total 8089.804 Output Total 787 Balance 7302.804 RT Ventilator Mngmt (Last Documented) Ventilator Ordered Settings Ventilator Support Mode Assist Control 03/18/23 09:00 Respiratory Rate 17 03/18/23 07:43 Ventilator Tidal Volume 360 03/18/23 09:00 Setting Minute Ventilation 6 03/18/23 07:43 Positive End Expiratory 6 03/18/23 09:00 Pressure Fraction of Inspired Oxygen 30 03/18/23 09:00 Machine Comment RR decreased per abg results 03/16/23 23:38 Ventilator - PT Measurements Respiratory Rate 17 Exhaled Tidal Volume 357 Minute Ventilation 6 Peak Inspiratory Airway 18 Pressure Plateau Pressure 17 Respiratory Cycle Inspiratory: 1:1.5 Expiratory Ratio Inspiratory Phase Time 1.0 End-Tidal CO2 30 Static Lung Compliance 31.82 Dynamic Lung Compliance 29.75 Normal Static Lung Compliance 47.00 Patient Measurements Comment Tube pulled back 2cm per Dr. Hanna at this time. RN aware. Coding Level of Care Code 07827 CRITICAL CARE 1ST 30-74M Diagnoses Complete heart block I44.2 Acute pulmonary edema J81.0 Cardiogenic shock R57.0 Acidosis E87.20 Hyperkalemia E87.5
[2023-03-18] MEDS ORDERED: MoRPHine SULF/NSS 100 MG/100 ML BAG IV SCH (10:00)
--- NOTE | 2023-03-18 10:05 | Cardiology Progress Note ---
Date of Service March 18, 2023 Assessment & Plan (1) Complete heart block: (2) Cardiogenic shock: (3) Ischemic cardiomyopathy: Plan Assessment: 77 year old female for longstanding history of coronary heart disease, ischemic cardiomyopathy, infarction initially occurred in 2000. Chronic severe left ventricular systolic dysfunction, LVEF in the range of 20- 25% on a chronic basis Status post remote single-chamber AICD placed for primary prevention of sudden cardiac in the setting of ischemic cardiomyopathy and severe left ventricular systolic dysfunction circa 2005 with generator change in 2015. At that time the original right ventricular pacemaker/defibrillation lead was functioning appropriately. This was followed by lead failure in 2017 prompting placement of a new ventricular lead. Patient without past indication for right atrial pacing and therefore had a single-chamber device. Patient has developed multisystem organ failure with cardiogenic shock, cardiorenal syndrome, shock liver, ventilator dependent respiratory failure. Plan: * Multiorgan failure persists despite supportive care including high-dose dopamine and epinephrine infusions, ventilator support. Pacemaker support for heart rate. * Family meeting held 03/17/2023 and patient's CODE STATUS changed per family request to DO NOT RESUSCITATE. ICD therapy for ventricular arrhythmias deactivated 03/17/2023 in keeping with patient/family wishes. * With ongoing worsening clinical condition, patient's family has elected to withdraw care. Rocky Grover, DO Admission and Anticipated Discharge Date Admission Date: March 14, 2023 Subjective Mrs Brian is seen in cardiology follow up. Her two sons and daughter are at the bedside. Patient remains dependent on dopamine and epinephrine to maintain blood pressure. She is currently ventricular paced at 90 bpm. Urine output has been minimal, creatinine increased to 3.43 this morning with noted increase in lacta te level to 2.3 mmol/L. Physical Exam Constitutional: well developed and + ill appearing Eyes: PERRL, conjunctivae normal, anicteric sclerae ENMT: Mouth: + edentulous Respiratory: + labored breathing Auscultation: + d iminished lung sounds (Mildly decreased breath sounds at the bases) Cardiovascular: Rate/Rhythm: regular rhythm Heart Sounds: + murmur (1/6 systolic murmur) Extremities: no edema Chest (Breasts): Chest: + pacemaker Neurologic: PERRL, EOMI, accommodation nl, no face palsy, no dysarthria Results & Data Vital Signs (Past 12 Hours) Vital Signs Pulse Resp BP Pulse Ox O2 Del Method O2 Flow Rate FiO2 03/18/23 09:00 30 03/18/23 08:00 Mechanical Vent 30 03/18/23 08:00 89 03/18/23 07:43 89 17 93 30 03/18/23 06:30 90 20 93 03/18/23 06:00 89/55 L 03/18/23 06:00 89 21 94 03/18/23 05:30 90 17 95 03/18/23 05:00 89 18 94 03/18/23 04:30 89 21 94 03/18/23 04:15 89 19 95 30 03/18/23 04:00 89/52 L 03/18/23 04:00 89 21 95 03/18/23 03:30 89 19 96 03/18/23 03:00 90 20 95 03/18/23 02:30 90 19 95 03/18/23 02:00 89 18 95 03/18/23 02:00 96/57 L 03/18/23 01:30 89 21 93 03/18/23 01:00 90 18 92 03/18/23 00:30 89 20 95 03/18/23 00:00 90 19 94 03/18/23 00:00 91/55 L 03/17/23 23:30 89 20 95 03/17/23 23:14 89 18 96 30 03/17/23 23:00 89 17 95 03/17/23 22:30 89 23 95 03/17/23 22:00 90 19 96 03/17/23 22:00 96/49 L Laboratory Results Cardiac Enzymes 03/17/23 03/18/23 Range/Units 10:34 07:31 AST 1387 H (13-39) U/L Troponin I High Sens 262.8 H* D (0-14) pg/ml Coagulation 03/18/23 Range/Units 07:10 PT 20.9 H (9.0-12.0) Seconds CBC 03/18/23 Range/Units 03:47 WBC 16.54 H (4.8-10.8) K/ul RBC 4.86 (4.20-5.40) M/uL Hgb 14.6 (12.0-16.0) g/dl Hct 44.2 (37.0-47.0) % Plt Count 125 L (130-400) K/uL Neut # (Auto) 14.45 H (1.40-6.50) K/uL Lymph # (Auto) 0.98 L (1.20-3.40) K/uL [place] # (Auto) 0.89 H (0.11-0.59) K/uL Eos # (Auto) 0.03 (0.00-0.50) K/uL Baso # (Auto) 0.08 (0.00-0.20) K/uL Comprehensive Metabolic Panel 03/17/23 03/18/23 03/18/23 Range/Units 17:20 03:47 07:31 Sodium 133 L 130 L (136-145) mmol/L Potassium 4.1 4.0 (3.5-5.1) mmol/L Chloride 94 L 91 L (98-107) mmol/L Carbon Dioxide 25 22 (21-32) mmol/L BUN 39 H 43 H (6-23) mg/dl Creatinine 2.92 H D 3.43 H D (0.6-1.2) mg/dl Glucose 127 H 157 H (70-99(Fasting)) mg/dl Calcium 8.0 L 7.6 L (8.6-10.3) mg/dl Direct Bilirubin 3.4 H (0-0.2) mg/dl AST 1387 H (13-39) U/L ALT > 2500 H (7-52) U/L Alkaline Phosphatase 128 H (34-104) U/L Total Protein 4.7 L (6.0-8.3) gm/dl Albumin 2.8 L (3.4-5.0) gm/dl Intake and Output 03/17/23 03/18/23 03/18/23 22:59 06:59 14:59 Intake Total 1184.060 / 2945.178 693.48 / 2945.178 166.733 / 166.733 Output Total Balance 1153.060 / 2874.178 678.48 / 2874.178 166.733 / 166.733 Intake: IV 1024.060 / 2785.178 693.48 / 2785.178 166.733 / 166.733 DOPamine / D5W 400 mg In 250 ml 500.00 / 839.758 250 / 839.758 @ 15 MCG/KG/MIN 41.4 mls/hr IV .Q6H3M ANDRIY Rx#:[id number] EPINEPHrine/NSS 4 mg In 254 ml 185.967 / 257.367 71.4 / 257.367 99.4 / 99.4 @ 0.02 MCG/KG/MIN 5.608 mls/hr IV .Q24H ANDRIY Rx#:[id number] Heparin Sodium/Dextrose 25,000 248.333 / 428.333 180 / 428.333 67.333 / 67.333 units In 500 ml @ 1,000 UNITS/ HR 20 mls/hr IV .Q24H ANDRIY Rx#: [id number] Piperacillin/Tazobactam 4.5 gm 100 / 100 In Dextrose 5% Mini-B 100 ml @ 25 mls/hr IV Q12H ANDRIY Rx#: [id number] propofoL 1,000 mg In 100 ml @ 89.76 / 259.72 92.08 / 259.72 20 MCG/KG/MIN 8.832 mls/hr IV . [id number] ANDRIY Rx#:[id number] Oral 0 / 0 Tube Feeding 100 / 100 Tube Irrigant 60 / 60 Output: Urine 0 / 0 Urine Amount (Catheter) El/Indwelling # Bowel Movements / Other: Other Intake Source Patient is NPO # Unmeasured Voids 1
[2023-03-18] MEDS: PANTOprazole 40 MG in SYRINGE 0 ML IV SCH (11:25)
[2023-03-18] MEDS: ASPIRIN 81 MG CHEW PO SCH (11:25)
[2023-03-18] MEDS: DOCUSATE SODIUM SYRUP 100 MG/10 ML UDC PO SCH (11:25)
[2023-03-18] MEDS: EZETIMIBE 10 MG TAB PO SCH (11:26)
--- NOTE | 2023-03-18 13:00 | Communication Note ---
Date of Service: March 18, 2023 Patient extubated, infusions discontinued. Comfort measures only. The basal rate of her AICD has been reduced to 30 bpm. Family at bedside.
--- NOTE | 2023-03-18 15:26 | Discharge Summary ---
Date of Service March 18, 2023 Admission HPI Per Admitting Provider Carly is a 77 year old female with a PMH significant for CAD S/P apical SC in 2001 ,ischemic cardiomyopathy (LVEF of 20-24% as of 02/03/23), hyperlipidemia, urinary incontinence, hypertension, and hypothyroidism who presented to the [facility] ED via EMS on 03/14/23 with a chief complaint of generalized weakness. On EMS arrival they noted her to be in new-onset afib RVR with HR in the 170-180s but otherwise stable. She was given 10 mg IV Cardizem by EMS in route. On arrival to the ED she was noted to be tachycardic with HR in the low 100s-140s, with soft BP of 93/64 but otherwise stable. Labs were sign ificant for a BUN of 27, bicarb of 20, INR of 1.1 with AST of 109, ALT of 164, alk phos of 107, initial high sen trop of 50. CXR was read as 1. Cardiomegaly and mild pulmonary edema. 2. Faint bilateral lower lung airspace opacities may represent atelectasis, pneumonia, and/or aspiration. 3. Small bilateral pleural effusions.". The patient was given a total of 250 mcg IV Digoxin and a dose of Vancomycin in the ED without improvement in her HR or rhythm. At the time of the exam the patient was sitting in bed in no acute distress, currently hemodynamically stable with HR in the 130-140's. She states that over the past 48 hours she has been experiencing progressive generalized weakness and SOB with exertion. She was diagnosed with RSV on 02/09 and thought she had recovered. She has been taking her home medications as prescribed and denies recent fever, chills, chest pain, cough, hemoptysis, abd pain, nausea, vomiting, diarrhea, dysuria, hematuria, melena, and recent trauma. She denies tobacco or alcohol use. She has not been using Tylenol or NSAID's recently. The only recent medication change she has had recently is starting Sertraline. Please refer to Dr. Younger's attestation for any changes to the treatment plan Discharge Data Allergies Allergy/AdvReac Type Severity Reaction Status Date / Time No Known Allergies Allergy Verified 03/14/23 20:36 Consultations 03/14/23 19:43 ED Decision to Admit Stat 03/14/23 21:03 Consult Cardiology Routine 03/15/23 10:51 Consult Anesthesiology Routine 03/16/23 12:22 Consult Train Reservation Clerk Stat Procedures Performed Operation Date: 03/16/23 07:30 Actual Procedures p Echo Transesophageal - Raimundo Grover DO s Cardioversion - Raimundo Grover DO Ordered Studies 03/14/23 20:19 CT abd pelvis IV con only Stat CT angio chest PE protocol Stat 03/17/23 01:07 CT head/brain wo con Stat Hospital Course (1) Cardiogenic shock: remains on dopamine & epinephrine infusions defer management to ICU & cardiology teams even with the above drips her BPs remain borderline with ongoing lactic acidosis (2) Complete heart block: following LIZ cardioversion for rapid a.fib she converted to NSR then complete heart block with inadequate pacing (HRs 30s) following these events she developed profound shock requiring ICU transfer Dr Grover following pacer adjusted to allow pacing at 90 BPM all AV roxanne agents on hold/stopped (3) Elevated troponin: 2nd myocardial demand ischemia in setting of rapid a.fib, shock, etc. (4) Pneumonia: question of +fevers overnight started on zosyn blood cx's pending (5) Atrial fibrillation with RVR: present on admission s/p LIZ cardioversion see above remains on heparin infusion (6) CAD (coronary artery disease): prior h/o SC known ischemic cardiomyopathy cont asa cont zetia BB on hold due to shock statin on hold due to shock liver (7) Ischemic cardiomyopathy: EF 20-25% in 01/2023 EF now <20% this admission ongoing cardiogenic shock requiring pressors as above (8) Hypothyroid: (9) Hx of myocardial infarction: (10) ICD (implantable cardioverter-defibrillator) in place: ICD has been deactivated as pt's code status is now DNR remains pacing at 90 BPM (11) History of right breast cancer: (12) ATN (acute tubular necrosis): 2nd to cardiogenic shock continues to worsen with severe oliguria serial BMPs (13) Shock liver: 2nd to profound cardiogenic shock statin on hold (14) Lactic acidosis: 2nd to cardiogenic shock (15) Acute on chronic systolic heart failure: as above defer management to ICU/cardiology Plan prognosis is very poor Dr Hanna to speak with pt's family in am and if ongoing worsening of renal function, etc Dr Hanna to likely recommend transition to comfort care measures Discharge Plan Discharge Items Reason For Visit: AFIB RVR, RLL PNEUMONIA Follow-up/Referrals: Gin Knight, MONIKA [Primary Care Provider] - Medications and DC Order Prescriptions: No Action carvedilol 6.25 mg tablet 6.25 mg PO BID Jardiance 10 mg tablet 10 mg PO QAM Patient Comments: takes for heart not diabetes Entresto 24-26 mg tablet 0.5 - 1 tab PO BID Rx Instructions: 1 tab in the am, 1/2 tab in the evening mirtazapine 15 mg tablet 15 mg PO HS Qty: 90 3RF Rx Instructions: 15 mg orally at Bedtime; sertraline 25 mg tablet 25 mg PO QAM rosuvastatin 40 mg tablet 40 mg PO QAM ezetimibe 10 mg tablet 10 mg PO QAM multivitamin Tablet 1 tab PO QAM furosemide 40 mg tablet 40 mg PO QAM aspirin [Ecotrin Low Strength] 81 mg tablet,delayed release (DR/EC) 81 mg PO QAM spironolactone 25 mg tablet 25 mg PO QAM levothyroxine 100 mcg tablet 100 mcg PO QAM cholecalciferol (vitamin D3) 1,000 unit capsule 2,000 units PO QAM famotidine 20 mg tablet 10 mg PO DAILY Admission Data Admit Date/Time: 03/14/23 20:29 Attending Provider: Caio Cano Admit Provider: Ian Younger Primary Care Provider: Gin Knight Other Providers: [facility]; Ian Younger; Raimundo Grover; Saad Soto; aDrron Hanna Coding Diagnoses Cardiogenic shock R57.0 Complete heart block I44.2 Elevated troponin R79.89 Pneumonia of lower lobe due to infectious organism, unspecified laterality J18.9 Pneumonia type: due to unspecified organism Laterality: unspecified laterality Lung location: lower lobe of lung Atrial fibrillation with RVR I48.91 CAD (coronary artery disease) I25.10 Associated angina: without angina Coronary Disease-Associated Artery/Lesion type: [place] artery [place] vs. transplanted heart: [place] heart Ischemic cardiomyopathy I25.5 Hypothyroid E03.9 Hx of myocardial infarction I25.2 ICD (implantable cardioverter-defibrillator) in place Z95.810 History of right breast cancer Z85.3 ATN (acute tubular necrosis) N17.0 Shock liver K72.00 Lactic acidosis E87.20 Acute on chronic systolic heart failure I50.23
--- NOTE | 2023-03-18 15:26 | Death Pronouncement Note ---
Date of Service March 18, 2023 Pronouncement Note Admission Date March 14, 2023 Date and Time of Date of : 03/18/23 Time of : 15:27 Preliminary Cause of (1) Cardiogenic shock: (2) Complete heart block: (3) Ischemic cardiomyopathy: (4) CAD (coronary artery disease): Associated angina: without angina Coronary Disease-Associated Artery/Lesion type: [place] artery [place] vs. 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 transplanted heart: [place] heart
== END 2023-03-18 16:56 | disposition expired | DRG 308 ==
LOC: ED 17:51 → SUATTDRO 20:29 → 4W 20:29 → 1E 03-16 12:52
DX: I25.10 Atherosclerotic heart disease of native coronary artery without angina pectoris; I24.89 Other forms of acute ischemic heart disease; J81.0 Acute pulmonary edema; Z85.3 Personal history of malignant neoplasm of breast; I50.23 Acute on chronic systolic (congestive) heart failure; R57.0 Cardiogenic shock; Z51.5 Encounter for palliative care; Z95.810 Presence of automatic (implantable) cardiac defibrillator; I48.91 Unspecified atrial fibrillation; Z66 Do not resuscitate; N17.0 Acute kidney failure with tubular necrosis; J96.91 Respiratory failure, unspecified with hypoxia; I25.2 Old myocardial infarction; E03.9 Hypothyroidism, unspecified; E78.5 Hyperlipidemia, unspecified; Z79.890 Hormone replacement therapy; E87.20 Acidosis, unspecified; Z79.899 Other long term (current) drug therapy; K72.00 Acute and subacute hepatic failure without coma; I44.2 Atrioventricular block, complete; I11.0 Hypertensive heart disease with heart failure; I25.5 Ischemic cardiomyopathy